=== PATIENT | male | born 1955 ===

== ENCOUNTER → 2021-05-22 | Outpatient (CLI) | payer MEDICARE, BC ==
--- NOTE | 2021-05-22 10:56 | XR ---
EXAM TYPE: LUMBAR SPINE X RAY SERIES COMPARISON: NONE HISTORY: Pain TECHNIQUE: 4 views are submitted. FINDINGS: Alignment is anatomic. The pedicles are intact. The transverse processes are intact. There is north re degenerative disc disease L5-S1. There is severe facet arthropathy L4-5 and L5-S1 with grade 1 ant erolisthesis L4 on L5. Mild diffuse osteopenia with curvature of the spine. Multilevel mild degenerat sharon disc disease. IMPRESSION: 1. Severe degenerative disc disease L5-S1. Suspect bilateral foraminal encroachment. 2. Severe facet arthropathy L4-5 and L5-S1 with grade 1 anterolisthesis L4 on L5.
== END | disposition home or self-care (01) ==
LOC: RADXRYALE 10:25
PROVIDERS: ATTEND Family Medicine
DX: M51.37 Other intervertebral disc degeneration, lumbosacral region (principal); M47.817 Spondylosis without myelopathy or radiculopathy, lumbosacral region; M43.16 Spondylolisthesis, lumbar region
CPT/HCPCS: 72110

== ENCOUNTER → 2021-07-10 | Outpatient (CLI) | payer MEDICARE, BC ==
--- NOTE | 2021-07-10 16:26 | MR ---
EXAMINATION TYPE: MR lumbar spine wo con DATE OF EXAM: 07/10/2021 COMPARISON: Plain film 05/22/2021 HISTORY: M54.5 Low back pain M51.36 Disc Degeneration TECHNIQUE: Multiplanar, multisequence images of the lumbar spine were acquired without IV contrast. L1-L2: Normal disc appearance without desiccation. No herniation, protrusion or disc bulging. No ca nal stenosis is present. Foramina are patent bilaterally. L2-L3: Posterior broad-based disc bulge causes minimal anterior mass effect on the thecal sac. No sig nificant foraminal encroachment. L3-L4: Posterior broad-based disc bulge causes mild anterior mass effect on the thecal sac. There is facet arthropathy with perching of the ligamentum flavum. Circumference and extension) complex encroa ches somewhat on the inferior aspect of the foramen on the right. L4-L5: There is marked facet arthropathy with hypertrophy ligamentum flavum. Posterolateral mass effe ct is noted on the thecal sac. There is circumferential extension of disc material, listhesis contrib utes causing foraminal encroachment. Posterior disc bulge effaces the anterior thecal sac. L5-S1: There are facet arthropathy changes. Posterior extension) complex is somewhat eccentric toward s the left, correlate for left S1 radiculopathy, air is mass effect on the left S1 nerve root with ci rcumferential extension) complex encroaches upon the foramina bilaterally left greater than right. Lumbar segments are intact. No paraspinal masses are identified. Conus medullaris has a normal appe arance. There is multilevel spondylosis present, loss of disc height and signal is greatest at L5-S1 but also present L3-4, endplate discogenic marrow signal changes are present. There is an anterolisth esis grade 1 L4-5, retrolisthesis grade 1 L5-S1. No significant spinal stenosis. IMPRESSION: Generative disc disease, facet arthropathy, foraminal encroachment as described.
== END | disposition home or self-care (01) ==
LOC: RADMRIMAIN 15:35
PROVIDERS: ATTEND Family Medicine
DX: M47.817 Spondylosis without myelopathy or radiculopathy, lumbosacral region (principal); M51.26 Other intervertebral disc displacement, lumbar region; M51.36 Other intervertebral disc degeneration, lumbar region
CPT/HCPCS: 72148

== ENCOUNTER → 2021-08-06 | Outpatient (CLI) | payer MEDICARE, BC ==
--- NOTE | 2021-08-06 12:04 | XR ---
Cervical spine HISTORY: M542,R202 CERVICALGIA,PARESTHESIA OF SKIN 5 views cervical spine Cervical vertebral bodies show preserved height. There is retrolisthesis grade 1 C5-6 with associated loss of disc height, spondylosis. Some facet arthropathy changes present. Foraminal encroachment is present on the right at C5-6 and C6-7 on the left same levels. Head is tilted toward the right. Bone mineralization is maintained. C7-T1 is not seen on the lateral view. Prevertebral soft tissues are wi thin normal limits. IMPRESSION: Degenerative disc disease, facet arthropathy.
== END | disposition home or self-care (01) ==
LOC: RADXRYALE 10:59
PROVIDERS: ATTEND Family Medicine
DX: M50.30 Other cervical disc degeneration, unspecified cervical region (principal); M43.12 Spondylolisthesis, cervical region; M47.812 Spondylosis without myelopathy or radiculopathy, cervical region
CPT/HCPCS: 72050

== ENCOUNTER → 2021-08-08 | Outpatient (CLI) | payer MEDICARE, BC ==
--- NOTE | 2021-08-08 09:29 | P.PAINCN ---
History of Present Illness - Reason for Consult Consult date: 08/08/21 - History of Present Illness Sergio is a 65-year-old male presented to clinic today for initial evaluation of pain management. He reports it is been having long-term ongoing neck and back pain. Today he reports that his low back pain is worse with pain radiating down his left leg greater than right. Pain radiates all the way down to his calf. He reports his most recent pain has been going on for about a year. He desc ribes his pain as an achy pain with occasional sharp pain with certain movements. Pain is made worse with stepping down large heights and excessive sitting. Pain is made better with rest and stretching. He is currently using heat packs and a stretching regime for his low back pain. Has not had physical therapy would like to begin physical therapy. On average he rates his pain as 7 out of 10 on a 0-to-10 scale at worst his pain as 9 out of 10. Medications and Allergies Home Medications Medication Instructions Recorded Confirmed Type Simvastatin [Zocor] 40 mg PO HS 12/13/14 12/15/14 History Amoxicillin/Potassium Clav 1 each PO Q12HR #20 tab 12/15/14 Rx [Augmentin 875-125 Tablet] Hydrocodone/Acetaminophen [[place] 1 - 2 each PO Q6HR PRN #40 tab 12/15/14 Rx 5-325] predniSONE [Deltasone] 20 mg PO DIRECTED #15 tab 12/15/14 Rx Allergies Allergy/AdvReac Type Severity Reaction Status Date / Time No Known Allergies Allergy Verified 12/13/14 15:49 Physical Exam REVIEW OF ORGAN SYSTEMS: CONSTITUTIONAL: No fevers or chills. No recent weight loss. EYES: denies troubles with vision. HEENT: No difficulties with hearing. No nosebleeds. No difficulty swallowing. RESPIRATORY: Denies any troubles with breathing or dyspnea on exertion. CARDIOVASCULAR: Denies any chest pain, palpitations, or recent heart attacks. GASTROINTESTINAL: Denies fatty food intolerance. Has change in bowel habits and gas bloat. GENITOURINARY: Denies any blood in urine. Has increased urinary frequency. NEUROLOGICAL: + numbness and tingling along the distal extremities. No seizure disorders or headaches. MUSCULOSKELETAL: Has back pain. SKIN:no skin cancer. No rash. PSYCHIATRIC: Denies current depression or suicidal thoughts. ENDOCRINE: Denies current thyroid disorders. Denies any blood sugar glucose intolerance. HEME/LYMPHATIC: Denies any lumps and bumps around the neck. History of deep venous thrombosis. ALLERGY/IMMUNOLOGY: No immunoglobulin therapy. No immune deficiencies. BREAST: Denies current breast lumps, pain or nipple discharge. Physical Examinations : Constitutiona : Cooperative , not in acute distress . HEENT : nech : supple , no Lymphadenopathy , normal thyroid size . : eyes no ptosis , no icterus, no photophobia . : ENT normal of hearing , normal oropharynx , no Thrush . Respiratory : Chest clear to auscultations Bilaterally , no wheezing , no Rhonchi . Cardiovascula : regular rate and rhythem , S1 , S2 , no S3 , no S4. Gastrointestina : abdomen soft no tenderness , bowel sounds , no organomegally . Genitourinary : Defferred . neurologic : Cranial nerve II to XII intact , no focal neurological deffecit . psychatric : alert , oriented X 3 , appropriate affect , intact judgment and insight . Lymphatic : no Lymphadenopathy . musculoskeltal : Cervical Spine motor stregnth in the deltoid and biceps, normal right side , normal Left side motor stregnth biceps and the wrist extensors normal right side ,normal left side . motor stregnth in the triceps muscle . normal Right side , normal Left side deep tendon reflexes= normal at the biceps , normal at Brachioradialis , normal at triceps. cervical facet loading test: Positive Bilaterally Spurling test= positive bilaterally. Neck distraction test= positive bilaterally. Stacey sign= negative bilaterally Lumber spine moter stegnth lower extremities ,thigh and legs 5/5 Right side , 5/5 Left side deep tendon reflexes : normal Knee Jerk , normal ankle Jerk lumber facet Loading Test= positive Right , positive Left Range of motion of the lumbar spine Flexion 30 degrees, extension 10 degrees strait leg raising test , positive at 30 degree Fabere test= positive Right , and positive left . Sever tenderness over the Sacroiliac joint on the Right , and Left sides Gaenslen test= positive bilaterally. Seated flexion test= positive bilaterally. Assessment and Plan Assessment: Assessment and plan Assessment: Lumbar degenerative disc disease Lumbar spondylosis with facet arthropathy without myelopathy Lumbar radiculopathy Cervical degenerative disc disease Cervical spondylosis with facet arthropathy without myelopathy Cervical radiculopathy Plan: Patient could benefit from lumbar epidural straight injection at L5-S1 number 1 up to 3 In the future patient could benefit from cervical epidural straight injection at C7-T1 Begin physical therapy 2-3 times a week for 4 weeks to increase range of motion, core strength, and pain reduction. Dr. Bob was available by phone for consultation during his visit. I have spent 50 minutes on patient care today. The time was used to review the medical records including relevant urine studies and Prescription history (MAPs), review of the available imaging, evaluation and examination of the patient, coordination of care with the medical staff and if applicable referring physicians, as well as creation of the medical record. - PQRS measures = - Patient's medications are documented in the chart. -Tobacco use is negative -Patient's has not received pneumococcal vaccine. -Advanced care planning discussed, patient not eligible. -Opiate contract signed. -Pain positive and follow-up visit/procedure is scheduled. -Patient's blood pressure measured 130/77, and documented in the record ,and patient will follow up with the primary care. -Patient's weight was measured and body mass index within the normal limits and counseling was done. and patient instructed to follow-up with the primary care physician. -Patient was not identified as an unhealthy alcohol user Time with Patient: Greater than 30 PQRS Measure Charge Sheet Home Medications: Ambulatory Orders Simvastatin [Zocor] 40 mg PO HS 12/13/14 Amoxicillin/Potassium Clav [Augmentin 875-125 Tablet] 1 each PO Q12HR #20 tab 12/15/14 Hydrocodone/Acetaminophen [[place] 5-325] 1 - 2 each PO Q6HR PRN #40 tab 12/15/14 predniSONE [Deltasone] 20 mg PO DIRECTED #15 tab 12/15/14
--- NOTE | 2021-08-08 09:41 | MR ---
MRI CERVICAL SPINE: CLINICAL HISTORY: Cervicalgia, cervical disc degeneration C5-C6, cervical disc degeneration C6-C7, an d paresthesia of skin all per order. Numbness left arm and face per patient. TECHNIQUE: Multiplanar, multisequence imaging of the cervical spine is performed without IV contrast. COMPARISON: Cervical spine x-ray 2 days ago. FINDINGS: Sagittal images of the cervical spine show the craniocervical junction to appear within nor mal limits. The cervical and upper thoracic spinal cord is normal in caliber and signal. Redemonstra tion of grade 1 retrolisthesis C5 on C6 and to lesser degree C6 on C7. Persistent moderate disc space narrowing and mild to moderate spurring C5-C6 level. Vertebral body heights are maintained. The bone marrow signal intensity is within normal limits. Mild mucosal thickening in the visualized portions of sphenoid sinus sagittal image 6 near the midline noted. Axial images at C2-C3 level show broad-based left paracentral disc protrusion minimally effacing ante rior thecal sac. Patent bilateral neural foramina. Axial images at C3-C4 level show focal central disc protrusion minimally effacing anterior thecal sac , patent bilateral neural foramina. Axial images at C4-C5 level show focal central disc protrusion mildly facing anterior thecal sac, pat ent bilateral neural foramina. Axial images at C5-C6 level shows spondylolisthesis and broad-based posterior spur disc complex with more prominent left paracentral component axial image 32, there is effacement of anterior thecal sac up to the ventral surface of the spinal cord, there is moderate bilateral neural foraminal narrowing due to foraminal disc herniation component greater on the right seen best on sagittal image 10. Axial images at C6-C7 level show spondylolisthesis with broad-based posterior disc protrusion effacin g anterior thecal sac and causing severe bilateral neural foraminal narrowing on axial image 24 and s agittal images. Axial images at C7-T1 level appear within normal limits IMPRESSION: Multilevel degenerative changes greatest at C5-C6 and C6-C7 levels as detailed above.
== END | disposition home or self-care (01) ==
LOC: RADMRIMAIN 06:50
PROVIDERS: ATTEND Family Medicine
DX: M50.323 Other cervical disc degeneration at C6-C7 level (principal); M50.322 Other cervical disc degeneration at C5-C6 level
CPT/HCPCS: 72141

== ENCOUNTER → 2021-08-08 | Outpatient (CLI) | payer MEDICARE, BC ==
[2021-08-08 09:35] VITALS: BP 130/77; PULSE 62; RESP 18; TEMP 97.8
--- NOTE | 2021-08-14 11:02 | P.PAINCN ---
History of Present Illness - Reason for Consult Consult date: 08/08/21 - History of Present Illness Sergio is a 65-year-old male presented to clinic today for initial evaluation of pain management. He reports it is been having long-term ongoing neck and back pain. Today he reports that his low back pain is worse with pain radiating down his left leg greater than right. Pain radiates all the way down to his calf. He reports his most recent pain has been going on for about a year. He desc ribes his pain as an achy pain with occasional sharp pain with certain movements. Pain is made worse with stepping down large heights and excessive sitting. Pain is made better with rest and stretching. He is currently using heat packs and a stretching regime for his low back pain. Has not had physical therapy would like to begin physical therapy. On average he rates his pain as 7 out of 10 on a 0-to-10 scale at worst his pain as 9 out of 10. Medications and Allergies Home Medications Medication Instructions Recorded Confirmed Type Simvastatin [Zocor] 40 mg PO HS 12/13/14 08/08/21 History Allergies Allergy/AdvReac Type Severity Reaction Status Date / Time No Known Allergies Allergy Verified 12/13/14 15:49 Physical Exam REVIEW OF ORGAN SYSTEMS: CONSTITUTIONAL: No fevers or chills. No recent weight loss. EYES: denies troubles with vision. HEENT: No difficulties with hearing. No nosebleeds. No difficulty swallowing. RESPIRATORY: Denies any troubles with breathing or dyspnea on exertion. CARDIOVASCULAR: Denies any chest pain, palpitations, or recent heart attacks. GASTROINTESTINAL: Denies fatty food intolerance. Has change in bowel habits and gas bloat. GENITOURINARY: Denies any blood in urine. Has increased urinary frequency. NEUROLOGICAL: + numbness and tingling along the distal extremities. No seizure disorders or headaches. MUSCULOSKELETAL: Has back pain. SKIN:no skin cancer. No rash. PSYCHIATRIC: Denies current depression or suicidal thoughts. ENDOCRINE: Denies current thyroid disorders. Denies any blood sugar glucose intolerance. HEME/LYMPHATIC: Denies any lumps and bumps around the neck. History of deep venous thrombosis. ALLERGY/IMMUNOLOGY: No immunoglobulin therapy. No immune deficiencies. BREAST: Denies current breast lumps, pain or nipple discharge. Physical Examinations : Constitutiona : Cooperative , not in acute distress . HEENT : nech : supple , no Lymphadenopathy , normal thyroid size . : eyes no ptosis , no icterus, no photophobia . : ENT normal of hearing , normal oropharynx , no Thrush . Respiratory : Chest clear to auscultations Bilaterally , no wheezing , no Rhonchi . Cardiovascula : regular rate and rhythem , S1 , S2 , no S3 , no S4. Gastrointestina : abdomen soft no tenderness , bowel sounds , no organomegally . Genitourinary : Defferred . neurologic : Cranial nerve II to XII intact , no focal neurological deffecit . psychatric : alert , oriented X 3 , appropriate affect , intact judgment and insight . Lymphatic : no Lymphadenopathy . musculoskeltal : Cervical Spine motor stregnth in the deltoid and biceps, normal right side , normal Left side motor stregnth biceps and the wrist extensors normal right side ,normal left side . motor stregnth in the triceps muscle . normal Right side , normal Left side deep tendon reflexes= normal at the biceps , normal at Brachioradialis , normal at triceps. cervical facet loading test: Positive Bilaterally Spurling test= positive bilaterally. Neck distraction test= positive bilaterally. Stacey sign= negative bilaterally Lumber spine moter stegnth lower extremities ,thigh and legs 5/5 Right side , 5/5 Left side deep tendon reflexes : normal Knee Jerk , normal ankle Jerk lumber facet Loading Test= positive Right , positive Left Range of motion of the lumbar spine Flexion 30 degrees, extension 10 degrees strait leg raising test , positive at 30 degree Fabere test= positive Right , and positive left . Sever tenderness over the Sacroiliac joint on the Right , and Left sides Gaenslen test= positive bilaterally. Seated flexion test= positive bilaterally. Assessment and Plan Assessment: Assessment and plan Assessment: Lumbar degenerative disc disease Lumbar spondylosis with facet arthropathy without myelopathy Lumbar radiculopathy Cervical degenerative disc disease Cervical spondylosis with facet arthropathy without myelopathy Cervical radiculopathy Plan: Patient could benefit from lumbar epidural straight injection at L5-S1 number 1 up to 3 In the future patient could benefit from cervical epidural straight injection at C7-T1 Begin physical therapy 2-3 times a week for 4 weeks to increase range of motion, core strength, and pain reduction. Dr. Bob was available by phone for consultation during his visit. I have spent 50 minutes on patient care today. The time was used to review the medical records including relevant urine studies and Prescription history (MAPs), review of the available imaging, evaluation and examination of the erin ent, coordination of care with the medical staff and if applicable referring physicians, as well as creation of the medical record. - PQRS measures = - Patient's medications are documented in the chart. -Tobacco use is negative -Patient's has not received pneumococcal vaccine. -Advanced care planning discussed, patient not eligible. -Opiate contract signed. -Pain positive and follow-up visit/procedure is scheduled. -Patient's blood pressure measured 130/77, and documented in the record ,and patient will follow up with the primary care. -Patient's weight was measured and body mass index within the normal limits and counseling was done. and patient instructed to follow-up with the primary care physician. -Patient was not identified as an unhealthy alcohol user Time with Patient: Greater than 30 PQRS Measure Charge Sheet Home Medications: Ambulatory Orders Simvastatin [Zocor] 40 mg PO HS 12/13/14
== END ==
LOC: PNWHC3 08:39
PROVIDERS: ATTEND Student in an Organized Health Care Education/Training Program
DX: M47.26 Other spondylosis with radiculopathy, lumbar region (principal); M51.16 Intervertebral disc disorders with radiculopathy, lumbar region; M47.22 Other spondylosis with radiculopathy, cervical region; M50.10 Cervical disc disorder with radiculopathy, unspecified cervical region; Z87.891 Personal history of nicotine dependence
CPT/HCPCS: 99202

== ENCOUNTER → 2021-09-03 | Outpatient (CLI) | payer MEDICARE, BC ==
[2021-09-03 08:18] VITALS: BP 177/85; PULSE 64; RESP 18; TEMP 97.7
--- NOTE | 2021-09-03 08:21 | P.PN ---
Subjective Progress Note Date: 09/03/21 This is a follow-up visit for this 65 years old male with a history of low back pain and history of neck pain with radiation to the upper extremity, he is diagnosed with lumbar radiculopathy and lumbar degenerative disc disease lumbar spondylosis, and he had severe paresthesia and numbness and tingling sensation in the cervical area with radiation to the left upper extremity, and had MRI of the cervical spine done recently which showed that patient had cervical degenerative disc disease and cervical foraminal stenosis, patient reported that his symptoms improved completely after he started to practice treatment, physical therapy treatment, continue to use Voltaren, he denies any motor or sensory deficit he denies any fever or night sweats and he reported that his numbness and tingling sensation and the paresthesia resolved completely after the physical therapy Objective - Exam Physical Examinations : -Constitutiona : Cooperative , not in acute distress . -HEENT : nech : supple , no Lymphadenopathy , normal thyroid size . : eyes : no ptosis , no icterus, no photophobia . - neurologic : Cranial nerve II to XII intact , no focal neurological deffecit . -psychatric : alert , oriented X 3 , appropriate affect , intact judgment and insight . -Lymphatic : no Lymphadenopathy . - musculoskeltal : Cervical Spine motor stregnth in the deltoid and biceps, normal right side , normal Left side motor stregnth biceps and the wrist extensors normal right side ,normal left side . motor stregnth in the triceps muscle . normal Right side , normal Left side Lumber spine moter stegnth lower extremities ,thigh and legs 5/5 Right side , 5/5 Left side. Around the cervical spine reviewed= this is his and cervical foraminal stenosis at C6 7 levels Assessment and Plan Plan: Assessment and plan Lumbar degenerative disc disease Lumbar spondylosis with facet arthropathy without myelopathy Lumbar radiculopathy Cervical degenerative disc disease Cervical spondylosis with facet arthropathy without myelopathy Cervical radiculopathy. Patient reported that his symptoms improved/resolved completely after physical therapy.currentely he had no symptoms. he will follow up in the pain clinic when necessary, in the future if needed we can schedule patient to have cervical epidural steroid injection at C6 7 levels left paramedian approach Time with Patient: Less than 30
== END ==
LOC: PNWHC3 07:36
PROVIDERS: ATTEND Specialist
DX: M47.26 Other spondylosis with radiculopathy, lumbar region (principal); M51.16 Intervertebral disc disorders with radiculopathy, lumbar region; M47.22 Other spondylosis with radiculopathy, cervical region; M50.10 Cervical disc disorder with radiculopathy, unspecified cervical region; Z87.891 Personal history of nicotine dependence
CPT/HCPCS: 99211

== ENCOUNTER 2021-12-30 06:59 | Emergency (ER) | payer MEDICARE, BC ==
[2021-12-30] MEDS ORDERED: METOCLOPRAMIDE 5 MG/ML 2 ML VIAL IVP STA (07:19)
[2021-12-30] MEDS ORDERED: KETOROLAC 15 MG/ML 1 ML VIAL IVP STA (07:19)
[2021-12-30] MEDS ORDERED: SODIUM CHLORIDE 0.9% 1,000 ML IV STA (07:19)
--- NOTE | 2021-12-30 07:22 | ED ---
General Adult HPI - General Chief complaint: Urogenital Stated complaint: Kidney Stone Pain Time Seen by Provider: 12/30/21 07:02 Source: patient, RN notes reviewed Mode of arrival: ambulatory Limitations: no limitations - History of Present Illness Initial comments: Patient is a pleasant 66-year-old male presenting to the emergency department with concern for kidney stone. Patient has had similar symptoms 3 times in the past associated with kidney stones. Onset of symptoms was for him. Symptoms woke patient from sleep. Patient has discomfort lower back with radiation towards the genitals. Somewhat more in the right side. Patient states this is exactly similar to previous kidney stone pain. Patient does have associated nausea that was severe however mild at this time. Discomfort remained severe. - Related Data Home Medications Medication Instructions Recorded Confirmed Simvastatin [Zocor] 40 mg PO HS 12/13/14 09/03/21 Allergies Allergy/AdvReac Type Severity Reaction Status Date / Time No Known Allergies Allergy Verified 12/30/21 07:05 Review of Systems ROS Statement: Those systems with pertinent positive or pertinent negative responses have been documented in the HPI. ROS Other: All systems not noted in ROS Statement are negative. Constitutional: Denies: fever Eyes: Denies: eye pain ENT: Denies: ear pain Respiratory: Denies: cough Cardiovascular: Denies: chest pain Endocrine: Denies: fatigue Gastrointestinal: Reports: as per HPI, abdominal pain, nausea. Denies: vomiting Genitourinary: Denies: dysuria Musculoskeletal: Reports: back pain Skin: Denies: rash Neurological: Denies: weakness Past Medical History Past Medical History: Hyperlipidemia Additional Past Medical History / Comment(s): kidney stones. chronic back pain History of Any Multi-Drug Resistant Organisms: None Reported Past Surgical History: Tonsillectomy Additional Past Surgical History / Comment(s): CATARACT, SINUS SURGERY, KIDNEY STONE REMOVAL Smoking Status: Never smoker Past Alcohol Use History: None Reported Past Drug Use History: None Reported General Exam Limitations: no limitations General appearance: alert, in no apparent distress Head exam: Present: normocephalic Eye exam: Present: normal appearance Neck exam: Present: normal inspection Respiratory exam: Present: normal lung sounds bilaterally Cardiovascular Exam: Present: regular rate, normal rhythm Expanded Peripheral pulses: 2+: Posterior Tibialis (R), Posterior Tibialis (L), Dorsalis Pedis (R), Dorsalis Pedis (L) GI/Abdominal exam: Present: soft, normal bowel sounds. Absent: distended, tenderness, guarding, rebound, rigid, pulsatile mass Extremities exam: Present: normal inspection Back exam: Present: normal inspection. Absent: tenderness, vertebral tenderness Neurological exam: Present: alert. Absent: motor sensory deficit Psychiatric exam: Present: normal affect, normal mood Skin exam: Present: normal color Course Vital Signs 12/30/21 07:03 Temperature 98.3 F Pulse Rate 61 Respiratory 19 Rate Blood Pressure 146/65 O2 Sat by Pulse 98 Oximetry Medical Decision Making - Medical Decision Making Patient reevaluated and much improved. Patient resting comfortably in bed. Patient and family updated on results. - Lab Data Result diagrams: 12/30/21 07:24 12/30/21 07:24 Lab Results 12/30/21 12/30/21 12/30/21 Range/Units 07:24 07:24 07:24 WBC 6.4 (3.8-10.6) k/uL RBC 4.95 (4.30-5.90) m/uL Hgb 15.9 (13.0-17.5) gm/dL Hct 47.5 (39.0-53.0) % MCV 96.0 (80.0-100.0) fL MCH 32.0 (25.0-35.0) pg MCHC 33.4 (31.0-37.0) g/dL RDW 12.6 (11.5-15.5) % Plt Count 226 (150-450) k/uL MPV 8.8 Neutrophils % 61 % Lymphocytes % 28 % Monocytes % 5 % Eosinophils % 3 % Basophils % 1 % Neutrophils # 3.9 (1.3-7.7) k/uL Lymphocytes # 1.8 (1.0-4.8) k/uL Monocytes # 0.3 (0-1.0) k/uL Eosinophils # 0.2 (0-0.7) k/uL Basophils # 0.1 (0-0.2) k/uL Sodium 138 (137-145) mmol/L Potassium 4.4 (3.5-5.1) mmol/L Chloride 104 (98-107) mmol/L Carbon Dioxide 26 (22-30) mmol/L Anion Gap 8 mmol/L BUN 24 H (9-20) mg/dL Creatinine 1.11 (0.66-1.25) mg/dL Est GFR (CKD-EPI)AfAm 79 (>60 ml/min/1.73 sqM) Est GFR (CKD-EPI)NonAf 69 (>60 ml/min/1.73 sqM) Glucose 138 H (74-99) mg/dL Calcium 9.0 (8.4-10.2) mg/dL Total Bilirubin 0.5 (0.2-1.3) mg/dL AST 25 (17-59) U/L ALT 20 (4-49) U/L Alkaline Phosphatase 78 (38-126) U/L Total Protein 7.2 (6.3-8.2) g/dL Albumin 4.3 (3.5-5.0) g/dL Amylase 66 (30-110) U/L Lipase 52 (23-300) U/L Urine Color Yellow Urine Appearance Clear (Clear) Urine pH 5.0 (5.0-8.0) Ur Specific [place] 1.026 (1.001-1.035) Urine Protein Negative (Negative) Urine Glucose (UA) Negative (Negative) Urine Ketones Negative (Negative) Urine Blood Trace H (Negative) Urine Nitrite Negative (Negative) Urine Bilirubin Negative (Negative) Urine Urobilinogen <2.0 (<2.0) mg/dL Ur Leukocyte Esterase Negative (Negative) Urine RBC 1 (0-5) /hpf Urine WBC 2 (0-5) /hpf Ur Squamous Epith Cells <1 (0-4) /hpf Calcium Oxalate Crystal Many H (None) /hpf Urine Bacteria Rare H (None) /hpf Urine Mucus Few H (None) /hpf - Radiology Data Radiology results: report reviewed (CT abdomen pelvis shows 2.5 mm calculi adjacent to the right UVJ which resides in the urinary bladder compatible with recently passed calculi.) Disposition Clinical Impression: Ureterolithiasis Disposition: HOME SELF-CARE Condition: Stable Instructions (If sedation given, give patient instructions): Kidney Stones (ED) Additional Instructions: Please do follow-up with primary care physician in the next couple days for recheck. Return for fever, increased pain, vomiting, worsening or changing symptoms or other concerns. Is patient prescribed a controlled substance at d/c from ED?: No Referrals: Brijesh Wilkinson DO [Primary Care Provider] - 1-2 days Time of Disposition: 08:15
[2021-12-30 07:32] LABS: Basophils # (A) 0.1 k/uL (0-0.2); Basophils % (A) 1 %; Eosinophils # (A) 0.2 k/uL (0-0.7); Eosinophils % (A) 3 %; HCT 47.5 % (39.0-53.0); HGB 15.9 gm/dL (13.0-17.5); Lymphocytes # (A) 1.8 k/uL (1.0-4.8); Lymphocytes % (A) 28 %; MCHC 33.4 g/dL (31.0-37.0); Mean Platelet Volume 8.8; Monocytes # (A) 0.3 k/uL (0-1.0); Monocytes % (A) 5 %; Neutrophils # (A) 3.9 k/uL (1.3-7.7); Neutrophils % (A) 61 %; Platelet Count 226 k/uL (150-450); RBC 4.95 m/uL (4.30-5.90); RDW 12.6 % (11.5-15.5); WBC 6.4 k/uL (3.8-10.6)
[2021-12-30 07:41] LABS: Appearance,Urine Clear (Clear); Bacteria,Urine Rare /hpf; Bilirubin,Urine Negative (Negative); Blood,Urine Trace (Negative); Calcium Oxalate Crystals,Urine Many /hpf; Color,Urine Yellow; Glucose,Urine (UA) Negative (Negative); Ketones,Urine Negative (Negative); Leukocyte Esterase,Urine Negative (Negative); Mucus,Urine Few /hpf; Nitrite,Urine Negative (Negative); Protein,Urine Negative (Negative); RBC,Urine 1 /hpf (0-5); Specific Gravity,Urine 1.026 (1.001-1.035); Squamous Epithelial Cell,Urine <1 /hpf (0-4); Urobilinogen,Urine <2.0 mg/dL (<2.0); WBC,Urine 2 /hpf (0-5)
[2021-12-30 07:46] LABS: Albumin 4.3 g/dL (3.5-5.0); Potassium 4.4 mmol/L (3.5-5.1); Total Bilirubin 0.5 mg/dL (0.2-1.3); Total Protein 7.2 g/dL (6.3-8.2)
--- NOTE | 2021-12-30 08:08 | CT ---
EXAMINATION TYPE: CT abdomen pelvis wo con DATE OF EXAM: 12/30/2021 COMPARISON: None HISTORY: Bilateral flank pain, worse on right. History of stones. CT DLP: 536 mGycm Examination of the solid and hollow viscera is limited given the lack of contrast. FINDINGS: LUNG BASES: No evidence for nodule. No evidence for infiltrate. LIVER/GB: The gallbladder is unremarkable. No space-occupying hepatic lesion. PANCREAS: No pancreatic mass identified. No inflammatory process seen. SPLEEN: No evidence for splenomegaly. No intrasplenic lesions seen. ADRENALS: No adrenal nodules identified. No evidence for thickening. KIDNEYS: There is a 2.5 mm calculus adjacent to the right UVJ which resides within the urinary bladde r compatible with a recently passed calculus. There is mild residual right-sided hydroureteronephrosi s. 5 nonobstructing right-sided renal calculi seen measuring up to 3 mm. On the left there is no evid ence for hydronephrosis. No calculi noted of the left kidney. BOWEL: Appendix has a normal appearance. No evidence of bowel obstruction. No inflammatory process. Lymph nodes: No evidence for adenopathy greater than 1 cm. Abdominal aorta: Atheromatous changes seen. No evidence for aneurysm. Genital organs: No significant abnormality. Other: No significant abnormality. IMPRESSION: There is a 2.5 mm calculus adjacent to the right UVJ which resides within the urinary bladder compati ble with a recently passed calculus. There is mild residual right-sided hydroureteronephrosis.
[2021-12-30 08:28] VITALS: PULSE 56; TEMP 97.7
[2021-12-30 08:29] VITALS: BP 116/72; RESP 18
== END 2021-12-30 08:29 | disposition home or self-care (01) ==
LOC: EC 06:59
DX: N20.1 Calculus of ureter (principal); E78.5 Hyperlipidemia, unspecified; Z79.899 Other long term (current) drug therapy
CPT/HCPCS: 36415; 80053; 82150; 83690; 85025; 81001; 74176; 99284; 96374; 96375; 96361; J2765; J1885

== ENCOUNTER 2023-07-18 19:02 | Inpatient (IN) | payer MEDICARE, BC ==
[~2023-07-18 19:02] MED LIST: IV FLUID CONTINUATION 1,000 ML IV ONE
--- NOTE | 2023-07-18 19:11 | ED ---
Chest Pain HPI - General Chief Complaint: Chest Pain Stated Complaint: STEMI Time Seen by Provider: 07/18/23 19:07 Source: EMS, RN notes reviewed, old records reviewed Mode of arrival: EMS Limitations: no limitations - History of Present Illness Initial Comments: This is a 67-year-old male to the emergency room today for evaluation of severe chest pain pain. Patient has history of high cholesterol. Patient states he has no high blood pressure with does have family history of heart disease. Patient presents by EMS for possible ST elevated [place]. MD Complaint: chest pain -: hour(s) (1) Onset: during rest Pain Location: substernal, left chest Pain Radiation: none Severity: severe Severity scale (1-10): 8 Quality: tightness, heaviness Consistency: constant Improves With: nothing Worsens With: nothing Anginal Symptoms: dyspnea, sense of impending doom Other Symptoms: palpitations Treatments Prior to Arrival: none - Related Data Home Medications Medication Instructions Recorded Confirmed Fluticasone Nasal [place] [Flonase 2 spr EA NOSTRIL DAILY 07/18/23 07/18/23 Nasal [place]] Levothyroxine Sodium [Synthroid] 50 mcg PO DAILY 07/18/23 07/18/23 Ofloxacin [Ofloxacin 0.3% Otic 4 - 5 drops BOTH EARS DIRECTED 07/18/23 07/18/23 Soln] Previous Rx's Medication Instructions Recorded Acetaminophen Tab [Tylenol] 650 mg PO Q6HR PRN tab 07/21/23 Aspirin 81 mg PO DAILY #30 tab 07/21/23 Atorvastatin [Lipitor] 80 mg PO DAILY #30 tab 07/21/23 Metoprolol Tartrate [Lopressor] 25 mg PO BID #60 tab 07/21/23 Nitroglycerin Sl Tabs [Nitrostat] 0.4 mg SUBLINGUAL Q5M PRN #15 tab 07/21/23 Prasugrel [Effient] 10 mg PO DAILY #30 tab 07/21/23 Allergies Allergy/AdvReac Type Severity Reaction Status Date / Time No Known Allergies Allergy Verified 07/18/23 19:35 Review of Systems ROS Statement: Those systems with pertinent positive or pertinent negative responses have been documented in the HPI. ROS Other: All systems not noted in ROS Statement are negative. EKG Findings - EKG Comments: EKG Findings:: EKG is sinus bradycardia inferior [place] ST elevation rate of 59 NC 167 QRS 122 QTC 421 Past Medical History Past Medical History: Hyperlipidemia Additional Past Medical History / Comment(s): kidney stones. chronic back pain History of Any Multi-Drug Resistant Organisms: None Reported Past Surgical History: Tonsillectomy Additional Past Surgical History / Comment(s): CATARACT, SINUS SURGERY, KIDNEY STONE REMOVAL Past Psychological History: No Psychological Hx Reported Smoking Status: Never smoker Past Alcohol Use History: None Reported Past Drug Use History: None Reported - Past Family History Mother Family Medical History: No Reported History Father Family Medical History: Coronary Artery Disease (CAD) (History of CABG in his late 60s) General Exam General appearance: alert, in no apparent distress, anxious Head exam: Present: atraumatic, normocephalic, normal inspection Eye exam: Present: normal appearance, PERRL, EOMI. Absent: scleral icterus, conjunctival injection, periorbital swelling ENT exam: Present: normal exam, mucous membranes moist Neck exam: Present: normal inspection. Absent: tenderness, meningismus, lymphadenopathy Respiratory exam: Present: normal lung sounds bilaterally. Absent: respiratory distress, wheezes, rales, rhonchi, stridor Cardiovascular Exam: Present: regular rate, normal rhythm, normal heart sounds. Absent: systolic murmur, diastolic murmur, rubs, gallop, clicks GI/Abdominal exam: Present: soft, normal bowel sounds. Absent: distended, tenderness, guarding, rebound, rigid Extremities exam: Present: normal inspection, full ROM, normal capillary refill. Absent: tenderness, pedal edema, joint swelling, calf tenderness Back exam: Present: normal inspection Neurological exam: Present: alert, oriented X3, CN II-XII intact Psychiatric exam: Present: normal affect, normal mood Skin exam: Present: warm, dry, intact, normal color. Absent: rash Course Vital Signs 07/18/23 07/18/23 07/18/23 19:03 19:07 19:15 Temperature 97.0 F L Pulse Rate 80 62 75 Respiratory 16 18 18 Rate Blood Pressure 182/102 162/93 165/85 O2 Sat by Pulse 100 99 99 Oximetry 07/18/23 07/18/23 19:26 19:30 Temperature Pulse Rate 88 56 L Respiratory 18 18 Rate Blood Pressure 168/105 151/97 O2 Sat by Pulse 99 96 Oximetry - Reevaluation(s) Reevaluation #1: 07/18/23 21:06 Medical records reviewed STEMI was paged on patient arrival Reevaluation #2: 07/18/23 21:06 Patient has no change in symptoms Reevaluation #3: 07/18/23 21:06 Patient informed results questions answered Studies Chest x-rays negative for acute disease interpreted by me Reevaluation #4: 07/18/23 21:06 Was pt. sent in by a medical professional or institution (, ILIR, [employer] COMM[employer]ICATIONS [employer]GEANT, urgent care, hospital, or shelter...) When possible be specific @ -no Did you speak to anyone other than the patient for history (EMS, parent, family, police, friend...)? What history was obtained from this source @ -no Did you review nursing and triage notes (agree or disagree)? Why? @ -agree Are old charts reviewed (outside hosp., previous admission, EMS record, old EKG, old radiological studies, urgent care reports/EKG's, shelter records)? Report findings @ -yes Differential Diagnosis (chest pain, altered mental status, abdominal pain women, abdominal pain men, vaginal bleeding, weakness, fever, dyspnea, syncope, headache, dizziness, GI bleed, back pain, seizure, CVA, palpatations, mental health, musculoskeletal)? @ -prior EKG interpreted by me (3pts min.). @ -yes X-rays interpreted by me (1pt min.). @ -yes CT interpreted by me (1pt min.). @ -no U/S interpreted by me (1pt. min.). @ -no What testing was considered but not performed or refused? (CT, X-rays, U/S, labs)? Why? @ -none What meds were considered but not given or refused? Why? @ -none Did you discuss the management of the patient with other professionals (professionals i.e. ILIR Jacinto, [employer] SERGEANT, lab, RT, psych nurse, dialysis social worker, drawing frame tender, teacher, environmental protection officer, case hardener)? Give summary @ -no Was smoking cessation discussed for >3mins.? @ -no Was critical care preformed (if so, how long)? @ -yes31 Were there social determinants of health that impacted care today? How? (Homelessness, low income, unemployed, alcoholism, drug addiction, transportation, low edu. Level, literacy, decrease access to med. care, residential, rehab)? @ -none Was there de-escalation of care discussed even if they declined (Discuss DNR or withdrawal of care, Hospice)? DNR status @ -no What co-morbidities impacted this encounter? (DM, HTN, Smoking, COPD, CAD, Cancer, CVA, ARF, Chemo, Hep., AIDS, mental health diagnosis, sleep apnea, morbid obesity)? @ -none Was patient admitted / discharged? Hospital course, mention meds given and route, prescriptions, significant lab abnormalities, going to OR and other pertinent info. 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 @ -no Drug Therapy requiring intensive monitoring for toxicity (Heparin, Nitro, Insulin, Cardizem)? @ -no Were any procedures done? @ -no Diagnosis/symptom? @ -STEMI Acute, or Chronic, or Acute on Chronic? @ -Acute Uncomplicated (without systemic symptoms) or Complicated (systemic symptoms)? @ -Complicated Side effects of treatment? @ -no Exacerbation, Progression, or Severe Exacerbation? @ -exacerbation Poses a threat to life or bodily function? How? (Chest pain, [place], [place], pneumonia, PE, COPD, DKA, ARF, appy, cholecystitis, CVA, Diverticulitis, Homicidal, Suicidal, threat to staff... and all critical care pts) @ -yes STEMI Reevaluation #5: 07/18/23 21:06 Differential Chest Pain: Stable Angina, Unstable Angina, STEMI, NSTEMI Aortic Dissection, Pneumothorax, Musculoskeletal, Esophageal Spasm GERD, Cholecystitis, Pancreatitis, Zoster, this is not meant to be an all-inclusive list. 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
[2023-07-18] MEDS ORDERED: MORPHINE SULFATE 4 MG/ML SYRINGE IV PRN (19:15)
[2023-07-18] MEDS ORDERED: NITROGLYCERIN SL TABS 0.4 MG TAB SUBLINGUAL PRN ×2 (19:15→21:07)
[2023-07-18] MEDS ORDERED: ASPIRIN 81 MG PO STA (19:15)
[2023-07-18] MEDS ORDERED: HEPARIN SOD,PORK IN 0.45% NACL 25,000 UNIT in 0.45% NACL 1 250ML.BAG IV SCH (19:15)
[2023-07-18] MEDS ORDERED: HEPARIN SODIUM 1,000 UN/ML (10ML VL) IV ONE (19:15)
[2023-07-18] MEDS ORDERED: HEPARIN SODIUM 1,000 UN/ML (10ML VL) ONE (19:50)
[2023-07-18] MEDS ORDERED: fentaNYL (PF) 50 MCG/ML 2 ML AMP ONE (19:50)
[2023-07-18] MEDS ORDERED: LIDOCAINE 1% INJ 10MG/ML (30 ML VIAL-PF) SQ ONE (19:52)
[2023-07-18] MEDS ORDERED: MIDAZOLAM 2 MG/2 ML VIAL IVP ONE (19:54)
[2023-07-18] MEDS ORDERED: fentaNYL (PF) 50 MCG/ML 2 ML AMP IVP ONE (19:54)
[2023-07-18] MEDS ORDERED: VERAPAMIL SYRINGE (5 MG/10 ML) INTRAARTER ONE (20:00)
[2023-07-18] MEDS: HEPARIN SODIUM 1,000 UN/ML (10ML VL) IV ONE ×3 (20:05→20:44)
[2023-07-18] MEDS ORDERED: PRASUGREL 10 MG TAB ONE (20:07)
[2023-07-18] MEDS ORDERED: PRASUGREL 10 MG TAB PO ONE (20:11)
--- NOTE | 2023-07-18 20:47 | P.CRDCN ---
History of Present Illness Consult date: 07/18/23 History of present illness: HISTORY OF PRESENTING ILLNESS Patient is a 67-year-old male with past medical history of dyslipidemia on simvastatin presented to the ER because of substernal chest pain that started 1.5 hours prior to coming to the hospital. He describes his pain as substernal chest pressure-like sensation which was associated with diaphoresis and sense of impending doom. It was also associated with difficulty breathing. On presentation to ER his ECG showed ST elevations in inferior leads. Patient denies any prior history of coronary artery disease are myocardial infarction. He denies any prior history of strokes or TIA. He denies any prior history of bleeding diathesis or any cancers. Patient denies that he is not a smoker. He denies any heavy alcohol use and marijuana use. REVIEW OF SYSTEMS 14 point review of system is negative except what is mentioned above in HPI. PHYSICAL EXAMINATION Vital signs reviewed. Head: Normocephalic. Eyes: Sclerae nonicteric. Neck: Brisk carotid upstroke, no jugular venous distention. Lungs: Clear to auscultation. Heart: Regular rate and rhythm, S1-S2, no S3, no murmur or rub. Abdomen: Soft nontender, positive bowel sounds no organomegaly. Extremities: No edema, intact distal pulses. Neuro: Alert, oritented, no focal deficits ASSESSMENT Inferior STEMI Dyslipidemia PLAN Emergent cardiac catheterization. Verbal consent was obtained from the patient and the family. Risk factors including stroke with an emergent open heart surgery will discuss. Patient fell To proceed with heart catheterization. Further condition to follow cath results Past Medical History Past Medical History: Hyperlipidemia Additional Past Medical History / Comment(s): kidney stones. chronic back pain History of Any Multi-Drug Resistant Organisms: None Reported Past Surgical History: Tonsillectomy Additional Past Surgical History / Comment(s): CATARACT, SINUS SURGERY, KIDNEY STONE REMOVAL Past Psychological History: No Psychological Hx Reported Smoking Status: Never smoker Past Alcohol Use History: None Reported Past Drug Use History: None Reported Medications and Allergies Home Medications Medication Instructions Recorded Confirmed Type Fluticasone Nasal [place] [Flonase 2 spr EA NOSTRIL DAILY 07/18/23 07/18/23 History Nasal [place]] Levothyroxine Sodium [Synthroid] 50 mcg PO DAILY 07/18/23 07/18/23 History Ofloxacin [Ofloxacin 0.3% Otic 4 - 5 drops BOTH EARS DIRECTED 07/18/23 1 09/17/22 History Soln] Pseudoephedrine HCl 30 - 60 mg PO BID PRN 07/18/23 07/18/23 History Simvastatin [Zocor] 20 mg PO DAILY 07/18/23 07/18/23 History tadalafiL [Cialis] 20 mg PO DAILY PRN 07/18/23 07/18/23 History Allergies Allergy/AdvReac Type Severity Reaction Status Date / Time No Known Allergies Allergy Verified 07/18/23 19:35 Physical Exam Vitals: Vital Signs Temp Pulse Resp BP Pulse Ox 07/18/23 19:32 64 18 164/116 98 07/18/23 19:30 56 L 18 151/97 96 07/18/23 19:26 88 18 168/105 99 07/18/23 19:15 75 18 165/85 99 07/18/23 19:07 62 18 162/93 99 07/18/23 19:03 97.0 F L 80 16 182/102 100 Intake and Output 07/18/23 07/18/23 07/18/23 06:59 14:59 22:59 Other: Weight 74.843 kg Results Cardiac Enzymes 07/18/23 Range/Units 19:10 Troponin I 0.055 H* (0.000-0.034) ng/mL Coagulation 07/18/23 Range/Units 19:10 APTT 22.7 (22.0-30.0) sec Current Medications Generic Name Dose Route Start Last Admin Trade Name Freq PRN Reason Stop Dose Admin Aspirin 325 mg 07/19/23 09:00 Aspirin 325 Mg Tab PO DAILY [facility] Atorvastatin Calcium 80 mg 07/19/23 09:00 Atorvastatin 80 Mg Tab PO DAILY [facility] Heparin Sodium/Sodium Chloride 250 mls @ 8.981 mls/hr 07/18/23 19:15 07/18/23 19:24 25,000 unit/ Sodium Chloride IV 12 units/kg/hr .Q24H LEDA 8.981 mls/hr Administration Protocol 12 UNITS/KG/HR Metoprolol Tartrate 25 mg 07/18/23 21:00 Metoprolol Tartrate 25 Mg Tab PO BID [facility] Morphine Sulfate 4 mg 07/18/23 19:15 07/18/23 19:23 Morphine Sulfate 4 Mg/Ml Syringe IV 4 mg Q4HR PRN Administration Chest Pain Nitroglycerin 0.4 mg 07/18/23 19:15 Nitroglycerin Sl Tabs 0.4 Mg Tab SUBLINGUAL Q5M PRN Chest Pain Intake and Output 07/18/23 07/18/23 07/18/23 06:59 14:59 22:59 Other: Weight 74.843 kg Patient Weight 07/19/23 06:59 Weight 74.843 kg
[2023-07-18] MEDS ORDERED: IOPAMIDOL-370 200ML BTL INJ ONE (20:49)
--- NOTE | 2023-07-18 20:53 | P.CARDCATH ---
Date of Procedure: 07/18/23 Description of Procedure: DIAGNOSTIC CORONARY ANGIOGRAPHY and LEFT HEART CATH REPORT PROCEDURES PERFORMED: Left heart catheterization Selective coronary angiography Moderate conscious sedation 14 mins Ultrasound assisted Right radial access INDICATION: STEMI 67-year-old with possible history of dyslipidemia presented to the hospital because of substernal typical type chest pain that started 1.5 heart prior to the presentation. CONSENT: I have discussed the risks, benefits and alternative therapies for the above-mentioned procedure, sedation/analgesia and necessary blood product administration (if indicated, as they pertain to this patient). The patient has indicated understanding and acceptance of the risks and procedures discussed. Conscious Sedation: Patient's ECG, heart rate, blood pressure, pulse oximetry was monitored throughout the duration of procedure under the direct supervision. 1 mg Versed and 25 mg Fentanyl were used for induction of moderate conscious sedation. Total duration of 14 minutes. PROCEDURE:After the risks, benefits and alternatives of the above mentioned procedure explained in detail with the patient, informed consent was obtained. Ultrasound was used to identify the radial artery. Patient was taken to the catheterization lab and prepped and draped in usual sterile fashion. 1% lidocaine was infiltrated over the right radial artery. A 6-Slov[place] sheath was placed in the right radial artery using modified Seldinger technique. The sheath was flushed 5 mg verapamil was administered intra-arterially. J tipped wire was advanced under fluoroscopic guidance. Patient received 4000 units of heparin in the ER. During the procedure he was given 2000 units of heparin initially.. Over the wire JL4 diagnostic catheter was advanced. Wire was removed, catheter was flushed and manipulated under fluoroscopy to selectively engaged the left coronary ostium. Left coronary angioplasty was performed in different angiographic projections. This catheter was exchanged for a JR4 diagnostic catheter over the wire. The catheter was flushed and manipulated to cross the aortic valve. LV pressures were obtained. Pullback was performed across aortic valve and catheter was manipulated to selectively engage the right coronary ostium under fluoroscopic guidance. Right coronary angiography was performed in different angiographic projections. Catheter was removed over the wire. Radial sheath was flushed. After careful review of images it was decided that right coronary artery is the culprit lesion and we will plan for intervention HEMODYNAMICS: Aortic Pressure: 165/85 mmHg. LV pressure: 174/15 mmHg. LVEDP 21 mmHg. SELECTIVE CORONARY ARTERIOGRAPHY: LEFT MAIN: The left main is a large caliber vessel which bifurcates into the LAD and circumflex. There is no significant stenosis. LEFT ANTERIOR DESCENDING CORONARY ARTERY: Ostial LAD has 30-40% disease. Proximal LAD has 40-50% luminal irregularities. Mid LAD has 90% disease. Distal LAD has 30-40% luminal irregularities. BRADEN-3 flow. Small diagonal branches appears angiographically normal. LEFT CIRCUMFLEX CORONARY ARTERY: It is nondominant vessel. Left circumflex is a moderate caliber vessel. Proximal LCx has tubular 30-40% luminal irregularity. It is best OM1 which a medium-sized vessel and appears angiographically normal. Posterior bifurcates. Mid LCx after getting OM1 branch has 99% stenosis. BRADEN- 3 flow. Distally it gives rise to OM 2 branch which appears angiographically normal. Left coronary arteries appears to give epicardial collaterals to PDA. RIGHT CORONARY ARTERY: Dominant vessel. 100% occlusion in mid RCA. IMPRESSION: 100% mid RCA stenosis which is culprit 99% mid LCx stenosis 90% mid LAD stenosis Elevated LVEDP PLAN: PCI to RCA. updated family Performing Physician Maicol Cesar MD
[2023-07-18 20:55] LABS: Basophils % (A) 0 %; Eosinophils # (A) 0.2 k/uL (0-0.7); Eosinophils % (A) 3 %; HCT 46.8 % (39.0-53.0); HGB 15.8 gm/dL (13.0-17.5); Lymphocytes # (A) 1.4 k/uL (1.0-4.8); Lymphocytes % (A) 24 %; MCHC 33.7 g/dL (31.0-37.0); Mean Platelet Volume 9.2; Monocytes # (A) 0.3 k/uL (0-1.0); Monocytes % (A) 5 %; Neutrophils # (A) 3.9 k/uL (1.3-7.7); Neutrophils % (A) 67 %; Platelet Count 158 k/uL (150-450); RBC 4.93 m/uL (4.30-5.90); WBC 5.8 k/uL (3.8-10.6)
[2023-07-18] MEDS ORDERED: METOPROLOL TARTRATE 25 MG TAB PO SCH (21:00)
[2023-07-18 21:01] LABS: ALT 23 U/L (4-49); AST 29 U/L (17-59); African American GFR (CKD) >90 (>60 ml/min/1.73 sqM); Albumin 4.5 g/dL (3.5-5.0); Alkaline Phosphatase 82 U/L (38-126); Anion Gap 12 mmol/L; Blood Urea Nitrogen 23 mg/dL (9-20); Calcium 9.7 mg/dL (8.4-10.2); Carbon Dioxide 20 mmol/L (22-30); Chloride 105 mmol/L (98-107); Glucose 198 mg/dL (74-99); Non-African American GFR(CKD) 85 (>60 ml/min/1.73 sqM); Potassium 4.2 mmol/L (3.5-5.1); Sodium 137 mmol/L (137-145); Total Bilirubin 0.5 mg/dL (0.2-1.3); Total Protein 7.2 g/dL (6.3-8.2)
[2023-07-18] MEDS ORDERED: RX INFO: IV CONTRAST WAS GIVEN 1 EACH MISC MISCELLANE PRN (21:07)
[2023-07-18] MEDS ORDERED: ZOLPIDEM 5 MG TAB PO PRN (21:07)
[2023-07-18] MEDS ORDERED: ATROPINE SULFATE 0.1 MG/ML 10ML SYRINGE IV PRN (21:07)
[2023-07-18] MEDS ORDERED: MAG HYDROX/AL HYDROX/SIMETH 30 ML CUP PO PRN (21:07)
[2023-07-18 21:10] LABS: Glucose,Whole Blood 131 mg/dL (70-110)
[2023-07-18] MEDS ORDERED: SODIUM CHLORIDE 0.9% 1,000 ML in EMPTY BAG 1 BAG IV SCH (21:15)
--- NOTE | 2023-07-18 21:17 | P.CARDCATH ---
Date of Procedure: 07/18/23 Description of Procedure: PERCUTANEOUS TRANSLUMINAL CORONARY ANGIOPLASTY CLINICAL INFORMATION: The patient is a 67-year-old male with known history of smoking and hyperlipidemia who presented with acute chest discomfort and EKG changes consistent with inferior wall STEMI, he underwent cardiac catheterizati on by Dr. Cesar and was found to have acutely occluded mid RCA . Recommendations were made regarding angioplasty and stenting. The procedure as well as the risks and the complications were discussed with the patient who was in full understanding and agreement. PROCEDURE: A 6 [place] AL 0.75 guiding catheter was introduced into the system. After cannulating the right coronary ostium, attempt to advance 0.014 BMW J-wire was unsuccessful, that wire was removed and a 0.014 whisper J wire was advanced across the lesion and positioned distally with the help of a fine cross catheter subsequently the wire was exchanged to the BMW J wire. Following that a 2.5 x 12 mm Treck balloon was advanced and inflated at 8 atmosphere. After removing the balloon a TapTap eye IVUS catheter was advanced and imaging was performed. Following that a 3.5 x 38 mm Xience neptali point stent was deployed. It was dilated at 16 lety lety. After removing the balloon another 3.5 x 38 mm Xience neptali point stent was deployed proximal to the first one at 16 lety. After removing the balloon repeat IVUS images were obtained and subsequently 3.5 x 20 mm NC Treck balloon was advanced and multiple inflations at a maximum of 10 lety were done. After the last inflation, after appropriate wait, the balloon and the guidewire were withdrawn back into the guiding catheter. Images were obtained and repeated. Those images reveal stable successful stenting. At that point, the guiding catheter, the balloon, and guidewire were removed. The sheath was removed. Hemostasis was obtained with deployment of a TR band. There were no immediate complications. The patient was returned to the room in stable condition. Of note, the patient received 8000 units of heparin as well as Effient. His ACT was followed. There was no immediate complications. He had improvement in his EKG changes and resolution of his chest discomfort. RESULTS: Successful stenting of the long segment of the mid RCA with reduction of stenosis from 100% to less than 5 % with intravascular ultrasound imaging. The patient had a plaque proximally and diffuse disease in the distal vessel. RECOMMENDATIONS: The patient will continue on aspirin and Effient for 1 year without any interruption in addition to aggressive coronary risks modifications, attempting to maintain the LDL to less than 70 mg/dL. He'll be evaluated regarding the need to undergo revascularization of his LAD and left circumflex at the later time. The findings and recommendations were discussed with the patient and the family, they are in full understanding and agreement. Duration of sedation: 43 minutes
[2023-07-18] MEDS: ATORVASTATIN 80 MG TAB PO SCH (22:45)
--- NOTE | 2023-07-19 01:36 | P.HPIM ---
History of Present Illness H&P Date: 07/18/23 Chief Complaint: chest pain 67 year old male with hyperlipidemia patient coming in for sudden onset chest pain, he denies any cardiac history , he had a negative stress test 5 year s ago , and regularly see his doctor, had a recent EKG that he was told was normal . today he had a simple OP procedure for tube in his ears, got back home, was supposed to be resting all day, but then went out for some yard work , that he regularly does with no limitations, but suddenly started experiencing retrosternal chest pain radiating to his left arm and elbow, with tingling in his finger tips, pain was severe squeezing in nature, associated with heavy breathing , no palpitations, dizziness, nausea or vomiting. he called 911 and came to the hospital , he did not try and take anything for it at home. EKG was suggestive of a STEMI, he was rushed to the medical laboratory assistant, and had a stent deployed to his RCA. he tolerated procedure well, and currently is pain free He denies any fever, chills, cough, sore throat, nausea , vomiting, abd pain , changes in urinary or bowel habits. he denies tobacco smoking,illicit drugs or heavy drinking review of systems Pertinent positives as noted in HPI. All other systems were reviewed and are negative on exam Constitutional: No acute distress, conversant, pleasant Eyes: Anicteric sclerae, moist conjunctiva, Pupils equal round reactive to light ENMT: NC/AT Oropharynx clear, no erythema, or exudates Neck: Supple, no masses, or JVD No carotid bruits No thyromegaly Lungs: Clear to auscultation Clear to percussion Normal respiratory effort, no accessory muscle use Cardiovascular: Heart regular in rate and rhythm, No murmurs, gallops, or rubs No peripheral edema Abdominal: Soft Nontender, no guarding, rebound or rigidity Abdomen moving with respiration Normoactive bowel sounds No hepatomegaly, No splenomegaly No palpable mass No abdominal wall hernia noted Extremities: left heart cath entry site, right wrist , looks unremarkable No digital cyanosis No clubbing Pedal pulses intact and symmetrical Radial pulses intact and symmetrical No calf tenderness Psychiatric: Alert and oriented to person, place and time Appropriate affect fair judgement Neuro Muscles Strength 5/5 in all 4 extremities Sensation to light touch grossly present throughout Cranial nerves II-XII grossly intact Lymphatics: no palpable cervical or supraclavicular lymph nodes Past Medical History Past Medical History: Hyperlipidemia Additional Past Medical History / Comment(s): kidney stones. chronic back pain History of Any Multi-Drug Resistant Organisms: None Reported Past Surgical History: Tonsillectomy Additional Past Surgical History / Comment(s): CATARACT, SINUS SURGERY, KIDNEY STONE REMOVAL Past Anesthesia/Blood Transfusion Reactions: No Reported Reaction Past Psychological History: No Psychological Hx Reported Smoking Status: Never smoker Past Alcohol Use History: None Reported Past Drug Use History: None Reported Medications and Allergies Home Medications Medication Instructions Recorded Confirmed Type Fluticasone Nasal [place] [Flonase 2 spr EA NOSTRIL DAILY 07/18/23 07/18/23 History Nasal [place]] Levothyroxine Sodium [Synthroid] 50 mcg PO DAILY 07/18/23 07/18/23 History Ofloxacin [Ofloxacin 0.3% Otic 4 - 5 drops BOTH EARS DIRECTED 07/18/23 07/18/23 History Soln] Pseudoephedrine HCl 30 - 60 mg PO BID PRN 07/18/23 07/18/23 History Simvastatin [Zocor] 20 mg PO DAILY 07/18/23 07/18/23 History tadalafiL [Cialis] 20 mg PO DAILY PRN 07/18/23 07/18/23 History Allergies Allergy/AdvReac Type Severity Reaction Status Date / Time No Known Allergies Allergy Verified 07/18/23 19:35 Physical Exam Vitals: Vital Signs Temp Pulse Resp BP Pulse Ox 07/19/23 01:10 61 27 H 120/71 96 07/19/23 01:00 49 L 16 110/71 93 L 07/19/23 00:50 48 L 20 110/71 93 L 07/19/23 00:40 45 L 12 109/70 95 07/19/23 00:30 47 L 26 H 116/87 93 L 07/19/23 00:20 45 L 16 116/87 95 07/19/23 00:10 45 L 12 116/96 94 L 07/19/23 00:00 98.0 F 43 L 16 110/96 94 L 07/18/23 23:50 44 L 13 102/68 93 L 07/18/23 23:40 48 L 16 102/68 94 L 07/18/23 23:38 45 L 14 102/68 94 L 07/18/23 23:30 46 L 14 102/68 94 L 07/18/23 23:20 44 L 14 102/68 93 L 07/18/23 23:10 44 L 16 118/92 94 L 07/18/23 23:00 60 25 H 123/74 94 L 07/18/23 22:50 53 L 13 123/74 95 07/18/23 22:40 51 L 17 140/79 94 L 07/18/23 22:30 60 18 142/88 93 L 07/18/23 22:20 49 L 10 L 142/88 97 07/18/23 22:10 46 L 11 L 137/84 95 07/18/23 22:00 58 L 14 127/75 94 L 07/18/23 21:50 54 L 12 127/75 96 07/18/23 21:40 53 L 16 132/79 97 07/18/23 21:30 49 L 12 111/72 95 07/18/23 21:20 47 L 12 111/72 97 07/18/23 21:10 97.8 F 76 12 120/81 97 07/18/23 19:32 64 18 164/116 98 07/18/23 19:30 56 L 18 151/97 96 07/18/23 19:26 88 18 168/105 99 07/18/23 19:15 75 18 165/85 99 07/18/23 19:07 62 18 162/93 99 07/18/23 19:03 97.0 F L 80 16 182/102 100 Intake and Output 07/18/23 07/18/23 07/19/23 14:59 22:59 06:59 Intake Total 300 74.84 224.52 Output Total 350 0 Balance 300 -275.16 224.52 Intake: IV 300 Intake, IV Titration 74.84 224.52 Amount Sodium Chloride 0.9% 1, 74.84 224.52 000 ml In Empty Bag 1 bag @ 1 ML/KG/HR 74.843 mls/ hr IV .[id number] [facility] Rx#: [id number] Output: Urine 350 0 Other: Voiding Method Urinal Weight 74.843 kg Results CBC & Chem 7: 07/18/23 19:10 07/18/23 19:10 Labs: Abnormal Lab Results - Last 24 Hours (Table) 07/18/23 07/18/23 07/18/23 Range/Units 19:10 19:10 21:09 Carbon Dioxide 20 L (22-30) mmol/L BUN 23 H (9-20) mg/dL Glucose 198 H (74-99) mg/dL POC Glucose (mg/dL) 131 H (70-110) mg/dL Troponin I 0.055 H* (0.000-0.034) ng/mL Thrombosis Risk Factor Assmnt - Choose All That Apply Any of the Below Risk Factors Present?: No Other Risk Factors: Yes Each Risk Factor Represents 2 Points: Age 61-74 years Other congenital or acquired thrombophilia - If yes, enter type in comment: No Thrombosis Risk Factor Assessment Total Risk Factor Score: 2 Thrombosis Risk Factor Assessment Level: Low Risk Assessment and Plan Assessment: 67 year old male with hyperlipidemia , coming in for sudden onset chest pain , EKG showed inferior leads ST elevation he was rushed to the medical laboratory assistant, I discussed the case with ED doc and I accepted the admission for STEMI with anticpated length of stay > 2 midnights STEMI EKG inferior leads ST elevation Heart cath , RCA stent effient ASA, statin cardiology following monitor 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
[2023-07-19] MEDS: LEVOTHYROXINE 50 MCG TAB PO SCH (06:23)
--- NOTE | 2023-07-19 07:47 | XR ---
EXAMINATION TYPE: XR chest 2V DATE OF EXAM: 07/19/2023 6:55 AM CLINICAL INDICATION:Male, 67 years old with history of Chest pain; [facility] COMPARISON: None TECHNIQUE: XR chest 2V Frontal and lateral views of the chest. FINDINGS: Lines/Tubes: EKG leads overlie the chest. No indwelling lines are seen. Lungs/Pleura: There is no evidence of pleural effusion, focal consolidation, or pneumothorax. Pulmonary vascularity: Not increased. Heart/mediastinum: Cardiomediastinal silhouette is within normal limits. Atherosclerotic calcificati ons of the aorta. Musculoskeletal: No acute osseous pathology. Remote healed left fifth rib fracture. Other findings: None significant. Possible small calcification left upper quadrant. IMPRESSION: No acute cardiopulmonary disease/process.
[2023-07-19] MEDS ORDERED: ASPIRIN 325 MG TAB PO SCH (09:00)
[2023-07-19] MEDS ORDERED: ASPIRIN 81 MG PO SCH (09:00)
[2023-07-19] MEDS ORDERED: ATORVASTATIN 80 MG TAB PO SCH (09:00)
[2023-07-19] MEDS ORDERED: METOPROLOL TARTRATE 25 MG TAB PO SCH (09:00)
[2023-07-19] MEDS: ATORVASTATIN 80 MG TAB PO SCH (09:05)
[2023-07-19] MEDS: ASPIRIN 81 MG PO SCH (09:05)
[2023-07-19] MEDS: HEPARIN SODIUM,PORCINE 5,000 UNIT/ML 1 ML VIAL SQ SCH ×2 (09:05→17:31)
[2023-07-19] MEDS: PRASUGREL 10 MG TAB PO SCH (09:18)
[2023-07-19 09:46] LABS: Mean Platelet Volume 8.6; Platelet Count 158 k/uL (150-450)
--- NOTE | 2023-07-19 09:59 | P.PN ---
Subjective Progress Note Date: 07/19/23 Pt has no new complaints today. Per nursing, BPs were soft and metoprolol was held. Doing well s/p RCA stenting. Gen: awake, alert HEENT: normocephalic, atraumatic, good hearing acuity, moist mucous membranes Resp: good air exchange, breathing comfortably with no accessory muscle use CVS: good distal perfusion x 4, GI: soft, NTTP, ND : no SPT, no CVAT, berkowitz catheter not present MSK: no pitting edema, no clubbing Neuro: non-focal, moving all extremities Psych: cooperative, euthymic mood Assessment/plan: ST elevation [place] status post RCA stenting -Status post RCA stenting -Continue aspirin, prasugrel -Atorvastatin 80 mg daily -Metoprolol 25 mg twice a day as tolerated -Cardiology is following Hyperlipidemia Hypothyroidism -Simvastatin was changed to atorvastatin as above -Continue levothyroxine Patient is full code Objective - Vital Signs Vital signs: Vital Signs Temp 98.3 F 07/19/23 09:00 Pulse 76 07/19/23 09:00 Resp 9 L 07/19/23 09:00 BP 101/54 07/19/23 09:00 Pulse Ox 95 07/19/23 09:00 FiO2 Intake & Output 07/18/23 07/19/23 07/19/23 18:59 06:59 18:59 Intake Total 300 523.88 490 Output Total 600 425 Balance 300 -76.12 65 Weight 74.843 kg Intake: IV 300 Intake, IV Titration 523.88 Amount Sodium Chloride 0.9% 1, 523.88 000 ml In Empty Bag 1 bag @ 1 ML/KG/HR 74.843 mls/ hr IV .[id number] [facility] Rx#: [id number] Oral 490 Output: Urine 600 425 Other: Voiding Method Urinal Urinal # Voids 1 - Labs CBC & Chem 7: 07/19/23 09:25 07/18/23 19:10 Labs: Abnormal Lab Results - Last 24 Hours (Table) 07/18/23 07/18/23 07/18/23 Range/Units 19:10 19:10 21:09 APTT (22.0-30.0) sec Carbon Dioxide 20 L (22-30) mmol/L BUN 23 H (9-20) mg/dL Glucose 198 H (74-99) mg/dL POC Glucose (mg/dL) 131 H (70-110) mg/dL Troponin I 0.055 H* (0.000-0.034) ng/mL 07/19/23 07/19/23 Range/Units 01:46 01:46 APTT 41.1 H (22.0-30.0) sec Carbon Dioxide (22-30) mmol/L BUN (9-20) mg/dL Glucose (74-99) mg/dL POC Glucose (mg/dL) (70-110) mg/dL Troponin I 51.600 H* (0.000-0.034) ng/mL
--- NOTE | 2023-07-19 10:20 | P.PN ---
Subjective Progress Note Date: 07/19/23 PROGRESS NOTE The patient is a 67-year-old male with history of hyperlipidemia, tobacco use who presented with an acute STEMI, and was found to have an acutely occluded RCA with significant disease in the LAD and left circumflex. He underwent stenting of the RCA. He is feeling better. He has no further chest discomfort. He is in sinus mechanism with episodes of sinus bradycardia. He denies any dizziness or palpitation. He denies any nausea or vomiting. He has diffuse disease in the RCA as well as the LAD was significant obstructive disease involving the first and the second OM. Medications: Lipitor 80 mg daily, Synthroid, Effient 10 mg daily, aspirin. His beta jerardo was held because of bradycardia] Physical examination Blood pressure 101/50 rate 74 LUNGS: [Clear to auscultation] HEART: [Regular rate and rhythm, S1, S2. systolic ejection murmur ABDOMEN: [Soft, nontender, no organomegaly] EXTREMETIES: [No edema, right radial pulse intact] LAB: Troponin 51] IMPRESSION: 1.Status post inferior wall myocardial infarction with stenting of the RCA 2. Severe triple-vessel disease 3. Hyperlipidemia 4. Chronic tobacco use PLAN: 1. Reduced the dose of beta jerardo 2. Obtain an echocardiogram with Doppler 3. Increase physical activity 4. Obtain surgical opinion in regard to the LAD and left circumflex revascularization, surgical versus PCI 5. Depending on his progress further recommendations will be made Objective - Vital Signs Vital signs: Vital Signs Temp 98.3 F 07/19/23 09:00 Pulse 76 07/19/23 09:00 Resp 9 L 07/19/23 09:00 BP 101/54 07/19/23 09:00 Pulse Ox 95 07/19/23 09:00 FiO2 Intake & Output 07/18/23 07/19/23 07/19/23 18:59 06:59 18:59 Intake Total 300 523.88 490 Output Total 600 425 Balance 300 -76.12 65 Weight 74.843 kg Intake: IV 300 Intake, IV Titration 523.88 Amount Sodium Chloride 0.9% 1, 523.88 000 ml In Empty Bag 1 bag @ 1 ML/KG/HR 74.843 mls/ hr IV .[id number] [facility] Rx#: [id number] Oral 490 Output: Urine 600 425 Other: Voiding Method Urinal Urinal # Voids 1 - Labs CBC & Chem 7: 07/19/23 09:25 07/18/23 19:10 Labs: Abnormal Lab Results - Last 24 Hours (Table) 07/18/23 07/18/23 07/18/23 Range/Units 19:10 19:10 21:09 APTT (22.0-30.0) sec Carbon Dioxide 20 L (22-30) mmol/L BUN 23 H (9-20) mg/dL Glucose 198 H (74-99) mg/dL POC Glucose (mg/dL) 131 H (70-110) mg/dL Troponin I 0.055 H* (0.000-0.034) ng/mL 07/19/23 07/19/23 Range/Units 01:46 01:46 APTT 41.1 H (22.0-30.0) sec Carbon Dioxide (22-30) mmol/L BUN (9-20) mg/dL Glucose (74-99) mg/dL POC Glucose (mg/dL) (70-110) mg/dL Troponin I 51.600 H* (0.000-0.034) ng/mL
[2023-07-19 10:31] LABS: African American GFR (CKD) >90 (>60 ml/min/1.73 sqM); Anion Gap 9 mmol/L; Blood Urea Nitrogen 16 mg/dL (9-20); Calcium 8.9 mg/dL (8.4-10.2); Carbon Dioxide 22 mmol/L (22-30); Chloride 105 mmol/L (98-107); Glucose 180 mg/dL (74-99); Non-African American GFR(CKD) >90 (>60 ml/min/1.73 sqM); Potassium 3.8 mmol/L (3.5-5.1); Sodium 136 mmol/L (137-145)
[2023-07-19 10:53] VITALS: BMI 25.0
--- NOTE | 2023-07-19 13:27 | P.GSCN ---
History of Present Illness Consult date: 07/19/23 Reason for Consult: Multivessel coronary artery disease, ST elevated myocardial infarction this admission Requesting physician: Damian Adrian History of present illness: This is a 59-year-old gentleman who follows in our outpatient basis with Dr. Brijesh Wilkinson for his primary care. He is a past medical history significant for hyperlipidemia, family history of coronary artery disease with his father undergoing myocardial revascularization surgery in his late 60s, hypothyroidism, hard of hearing, remote history of nicotine dependence, quit smoking in 2009, osteoarthritis, degenerative joint disease, kidney stones and plugging of his right ear with recent tube placed to his right ear. Yesterday 07/18/2023 pr esents to the emergency department here at [facility] with complaints of chest pain/pressure pressure, associated with shortness of breath and feeling diaphoretic. He denies any recent fever, chills, nausea, vomiting, headache, palpitations, lightheadedness, cough, presyncope or syncope. He presented to the emergency department here at [facility] via EMS due to the above-mentioned symptoms. A 12-lead EKG was completed in the emergency department which showed ST elevation in his inferior leads. Initial laboratory results showed a WBC count of 5.8, hemoglobin 15.8, hematocrit 46.8, platelets 158, PTT 22.7, sodium 137, potassium 4.2, chloride 105, CO2 20, BUN 23, creatinine 0.92, glucose 198, calcium 9.7, AST 29, ALT 23, and elevated troponins as high as 51.600 subsequently ruling him in for a ST elevated myocardial infarction. Due to the patient's presenting symptoms, EKG findings and elevated troponins cardiology was consulted and the patient was taken to the cardiac catheterization lab. The patient's cardiac catheterization revealed 100% stenosis to his mid right coronary artery, a 99% stenosis to his mid left circumflex coronary artery, and a 90% stenosis to his mid left anterior descending coronary artery. Due to the findings on the cardiac catheterization the patient underwent successful stenting of the long segment of the mid right c oronary artery with reduction of stenosis from 100% less than 5% with intravascular ultrasound imaging completed by Dr. Adrian. For further evaluation a consult was placed to Dr. Justice Pacheco from cardiothoracic surgery for further evaluation and treatment recommendations regarding the patient's co ronary artery disease. Review of Systems A 14 point review of systems was completed and was negative except as mentioned in the HPI. Past Medical History Past Medical History: Hyperlipidemia, Thyroid Disorder Additional Past Medical History / Comment(s): kidney stones. chronic back pain. Plugged right ear, status post placement of right ear tube History of Any Multi-Drug Resistant Organisms: None Reported Past Surgical History: Tonsillectomy Additional Past Surgical History / Comment(s): CATARACT, SINUS SURGERY, KIDNEY STONE REMOVAL, placement of right ear tube Past Anesthesia/Blood Transfusion Reactions: No Reported Reaction Past Psychological History: No Psychological Hx Reported Smoking Status: Former smoker (Quit smoking in 2009) Past Alcohol Use History: Rare Past Drug Use History: None Reported - Past Family History Mother Family Medical History: No Reported History Father Family Medical History: Coronary Artery Disease (CAD) (History of CABG in his late 60s) Medications and Allergies Home Medications Medication Instructions Recorded Confirmed Type Fluticasone Nasal [place] [Flonase 2 spr EA NOSTRIL DAILY 07/18/23 07/18/23 History Nasal [place]] Levothyroxine Sodium [Synthroid] 50 mcg PO DAILY 07/18/23 07/18/23 History Ofloxacin [Ofloxacin 0.3% Otic 4 - 5 drops BOTH EARS DIRECTED 07/18/23 07/18/23 History Soln] Pseudoephedrine HCl 30 - 60 mg PO BID PRN 07/18/23 07/18/23 History Simvastatin [Zocor] 20 mg PO DAILY 07/18/23 07/18/23 History tadalafiL [Cialis] 20 mg PO DAILY PRN 07/18/23 07/18/23 History Allergies Allergy/AdvReac Type Severity Reaction Status Date / Time No Known Allergies Allergy Verified 07/18/23 19:35 Surgical - Exam Vital Signs Temp Pulse Resp BP Pulse Ox 97.0 F L 80 16 182/102 100 07/18/23 19:03 07/18/23 19:03 07/18/23 19:03 07/18/23 19:03 07/18/23 19:03 - General well developed, well nourished, no distress, no pain - Eyes PERRL, normal ocular movement, no pale, no icteric - ENT normal pinna, normal nares, normal mucosa, no hearing loss, no congestion, decreased hearing, poor snf - Neck Neck is supple, no lymphadenopathy no masses, no bruits, trachea midline, no venous distension - Respiratory Lungs sounds essentially clear throughout. No wheezes, rhonchi or crackles. Respirations are symmetrical and nonlabored. - Cardiovascular Regular rhythm and rate. S1 and S2 present, negative for S3, gallop or murmur. No edema present. - Abdomen Abdomen is soft, nontender and nondistended. Active bowel sounds present all 4 abdominal quadrants. No guarding or rigidity. No organomegaly appreciated. - Genitourinary Deferred - Rectum Deferred - Integumentary Skin is warm and dry. No clubbing or cyanosis is present. no rash, no growths, no abnormal pigmentation - Neurologic No focal deficits. normal coordination, normal sensation - Musculoskeletal Moves all 4 extremities with equal strength bilateral. normal gait, normal posture - Psychiatric oriented to time, oriented to person, oriented to place, speech is normal, memory intact Results - Labs 07/19/23 09:25 07/19/23 09:25 Abnormal Lab Results - Last 24 Hours (Table) 07/18/23 07/18/23 07/18/23 Range/Units 19:10 19:10 21:09 APTT (22.0-30.0) sec Sodium (137-145) mmol/L Carbon Dioxide 20 L (22-30) mmol/L BUN 23 H (9-20) mg/dL Glucose 198 H (74-99) mg/dL POC Glucose (mg/dL) 131 H (70-110) mg/dL Troponin I 0.055 H* (0.000-0.034) ng/mL 07/19/23 07/19/23 07/19/23 Range/Units 01:46 01:46 09:25 APTT 41.1 H (22.0-30.0) sec Sodium 136 L (137-145) mmol/L Carbon Dioxide (22-30) mmol/L BUN (9-20) mg/dL Glucose 180 H (74-99) mg/dL POC Glucose (mg/dL) (70-110) mg/dL Troponin I 51.600 H* (0.000-0.034) ng/mL Diabetes panel 07/18/23 07/19/23 Range/Units 19:10 09:25 Sodium 137 136 L (137-145) mmol/L Potassium 4.2 3.8 (3.5-5.1) mmol/L Chloride 105 105 (98-107) mmol/L Carbon Dioxide 20 L 22 (22-30) mmol/L BUN 23 H 16 (9-20) mg/dL Creatinine 0.92 0.71 (0.66-1.25) mg/dL Glucose 198 H 180 H (74-99) mg/dL Calcium 9.7 8.9 (8.4-10.2) mg/dL AST 29 (17-59) U/L ALT 23 (4-49) U/L Alkaline Phosphatase 82 (38-126) U/L Total Protein 7.2 (6.3-8.2) g/dL Albumin 4.5 (3.5-5.0) g/dL Calcium panel 07/18/23 07/19/23 Range/Units 19:10 09:25 Calcium 9.7 8.9 (8.4-10.2) mg/dL Albumin 4.5 (3.5-5.0) g/dL Pituitary panel 07/18/23 07/19/23 Range/Units 19:10 09:25 Sodium 137 136 L (137-145) mmol/L Potassium 4.2 3.8 (3.5-5.1) mmol/L Chloride 105 105 (98-107) mmol/L Carbon Dioxide 20 L 22 (22-30) mmol/L BUN 23 H 16 (9-20) mg/dL Creatinine 0.92 0.71 (0.66-1.25) mg/dL Glucose 198 H 180 H (74-99) mg/dL Calcium 9.7 8.9 (8.4-10.2) mg/dL Adrenal panel 07/18/23 07/19/23 Range/Units 19:10 09:25 Sodium 137 136 L (137-145) mmol/L Potassium 4.2 3.8 (3.5-5.1) mmol/L Chloride 105 105 (98-107) mmol/L Carbon Dioxide 20 L 22 (22-30) mmol/L BUN 23 H 16 (9-20) mg/dL Creatinine 0.92 0.71 (0.66-1.25) mg/dL Glucose 198 H 180 H (74-99) mg/dL Calcium 9.7 8.9 (8.4-10.2) mg/dL Total Bilirubin 0.5 (0.2-1.3) mg/dL AST 29 (17-59) U/L ALT 23 (4-49) U/L Alkaline Phosphatase 82 (38-126) U/L Total Protein 7.2 (6.3-8.2) g/dL Albumin 4.5 (3.5-5.0) g/dL - Imaging Chest x-ray: report reviewed, image reviewed Additional studies: Cardiac catheterization films and transthoracic 2-D echocardiogram films reviewed by Dr. Justice Pacheco. Assessment and Plan Assessment: Multivessel coronary artery disease, status post stent placement to his right coronary artery on Prasugrel for anticoagulation ST elevated myocardial infarction this admission with positive troponins Hyperlipidemia Hypothyroidism Remote history of nicotine dependence, quit smoking in 2009 Hard of hearing Osteoarthritis Degenerative joint disease History of kidney stones Plan: The patient was seen and examined at his bedside in the intensive care unit with his present in conjunction with Dr. Justice Pacheco. The chart and diagnostics were reviewed. Dr. Pacheco discussed with the patient and his the findings on the cardiac catheterization and transthoracic 2-D echocardiograms. Treatment options discussed PCI versus myocardial rev ascularization surgery. Dr. Pacheco also discussed with Dr. Adrian from cardiology treatment options and it is at this time felt that the best approach would be myocardial revascularization surgery. The patient will be brought back on an elective basis in about 4 weeks status post stenting of his right coronary artery, effient will be held preoperatively for 5-7 days prior to surgery. Preoperative testing and preoperative teaching has been initiated. Once the preoperative testing has been completed and obtained an STS risk score will be calculated in discussed with the patient. Risks and benefits of surgery were discussed with the patient by Dr. Pacheco and knowing and understanding the risks the patient was to proceed with the surgical option. The patient will follow-up as an outpatient in the office will Dr. Pacheco in about 3 weeks to discuss timing of surgery. Continue to maximize medical management with aspirin, statin and beta jerardo. Medical management other comorbidities per primary care service. More recommendations to follow based on patient's clinical course and as the patient's preoperative testing has been obtained. Thank you Dr. Adrian for this consult and we look for to working with you in the care of this patient. I have personally seen and examined the patient, performed the documentation and the assessment and plan as written. 30 minutes spent on the visit . Tres MCMANUS
--- NOTE | 2023-07-19 14:31 | CA ---
Transthoracic Echo Report Name: Sergio Pimentel Age: 67 Gender: M : 1955 Exam Date: 07/19/2023 08:12 Exam Location: [facility] Ht (in): 68 Wt (lb): 165 Ordering Physician: Maicol Cesar MD ([id number]) Attending/Referring Phys: Personal Injury Legal Assistant Maryjo Boswell RDCS Procedure CPT: Indications: STEMI, use definity pls Cardiac Hx: Technical Quality: Contrast 1: Definity Total Dose (mL): 2 Contrast 2: Total Dose (mL): MEASUREMENTS (Male / Female) Normal Values 2D ECHO LV Diastolic Diameter PLAX 4.3 cm 4.2 - 5.9 / 3.9 - 5.3 cm LV Systolic Diameter PLAX 3.0 cm IVS Diastolic Thickness 1.4 cm 0.6 - 1.0 / 0.6 - 0.9 cm LVPW Diastolic Thickness 1.4 cm 0.6 - 1.0 / 0.6 - 0.9 cm LV Relative Wall Thickness 0.6 RV Internal Dim ED PLAX 4.2 cm LA Volume 50.2 cm??? 18 - 58 / 22 - 52 cm??? LA Volume Index 26.4 cm???/m??? 16 - 28 cm???/m??? M-MODE Aortic Root Diameter MM 3.3 cm LA Systolic Diameter MM 3.4 cm LA Ao Ratio MM 1.0 AV Cusp Separation MM 1.4 cm DOPPLER AV Peak Velocity 171.6 cm/s AV Peak Gradient 11.8 mmHg AV Mean Velocity 130.2 cm/s AV Mean Gradient 7.3 mmHg AV Velocity Time Integral 34.7 cm LVOT Peak Velocity 134.7 cm/s LVOT Peak Gradient 7.3 mmHg LVOT Velocity Time Integral 28.0 cm MV Area PHT 4.7 cm??? Mitral E Point Velocity 75.9 cm/s Mitral A Point Velocity 136.1 cm/s Mitral E to A Ratio 0.6 MV Deceleration Time 160.2 ms MV E' Velocity 6.0 cm/s Mitral E to MV E' Ratio 12.7 TR Peak Velocity 246.7 cm/s TR Peak Gradient 24.3 mmHg Right Ventricular Systolic Press 28.0 mmHg FINDINGS Left Ventricle Moderately increased left ventricular wall thickness. Left ventricular cavity size normal. Left ventricular ejection fraction is estimated at 50 to 55 %. Borderline ejection fraction with inferior wall hypokinesis Right Ventricle Moderate right ventricular dilatation. Right ventricular systolic pressure within normal limits. Right Atrium Normal right atrial size. Left Atrium Normal left atrial size. Mitral Valve Structurally normal mitral valve. Mild mitral annular calcification. Mild mitral regurgitation. Aortic Valve No aortic valve stenosis or regurgitation. Tricuspid Valve Structurally normal tricuspid valve. Mild tricuspid regurgitation. Pulmonic Valve Structurally normal pulmonic valve. Pericardium No pericardial effusion. Aorta Normal size aortic root and proximal ascending aorta. CONCLUSIONS 1. Normal left ventricle size with borderline systolic function and inferior wall hypokinesis 2. Mild mitral and tricuspid regurgitation with no evidence of pulmonary hypertension Previewed by: Dr. Damian Adrian MD (Electronically Signed) Final Date: 19 July 2023 14:30
[2023-07-19 15:54] LABS: Appearance,Urine Clear (Clear); Bilirubin,Urine Negative (Negative); Blood,Urine Negative (Negative); Color,Urine Colorless; Glucose,Urine (UA) Negative (Negative); Ketones,Urine Negative (Negative); Leukocyte Esterase,Urine Negative (Negative); Nitrite,Urine Negative (Negative); Protein,Urine Negative (Negative); Specific Gravity,Urine 1.003 (1.001-1.035); Urobilinogen,Urine <2.0 mg/dL (<2.0)
[2023-07-19 16:29] LABS: Chol/HDL Ratio 3.03 Ratio; LDL Cholesterol,Calculated 72.2 mg/dL (0.0-131.0); VLDL Calculation 18.32 mg/dL (5.00-40.00)
--- NOTE | 2023-07-19 16:38 | US ---
EXAMINATION TYPE: US arterial LE multi level DATE OF EXAM: 07/19/2023 4:24 PM CLINICAL INDICATION: Male, 67 years old with history of Ankle Brachial Index (GIANNA) ; History of: Smoker: previous Hypertension: N Diabetic: N Hyperlipidemia: Y TIA/CVA: N Previous Vascular Surgery: N CAD: N [place]: YESTERDAY Vascular Ulcers: N Claudication: N Gangrene: N Doppler Waveforms: Right: Multiphasic Left: Multiphasic Right Brachial Pressure: IV in place Left Brachial Pressure: 1143 Ankle-Brachial Indices: Right: 1.3 Left: 1.2 Toe Brachial Indices: Right: 0.9 Left: COULD NOT OCCLUDE IMPRESSION: Mildly elevated ankle-brachial indices possibly indicating arteriosclerotic disease but no occlusive disease.
[2023-07-19] MEDS: OFLOXACIN 0.3% OPHTH DROPS 5 ML BOTTLE BOTH EARS SCH ×2 (17:29→20:59)
--- NOTE | 2023-07-19 19:21 | US ---
EXAMINATION TYPE: US carotid duplex BILAT DATE OF EXAM: 07/19/2023 COMPARISON: NONE CLINICAL INDICATION: Male, 67 years old with history of Pre-Op Cardiac Surgery; pre op cardiac surger y TECHNIQUE: Carotid duplex ultrasound examination. Indirect Doppler criteria was utilized. FINDINGS: EXAM MEASUREMENTS: RIGHT: Peak Systolic Velocity (PSV) cm/sec ----- Right CCA: 110 ----- Right ICA: 141 ----- Right ECA: 132 ICA/CCA ratio: 1.28 RIGHT: End Diastole cm/sec ----- Right CCA: 13.9 ----- Right ICA: 18.3 ----- Right ECA: 2.2 LEFT: Peak Systolic Velocity (PSV) cm/sec ----- Left CCA: 130 ----- Left ICA: 163 ----- Left ECA: 157 ICA/CCA ratio: 1.25 LEFT: End Diastole cm/sec ----- Left CCA: 17.2 ----- Left ICA: 29.4 ----- Left ECA: 0.0 VERTEBRALS (direction of flow): Right Vertebral: unable to visualize Left Vertebral: Antegrade Rhythm: Normal ENTRY CLERK NOTES: Mild plaque bilateral bifurcations. Tortuosity left ICA. increased velocities bila teral ICA's and left ECA IMPRESSION: 50-69% stenosis of the bilateral carotid bifurcations. Criteria for Assigning % of Stenosis / Diameter reduction (Estimation based on the indirect measurements of the internal carotid artery velocities (ICA PSV). 1. Normal (no stenosis)=ICA PSV < 125 cm/s: ratio < 2.0: ICA EDV<40 cm/s. 2. Less than 50% stenosis=ICA PSV < 125 cm/s: ratio < 2.0: ICA EDV<40 cm/s. 3. 50 to 69% stenosis=ICA PSV of 125 to 230 cm/s: ration 2.0 ? 4.0: ICA EDV 40-100 cm/s. 4. Greater than 70% stenosis to near occlusion= ICA PSV > 230 cm/s: ratio > 4.0: ICA EDV > 100 cm/s. 5. Near occlusion= ICA PSV velocities may be low or undetectable: variable ratio and ICA EDV. 6. Total occlusion=unable to detect flow.
--- NOTE | 2023-07-19 19:22 | US ---
EXAMINATION TYPE: Pre-Operative Non-Invasive Evaluation of the hand for Potential Radial Artery Le[place] , Measurements only DATE OF EXAM: 07/19/2023 6:55 PM CLINICAL INDICATION: Male, 67 years old with history of Pre-Op Cardiac Surgery; pre op cardiac surger y SIDE PERFORMED: Bilateral TECHNIQUE: Radial artery is measured utilizing real time linear array sonography. Dominant hand: right Duplex Findings: Radial Artery: Color flow seen Measurements in mm, transverse view: Right Radial: Proximal: 3.4 x 3.4 mm Mid: 3.4 x 3.4 mm Distal: 2.7 x 3.1 mm Left Radial: Proximal: 3.0 x 3.3 mm Mid: 2.7 x 2.8 mm Distal: 2.3 x 2.4 mm IMPRESSION: 1. Bilateral measurements listed above. 2. Performing surgeon to determine viability as conduit.
--- NOTE | 2023-07-19 19:22 | US ---
EXAMINATION TYPE: US vein mapping BIL DATE OF EXAM: 07/19/2023 6:55 PM COMPARISON: NONE CLINICAL INDICATION: Male, 67 years old with history of PreOp Cardiac Surgery; pre op cardiac surgery SIDE PERFORMED: bilateral TECHNIQUE: Lower extremity saphenous vein is examined and measured utilizing real time linear array sonography. Patient History: Smoker: previous Previous DVT: no Vascular Surgery: no Discoloration: no Hypertension: no Diabetes: no Paralysis: no Varicosities: no Edema: no DUPLEX FINDINGS: Greater Saphenous: Color flow seen Measurements in mm: Right Greater Saphenous: Groin: 6.9 x 7.2 mm High Thigh: 4.0 x 4.3 mm Mid Thigh: 3.3 x 4.0 mm Above Knee: 2.9 x 3.6 mm Knee: 3.1 x 3.9 mm Below Knee: 2.7 x 2.7 mm Mid Calf: 2.4 x 2.8 mm At Ankle: 2.4 x 2.7 mm Left Greater Saphenous: Groin: 8.1 x 9.2 mm High Thigh: 4.9 x 5.8 mm Mid Thigh: 3.8 x 4.0 mm Above Knee: 3.6 x 4.4 mm Knee: 3.7 x 4.5 mm Below Knee: 2.4 x 3.2 mm Mid Calf: 2.5 x 2.8 mm At Ankle: 2.1 x 2.7 mm IMPRESSION: 1. Bilateral GSV measurements listed above. 2. Performing surgeon to determine viability as conduit.
[2023-07-19] MEDS ORDERED: METOPROLOL TARTRATE 12.5 MG TAB PO SCH (21:00)
[2023-07-19] MEDS: MUPIROCIN 2% OINT 22 GM TUBE NASAL SCH (21:00)
[2023-07-20] MEDS: HEPARIN SODIUM,PORCINE 5,000 UNIT/ML 1 ML VIAL SQ SCH ×3 (00:08→17:39)
[2023-07-20] MEDS: ACETAMINOPHEN TAB 325 MG TAB PO PRN ×3 (01:01→20:13)
[2023-07-20] MEDS: LEVOTHYROXINE 50 MCG TAB PO SCH (05:34)
[2023-07-20 06:05] LABS: Mean Platelet Volume 8.8; Platelet Count 141 k/uL (150-450)
[2023-07-20 06:24] LABS: Magnesium 1.9 mg/dL (1.6-2.3)
[2023-07-20 06:25] LABS: Partial Thromboplastin Time 25.4 sec (22.0-30.0); Prothrombin Time 10.6 sec (10.0-12.5)
[2023-07-20 06:29] LABS: African American GFR (CKD) >90 (>60 ml/min/1.73 sqM); Anion Gap 8 mmol/L; Blood Urea Nitrogen 11 mg/dL (9-20); Calcium 9.1 mg/dL (8.4-10.2); Carbon Dioxide 23 mmol/L (22-30); Chloride 106 mmol/L (98-107); Glucose 117 mg/dL (74-99); Non-African American GFR(CKD) >90 (>60 ml/min/1.73 sqM); Potassium 4.1 mmol/L (3.5-5.1); Sodium 137 mmol/L (137-145)
--- NOTE | 2023-07-20 09:16 | P.PN ---
Subjective Progress Note Date: 07/20/23 Principal diagnosis: Multivessel coronary artery disease, ST elevated myocardial infarction this admission. Past medical history significant for hyperlipidemia, family history of coronary artery disease with his father undergoing myocardial revascularization surgery in his late 60s, hypothyroidism, hard of hearing, remote history of nicotine dependence, quit smoking in 2009, osteoarthritis, degenerative joint disease, kidney stones and plugging of his right ear with recent tube placed to his right ear. The patient was seen and examined in follow-up today 07/20/2023 at his bedside in the intensive care unit. Currently he is sitting up in bed, is awake, alert, oriented 3 and is in no acute distress. He denies any complaints of shortness of breath, chest pain/chest pressure of her nausea or vomiting. He states he feels much improved today from yesterday. He is complaining of some back pain which he reports is chronic in nature. Oxygen saturations are 96% on room air, and he is achieving 2500 mL on his incentive spirometry with encouragement. He reports he has been up ambulating in the intensive care unit hallway with standby systems nursing staff and tolerating well. Preoperative testing is in progress, and preoperative teaching has been reinforced with the patient. He will be scheduled to follow-up with Dr. Justice Pacheco in the office to further discuss timing of myocardial revascularization surgery. An STS risk score was calculated and discussed with the patient. A 5 m walk test was completed with the patient with Time 1: 2.11 seconds, Time to: 1.86 seconds, Time 3: 2.38 seconds. The patient tolerated the 5 m walk test well, without complaints of shortness of breath or chest pain/pressure. Transthoracic 2-D echocardiogram was completed yesterday which demonstrated a normal left ventricular size with borderline systolic function and inferior wall hypokinesis with an ejection fraction of 50-55%, mild mitral valve regurgitation, mild tricuspid valve regurgitation, and a normal size aortic root and proximal ascending aorta. Objective - Vital Signs Vital signs: Vital Signs Temp 97.8 F 07/20/23 04:00 Pulse 63 07/20/23 04:00 Resp 15 07/20/23 04:00 BP 147/82 07/20/23 04:00 Pulse Ox 96 07/20/23 04:00 FiO2 Intake & Output 07/19/23 07/20/23 07/20/23 19:59 06:59 18:59 Intake Total Output Total Balance Weight Intake: Oral Output: Urine Other: Voiding Method # Voids - Exam CONSTITUTIONAL: Appears comfortable, cooperative, no apparent acute distress. HEENT: Neck is supple, no JVD, no lymphadenopathy. RESPIRATORY: Lungs sounds essentially clear throughout. Respirations are symmetrical and nonlabored. Currently on room air with oxygen saturations 96%. Able to achieve 2500 mL on his incentive spirometry. Strong cough. CARDIOVASCULAR: Regular rhythm and rate. S1 and S2 present, negative for S3, gallop or murmur. Palpable peripheral pulses bilaterally. No calf pain or tenderness noted. GASTROINTESTINAL: Abdomen soft, nontender, nondistended. Active bowel sounds present 4 quadrants. Tolerating diet. Passing flatus. No guarding or rigidity. GENITOURINARY: Continues to void. INTEGUMENTARY: Skin is warm and dry with no evidence of clubbing or cyanosis. NEUROLOGIC: Cranial nerves II through XII intact. No focal deficits. MUSKULOSKELETAL: Able to move all extremities, strength equal bilaterally, generalized weakness. PSYCHIATRIC: Alert and oriented to person place and time, appropriate affect, intact judgment and insight. - Allied health notes Allied health notes reviewed: nursing - Labs CBC & Chem 7: 07/20/23 05:24 07/20/23 05:24 Labs: Abnormal Lab Results - Last 24 Hours (Table) 07/19/23 07/20/23 07/20/23 Range/Units 09:25 05:24 05:24 Plt Count 141 L (150-450) k/uL Sodium 136 L (137-145) mmol/L Glucose 180 H 117 H (74-99) mg/dL - Imaging and Cardiology Chest x-ray: report reviewed, image reviewed CT scan - chest: report reviewed, image reviewed Venous US: report reviewed Assessment and Plan Assessment: Multivessel coronary artery disease, status post stent placement to his right coronary artery on Prasugrel for anticoagulation ST elevated myocardial infarction this admission with positive troponins Hyperlipidemia Hypothyroidism Remote history of nicotine dependence, quit smoking in 2009 Hard of hearing Osteoarthritis Degenerative joint disease History of kidney stones Plan: Preoperative teaching has been reinforced with the patient. Once the patient is discharged he will have a follow-up appointment to see Dr. Pacheco from cardiothoracic surgery in 3-4 weeks to discuss timing of surgery. Continue to maximize medical management with aspirin, statin and beta jerardo. An STS risk score was calculated and discussed with the patient. A 5 m walk test was completed with the patient Time 1: 2.11 seconds, Time to: 1.86 seconds, Time 3: 2.38 seconds. More recommendations to follow based on patient's clinical course. Time with Patient: Greater than 30
--- NOTE | 2023-07-20 09:32 | P.PN ---
Subjective Progress Note Date: 07/20/23 PROGRESS NOTE The patient is a 67-year-old male with history of hyperlipidemia, tobacco use who presented with an acute STEMI, and was found to have an acutely occluded RCA with significant disease in the LAD and left circumflex. He underwent stenting of the RCA. He is feeling better. He has no further chest discomfort. He is in sinus mechanism with episodes of sinus bradycardia. He denies any dizziness or palpitation. He denies any nausea or vomiting. He has diffuse disease in the RCA as well as the LAD was significant obstructive disease involving the first and the second OM. July 20: The patient is feeling well today, ambulating without difficulties. He denies any chest discomfort, dizziness or palpitations. He continues to be in sinus mechanism, hemodynamically stable. No further bradycardia. He has no nausea or vomiting. He was evaluated at the surgical team and the plan to proceed with CABG in about 4 weeks. His echocardiogram showed a mildly impaired systolic function with inferior wall hypokinesis Medications: Lipitor 80 mg daily, Synthroid, Effient 10 mg daily, aspirin. Lopressor 12.5 mg twice a day Physical examination Blood pressure 147/80 rate 63 LUNGS: Clear to auscultation HEART: [Regular rate and rhythm, S1, S2. systolic ejection murmur ABDOMEN: Soft, nontender, no organomegaly EXTREMETIES: No edema, LAB: BUN 11, creatinine 0.71. Potassium 4.1. IMPRESSION: 1.Status post inferior wall myocardial infarction with stenting of the RCA 2. Severe triple-vessel disease 3. Hyperlipidemia 4. Chronic tobacco use PLAN: 1. Increase metoprolol to 25 mg twice a day 2. Transfer to telemetry 3. Increase physical activity 4. If stable discharged home tomorrow and proceed with CABG in about 4 weeks. I discussed the findings and recommendations with the patient. Objective - Vital Signs Vital signs: Vital Signs Temp 97.8 F 07/20/23 04:00 Pulse 63 07/20/23 04:00 Resp 15 07/20/23 04:00 BP 147/82 07/20/23 04:00 Pulse Ox 96 07/20/23 04:00 FiO2 Intake & Output 07/19/23 07/20/23 07/20/23 19:59 06:59 18:59 Intake Total Output Total Balance Weight Intake: Oral Output: Urine Other: Voiding Method # Voids - Labs CBC & Chem 7: 07/20/23 05:24 07/20/23 05:24 Labs: Abnormal Lab Results - Last 24 Hours (Table) 07/19/23 07/20/23 07/20/23 Range/Units 09:25 05:24 05:24 Plt Count (150-450) k/uL Sodium 136 L (137-145) mmol/L Glucose 180 H 117 H (74-99) mg/dL Hemoglobin A1c 6.1 H (<=6.0) % 07/20/23 Range/Units 05:24 Plt Count 141 L (150-450) k/uL Sodium (137-145) mmol/L Glucose (74-99) mg/dL Hemoglobin A1c (<=6.0) %
--- NOTE | 2023-07-20 09:40 | P.PN ---
Subjective Progress Note Date: 07/20/23 Pt has no new complaints today. Seen by CT surgery and recommended to have revascularization surgery in [address] chest reviewed and shows coronary calcifications, clear lung parenchyma. Gen: awake, alert HEENT: normocephalic, atraumatic, good hearing acuity, moist mucous membranes Resp: good air exchange, breathing comfortably with no accessory muscle use CVS: good distal perfusion x 4, GI: soft, NTTP, ND : no SPT, no CVAT, berkowitz catheter not present MSK: no pitting edema, no clubbing Neuro: non-focal, moving all extremities Psych: cooperative, euthymic mood Assessment/plan: ST elevation [place] status post RCA stenting -Status post RCA stenting -Continue aspirin, prasugrel -Atorvastatin 80 mg daily -Metoprolol 25 mg twice a day as tolerated -Cardiology is following -CT surgery is following -Plan for dc tomorrow if stable Hyperlipidemia Hypothyroidism -Simvastatin was changed to atorvastatin as above -Continue levothyroxine Patient is full code Objective - Vital Signs Vital signs: Vital Signs Temp 97.8 F 07/20/23 04:00 Pulse 63 07/20/23 04:00 Resp 15 07/20/23 04:00 BP 147/82 07/20/23 04:00 Pulse Ox 96 07/20/23 04:00 FiO2 Intake & Output 07/19/23 07/20/23 07/20/23 19:59 06:59 18:59 Intake Total Output Total Balance Weight Intake: Oral Output: Urine Other: Voiding Method # Voids - Labs CBC & Chem 7: 07/20/23 05:24 07/20/23 05:24 Labs: Abnormal Lab Results - Last 24 Hours (Table) 07/20/23 07/20/23 07/20/23 Range/Units 05:24 05:24 05:24 Plt Count 141 L (150-450) k/uL Glucose 117 H (74-99) mg/dL Hemoglobin A1c 6.1 H (<=6.0) %
--- NOTE | 2023-07-20 10:46 | CT ---
EXAMINATION TYPE: CT chest wo con CT DLP: 291 mGycm, Automated exposure control for dose reduction was used. DATE OF EXAM: 07/20/2023 8:05 AM COMPARISON: Chest x-ray 07/19/2023 CLINICAL INDICATION:Male, 67 years old with history of Preoperative cardiac surgery, assess aorta; PH H, pre surgical TECHNIQUE: Multiple axial images were obtained through the chest. Sagittal and coronal reformats were created for review. Contrast used: mL of (None if empty) Oral contrast used: (None if empty) FINDINGS: Exam is limited without IV contrast. LUNGS/ PLEURA: Minimal gravity dependent subsegmental atelectasis. Lungs are otherwise clear. No pleu ral effusion or pneumothorax. AIRWAY: Patent and unremarkable. HEART AND VASCULATURE: Heart size appears within normal limits. Moderate to heavy calcification and/o r stents throughout the RCA. Somewhat lesser calcifications in the LAD and circumflex. Diminished att enuation of the intracardiac blood pool can be seen with anemia. Aorta shows a conventional 3 branch pattern along the arch. Mild/moderate calcification noted at the distal arch and distal descending aorta. The aorta appears normal in course and caliber. Ascending ao rta is 3.5 cm, arch is 3 cm, descending is 2.7 cm. Some calcification is noted at the origin of the s uperior mesenteric artery, with mild stenosis suggested. Proximal celiac artery appears unremarkable. Grossly unremarkable pulmonary arteries, in the limits of the exam. MEDIASTINUM: No gross evidence of adenopathy. MUSCULOSKELETAL: No acute osseous abnormalities. Mild degenerative changes of the spine. SOFT TISSUES/LYMPH NODES: Unremarkable. LOWER NECK: No significant findings. UPPER ABDOMEN: No acute finding. There are at least 3 or 4 nonobstructive right renal calculi, the la rgest 5 x 3 mm. Mild bilateral perinephric stranding, appears chronic. IMPRESSION: 1. Aortic and three-vessel coronary arterial calcifications. 2. Aorta appears normal in course and caliber. 3. No acute pulmonary abnormality. 4. Other chronic and likely incidental findings as above.
[2023-07-20] MEDS: ATORVASTATIN 80 MG TAB PO SCH (13:05)
[2023-07-20] MEDS: ASPIRIN 81 MG PO SCH (13:06)
[2023-07-20] MEDS: MUPIROCIN 2% OINT 22 GM TUBE NASAL SCH ×2 (13:06→20:14)
[2023-07-20] MEDS: OFLOXACIN 0.3% OPHTH DROPS 5 ML BOTTLE BOTH EARS SCH ×2 (13:06→20:14)
[2023-07-20] MEDS: FLUTICASONE 50MCG/SPRAY NASAL 16GM EA NOSTRIL SCH (13:06)
[2023-07-20] MEDS: PRASUGREL 10 MG TAB PO SCH (19:34)
[2023-07-20] MEDS: METOPROLOL TARTRATE 25 MG TAB PO SCH (20:13)
[2023-07-20 23:21] LABS: Hepatitis A Antibody IgM Nonreactive; Hepatitis B Core IgM Nonreactive; Hepatitis B Surface Antigen Nonreactive; Hepatitis C IgG Antibody Nonreactive
[2023-07-21] MEDS: HEPARIN SODIUM,PORCINE 5,000 UNIT/ML 1 ML VIAL SQ SCH ×2 (00:38→08:47)
[2023-07-21 05:54] VITALS: RESP 16
[2023-07-21] MEDS: LEVOTHYROXINE 50 MCG TAB PO SCH (06:09)
[2023-07-21 07:17] LABS: Platelet Count 172 k/uL (150-450)
[2023-07-21 08:13] VITALS: TEMP 98.6
[2023-07-21] MEDS: METOPROLOL TARTRATE 25 MG TAB PO SCH (08:47)
[2023-07-21] MEDS: PRASUGREL 10 MG TAB PO SCH (08:47)
[2023-07-21] MEDS: ASPIRIN 81 MG PO SCH (08:47)
[2023-07-21] MEDS: ATORVASTATIN 80 MG TAB PO SCH (08:47)
[2023-07-21] MEDS: OFLOXACIN 0.3% OPHTH DROPS 5 ML BOTTLE BOTH EARS SCH (08:48)
[2023-07-21] MEDS: FLUTICASONE 50MCG/SPRAY NASAL 16GM EA NOSTRIL SCH (08:48)
[2023-07-21] MEDS ORDERED: ISOSORBIDE MONONITRATE ER 30 MG TAB.ER.24H PO SCH (09:00)
--- NOTE | 2023-07-21 09:53 | P.DS ---
Providers Date of admission: 07/18/23 19:15 Expected date of discharge: 07/21/23 Attending physician: Rajni Raines MD Consults: 07/18/23 19:15 Consult Physician Urgent Consulting Provider: Maicol Cesar Consult Reason/Comments: stemi Do you want consulting provider notified?: Yes 07/18/23 21:07 Consult Physician Routine Consulting Provider: [facility] Consult Reason/Comments: Post Interventional Patient Do you want consulting provider notified?: Already Contacted 07/19/23 10:20 Consult Physician Routine Consulting Provider: Justice Pacheco Consult Reason/Comments: cabg Do you want consulting provider notified?: Yes 07/19/23 12:54 Consult to Anesthesia Routine Consulting Provider: Anesthesia,Services Consult Reason/Comments: Cardiac Surgery Pre-Op [facility] Course: ST elevation [place] status post RCA stenting Hyperlipidemia Hypothyroidism Hospital Course: 67-year-old man with medical history of hyperlipidemia presented for sudden onset retrosternal chest pain. In the emergency room, he was found to have ST elevation in the inferior leads and was taken emergently to the [facility] where he was found to have 100% RCA stenosis and had PCI. He is also found to have multivessel disease in the coronary. Following the procedure, he was placed in the intensive care unit for monitoring. Patient did well following his procedure and was noted to have a peak troponin elevation of 55. Regarding his medications, he was started on aspirin, prasugrel, and his simvastatin was replaced with atorvastatin. He was also started on Imdur, metoprolol. Regarding his multivessel disease, cardiology consulted cardiothoracic surgery who evaluated the patient and determined him to be a candidate for revascular ization surgery which was scheduled for 4 weeks from discharge. He did undergo CT of the chest which showed clear parenchyma bilaterally, diffuse coronary calcifications. His echocardiogram showed a low normal ejection fraction of 50- 55%. Patient was cleared by cardiology and cardiothoracic surgery for discharge with follow-up which was arranged. I spent 35 minutes coordinating this discharge 07/21 Gen: awake, alert HEENT: normocephalic, atraumatic, good hearing acuity, moist mucous membranes Resp: good air exchange, breathing comfortably with no accessory muscle use CVS: good distal perfusion x 4, GI: soft, NTTP, ND : no SPT, no CVAT, berkowitz catheter not present MSK: no pitting edema, no clubbing Neuro: non-focal, moving all extremities Psych: cooperative, euthymic mood Patient Condition at Discharge: Good Plan - Discharge Summary Discharge Rx Participant: No New Discharge Prescriptions: New Aspirin 81 mg PO DAILY #30 tab Metoprolol Tartrate [Lopressor] 25 mg PO BID #60 tab Nitroglycerin Sl Tabs [Nitrostat] 0.4 mg SUBLINGUAL Q5M PRN #15 tab PRN Reason: Chest Pain Acetaminophen Tab [Tylenol] 650 mg PO Q6HR PRN tab PRN Reason: Fever And/ Or Pain Prasugrel [Effient] 10 mg PO DAILY #30 tab Isosorbide Mononitrate ER [Imdur] 30 mg PO DAILY #30 tab Atorvastatin [Lipitor] 80 mg PO DAILY #30 tab Continue Fluticasone Nasal [place] [Flonase Nasal [place]] 2 spr EA NOSTRIL DAILY Ofloxacin [Ofloxacin 0.3% Otic Soln] 4 - 5 drops BOTH EARS DIRECTED Levothyroxine Sodium [Synthroid] 50 mcg PO DAILY Discontinued Simvastatin [Zocor] 20 mg PO DAILY Pseudoephedrine HCl 30 - 60 mg PO BID PRN PRN Reason: Congestion tadalafiL [Cialis] 20 mg PO DAILY PRN PRN Reason: E.D. Discharge Medication List Fluticasone Nasal [place] [Flonase Nasal [place]] 2 spr EA NOSTRIL DAILY 07/18/23 [History] Levothyroxine Sodium [Synthroid] 50 mcg PO DAILY 07/18/23 [History] Ofloxacin [Ofloxacin 0.3% Otic Soln] 4 - 5 drops BOTH EARS DIRECTED 07/18/23 [History] Acetaminophen Tab [Tylenol] 650 mg PO Q6HR PRN tab 07/21/23 [Rx] Aspirin 81 mg PO DAILY #30 tab 07/21/23 [Rx] Atorvastatin [Lipitor] 80 mg PO DAILY #30 tab 07/21/23 [Rx] Isosorbide Mononitrate ER [Imdur] 30 mg PO DAILY #30 tab 07/21/23 [Rx] Metoprolol Tartrate [Lopressor] 25 mg PO BID #60 tab 07/21/23 [Rx] Nitroglycerin Sl Tabs [Nitrostat] 0.4 mg SUBLINGUAL Q5M PRN #15 tab 07/21/23 [Rx] Prasugrel [Effient] 10 mg PO DAILY #30 tab 07/21/23 [Rx] Follow up Appointment(s)/Referral(s): Damian Adrian MD [STAFF PHYSICIAN] - 1 Week Justice Pacheco MD [STAFF PHYSICIAN] - 08/15/23 10:30 am Brijesh Wilkinson DO [Primary Care Provider] - 1-2 days Discharge Disposition: HOME SELF-CARE
--- NOTE | 2023-07-21 10:55 | PN ---
PROGRESS NOTE HISTORY OF PRESENT ILLNESS: Sergio is a 67-year-old gentleman, who is admitted to hospital with acute myocardial infarction, underwent cardiac catheterization and angioplasty of right coronary artery. Has severe triple-vessel disease and will need bypass surgery. Surgery had seen him, and the plan at this stage is to do surgery in 4 weeks' time. I am seeing him for the first time today. He is doing well, dressed to go home. Denies any chest pain, difficulty in breathing, or palpitations. His peak troponin was 51. An echocardiogram on this admission revealed normal LV function. PHYSICAL EXAMINATION: GENERAL: Comfortable at rest. VITAL SIGNS: Stable. CHEST: Reveals good air entry bilaterally. HEART: Reveals first and second heart sounds. No gallop. No murmur. No rub. ABDOMEN: Soft, nontender. EXTREMITIES: Did not reveal any edema. Peripheral pulses are felt. CURRENT MEDICATIONS: Include: 1. Aspirin. 2. Lipitor. 3. Imdur. 4. Synthroid. 5. Lopressor 25 b.i.d. 6. Sublingual nitroglycerin. 7. Prasugrel 10 mg daily. I will add Imdur 30 mg daily. The patient was on Cialis prior to coming in. I advised him not to take Cialis. ASSESSMENT AND PLAN: Acute myocardial infarction, status post cath and angioplasty of right coronary artery with severe triple-vessel disease, awaiting surgery. The patient is stable clinically, free of angina and free of heart failure, LV function is normal, stable from cardiac standpoint for discharge. He will follow up with Dr. Tanner over the next several days. I talked to the patient about activities and limitations. He is not going to do any strenuous activity until he sees Dr. Tanner in the office. MMODL / IJN: [id number] /
[2023-07-21 16:47] VITALS: BP 109/66; PULSE 72
== END 2023-07-21 12:35 | disposition home or self-care (01) | DRG 322 ==
LOC: EC 19:02 → 2SICU 19:15
PROVIDERS: ADMIT Internal Medicine; ATTEND Internal Medicine
DX: I21.19 ST elevation (STEMI) myocardial infarction involving other coronary artery of inferior wall (principal); E03.9 Hypothyroidism, unspecified; I25.10 Atherosclerotic heart disease of native coronary artery without angina pectoris; I25.84 Coronary atherosclerosis due to calcified coronary lesion; Z28.310 Unvaccinated for COVID-19; I08.1 Rheumatic disorders of both mitral and tricuspid valves; R00.1 Bradycardia, unspecified; E78.00 Pure hypercholesterolemia, unspecified; G89.29 Other chronic pain; M54.9 Dorsalgia, unspecified; H91.90 Unspecified hearing loss, unspecified ear; M19.90 Unspecified osteoarthritis, unspecified site; Z79.890 Hormone replacement therapy; Z79.899 Other long term (current) drug therapy; Z87.891 Personal history of nicotine dependence; Z87.442 Personal history of urinary calculi; Z82.49 Family history of ischemic heart disease and other diseases of the circulatory system
CPT/HCPCS: 36415; 71046; 71250; 80048; 80053; 80061; 80074; 81003; 83036; 83735; 84443; 84484; 85025; 85049; 85610; 85730; 87070; 92941; 92978; 93306; 93458; 93880; 93922; 93930; 93970; 94150; 96374; 96375; 99291

== ENCOUNTER 2023-08-02 14:23 | Observation (INO) | payer MEDICARE, BC ==
--- NOTE | 2023-08-02 15:08 | ED ---
URI HPI - General Chief Complaint: Upper Respiratory Infection Stated Complaint: Chest infection Time Seen by Provider: 08/02/23 15:05 Source: patient, RN notes reviewed, old records reviewed Mode of arrival: ambulatory Limitations: no limitations - History of Present Illness Initial Comments: This is a 67-year-old male to the emergency department today. Presents today for evaluation of just not feeling well low cough congestion and increasing sputum with change in color. Patient states that she was gone from green to oranges. He is concern for maybe blood as he is on new blood thinner with recent stent placement secondary to a heart attack. Patient has not had any fever sweating or shortness of breath MD Complaint: cough, nasal congestion -: days(s) Severity: mild Consistency: constant Improves With: nothing Worsens With: nothing Associated Symptoms: cough Treatments Prior to Arrival: none - Related Data Home Medications Medication Instructions Recorded Confirmed Fluticasone Nasal [place] [Flonase 2 spr EA NOSTRIL DAILY 07/18/23 08/02/23 Nasal [place]] Levothyroxine Sodium [Synthroid] 50 mcg PO DAILY 07/18/23 08/02/23 Ofloxacin [Ofloxacin 0.3% Otic 4 - 5 drops BOTH EARS DIRECTED 07/18/23 08/02/23 Soln] Previous Rx's Medication Instructions Recorded Acetaminophen Tab [Tylenol] 650 mg PO Q6HR PRN tab 07/21/23 Aspirin 81 mg PO DAILY #30 tab 07/21/23 Atorvastatin [Lipitor] 80 mg PO DAILY #30 tab 07/21/23 Metoprolol Tartrate [Lopressor] 25 mg PO BID #60 tab 07/21/23 Nitroglycerin Sl Tabs [Nitrostat] 0.4 mg SUBLINGUAL Q5M PRN #15 tab 07/21/23 Prasugrel [Effient] 10 mg PO DAILY #30 tab 07/21/23 Allergies Allergy/AdvReac Type Severity Reaction Status Date / Time No Known Allergies Allergy Verified 08/02/23 19:09 Review of Systems ROS Statement: Those systems with pertinent positive or pertinent negative responses have been documented in the HPI. ROS Other: All systems not noted in ROS Statement are negative. Past Medical History Past Medical History: Hyperlipidemia, Thyroid Disorder Additional Past Medical History / Comment(s): kidney stones. chronic back pain. Plugged right ear, status post placement of right ear tube History of Any Multi-Drug Resistant Organisms: None Reported Past Surgical History: Tonsillectomy Additional Past Surgical History / Comment(s): CATARACT, SINUS SURGERY, KIDNEY STONE REMOVAL, placement of right ear tube Past Anesthesia/Blood Transfusion Reactions: No Reported Reaction Past Psychological History: No Psychological Hx Reported Smoking Status: Former smoker Past Alcohol Use History: Rare Past Drug Use History: None Reported - Past Family History Mother Family Medical History: No Reported History Father Family Medical History: Coronary Artery Disease (CAD) (History of CABG in his late 60s) General Exam Limitations: no limitations General appearance: alert, in no apparent distress Head exam: Present: atraumatic, normocephalic, normal inspection Eye exam: Present: normal appearance, PERRL, EOMI. Absent: scleral icterus, conjunctival injection, periorbital swelling ENT exam: Present: normal exam, mucous membranes moist Neck exam: Present: normal inspection. Absent: tenderness, meningismus, lymphadenopathy Respiratory exam: Present: normal lung sounds bilaterally. Absent: respiratory distress, wheezes, rales, rhonchi, stridor Cardiovascular Exam: Present: regular rate, normal rhythm, normal heart sounds. Absent: systolic murmur, diastolic murmur, rubs, gallop, clicks GI/Abdominal exam: Present: soft, normal bowel sounds. Absent: distended, tenderness, guarding, rebound, rigid Extremities exam: Present: normal inspection, full ROM, normal capillary refill. Absent: tenderness, pedal edema, joint swelling, calf tenderness Back exam: Present: normal inspection Neurological exam: Present: alert, oriented X3, CN II-XII intact Psychiatric exam: Present: normal affect, normal mood Skin exam: Present: warm, dry, intact, normal color. Absent: rash Course Vital Signs 08/02/23 08/02/23 08/02/23 14:38 14:49 16:38 Temperature 98.1 F Pulse Rate 82 62 Respiratory 20 18 18 Rate Blood Pressure 119/66 109/67 O2 Sat by Pulse 97 97 Oximetry 08/02/23 08/02/23 08/02/23 18:10 19:36 20:56 Temperature 98.2 F Pulse Rate 63 69 Respiratory 18 18 Rate Blood Pressure 121/77 150/83 135/86 O2 Sat by Pulse 96 99 Oximetry - Reevaluation(s) Reevaluation #1: 08/02/23 18:03 Medical records reviewed Reevaluation #2: 08/02/23 20:13 Patient has no chest pain here in the ER no shortness of breath or sweating Reevaluation #3: 08/02/23 20:13 Patient's troponin did elevate from initial Patient informed results and questions answered Reevaluation #4: 08/02/23 20:13 Was pt. sent in by a medical professional or institution (, [facility], [facility], urgent care, hospital, or group home...) When possible be specific @ -no Did you speak to anyone other than the patient for history (EMS, parent, family, police, friend...)? What history was obtained from this source @ -no Did you review nursing and triage notes (agree or disagree)? Why? @ -agree Are old charts reviewed (outside hosp., previous admission, EMS record, old EKG, old radiological studies, urgent care reports/EKG's, group home records)? Report findings @ -yes Differential Diagnosis (chest pain, altered mental status, abdominal pain women, abdominal pain men, vaginal bleeding, weakness, fever, dyspnea, syncope, headache, dizziness, GI bleed, back pain, seizure, CVA, palpatations, mental health, musculoskeletal)? @ -prior EKG interpreted by me (3pts min.). @ -yes X-rays interpreted by me (1pt min.). @ -yes CT interpreted by me (1pt min.). @ -no U/S interpreted by me (1pt. min.). @ -no What testing was considered but not performed or refused? (CT, X-rays, U/S, labs)? Why? @ -none What meds were considered but not given or refused? Why? @ -none Did you discuss the management of the patient with other professionals (professionals i.e. [facility], [facility], lab, RT, psych nurse, social services coordinator, machine burrer, teacher, sanitation officer, piano case and bench assembler)? Give summary @ -no Was smoking cessation discussed for >3mins.? @ -no Was critical care preformed (if so, how long)? @ -no Were there social determinants of health that impacted care today? How? (Homelessness, low income, unemployed, alcoholism, drug addiction, transportation, low edu. Level, literacy, decrease access to med. care, retirement, rehab)? @ -none Was there de-escalation of care discussed even if they declined (Discuss DNR or withdrawal of care, Hospice)? DNR status @ -no What co-morbidities impacted this encounter? (DM, HTN, Smoking, COPD, CAD, Cancer, CVA, ARF, Chemo, Hep., AIDS, mental health diagnosis, sleep apnea, morbid obesity)? @ -none Was patient admitted / discharged? Hospital course, mention meds given and route, prescriptions, significant lab abnormalities, going to OR and other pertinent info. @ - Undiagnosed new problem with uncertain prognosis? @ -no Drug Therapy requiring intensive monitoring for toxicity (Heparin, Nitro, Insulin, Cardizem)? @ -no Were any procedures done? @ -no Diagnosis/symptom? @ - Acute, or Chronic, or Acute on Chronic? @ -Acute Uncomplicated (without systemic symptoms) or Complicated (systemic symptoms)? @ -Complicated Side effects of treatment? @ -no Exacerbation, Progression, or Severe Exacerbation? @ -exacerbation Poses a threat to life or bodily function? How? (Chest pain, USA, CT, pneumonia, PE, COPD, DKA, ARF, appy, cholecystitis, CVA, Diverticulitis, Homicidal, Suicidal, threat to staff... and all critical care pts) @ -yes - Consultations Consultation #1: Spoke with sound who will admit this patient Medical Decision Making - Medical Decision Making 67 male to the emergency department for evaluation. Patient has elevated troponin and increasingly elevated troponin here in the ER, patient be admitted for cardiac observation - Lab Data Result diagrams: 08/03/23 08:22 08/03/23 08:22 Lab Results 08/02/23 08/02/23 08/02/23 Range/Units 15:25 15:25 15:25 WBC 7.3 (3.8-10.6) k/uL RBC 4.68 (4.30-5.90) m/uL Hgb 14.7 (13.0-17.5) gm/dL Hct 43.9 (39.0-53.0) % MCV 93.9 (80.0-100.0) fL MCH 31.4 (25.0-35.0) pg MCHC 33.4 (31.0-37.0) g/dL RDW 11.9 (11.5-15.5) % Plt Count 226 (150-450) k/uL MPV 8.4 Neutrophils % 74 % Lymphocytes % 18 % Monocytes % 4 % Eosinophils % 2 % Basophils % 0 % Neutrophils # 5.4 (1.3-7.7) k/uL Lymphocytes # 1.3 (1.0-4.8) k/uL Monocytes # 0.3 (0-1.0) k/uL Eosinophils # 0.1 (0-0.7) k/uL Basophils # 0.0 (0-0.2) k/uL PT 11.2 (10.0-12.5) sec INR 1.0 (<1.2) APTT 24.9 (22.0-30.0) sec Sodium 138 (137-145) mmol/L Potassium 4.0 (3.5-5.1) mmol/L Chloride 104 (98-107) mmol/L Carbon Dioxide 25 (22-30) mmol/L Anion Gap 9 mmol/L BUN 18 (9-20) mg/dL Creatinine 0.93 (0.66-1.25) mg/dL Est GFR (CKD-EPI)AfAm >90 (>60 ml/min/1.73 sqM) Est GFR (CKD-EPI)NonAf 84 (>60 ml/min/1.73 sqM) Glucose 100 H (74-99) mg/dL Calcium 9.3 (8.4-10.2) mg/dL Phosphorus 3.0 (2.5-4.5) mg/dL Magnesium 2.0 (1.6-2.3) mg/dL Total Bilirubin 0.6 (0.2-1.3) mg/dL AST 29 (17-59) U/L ALT 41 (4-49) U/L Alkaline Phosphatase 71 (38-126) U/L Troponin I (0.000-0.034) ng/mL NT-Pro-B Natriuret Pep 1100 pg/mL Total Protein 6.4 (6.3-8.2) g/dL Albumin 4.0 (3.5-5.0) g/dL 08/02/23 08/02/23 Range/Units 15:25 18:07 WBC (3.8-10.6) k/uL RBC (4.30-5.90) m/uL Hgb (13.0-17.5) gm/dL Hct (39.0-53.0) % MCV (80.0-100.0) fL MCH (25.0-35.0) pg MCHC (31.0-37.0) g/dL RDW (11.5-15.5) % Plt Count (150-450) k/uL MPV Neutrophils % % Lymphocytes % % Monocytes % % Eosinophils % % Basophils % % Neutrophils # (1.3-7.7) k/uL Lymphocytes # (1.0-4.8) k/uL Monocytes # (0-1.0) k/uL Eosinophils # (0-0.7) k/uL Basophils # (0-0.2) k/uL PT (10.0-12.5) sec INR (<1.2) APTT (22.0-30.0) sec Sodium (137-145) mmol/L Potassium (3.5-5.1) mmol/L Chloride (98-107) mmol/L Carbon Dioxide (22-30) mmol/L Anion Gap mmol/L BUN (9-20) mg/dL Creatinine (0.66-1.25) mg/dL Est GFR (CKD-EPI)AfAm (>60 ml/min/1.73 sqM) Est GFR (CKD-EPI)NonAf (>60 ml/min/1.73 sqM) Glucose (74-99) mg/dL Calcium (8.4-10.2) mg/dL Phosphorus (2.5-4.5) mg/dL Magnesium (1.6-2.3) mg/dL Total Bilirubin (0.2-1.3) mg/dL AST (17-59) U/L ALT (4-49) U/L Alkaline Phosphatase (38-126) U/L Troponin I 0.117 H* 0.129 H* (0.000-0.034) ng/mL NT-Pro-B Natriuret Pep pg/mL Total Protein (6.3-8.2) g/dL Albumin (3.5-5.0) g/dL - EKG Data -: EKG Interpreted by Me (EKG is sinus 74 UT 164 QRS 104 QTc 451) - Radiology Data Radiology results: report reviewed (Chest x-rays negative for acute disease), image reviewed Critical Care Time Critical Care Time: Yes Total Critical Care Time: 31 Disposition Clinical Impression: NSTEMI (non-ST elevated myocardial infarction), Elevated troponin, Weakness Disposition: ADMITTED IP TO THIS HOSP Condition: Serious Is patient prescribed a controlled substance at d/c from ED?: No Time of Disposition: 19:00
[2023-08-02 15:39] LABS: Basophils % (A) 0 %; Eosinophils # (A) 0.1 k/uL (0-0.7); Eosinophils % (A) 2 %; HCT 43.9 % (39.0-53.0); HGB 14.7 gm/dL (13.0-17.5); Lymphocytes # (A) 1.3 k/uL (1.0-4.8); Lymphocytes % (A) 18 %; MCH 31.4 pg (25.0-35.0); MCHC 33.4 g/dL (31.0-37.0); MCV 93.9 fL (80.0-100.0); Mean Platelet Volume 8.4; Monocytes # (A) 0.3 k/uL (0-1.0); Monocytes % (A) 4 %; Neutrophils # (A) 5.4 k/uL (1.3-7.7); Neutrophils % (A) 74 %; Platelet Count 226 k/uL (150-450); RBC 4.68 m/uL (4.30-5.90); RDW 11.9 % (11.5-15.5); WBC 7.3 k/uL (3.8-10.6)
[2023-08-02 15:50] LABS: ALT 41 U/L (4-49); AST 29 U/L (17-59); African American GFR (CKD) >90 (>60 ml/min/1.73 sqM); Alkaline Phosphatase 71 U/L (38-126); Anion Gap 9 mmol/L; Blood Urea Nitrogen 18 mg/dL (9-20); Calcium 9.3 mg/dL (8.4-10.2); Carbon Dioxide 25 mmol/L (22-30); Chloride 104 mmol/L (98-107); Glucose 100 mg/dL (74-99); Non-African American GFR(CKD) 84 (>60 ml/min/1.73 sqM); Sodium 138 mmol/L (137-145); Total Bilirubin 0.6 mg/dL (0.2-1.3); Total Protein 6.4 g/dL (6.3-8.2)
[2023-08-02 15:58] LABS: NT-Pro-B-Type Natriuretic Pept 1100 pg/mL
--- NOTE | 2023-08-02 16:09 | XR ---
EXAMINATION TYPE: XR chest 2V DATE OF EXAM: 08/02/2023 COMPARISON: 07/19/2023 HISTORY: Weakness TECHNIQUE: Frontal and lateral views of the chest are obtained. FINDINGS: There is no focal air space opacity, pleural effusion, or pneumothorax seen. The cardiac silhouette size is within normal limits. The osseous structures are intact. IMPRESSION: No acute cardiopulmonary process.
[2023-08-02 16:10] LABS: Partial Thromboplastin Time 24.9 sec (22.0-30.0); Prothrombin Time 11.2 sec (10.0-12.5)
[2023-08-02] MEDS ORDERED: ONDANSETRON 4 MG/2 ML VIAL IVP PRN (19:01)
[2023-08-02] MEDS ORDERED: NALOXONE 0.4 MG/ML 1 ML VIAL IV PRN (19:01)
[2023-08-02] MEDS: METOPROLOL TARTRATE 25 MG TAB PO SCH (21:46)
--- NOTE | 2023-08-03 01:36 | P.HPIM ---
History of Present Illness H&P Date: 08/02/23 Patient is a 67-year-old male with a PMH of recent ST elevation [place] status post RCA stenting, hypertension, and hypothyroidism who presents to the emergency room with complaints of cough. Patient notes that 2 days ago he had a mild a.m. cough with greenish phlegm. This morning however he again had cough but with small amounts of blood-tinged phlegm. He was concerned due to his recent hospitalization and decided to come to the emergency room. He denied experiencing chest discomfort or shortness of breath. Also denied nausea, vomiting, diaphoresis, or dizziness. Denied fever, chills. Of note, the patient notes that he is scheduled to undergo cardiac revascularization surgery. In the emergency room laboratory evaluation was remarkable for troponin of 0.117 (down from 51.6 on 07/19), with repeat troponin 0.129 and 0.124 respectively. EKG revealed sinus rhythm at 74 bpm with diffuse T-wave inversions and Q waves. Chest x-ray was unremarkable. ED documentation reviewed and case discussed with ED provider. Review of systems: Pertinent positives and negatives as discussed in HPI, a complete review of systems was performed and all other systems are negative. Physical examination: Vital signs reviewed General: non toxic, no distress, appears at stated age, normal weight Derm: no unusual rashes/lesions, warm Head: atraumatic, normocephalic, symmetric Eyes: EOMI, no lid lag, anicteric sclera, pupils equal round reactive to light ENT: Nose and ears atraumatic Neck: No cervical lymphadenopathy, trachea midline, supple Mouth: no lip lesion, mucus membranes moist Cardiovascular: S1S2 reg, no murmur, positive dorsalis pedis pulse bilateral, no edema Lungs: CTA bilateral, no rhonchi, no rales, no accessory muscle use Abdominal: soft, nontender to palpation, no guarding Ext: muscle strength 5 out of 5 in all 4 extremities grossly, no gross muscle at rophy, no contractures, Neuro: CN II-XI grossly intact, no gross focal neuro deficits Psych: Alert, oriented, appropriate affect Assessment: Elevated troponin, suspect plateaued Small amounts of blood-tinged phlegm, single episode Recent ST elevation HI, scheduled for revascularization Chronic conditions: Hypertension, hypothyroidism Imaging: EKG revealed sinus rhythm at 74 bpm with diffuse T-wave inversions and Q waves. Chest x-ray was unremarkable. Data Review: In the emergency room laboratory evaluation was remarkable for troponin of 0.117 (down from 51.6 on 07/19), with repeat troponin 0.129 and 0.124 respectively. Plan: Cardiac monitoring Suspect single episode due to excessive cough Continue home medications DVT prophylaxis: Lovenox subcu The patient is admitted with an anticipated less than 2 midnight stay for evaluation of cough CODE STATUS: Full Code Discussed with: Patient Anticipated discharge place: Home Past Medical History Past Medical History: Hyperlipidemia, Thyroid Disorder Additional Past Medical History / Comment(s): kidney stones. chronic back pain. Plugged right ear, status post placement of right ear tube History of Any Multi-Drug Resistant Organisms: None Reported Past Surgical History: Tonsillectomy Additional Past Surgical History / Comment(s): CATARACT, SINUS SURGERY, KIDNEY STONE REMOVAL, placement of right ear tube Past Anesthesia/Blood Transfusion Reactions: No Reported Reaction Past Psychological History: No Psychological Hx Reported Smoking Status: Former smoker Past Alcohol Use History: Rare Past Drug Use History: None Reported - Past Family History Mother Family Medical History: No Reported History Father Family Medical History: Coronary Artery Disease (CAD) Medications and Allergies Home Medications Medication Instructions Recorded Confirmed Type Fluticasone Nasal [place] [Flonase 2 spr EA NOSTRIL DAILY 07/18/23 08/02/23 History Nasal [place]] Levothyroxine Sodium [Synthroid] 50 mcg PO DAILY 07/18/23 08/02/23 History Ofloxacin [Ofloxacin 0.3% Otic 4 - 5 drops BOTH EARS DIRECTED 07/18/23 08/02/23 History Soln] Acetaminophen Tab [Tylenol] 650 mg PO Q6HR PRN tab 07/21/23 08/02/23 Rx Aspirin 81 mg PO DAILY #30 tab 07/21/23 08/02/23 Rx Atorvastatin [Lipitor] 80 mg PO DAILY #30 tab 07/21/23 08/02/23 Rx Metoprolol Tartrate [Lopressor] 25 mg PO BID #60 tab 07/21/23 08/02/23 Rx Nitroglycerin Sl Tabs [Nitrostat] 0.4 mg SUBLINGUAL Q5M PRN #15 tab 07/21/23 08/02/23 Rx Prasugrel [Effient] 10 mg PO DAILY #30 tab 07/21/23 08/02/23 Rx Allergies Allergy/AdvReac Type Severity Reaction Status Date / Time No Known Allergies Allergy Verified 08/02/23 19:09 Physical Exam Vitals: Vital Signs Temp Pulse Pulse Resp BP BP Pulse Ox 08/02/23 21:37 64 18 08/02/23 21:23 97.8 F 64 18 148/76 95 08/02/23 20:56 98.2 F 69 18 135/86 99 08/02/23 19:36 63 18 150/83 96 08/02/23 18:10 121/77 08/02/23 16:38 62 18 109/67 97 08/02/23 14:49 18 08/02/23 14:38 98.1 F 82 20 119/66 97 Intake and Output 08/02/23 08/02/23 08/02/23 06:59 14:59 22:59 Other: Voiding Method Toilet Weight 72.575 kg 69.8 kg Results CBC & Chem 7: 08/02/23 15:25 08/02/23 15:25 Labs: Abnormal Lab Results - Last 24 Hours (Table) 08/02/23 08/02/23 08/02/23 Range/Units 15:25 15:25 18:07 Glucose 100 H (74-99) mg/dL Troponin I 0.117 H* 0.129 H* (0.000-0.034) ng/mL 08/02/23 Range/Units 21:40 Glucose (74-99) mg/dL Troponin I 0.124 H* (0.000-0.034) ng/mL Thrombosis Risk Factor Assmnt - Choose All That Apply Any of the Below Risk Factors Present?: Yes Each Factor Represents 1 point: Acute HI Other Risk Factors: Yes Each Risk Factor Represents 2 Points: Age 61-74 years Other congenital or acquired thrombophilia - If yes, enter type in comment: No Thrombosis Risk Factor Assessment Total Risk Factor Score: 3 Thrombosis Risk Factor Assessment Level: Moderate Risk
[2023-08-03] MEDS: LEVOTHYROXINE 50 MCG TAB PO SCH (06:26)
[2023-08-03 09:55] LABS: Basophils % (A) 0 %; Eosinophils # (A) 0.2 k/uL (0-0.7); Eosinophils % (A) 3 %; HCT 44.7 % (39.0-53.0); HGB 14.5 gm/dL (13.0-17.5); Lymphocytes # (A) 1.4 k/uL (1.0-4.8); Lymphocytes % (A) 24 %; MCHC 32.3 g/dL (31.0-37.0); MCV 95.9 fL (80.0-100.0); Mean Platelet Volume 8.5; Monocytes # (A) 0.4 k/uL (0-1.0); Monocytes % (A) 7 %; Neutrophils # (A) 3.9 k/uL (1.3-7.7); Neutrophils % (A) 64 %; Platelet Count 229 k/uL (150-450); RBC 4.66 m/uL (4.30-5.90); RDW 11.9 % (11.5-15.5); WBC 6.1 k/uL (3.8-10.6)
--- NOTE | 2023-08-03 09:56 | P.PN ---
Subjective Progress Note Date: 08/03/23 No new complaints. Pt feels much better today. Tele reviewed, and rates as low as 32 with 3.5 second sinus pauses were noted. Metoprolol d/c'd this AM, and cardiology consulted. Gen: awake, alert HEENT: normocephalic, atraumatic, good hearing acuity, moist mucous membranes Resp: good air exchange, breathing comfortably with no accessory muscle use CVS: good distal perfusion x 4, GI: soft, NTTP, ND : no SPT, no CVAT, berkowitz catheter not present MSK: no pitting edema, no clubbing Neuro: non-focal, moving all extremities Psych: cooperative, euthymic mood Hospital course: Patient is a 67-year-old male with a PMH of recent ST elevation [place] status post RCA stenting, hypertension, and hypothyroidism who presented to the emergency room with complaints of cough. In the emergency room laboratory evaluation was remarkable for troponin of 0.117 (down from 51.6 on 07/19), with repeat troponin 0.129 and 0.124 respectively. EKG revealed sinus rhythm at 74 bpm with diffuse T-wave inversions and Q waves. Chest x-ray was unremarkable. Assessment: Sinus bradycardia with 3.5 second sinus pauses Elevated troponin, suspect plateaued Small amounts of blood-tinged phlegm, single episode Recent ST elevation [place], scheduled for revascularization Chronic conditions: Hypertension, hypothyroidism Plan: Cardiac monitoring Discontinue home metoprolol, and continue to monitor Cardiology consulted Suspect single episode due to excessive cough Continue home medications DVT prophylaxis: Lovenox subcu CODE STATUS: Full Code Discussed with: Patient Anticipated discharge place: Home Objective - Vital Signs Vital signs: Vital Signs Temp 97.8 F 08/03/23 08:55 Pulse 57 L 08/03/23 08:55 Resp 16 08/03/23 08:55 BP 121/65 08/03/23 08:55 Pulse Ox 98 08/03/23 08:55 FiO2 Intake & Output 08/02/23 08/03/23 08/03/23 18:59 06:59 18:59 Intake Total 10 10 Balance 10 10 Weight 72.575 kg 69.8 kg Intake: IV 10 10 0.9 10 Invasive Line 1 10 Other: Voiding Method Toilet Toilet # Voids 2 - Labs CBC & Chem 7: 08/02/23 15:25 08/02/23 15:25 Labs: Abnormal Lab Results - Last 24 Hours (Table) 08/02/23 08/02/23 08/02/23 Range/Units 15:25 15:25 18:07 Glucose 100 H (74-99) mg/dL Troponin I 0.117 H* 0.129 H* (0.000-0.034) ng/mL 08/02/23 Range/Units 21:40 Glucose (74-99) mg/dL Troponin I 0.124 H* (0.000-0.034) ng/mL
[2023-08-03 10:16] LABS: ALT 42 U/L (4-49); AST 29 U/L (17-59); African American GFR (CKD) >90 (>60 ml/min/1.73 sqM); Albumin 3.7 g/dL (3.5-5.0); Alkaline Phosphatase 83 U/L (38-126); Anion Gap 10 mmol/L; Blood Urea Nitrogen 20 mg/dL (9-20); Carbon Dioxide 21 mmol/L (22-30); Chloride 106 mmol/L (98-107); Glucose 98 mg/dL (74-99); Magnesium 2.1 mg/dL (1.6-2.3); Non-African American GFR(CKD) 88 (>60 ml/min/1.73 sqM); Phosphorus 3.7 mg/dL (2.5-4.5); Potassium 4.6 mmol/L (3.5-5.1); Sodium 137 mmol/L (137-145); Total Bilirubin 0.5 mg/dL (0.2-1.3); Total Protein 6.2 g/dL (6.3-8.2)
--- NOTE | 2023-08-03 11:47 | P.CRDCN ---
History of Present Illness Consult date: 08/03/23 Reason for Consult (text): NSTEMI History of present illness: This is Michael Roblero NP, I'm dictating on behalf of Dr. George's H&P and A&P The patient was interviewed and examined. HPI: Patient is a pleasant 67-year-old male with a past medical history of hyperlipidemia, thyroid disorder, chronic back pain, recent cardiac catheterization who presented to the hospital with complaints of a cough with discolored sputum. Patient recently had a cardiac catheterization on 07 18 with stenting to the long segment of the mid RCA which was 100% occluded. Patient had CT surgery evaluation at that time, and was recommended for follow-up for cardiac revascularization surgery. Yesterday the patient reports that he's been feeling fine, but started having a cough with some yellow/rust tinged sputum. This concerned him and he came to the ER for evaluation. In the emergency department the patient was found to have some elevated troponins. EKG was not indicative of any acute process. Due to the elevated troponins, the patient was subsequently admitted for further evaluation. At this time the patient reports that he's feeling fine. He is no longer appreciating a cough. He denies chest pain, shortness of breath, heart palpitations, dizziness, and syncope. ROS: [No fever, chills, or rigors] [no cough, phlegm, or expectoration] [no nausea, vomiting, or diarrhea] [no hematuria, dysuria] [no musculoskelatal complaints] [no strokes or seizures] [no skin lesions] EXAMINATION: GENERAL: Well-appearing, well-nourished and in no acute distress. NECK: Supple without JVD or thyromegaly. LUNGS: Breath sounds clear to auscultation bilaterally. Respiration equal and unlabored. No wheezes, rales or rhonchi. HEART: Regular rate and rhythm without murmurs, rubs or gallops. S1 and S2 heard. EXTREMITIES: Normal range of motion, no edema. No clubbing or cyanosis. Peripheral pulses intact and strong. REVIEW OF LABS, ECG & MEDICAL DATA: LABS: White count 6.1, hemoglobin 14.5, platelets 229, sodium 137, potassium 4.6, BUN 20, creatinine 0.89, magnesium 2.1, troponin-0.117, 0.129, 0.124 EKG: Normal sinus rhythm IMAGING: Chest x-ray dated 08/02/2023 demonstrates no acute cardiopulmonary process. VITALS: Temp 97.8, pulse 57, respirations 16, rest blood pressure 121/65, O2 saturation 98% on room air IMPRESSION: 1. Status post STEMI 2 weeks ago 2. Status post cardiac catheterization on 07/18/2023 3. Hyperlipidemia PLAN: Consult CT surgery. If cleared patient can be discharged from a cardiac standpoint. Troponin elevation is not indicative of any new VA, patient is still experiencing troponin washout from previous VA and stent placement. Thank you for the consult and allowing us to participate in the care of this patient. Past Medical History Past Medical History: Hyperlipidemia, Thyroid Disorder Additional Past Medical History / Comment(s): kidney stones. chronic back pain. Plugged right ear, status post placement of right ear tube History of Any Multi-Drug Resistant Organisms: None Reported Past Surgical History: Tonsillectomy Additional Past Surgical History / Comment(s): CATARACT, SINUS SURGERY, KIDNEY STONE REMOVAL, placement of right ear tube Past Anesthesia/Blood Transfusion Reactions: No Reported Reaction Past Psychological History: No Psychological Hx Reported Smoking Status: Former smoker Past Alcohol Use History: Rare Past Drug Use History: None Reported - Past Family History Mother Family Medical History: No Reported History Father Family Medical History: Coronary Artery Disease (CAD) Medications and Allergies Home Medications Medication Instructions Recorded Confirmed Type Fluticasone Nasal [place] [Flonase 2 spr EA NOSTRIL DAILY 07/18/23 08/02/23 History Nasal [place]] Levothyroxine Sodium [Synthroid] 50 mcg PO DAILY 07/18/23 08/02/23 History Ofloxacin [Ofloxacin 0.3% Otic 4 - 5 drops BOTH EARS DIRECTED 07/18/23 08/02/23 History Soln] Acetaminophen Tab [Tylenol] 650 mg PO Q6HR PRN tab 07/21/23 08/02/23 Rx Aspirin 81 mg PO DAILY #30 tab 07/21/23 08/02/23 Rx Atorvastatin [Lipitor] 80 mg PO DAILY #30 tab 07/21/23 08/02/23 Rx Metoprolol Tartrate [Lopressor] 25 mg PO BID #60 tab 07/21/23 08/02/23 Rx Nitroglycerin Sl Tabs [Nitrostat] 0.4 mg SUBLINGUAL Q5M PRN #15 tab 07/21/23 08/02/23 Rx Prasugrel [Effient] 10 mg PO DAILY #30 tab 07/21/23 08/02/23 Rx Allergies Allergy/AdvReac Type Severity Reaction Status Date / Time No Known Allergies Allergy Verified 08/02/23 19:09 Physical Exam Vitals: Vital Signs Temp Pulse Pulse Resp BP BP Pulse Ox 08/03/23 08:55 97.8 F 57 L 16 121/65 98 08/03/23 04:00 97.7 F 48 L 18 96/54 98 08/03/23 02:10 32 L 102/60 08/03/23 01:03 58 L 18 08/02/23 22:53 97.6 F 58 L 18 110/69 97 08/02/23 21:37 64 18 08/02/23 21:23 97.8 F 64 18 148/76 95 08/02/23 20:56 98.2 F 69 18 135/86 99 08/02/23 19:36 63 18 150/83 96 08/02/23 18:10 121/77 08/02/23 16:38 62 18 109/67 97 08/02/23 14:49 18 08/02/23 14:38 98.1 F 82 20 119/66 97 Intake and Output 08/02/23 08/03/23 08/03/23 22:59 06:59 14:59 Intake Total 10 10 Balance 10 10 Intake: IV 10 10 0.9 10 Invasive Line 1 10 Other: Voiding Method Toilet Toilet Toilet # Voids 2 Weight 69.8 kg Results 08/03/23 08:22 08/03/23 08:22 Cardiac Enzymes 08/02/23 08/02/23 08/02/23 Range/Units 15:25 15:25 18:07 AST 29 (17-59) U/L Troponin I 0.117 H* 0.129 H* (0.000-0.034) ng/mL 08/02/23 08/03/23 Range/Units 21:40 08:22 AST 29 (17-59) U/L Troponin I 0.124 H* (0.000-0.034) ng/mL Coagulation 08/02/23 Range/Units 15:25 PT 11.2 (10.0-12.5) sec APTT 24.9 (22.0-30.0) sec CBC 08/02/23 08/03/23 Range/Units 15:25 08:22 WBC 7.3 6.1 (3.8-10.6) k/uL RBC 4.68 4.66 (4.30-5.90) m/uL Hgb 14.7 14.5 (13.0-17.5) gm/dL Hct 43.9 44.7 (39.0-53.0) % Plt Count 226 229 (150-450) k/uL Comprehensive Metabolic Panel 08/02/23 08/03/23 Range/Units 15:25 08:22 Sodium 138 137 (137-145) mmol/L Potassium 4.0 4.6 (3.5-5.1) mmol/L Chloride 104 106 (98-107) mmol/L Carbon Dioxide 25 21 L (22-30) mmol/L BUN 18 20 (9-20) mg/dL Creatinine 0.93 0.89 (0.66-1.25) mg/dL Glucose 100 H 98 (74-99) mg/dL Calcium 9.3 9.0 (8.4-10.2) mg/dL AST 29 29 (17-59) U/L ALT 41 42 (4-49) U/L Alkaline Phosphatase 71 83 (38-126) U/L Total Protein 6.4 6.2 L (6.3-8.2) g/dL Albumin 4.0 3.7 (3.5-5.0) g/dL Current Medications Generic Name Dose Route Start Last Admin Trade Name Adairq PRN Reason Stop Dose Admin Aspirin 81 mg 08/03/23 09:00 Aspirin 81 Mg PO DAILY [facility] Atorvastatin Calcium 80 mg 08/03/23 09:00 Atorvastatin 80 Mg Tab PO DAILY [facility] Enoxaparin Sodium 40 mg 08/03/23 09:00 Enoxaparin 40 Mg/0.4 Ml Syringe SQ DAILY [facility] Fluticasone Propionate 2 spray 08/03/23 09:00 Fluticasone 50mcg/[place] Nasal 16gm EA NOSTRIL DAILY [facility] Levothyroxine Sodium 50 mcg 08/03/23 06:30 08/03/23 06:26 Levothyroxine 50 Mcg Tab PO 50 mcg DAILY@0630 [facility] Administration Naloxone HCl 0.2 mg 08/02/23 19:01 Naloxone 0.4 Mg/Ml 1 Ml Vial IV Q2M PRN Opioid Reversal Ondansetron HCl 4 mg 08/02/23 19:01 Ondansetron 4 Mg/2 Ml Vial IVP Q8HR PRN Nausea And Vomiting Prasugrel 10 mg 08/03/23 09:00 Prasugrel 10 Mg Tab PO DAILY [facility] Intake and Output 08/02/23 08/03/23 08/03/23 22:59 06:59 14:59 Intake Total 10 10 Balance 10 10 Intake: IV 10 10 0.9 10 Invasive Line 1 10 Other: Voiding Method Toilet Toilet Toilet # Voids 2 Weight 69.8 kg 08/03/23 08:22 08/03/23 08:22
[2023-08-03] MEDS: ATORVASTATIN 80 MG TAB PO SCH (12:06)
[2023-08-03] MEDS: ASPIRIN 81 MG PO SCH (12:06)
[2023-08-03] MEDS: PRASUGREL 10 MG TAB PO SCH (12:06)
[2023-08-03] MEDS: ENOXAPARIN 40 MG/0.4 ML SYRINGE SQ SCH (12:07)
[2023-08-03] MEDS: FLUTICASONE 50MCG/SPRAY NASAL 16GM EA NOSTRIL SCH (12:08)
[2023-08-03] MEDS: METOPROLOL TARTRATE 25 MG TAB PO SCH (16:47)
[2023-08-04] MEDS: LEVOTHYROXINE 50 MCG TAB PO SCH (06:23)
[2023-08-04] MEDS: ASPIRIN 81 MG PO SCH (08:50)
[2023-08-04] MEDS: ATORVASTATIN 80 MG TAB PO SCH (08:50)
[2023-08-04] MEDS: ENOXAPARIN 40 MG/0.4 ML SYRINGE SQ SCH ×2 (08:50→08:52)
[2023-08-04] MEDS: PRASUGREL 10 MG TAB PO SCH (08:51)
[2023-08-04] MEDS: FLUTICASONE 50MCG/SPRAY NASAL 16GM EA NOSTRIL SCH (08:51)
--- NOTE | 2023-08-04 10:34 | P.PN ---
Subjective Progress Note Date: 08/04/23 HPI: Patient is a pleasant 67-year-old male with a past medical history of hyperlipidemia, thyroid disorder, chronic back pain, recent cardiac catheterization who presented to the hospital with complaints of a cough with discolored sputum. Patient recently had a cardiac catheterization on 07 18 with stenting to the long segment of the mid RCA which was 100% occluded. Patient had CT surgery evaluation at that time, and was recommended for follow-up for cardiac revascularization surgery. Yesterday the patient reports that he's been feeling fine, but started having a cough with some yellow/rust tinged sputum. This concerned him and he came to the ER for evaluation. In the emergency department the patient was found to have some elevated troponins. EKG was not indicative of any acute process. Due to the elevated troponins, the patient was subsequently admitted for further evaluation. At this time the patient reports that he's feeling fine. He is no longer appreciating a cough. He denies chest pain, shortness of breath, heart palpitations, dizziness, and syncope. REVIEW OF LABS, ECG & MEDICAL DATA: LABS: White count 6.1, hemoglobin 14.5, platelets 229, sodium 137, potassium 4.6, BUN 20, creatinine 0.89, magnesium 2.1, troponin-0.117, 0.129, 0.124 EKG: Normal sinus rhythm IMAGING: Chest x-ray dated 08/02/2023 demonstrates no acute cardiopulmonary process. VITALS: Temp 97.8, pulse 57, respirations 16, rest blood pressure 121/65, O2 saturation 98% on room air 08/04 Patient is seen today in follow up regarding elevated troponins. Patient denies any chest pain. No cough. No shortness of breath. He is waiting for cardiothoracic surgery evaluation. He does have an appointment with Drs. sotomayor on August 15. He has also had a follow-up appointment with Dr. Denis since his last hospitalization. Blood pressure 125/81, heart rate 62, afebrile, pulse ox 96% on room air. EXAMINATION: GENERAL: Well-appearing, well-nourished and in no acute distress. NECK: Supple without JVD or thyromegaly. LUNGS: Breath sounds clear to auscultation bilaterally. Respiration equal and unlabored. No wheezes, rales or rhonchi. HEART: Regular rate and rhythm without murmurs, rubs or gallops. S1 and S2 heard. EXTREMITIES: Normal range of motion, no edema. No clubbing or cyanosis. Per ipheral pulses intact and strong. IMPRESSION: 1. Status post STEMI 2 weeks ago 2. Status post cardiac catheterization on 07/18/2023 3. Hyperlipidemia PLAN: Consult CT surgery. If cleared patient can be discharged from a cardiac standpoint. Continue current cardiac medications Hold BB at discharge due to bradycardia Troponin elevation is not indicative of any new DE, patient is still experi encing troponin washout from previous DE and stent placement. Nurse practitioner note has been reviewed, I agree with the documented findings and plan of care. Patient was seen and examined. Objective - Vital Signs Vital signs: Vital Signs Temp 97.6 F 08/04/23 04:00 Pulse 65 08/04/23 04:00 Resp 16 08/04/23 04:00 BP 94/56 08/04/23 04:00 Pulse Ox 96 08/04/23 04:00 FiO2 Intake & Output 08/03/23 08/04/23 08/04/23 18:59 06:59 18:59 Intake Total 980 Balance 980 Intake: IV 20 Invasive Line 1 20 Oral 960 Other: Voiding Method Toilet Toilet # Voids 3 1 1 # Bowel Movements 0 - Labs CBC & Chem 7: 08/03/23 08:22 08/03/23 08:22 Labs: Abnormal Lab Results - Last 24 Hours (Table) 08/03/23 Range/Units 08:22 Carbon Dioxide 21 L (22-30) mmol/L Total Protein 6.2 L (6.3-8.2) g/dL
--- NOTE | 2023-08-04 14:38 | P.PN ---
Subjective Progress Note Date: 08/04/23 Hospital Course: Patient is a 67-year-old male with a PMH of recent ST elevation [place] status post RCA stenting, hypertension, and hypothyroidism who presented to the emergency room with complaints of cough. In the emergency room laboratory evaluation was remarkable for troponin of 0.117 (down from 51.6 on 07/19), with repeat troponin 0.129 and 0.124 respectively. EKG revealed sinus rhythm at 74 bpm with diffuse T-wave inversions and Q waves. Chest x-ray was unremarkable. Cardiology consulted. Patient stable for discharge from their standpoint. He is also scheduled for revascularization by CT surgery. Cardiology recommending repeat CT surgery evaluation prior to discharge. Currently chest pain-free. Subjective: Seen and examined at bedside. No acute events overnight. Pertinent positives and negatives as discussed above, a complete review of systems was performed and all other systems are negative. Vitals Signs Reviewed. General: [nontoxic], [no distress], [appears at stated age] Derm: [warm], [dry] Head: [atraumatic], [normocephalic], [symmetric] Eyes: [EOMI], [no lid lag], [anicteric sclera] Mouth: [no lip lesion], [mucus membranes moist] Cardiovascular: [S1S2 reg], [no murmur] Lungs: [CTA bilateral], [no rhonchi, no rales] , [no accessory muscle use] Abdominal: [soft], [ nontender to palpation], [no guarding], [no appreciable organomegaly] Ext: [no gross muscle atrophy], [no edema], [no contractures] Neuro: [ CN II-XI grossly intact], [no focal neuro deficits] Psych: [Alert], [oriented], [appropriate affect] Data Reviewed Today: Pertinent Labs: No new labs Imaging: No new imaging Assessment and Plan: Sinus bradycardia with 3.5 second sinus pauses, resolved Elevated troponin, plateaued Small amounts of blood-tinged phlegm, single episode Recent ST elevation PA, scheduled for revascularization Coronary artery disease Chronic conditions: Hypertension, hypothyroidism Plan: Cardiology note reviewed, recommending CT surgery evaluation prior to discharge Home metoprolol has been discontinued Rest of the home medications continued -On telemetry -CT surgery consult pending DVT prophylaxis: Lovenox subcu CODE STATUS: Full Code Discussed with: Patient Anticipated discharge place: Home Objective - Vital Signs Vital signs: Vital Signs Temp 97.5 F L 08/04/23 08:49 Pulse 74 08/04/23 12:00 Resp 16 08/04/23 12:00 BP 121/80 08/04/23 12:00 Pulse Ox 96 08/04/23 12:00 FiO2 Intake & Output 08/03/23 08/04/23 08/04/23 18:59 06:59 18:59 Intake Total 980 Balance 980 Intake: IV 20 Invasive Line 1 20 Oral 960 Other: Voiding Method Toilet Toilet Toilet # Voids 3 1 1 # Bowel Movements 0 - Labs CBC & Chem 7: 08/03/23 08:22 08/03/23 08:22
--- NOTE | 2023-08-04 17:50 | P.GSCN ---
History of Present Illness Consult date: 08/04/23 Reason for Consult: Coronary artery disease scheduled for elective coronary artery bypass grafting surgery on 09/01/2023, known to the cardiothoracic surgery service. Requesting physician: Eddie Wilson History of present illness: This is a 59-year-old gentleman who follows in our outpatient basis with Dr. Brijesh Wilkinson for his primary care. He is a past medical history significant for multivessel coronary artery disease with successful stenting to his right coronary artery by Dr. Adrian on 07/18/2023, recent ST elevated myocardial infarction and recent admission to the hospital on 07/18/2023, hyperlipidemia, family history of coronary artery disease with his father undergoing myocardial revascularization surgery in his late 60s, hypothyroidism, hard of hearing, remote history of nicotine dependence, quit smoking in 2009, osteoarthritis, degenerative joint disease, kidney stones and plugging of his right ear with recent tube placed to his right ear. The patient presented to the emergency department here at [facility] on 08/02/2023 with complaints of feeling congested with a cough and coughing up sputum which the patient describes to be orange tinged in color. The patient was subsequently concern for blood in his sputum since he is on Effient for anticoagulation. The patient denies any recent fever, chills, nausea, vomiting, hematemesis, chest pain,/pressure, diaphoresis, chest trauma, headache, shortness of breath, palpitations, presyncope or syncope. He does report that he has been compliant with taking all of his medications as prescribed while at home. On admission to 12-lead EKG was completed which demonstrated normal sinus rhythm with a heart rate of 74 bpm. laboratory results showed a WBC count of 7.3, hemoglobin 14.7, hematocrit 43.9, platelets 226, PT 11.2, INR 1.0, PTT 24.9, sodium 138, potassium 4.0, BUN 18, creatinine 0.93, glucose 100, LC 9.3, phosphorus 3.0, magnesium 2.0, AST 29, ALT 41, proBNP 1100, and he did have elevated serial troponins 0.117, 0.129, and 0.124. For further evaluation a chest x-ray was completed which showed no acute cardiopulmonary process. The patient has been afebrile since admission, current oxygen saturations are 96% on room air. Subsequently, due to the patient's presenting symptoms, and known history of cor onary artery disease a consult was placed to Dr. Justice Pacheco from cardiothoracic surgery for further evaluation and treatment recommendations. Review of Systems A 14 point review of systems was completed and was negative except as mentioned in the HPI. Past Medical History Past Medical History: Coronary Artery Disease (CAD), Hyperlipidemia, Myocardial Infarction (VT) (July 182022), Thyroid Disorder Additional Past Medical History / Comment(s): kidney stones. chronic back pain, degenerative joint disease. Plugged right ear, status post placement of right ear tube History of Any Multi-Drug Resistant Organisms: None Reported Past Surgical History: Tonsillectomy Additional Past Surgical History / Comment(s): CATARACT, SINUS SURGERY, KIDNEY STONE REMOVAL, placement of right ear tube Past Anesthesia/Blood Transfusion Reactions: No Reported Reaction Past Psychological History: No Psychological Hx Reported Smoking Status: Former smoker (Quit smoking in 2009) Past Alcohol Use History: Rare Past Drug Use History: None Reported - Past Family History Mother Family Medical History: No Reported History Father Family Medical History: Coronary Artery Disease (CAD) (History of CABG in his late 60s) Medications and Allergies Home Medications Medication Instructions Recorded Confirmed Type Fluticasone Nasal [place] [Flonase 2 spr EA NOSTRIL DAILY 07/18/23 08/02/23 History Nasal [place]] Levothyroxine Sodium [Synthroid] 50 mcg PO DAILY 07/18/23 08/02/23 History Ofloxacin [Ofloxacin 0.3% Otic 4 - 5 drops BOTH EARS DIRECTED 07/18/23 08/02/23 History Soln] Acetaminophen Tab [Tylenol] 650 mg PO Q6HR PRN tab 07/21/23 08/02/23 Rx Aspirin 81 mg PO DAILY #30 tab 07/21/23 08/02/23 Rx Atorvastatin [Lipitor] 80 mg PO DAILY #30 tab 07/21/23 08/02/23 Rx Metoprolol Tartrate [Lopressor] 25 mg PO BID #60 tab 07/21/23 08/02/23 Rx Nitroglycerin Sl Tabs [Nitrostat] 0.4 mg SUBLINGUAL Q5M PRN #15 tab 07/21/23 08/02/23 Rx Prasugrel [Effient] 10 mg PO DAILY #30 tab 07/21/23 08/02/23 Rx Allergies Allergy/AdvReac Type Severity Reaction Status Date / Time No Known Allergies Allergy Verified 08/02/23 19:09 Surgical - Exam Vital Signs Temp Pulse Resp BP Pulse Ox 98.1 F 82 20 119/66 97 08/02/23 14:38 08/02/23 14:38 08/02/23 14:38 08/02/23 14:38 08/02/23 14:38 - General well developed, well nourished, no distress, no pain - Eyes PERRL, normal ocular movement, no pale, no icteric - ENT normal pinna, normal nares, normal mucosa, no congestion, decreased hearing - Neck Neck is supple, no lymphadenopathy. no masses, no bruits, trachea midline, no venous distension - Respiratory Lung sounds are essentially clear throughout, no wheezes, rhonchi or crackles. Respirations are symmetrical and nonlabored. Oxygen saturation is 96% on room air. - Cardiovascular Regular rhythm and rate. S1 and S2 present, negative for S3, gallop or murmur. No edema present. - Abdomen Abdomen is soft, nontender and nondistended. Active bowel sounds present all 4 abdominal quadrants. No guarding or rigidity. No organomegaly appreciated. - Genitourinary Deferred - Rectum Deferred - Integumentary no rash, no growths, no abnormal pigmentation - Neurologic No focal Deficits. normal coordination, normal sensation - Musculoskeletal Moves all 4 extremities with equal strength bilateral. normal gait, normal posture - Psychiatric oriented to time, oriented to person, oriented to place, speech is normal, memory intact Results - Labs 08/03/23 08:22 08/03/23 08:22 - Imaging Chest x-ray: report reviewed, image reviewed EKG: image reviewed Assessment and Plan Assessment: Slight elevation in troponins, suspected plateau Small amounts of blood-tinged phlegm, single episode Multivessel coronary artery disease, status post stent placement to his right coronary artery on 07/18/2023 currently on Prasugrel for anticoagulation Recent ST elevated myocardial infarction on 07/18/2023 Hyperlipidemia Hypothyroidism Remote history of nicotine dependence, quit smoking in 2009 Hard of hearing Osteoarthritis Degenerative joint disease History of kidney stones Plan: The patient was seen and examined at his bedside on the third floor cardiac stepdown unit in conjunction with Dr. Justice Pacheco. His chart and diagnostics reviewed. Dr. Pacheco spoke with Dr. Correia from cardiology in regards to the patient's slight elevation in troponins, possible plateau of his troponins from his previous ST elevated myocardial infarction on 07/18/2023. The patient denies any recent symptoms of chest pain/pressure, shortness of breath, diaphoresis, palpitations, presyncope or syncope. He has been diligent in taking his medications as prescribed and has been refraining from excessive activity. The patient is scheduled to see Dr. Pacheco in the office on 08/15/2023 to finalize surgical plan. The patient is currently scheduled for myocardial revascularization surgery tentatively on 09/01/2023 with left internal mammary artery, endoscopic vein harvest, endoscopic left radial artery, exclusion left atrial appendage and intraoperative transesophageal echocardiogram. It is felt that the patient's troponins are still slightly e levated from his previous ST elevated myocardial infarction on 07/18/2023 and is ready to be discharged home today. Continue to maximize medical management, follow-up as scheduled on 08/15/[address] Justice Pacheco. Thank you Dr. Wilson for this consult and we look forward to working with you in the care of this patient. The patient is scheduled on 08/15/[address] Justice Pacheco as an outpatient. I have personally seen and examined the patient, performed the documentation and the assessment and plan as written.30 minutes spent on the visit . Tres MCMANUS
[2023-08-04 18:23] VITALS: BP 108/65; PULSE 86; RESP 17; TEMP 98.9
--- NOTE | 2023-08-04 19:01 | P.DS ---
Providers Date of admission: 08/02/23 19:42 Expected date of discharge: 08/04/23 Attending physician: Rajni Raines MD Consults: 08/03/23 03:04 Consult Physician Urgent Consulting Provider: Jerry Escudero Consult Reason/Comments: elevated troponin, sinus pauses on tele with bradycardia Do you want consulting provider notified?: Yes 08/04/23 12:16 Consult Physician Urgent Consulting Provider: Justice Pacheco Consult Reason/Comments: known to you, open heart eleni decemeber Do you want consulting provider notified?: Yes Primary care physician: [facility] Hospital Course: Discharge diagnoses: Sinus bradycardia NSTEMI Isolated Hemoptysis Coronary artery disease Hospital Course: Patient is a 67-year-old male with a PMH of recent ST elevation [place] status post RCA stenting, hypertension, and hypothyroidism who presented to the emergency room with complaints of cough. In the emergency room laboratory evaluation was remarkable for troponin of 0.117 (down from 51.6 on 07/19), with repeat troponin 0.129 and 0.124 respectively. EKG revealed sinus rhythm at 74 bpm with diffuse T-wave inversions and Q waves. Chest x-ray was unremarkable. Cardiology consulted. Patient stable for discharge from their standpoint. He is also scheduled for revascularization by CT surgery. Cardiology recommending repeat CT surgery evaluation prior to discharge. Currently chest pain-free. CT surgery has follow up scheduled for 08/15/23. Vitals Signs Reviewed. Gen: awake, alert HEENT: normocephalic, atraumatic, good hearing acuity, moist mucous membranes Resp: good air exchange, breathing comfortably with no accessory muscle use CVS: good distal perfusion x 4, GI: soft, NTTP, ND : no SPT, no CVAT, berkowitz catheter not present MSK: no pitting edema, no clubbing Neuro: non-focal, moving all extremities Psych: cooperative, euthymic mood This complex discharge summary took 30 minutes to prepare. Patient was discharged on 08/04/23 at 1747. Patient Condition at Discharge: Stable Plan - Discharge Summary Discharge Rx Participant: No New Discharge Prescriptions: Continue Fluticasone Nasal [place] [Flonase Nasal [place]] 2 spr EA NOSTRIL DAILY Aspirin 81 mg PO DAILY #30 tab Nitroglycerin Sl Tabs [Nitrostat] 0.4 mg SUBLINGUAL Q5M PRN #15 tab PRN Reason: Chest Pain Acetaminophen Tab [Tylenol] 650 mg PO Q6HR PRN tab PRN Reason: Fever And/ Or Pain Ofloxacin [Ofloxacin 0.3% Otic Soln] 4 - 5 drops BOTH EARS DIRECTED Levothyroxine Sodium [Synthroid] 50 mcg PO DAILY Prasugrel [Effient] 10 mg PO DAILY #30 tab Atorvastatin [Lipitor] 80 mg PO DAILY #30 tab Discontinued Metoprolol Tartrate [Lopressor] 25 mg PO BID #60 tab Discharge Medication List Fluticasone Nasal [place] [Flonase Nasal [place]] 2 spr EA NOSTRIL DAILY 07/18/23 [History] Levothyroxine Sodium [Synthroid] 50 mcg PO DAILY 07/18/23 [History] Ofloxacin [Ofloxacin 0.3% Otic Soln] 4 - 5 drops BOTH EARS DIRECTED 07/18/23 [History] Acetaminophen Tab [Tylenol] 650 mg PO Q6HR PRN tab 07/21/23 [Rx] Aspirin 81 mg PO DAILY #30 tab 07/21/23 [Rx] Atorvastatin [Lipitor] 80 mg PO DAILY #30 tab 07/21/23 [Rx] Nitroglycerin Sl Tabs [Nitrostat] 0.4 mg SUBLINGUAL Q5M PRN #15 tab 07/21/23 [Rx] Prasugrel [Effient] 10 mg PO DAILY #30 tab 07/21/23 [Rx] Follow up Appointment(s)/Referral(s): Justice Pacheco MD [STAFF PHYSICIAN] - 1 Week (please call to schedule follow up office closed for day. ) Brijesh Wilkinson DO [Primary Care Provider] - 1-2 days (please call to schedule follow up office closed for day. ) Patient Instructions/Handouts: Heart Attack (DC), Heart Healthy Diet (DC) Activity/Diet/Wound Care/Special Instructions: Follow up with Cardiothoracic surgery Discharge Disposition: HOME SELF-CARE
== END 2023-08-04 18:30 | disposition home or self-care (01) ==
LOC: EC 14:23 → UNDOADMIN 19:02 → 3SCARD 19:02
PROVIDERS: ADMIT Internal Medicine; ATTEND Internal Medicine
DX: I21.4 Non-ST elevation (NSTEMI) myocardial infarction (principal); R00.1 Bradycardia, unspecified; R77.8 Other specified abnormalities of plasma proteins; R53.1 Weakness; R04.2 Hemoptysis; E78.5 Hyperlipidemia, unspecified; G89.29 Other chronic pain; M54.9 Dorsalgia, unspecified; I25.10 Atherosclerotic heart disease of native coronary artery without angina pectoris; E03.9 Hypothyroidism, unspecified; I10 Essential (primary) hypertension; H91.90 Unspecified hearing loss, unspecified ear; M19.90 Unspecified osteoarthritis, unspecified site; I25.2 Old myocardial infarction; Z87.442 Personal history of urinary calculi; Z87.891 Personal history of nicotine dependence; Z95.5 Presence of coronary angioplasty implant and graft; Z79.890 Hormone replacement therapy; Z79.82 Long term (current) use of aspirin; Z79.02 Long term (current) use of antithrombotics/antiplatelets; Z79.51 Long term (current) use of inhaled steroids; Z79.899 Other long term (current) drug therapy
CPT/HCPCS: 96372; 99291; 36415; 94760; 93005; 83880; 80053 ×2; 83735 ×2; 84100 ×2; 84484; 85025 ×2; 85610; 85730; 71046; G0378 ×3; J1650

== ENCOUNTER 2023-08-05 14:24 | Emergency (ER) | payer MEDICARE, BC ==
[2023-08-05 14:45] VITALS: TEMP 98.5
--- NOTE | 2023-08-05 15:07 | ED ---
General Adult HPI - General Source: patient, RN notes reviewed Mode of arrival: ambulatory Limitations: no limitations <Brijesh Maxwell - Last Filed: 08/05/23 15:03> - General Source: RN notes reviewed, old records reviewed Limitations: no limitations - History of Present Illness -: days(s) Radiation: non-radiation Severity scale (1-10): 4 Quality: stabbing Consistency: constant Improves with: none Worsens with: none Associated Symptoms: denies other symptoms Treatments Prior to Arrival: none <Omar Arias - Last Filed: 08/12/23 22:33> - General Chief complaint: Recheck/Abnormal Lab/Rx Stated complaint: RECHECK HEART ISSUE Time Seen by Provider: 08/05/23 15:03 - History of Present Illness Initial comments: [id number] male presents emergency Department chief complaint chest discomfort, lightheadedness and dizziness. Patient states that he had recent admission for elevated troponin status post stent placement. Patient states she started having symptoms or worsening today states it felt like symptoms having prior to getting the stent. Patient has taken 3 nitro (Brijesh Maxwell) This is a 59-year-old male to the emergency department for evaluation of chest pain chest discomfort with multiple recent admissions, patient initial admission started off as ST elevated [place] requiring stent placement, patient is scheduled for outpatient CABG and has had 2 prior visits for chest pain. Patient states his chest pain is currently resolved but does admit to increased activity today (Omar Arias) - Related Data Home Medications Medication Instructions Recorded Confirmed Fluticasone Nasal Harris [Flonase 2 spr EA NOSTRIL DAILY 07/18/23 08/02/23 Nasal Harris] Levothyroxine Sodium [Synthroid] 50 mcg PO DAILY 07/18/23 08/02/23 Ofloxacin [Ofloxacin 0.3% Otic 4 - 5 drops BOTH EARS DIRECTED 07/18/23 08/02/23 Soln] Previous Rx's Medication Instructions Recorded Acetaminophen Tab [Tylenol] 650 mg PO Q6HR PRN tab 07/21/23 Aspirin 81 mg PO DAILY #30 tab 07/21/23 Atorvastatin [Lipitor] 80 mg PO DAILY #30 tab 07/21/23 Nitroglycerin Sl Tabs [Nitrostat] 0.4 mg SUBLINGUAL Q5M PRN #15 tab 07/21/23 Prasugrel [Effient] 10 mg PO DAILY #30 tab 07/21/23 Allergies Allergy/AdvReac Type Severity Reaction Status Date / Time No Known Allergies Allergy Verified 08/05/23 14:42 Review of Systems ROS Other: All systems not noted in ROS Statement are negative. <Brijesh Maxwell - Last Filed: 08/05/23 15:03> ROS Other: All systems not noted in ROS Statement are negative. <Omar Arias - Last Filed: 08/12/23 22:33> ROS Statement: Those systems with pertinent positive or pertinent negative responses have been documented in the HPI. Past Medical History Past Medical History: Coronary Artery Disease (CAD), Hyperlipidemia, Myocardial Infarction ([place]), Thyroid Disorder Additional Past Medical History / Comment(s): kidney stones. chronic back pain, degenerative joint disease. Plugged right ear, status post placement of right ear tube History of Any Multi-Drug Resistant Organisms: None Reported Past Surgical History: Tonsillectomy Additional Past Surgical History / Comment(s): CATARACT, SINUS SURGERY, KIDNEY STONE REMOVAL, placement of right ear tube Past Anesthesia/Blood Transfusion Reactions: No Reported Reaction Past Psychological History: No Psychological Hx Reported Smoking Status: Former smoker Past Alcohol Use History: Rare Past Drug Use History: None Reported - Past Family History Mother Family Medical History: No Reported History Father Family Medical History: Coronary Artery Disease (CAD) (History of CABG in his late 60s) <Brijesh Maxwell - Last Filed: 08/05/23 15:03> General Exam Limitations: no limitations <Brijesh Maxwell Maik - Last Filed: 08/05/23 15:03> General appearance: alert, in no apparent distress Head exam: Present: atraumatic, normocephalic, normal inspection Eye exam: Present: normal appearance, PERRL, EOMI. Absent: scleral icterus, conjunctival injection, periorbital swelling ENT exam: Present: normal exam, mucous membranes moist Neck exam: Present: normal inspection. Absent: tenderness, meningismus, lymphadenopathy Respiratory exam: Present: normal lung sounds bilaterally. Absent: respiratory distress, wheezes, rales, rhonchi, stridor Cardiovascular Exam: Present: regular rate, normal rhythm, normal heart sounds. Absent: systolic murmur, diastolic murmur, rubs, gallop, clicks GI/Abdominal exam: Present: soft, normal bowel sounds. Absent: distended, tenderness, guarding, rebound, rigid Extremities exam: Present: normal inspection, full ROM, normal capillary refill. Absent: tenderness, pedal edema, joint swelling, calf tenderness Back exam: Present: normal inspection Neurological exam: Present: alert, oriented X3, CN II-XII intact Psychiatric exam: Present: normal affect, normal mood Skin exam: Present: warm, dry, intact, normal color. Absent: rash <Omar Arias - Last Filed: 08/12/23 22:33> - General Exam Comments Initial Comments: Visual Physical Exam Vital signs reviewed General: Well-appearing, nontoxic, no acute distress. Head: Normocephalic, atraumatic Eyes: PERRLA, EOMI ENT: Airway patent Chest: Nonlabored breathing Skin: No visual rash, normal skin tone Neuro: Alert and oriented 3 Musculoskeletal: No gross abnormalities (Brijesh Maxwell) Course <Omar Arias - Reid Filed: 08/12/23 22:33> Vital Signs 08/05/23 08/05/23 14:42 20:53 Temperature 98.5 F Pulse Rate 96 85 Respiratory 16 19 Rate Blood Pressure 128/75 124/75 O2 Sat by Pulse 97 98 Oximetry - Reevaluation(s) Reevaluation #1: 08/05/23 Medical records reviewed (Omar Arias) Reevaluation #2: 08/05/23 Patient symptoms improved (Omar Arias) Reevaluation #3: 08/05/23 Patient informed results and questions answered (Omar Arias) Reevaluation #4: Was pt. sent in by a medical professional or institution (, PA, PADDING MACHINE OPERATOR, urgent care, hospital, or retirement...) When possible be specific @ -no Did you speak to anyone other than the patient for history (EMS, parent, family, police, friend...)? What history was obtained from this source @ -no Did you review nursing and triage notes (agree or disagree)? Why? @ -agree Are old charts reviewed (outside hosp., previous admission, EMS record, old EKG, old radiological studies, urgent care reports/EKG's, retirement records)? Report findings @ -yes Differential Diagnosis (chest pain, altered mental status, abdominal pain women, abdominal pain men, vaginal bleeding, weakness, fever, dyspnea, syncope, headache, dizziness, GI bleed, back pain, seizure, CVA, palpatations, mental health, musculoskeletal)? @ -prior EKG interpreted by me (3pts min.). @ -yes X-rays interpreted by me (1pt min.). @ -yes CT interpreted by me (1pt min.). @ -no U/S interpreted by me (1pt. min.). @ -no What testing was considered but not performed or refused? (CT, X-rays, U/S, labs)? Why? @ -none What meds were considered but not given or refused? Why? @ -none Did you discuss the management of the patient with other professionals (professionals i.e. , PA, PADDING MACHINE OPERATOR, lab, RT, psych nurse, social welfare administrator, ham stripper, teacher, giving officer, case management director)? Give summary @ -no Was smoking cessation discussed for >3mins.? @ -no Was critical care preformed (if so, how long)? @ -no Were there social determinants of health that impacted care today? How? (Homelessness, low income, unemployed, alcoholism, drug addiction, transportation, low edu. Level, literacy, decrease access to med. care, residential, rehab)? @ -none Was there de-escalation of care discussed even if they declined (Discuss DNR or withdrawal of care, Hospice)? DNR status @ -no What co-morbidities impacted this encounter? (DM, HTN, Smoking, COPD, CAD, Cancer, CVA, ARF, Chemo, Hep., AIDS, mental health diagnosis, sleep apnea, morbid obesity)? @ -none Was patient admitted / discharged? Hospital course, mention meds given and route, prescriptions, significant lab abnormalities, going to OR and other pertinent info. @ - 67 male to the emergency department for evaluation today. Patient presents today for evaluation regards to chest pain with elevated troponin per patient who can be discharged home as he feels improved and troponin is downtrending Discharge Undiagnosed new problem with uncertain prognosis? @ -no Drug Therapy requiring intensive monitoring for toxicity (Heparin, Nitro, Insulin, Cardizem)? @ -no Were any procedures done? @ -no Diagnosis/symptom? @ -Chest pain and angina Acute, or Chronic, or Acute on Chronic? @ -Acute Uncomplicated (without systemic symptoms) or Complicated (systemic symptoms)? @ -Complicated Side effects of treatment? @ -no Exacerbation, Progression, or Severe Exacerbation? @ -exacerbation Poses a threat to life or bodily function? How? (Chest pain, [place], [place], pneumonia, PE, COPD, DKA, ARF, appy, cholecystitis, CVA, Diverticulitis, Homicidal, Suicidal, threat to staff... and all critical care pts) @ -yes with significant ACS (Omar Arias) Reevaluation #5: Differential Chest Pain: Stable Angina, Unstable Angina, STEMI, NSTEMI Aortic Dissection, Pneumothorax, Musculoskeletal, Esophageal Spasm GERD, Cholecystitis, Pancreatitis, Zoster, this is not meant to be an all-inclusive list. (Omar Arias) EKG Findings - EKG Comments: EKG Findings:: EKG is sinus 91 VT 152 QRS 94 QTC 389 - EKG Results: EKG: interpreted by ERMD <Omar Arias - Last Filed: 08/12/23 22:33> Medical Decision Making <Brijesh Maxwell - Last Filed: 08/05/23 15:03> - Lab Data Result diagrams: 08/05/23 15:34 08/05/23 15:34 - EKG Data -: EKG Interpreted by Me - Radiology Data Radiology results: report reviewed (Chest x-rays negative for acute disease), image reviewed <Omar Arias - Last Filed: 08/12/23 22:33> - Medical Decision Making I performed a quick note portion of this chart signed Brijesh ALEJANDRO (Brijesh Maxwell) 67 male to the emergency department for evaluation today. Patient presents today for evaluation regards to chest pain with elevated troponin per patient who can be discharged home as he feels improved and troponin is downtrending (Omar Arias) - Lab Data Lab Results 08/05/23 08/05/23 08/05/23 Range/Units 15:34 15:34 15:34 WBC 8.6 (3.8-10.6) k/uL RBC 4.92 (4.30-5.90) m/uL Hgb 16.0 (13.0-17.5) gm/dL Hct 46.0 (39.0-53.0) % MCV 93.5 (80.0-100.0) fL MCH 32.5 (25.0-35.0) pg MCHC 34.7 (31.0-37.0) g/dL RDW 11.9 (11.5-15.5) % Plt Count 227 (150-450) k/uL MPV 8.7 Neutrophils % 82 % Lymphocytes % 12 % Monocytes % 4 % Eosinophils % 1 % Basophils % 0 % Neutrophils # 7.0 (1.3-7.7) k/uL Lymphocytes # 1.0 (1.0-4.8) k/uL Monocytes # 0.3 (0-1.0) k/uL Eosinophils # 0.1 (0-0.7) k/uL Basophils # 0.0 (0-0.2) k/uL PT 10.8 (10.0-12.5) sec INR 1.0 (<1.2) APTT 24.2 (22.0-30.0) sec Sodium 138 (137-145) mmol/L Potassium 4.6 (3.5-5.1) mmol/L Chloride 108 H (98-107) mmol/L Carbon Dioxide 22 (22-30) mmol/L Anion Gap 8 mmol/L BUN 19 (9-20) mg/dL Creatinine 0.90 (0.66-1.25) mg/dL Est GFR (CKD-EPI)AfAm >90 (>60 ml/min/1.73 sqM) Est GFR (CKD-EPI)NonAf 87 (>60 ml/min/1.73 sqM) Glucose 138 H (74-99) mg/dL Calcium 9.8 (8.4-10.2) mg/dL Magnesium 2.1 (1.6-2.3) mg/dL Total Bilirubin 0.5 (0.2-1.3) mg/dL AST 29 (17-59) U/L ALT 37 (4-49) U/L Alkaline Phosphatase 90 (38-126) U/L Troponin I (0.000-0.034) ng/mL NT-Pro-B Natriuret Pep 818 pg/mL Total Protein 6.7 (6.3-8.2) g/dL Albumin 4.2 (3.5-5.0) g/dL 08/05/23 Range/Units 15:34 WBC (3.8-10.6) k/uL RBC (4.30-5.90) m/uL Hgb (13.0-17.5) gm/dL Hct (39.0-53.0) % MCV (80.0-100.0) fL MCH (25.0-35.0) pg MCHC (31.0-37.0) g/dL RDW (11.5-15.5) % Plt Count (150-450) k/uL MPV Neutrophils % % Lymphocytes % % Monocytes % % Eosinophils % % Basophils % % Neutrophils # (1.3-7.7) k/uL Lymphocytes # (1.0-4.8) k/uL Monocytes # (0-1.0) k/uL Eosinophils # (0-0.7) k/uL Basophils # (0-0.2) k/uL PT (10.0-12.5) sec INR (<1.2) APTT (22.0-30.0) sec Sodium (137-145) mmol/L Potassium (3.5-5.1) mmol/L Chloride (98-107) mmol/L Carbon Dioxide (22-30) mmol/L Anion Gap mmol/L BUN (9-20) mg/dL Creatinine (0.66-1.25) mg/dL Est GFR (CKD-EPI)AfAm (>60 ml/min/1.73 sqM) Est GFR (CKD-EPI)NonAf (>60 ml/min/1.73 sqM) Glucose (74-99) mg/dL Calcium (8.4-10.2) mg/dL Magnesium (1.6-2.3) mg/dL Total Bilirubin (0.2-1.3) mg/dL AST (17-59) U/L ALT (4-49) U/L Alkaline Phosphatase (38-126) U/L Troponin I 0.076 H* (0.000-0.034) ng/mL NT-Pro-B Natriuret Pep pg/mL Total Protein (6.3-8.2) g/dL Albumin (3.5-5.0) g/dL Disposition <Dedoe,Brijesh M - Last Filed: 08/05/23 15:03> Is patient prescribed a controlled substance at d/c from ED?: No Time of Disposition: 21:09 <Omar Arias - Last Filed: 08/12/23 22:33> Clinical Impression: Chest pain, Unstable angina Disposition: HOME SELF-CARE Condition: Good Instructions (If sedation given, give patient instructions): Angina (ED), Chest Pain (ED) Referrals: Brijesh Wilkinson DO [Primary Care Provider] - 1-2 days
--- NOTE | 2023-08-05 16:02 | XR ---
EXAMINATION TYPE: XR chest 2V DATE OF EXAM: 08/05/2023 COMPARISON: 08/02/2023 HISTORY: 67-year-old male with chest pain TECHNIQUE: PA and lateral views FINDINGS: The cardiomediastinal silhouette, aorta, and pulmonary vasculature are within normal limits. Coronary artery stent noted. Lungs and pleural spaces are clear. IMPRESSION: No acute cardiopulmonary process.
[2023-08-05 16:20] LABS: Basophils % (A) 0 %; Eosinophils # (A) 0.1 k/uL (0-0.7); Eosinophils % (A) 1 %; Lymphocytes % (A) 12 %; MCH 32.5 pg (25.0-35.0); MCHC 34.7 g/dL (31.0-37.0); MCV 93.5 fL (80.0-100.0); Mean Platelet Volume 8.7; Monocytes # (A) 0.3 k/uL (0-1.0); Monocytes % (A) 4 %; Neutrophils % (A) 82 %; Platelet Count 227 k/uL (150-450); RBC 4.92 m/uL (4.30-5.90); RDW 11.9 % (11.5-15.5); WBC 8.6 k/uL (3.8-10.6)
[2023-08-05 16:32] LABS: ALT 37 U/L (4-49); AST 29 U/L (17-59); African American GFR (CKD) >90 (>60 ml/min/1.73 sqM); Albumin 4.2 g/dL (3.5-5.0); Alkaline Phosphatase 90 U/L (38-126); Anion Gap 8 mmol/L; Blood Urea Nitrogen 19 mg/dL (9-20); Calcium 9.8 mg/dL (8.4-10.2); Carbon Dioxide 22 mmol/L (22-30); Chloride 108 mmol/L (98-107); Glucose 138 mg/dL (74-99); Magnesium 2.1 mg/dL (1.6-2.3); Non-African American GFR(CKD) 87 (>60 ml/min/1.73 sqM); Potassium 4.6 mmol/L (3.5-5.1); Sodium 138 mmol/L (137-145); Total Bilirubin 0.5 mg/dL (0.2-1.3); Total Protein 6.7 g/dL (6.3-8.2)
[2023-08-05 16:40] LABS: NT-Pro-B-Type Natriuretic Pept 818 pg/mL
[2023-08-05 16:43] LABS: Partial Thromboplastin Time 24.2 sec (22.0-30.0); Prothrombin Time 10.8 sec (10.0-12.5)
[2023-08-05 21:42] VITALS: BP 124/75; PULSE 85; RESP 19
== END 2023-08-05 21:28 | disposition home or self-care (01) ==
LOC: EC 14:24
DX: I20.0 Unstable angina (principal); I25.2 Old myocardial infarction; E07.9 Disorder of thyroid, unspecified; Z87.891 Personal history of nicotine dependence; Z79.890 Hormone replacement therapy
CPT/HCPCS: 36415; 71046; 80053; 83735; 83880; 84484; 85025; 85610; 85730; 93005; 99284

== ENCOUNTER → 2023-08-25 | Outpatient (CLI) | payer MEDICARE, BC ==
[2023-08-25 10:24] LABS: INR 0.9 (<1.2); Partial Thromboplastin Time 23.1 sec (22.0-30.0); Prothrombin Time 10.4 sec (10.0-12.5)
[2023-08-25 15:59] LABS: Basophils # (A) 0.02 X 10*3/uL (0.00-0.10); Basophils % (A) 0.4 %; Eosinophils # (A) 0.15 X 10*3/uL (0.04-0.35); Eosinophils % (A) 2.9 %; HCT 46.6 % (39.6-50.0); HGB 15.4 g/dL (13.0-17.0); Lymphocytes # (A) 1.23 X 10*3/uL (0.90-5.00); Lymphocytes % (A) 23.6 %; MCV 93.8 FL (80.0-97.0); Mean Platelet Volume 11.3 FL (9.5-12.2); Monocytes # (A) 0.32 X 10*3/uL (0.20-1.00); Monocytes % (A) 6.1 %; NRBC Per 100 WBC 0 X 10*3/uL (0.00-0.01); Neutrophils # (A) 3.48 X 10*3/uL (1.80-7.70); Neutrophils % (A) 66.8 %; Platelet Count 176 X 10*3/uL (140-440); RBC 4.97 X 10*6/uL (4.40-5.60); RDW 11.9 % (11.5-14.5); WBC 5.21 X 10*3/uL (4.50-10.00)
[2023-08-25 16:29] LABS: ALT 25 U/L (10-49); AST 25 U/L (14-35); Albumin 4.6 g/dL (3.8-4.9); Albumin/Globulin Ratio 2.09 Ratio (1.60-3.17); Alkaline Phosphatase 87 U/L (41-126); Blood Urea Nitrogen 20.7 mg/dL (9.0-27.0); Calcium 10.2 mg/dL (8.7-10.3); Carbon Dioxide 25.6 mmol/L (21.6-31.8); Chloride 102 mmol/L (96-109); Globulin 2.2 g/dL (1.6-3.3); Glucose 130 mg/dL (70-110); Magnesium 2.1 mg/dL (1.5-2.4); Potassium 4.5 mmol/L (3.5-5.5); Sodium 139 mmol/L (135-145); Total Bilirubin 0.6 mg/dL (0.3-1.2); Total Protein 6.8 g/dL (6.2-8.2)
[2023-08-25 17:00] LABS: Appearance,Urine Clear (Clear); Bilirubin,Urine Negative (Negative); Blood,Urine Negative (Negative); Color,Urine Yellow (Yellow); Ketones,Urine Negative (Negative); Nitrite,Urine Negative (Negative); PH, Urine 5.5; Specific Gravity,Urine 1.019 (1.001-1.030); Urobilinogen,Urine 0.2 E.U./DL
== END | disposition home or self-care (01) ==
LOC: LABWHC1 09:03
PROVIDERS: ATTEND Surgery
DX: Z01.818 Encounter for other preprocedural examination (principal); R94.31 Abnormal electrocardiogram [ECG] [EKG]; R00.1 Bradycardia, unspecified
CPT/HCPCS: 36415; 80053; 81003; 83036; 83735; 84443; 85025; 85610; 85730; 86850; 86900; 86901; 86920; 87086; 93005

== ENCOUNTER 2023-09-01 05:35 | Inpatient (IN) | payer MEDICARE, BC ==
[~2023-09-01 05:35] MED LIST changes: +ALBUMIN HUMAN 25% 50 ML IV ONE; +ALBUMIN HUMAN 5% 500 ML IVPB ONE; +ASPIRIN 325 MG TAB PO ONE; +ATORVASTATIN 10 MG TAB PO ONE; +CALCIUM CHLORIDE 100 MG/ML 10 ML SYRINGE IV ONE; +CHLORHEXIDINE GLUCONATE 15 ML CUP MUCOUS MEM ONE; +CLEVIDIPINE BUTYRATE 25 MG in EMPTY BAG 1 BAG IV ONE; +DILTIAZEM 125 MG in SODIUM CHLORIDE 0.9% 100 ML IV ONE; +ELECTROLYTE-A SOLUTION 1,000 ML with POTASSIUM CHLORIDE 100 MEQ, MAGNESIUM SULFATE 16 M... IV ONE; +ELECTROLYTE-A SOLUTION 1,000 ML with POTASSIUM CHLORIDE 40 MEQ, MAGNESIUM SULFATE 16 ME... IV ONE; +HEPARIN SODIUM 1,000 UN/ML (10ML VL) IV ONE; +HEPARIN SODIUM,PORCINE (1 ML) 5,000 UNIT in SODIUM CHLORIDE 0.9% 500 ML 500 ML IV ONE; +INSULIN REGULAR 100 UNIT in SODIUM CHLORIDE 0.9% 100 ML IV ONE; -IV FLUID CONTINUATION 1,000 ML IV ONE; +LACTATED RINGERS 1,000 ML IV ONE; +MAGNESIUM SULFATE 16.24 MEQ in EMPTY SYRINGE 1 SYR IV ONE; +MANNITOL 25% 12.5 GM/50 ML VIAL IV ONE; +METOPROLOL TARTRATE 12.5 MG TAB PO ONE; +MUPIROCIN 2% OINT 22 GM TUBE NASAL ONE; +NITROGLYCERIN SL TABS 0.4 MG TAB SUBLINGUAL ONE; +NITROGLYCERIN-D5W PMX 25 MG/250 ML BTL IV ONE; +NITROGLYCERIN-D5W PMX 50 MG in DEXTROSE/WATER 1 250ML.BAG IV ONE; +NOREPINEPHRINE 4 MG in SODIUM CHLORIDE 0.9% 250 ML IV ONE; +PAPAVERINE 360 MG in SODIUM CHLORIDE 0.9% 90 ML IV ONE; +PHENYLEPHRINE 10 MG/ML VIAL IV ONE; +PHENYLEPHRINE 40 MG in SODIUM CHLORIDE 0.9% 250 ML IV ONE; +PROTAMINE SULFATE 10 MG/ML 25 ML VIAL IV ONE; +PROTAMINE SULFATE 250 MG in EMPTY BAG 1 BAG IV ONE; +SODIUM BICARB 8.4% 50 ML SYR (1 MEQ/ML) IV ONE; +SODIUM CHLORIDE 0.9% 1,000 ML IV ONE; +TRANEXAMIC ACID 2,000 MG in SODIUM CHLORIDE 0.9% 80 ML IV ONE; +ceFAZolin 1,000 MG in SODIUM CHLORIDE 0.9% IRRIGATIO 1,000 ML IRRIGATION ONE; +propofoL 1,000 MG/100 ML VIAL IV ONE
[2023-09-01 06:31] LABS: Glucose,Whole Blood 104 mg/dL (70-110)
[2023-09-01] MEDS ORDERED: VECURONIUM 10 MG VIAL IV ONE (07:46)
[2023-09-01] MEDS ORDERED: PROTAMINE SULFATE 10 MG/ML 25 ML VIAL IV ONE (07:46)
[2023-09-01] MEDS ORDERED: ALBUMIN HUMAN 5% (25gm) 500 ML VIAL IVPB ONE (07:46)
[2023-09-01] MEDS ORDERED: MIDAZOLAM HCL 10 MG/10 ML VIAL ONE (07:46)
[2023-09-01] MEDS ORDERED: fentaNYL (PF) 50 MCG/ML 50 ML VIAL ONE (07:46)
[2023-09-01] MEDS ORDERED: GLYCOPYRROLATE 0.2 MG/ML 2 ML VIAL ONE (07:46)
[2023-09-01] MEDS ORDERED: CALCIUM CHLORIDE 100 MG/ML 10 ML SYRINGE ONE (07:46)
[2023-09-01] MEDS ORDERED: TRANEXAMIC 1,000 MG/100ML-NACL PREMIX BAG ONE (07:46)
[2023-09-01] MEDS ORDERED: HEPARIN SODIUM,PORCINE 10,000 UNIT/ML 1 ML VIAL ONE (07:46)
[2023-09-01] MEDS ORDERED: PROPOFOL 10 MG/ML 20 ML VIAL IV ONE (07:46)
[2023-09-01] MEDS ORDERED: LIDOCAINE 2% SYG (PF) 100 MG/5 ML ONE (07:46)
[2023-09-01] MEDS ORDERED: ePHEDrine 50 MG/ML 1 ML VIAL ONE (07:46)
[2023-09-01 08:44] LABS: ABG Base Excess 0.9 mmol/L; ABG Glucose Whole Blood 105 mg/dL (75-99); ABG HCO3 26 mmol/L (21-25); ABG Hematocrit 41 % (34.0-46.0); ABG Ionized Calcium 4.9 mg/dL (4.5-5.3); ABG Lactic Acid Whole Blood 1.2 mmol/L (0.5-1.6); ABG PCO2 42 mmHg (35-45); ABG PO2 390 mmHg (83-108); ABG Potassium Whole Blood 4.5 mmol/L (3.4-4.5); ABG Sodium Whole Blood 139 mmol/L (135-146); ABG TCO2 27 mmol/L (19-24)
[2023-09-01 10:29] LABS: ABG Base Excess -2.1 mmol/L; ABG Glucose Whole Blood 156 mg/dL (75-99); ABG HCO3 24 mmol/L (21-25); ABG Hematocrit 34 % (34.0-46.0); ABG Ionized Calcium 4.5 mg/dL (4.5-5.3); ABG Lactic Acid Whole Blood 1.4 mmol/L (0.5-1.6); ABG Oxygen Saturation 99.2 % (94-97); ABG PCO2 45 mmHg (35-45); ABG PH 7.33 (7.35-7.45); ABG PO2 152 mmHg (83-108); ABG Potassium Whole Blood 4.1 mmol/L (3.4-4.5); ABG Sodium Whole Blood 140 mmol/L (135-146); ABG TCO2 25 mmol/L (19-24)
--- NOTE | 2023-09-01 11:18 | P.ANPRN ---
Procedure Note - Anesthesia - Invasive Line Right Arterial Line Time Out Performed: Yes (07) Date of Procedure: 09/01/23 Time of Procedure: 07:13 Location of Patient: PreOp Preparation: Sterile Prep, Sterile Dressing Arterial Line Location: Radial (x3) Ultrasound Used: Yes Purpose - Visualization and Identification of Vasculature: Yes Needle Guage: 20g Image Stored and Saved: No Narrative: Central line placement per sterile protocol utilized.
--- NOTE | 2023-09-01 11:19 | P.ANPRN ---
Procedure Note - Anesthesia - Invasive Line Right Central Line Time Out Performed: Yes (07) Date of Procedure: 09/01/23 Time of Procedure: 07:28 Location of Patient: PreOp Preparation: Sterile Prep, Sterile Dressing Central Line Location: Internal Jugular (right ij cordis) Ultrasound Used: Yes Purpose - Visualization and Identification of Vasculature: Yes Needle Guage: 18g angio Image Stored and Saved: Yes Narrative: Central line placement per sterile protocol utilized. +local +angio +cvp +jwire +uneventful dilation and introduction right IJ Cordis. lumen bled and flushed
--- NOTE | 2023-09-01 11:20 | P.ANPRN ---
Procedure Note - Anesthesia - Invasive Line Right [place] Time Out Performed: Yes (0712) Date of Procedure: 09/01/23 Time of Procedure: 07:38 Location of Patient: PreOp Preparation: Sterile Prep, Sterile Dressing [place] Line Location: Internal Jugular (right IJ) Ultrasound Used: No Purpose - Visualization and Identification of Vasculature: No Image Stored and Saved: No Narrative: Central line placement per sterile protocol utilized. swan floated sterilly in sheath to PA wedge at 50cm in 2 attempts. b/d and w/d 5cm to 45cm. Secured.
[2023-09-01 11:52] LABS: ABG Base Excess 0.9 mmol/L; ABG Glucose Whole Blood 128 mg/dL (75-99); ABG HCO3 25 mmol/L (21-25); ABG PCO2 35 mmHg (35-45); ABG PH 7.46 (7.35-7.45); ABG Potassium Whole Blood 4.2 mmol/L (3.4-4.5); ABG Sodium Whole Blood 140 mmol/L (135-146); ABG TCO2 26 mmol/L (19-24)
[2023-09-01 12:24] LABS: ABG Base Excess 1.1 mmol/L; ABG Glucose Whole Blood 140 mg/dL (75-99); ABG HCO3 25 mmol/L (21-25); ABG Ionized Calcium 3.7 mg/dL (4.5-5.3); ABG PCO2 33 mmHg (35-45); ABG PH 7.48 (7.35-7.45); ABG Potassium Whole Blood 5.2 mmol/L (3.4-4.5); ABG Sodium Whole Blood 140 mmol/L (135-146); ABG TCO2 26 mmol/L (19-24)
--- NOTE | 2023-09-01 12:34 | P.ANPRN ---
Procedure Note - Anesthesia - CHRISTINE Intraop Pre Bypass CHRISTINE Intraop - Anesthesia Indication: CAD, CABG Date of Procedure: 09/01/23 Pre-operative Diagnosis: CABG Post-operative Diagnosis: same Surgeon: Justice Pacheco Left Ventricle: mild lvh Ejection Fraction: Normal Regional Wall Motion Abnormalities: Other (inferior hypokinesis) Left Ventricle Hypertrophy: Yes (mild) Right Ventricle: mild dilation R. Ventricle Function: Normal Anatomy: Trileaflet Aortic Stenosis: None Aortic Regurgitation: None Mitral Stenosis: None Mitral Regurgitation: Trace Tricuspid Stenosis: None Tricuspid Regurgitation: Trace Pulmonic Stenosis: None Pulmonic Regurgitation: None R. Atrial Dilation: No R. Atrial PFO: No L. Atrial Dilation: No Aortic Dissection: No Aortic Calcification: None Plural Effusion: None
[2023-09-01 13:09] LABS: ABG Base Excess -0.6 mmol/L; ABG Glucose Whole Blood 135 mg/dL (75-99); ABG HCO3 24 mmol/L (21-25); ABG Ionized Calcium 3.8 mg/dL (4.5-5.3); ABG PCO2 36 mmHg (35-45); ABG PH 7.43 (7.35-7.45); ABG Potassium Whole Blood 4.9 mmol/L (3.4-4.5); ABG Sodium Whole Blood 140 mmol/L (135-146); ABG TCO2 25 mmol/L (19-24)
[2023-09-01 13:43] LABS: ABG Hematocrit 24 % (34.0-46.0); ABG PO2 >420 mmHg (83-108)
[2023-09-01 13:43] LABS: ABG Hematocrit 23 % (34.0-46.0); ABG Ionized Calcium 3.5 mg/dL (4.5-5.3); ABG Lactic Acid Whole Blood 2.3 mmol/L (0.5-1.6); ABG PO2 >420 mmHg (83-108)
[2023-09-01 13:44] LABS: ABG Hematocrit 23 % (34.0-46.0); ABG Lactic Acid Whole Blood 3.8 mmol/L (0.5-1.6); ABG PO2 >420 mmHg (83-108)
[2023-09-01] MEDS ORDERED: ONDANSETRON 4 MG/2 ML VIAL IVP PRN (15:39)
[2023-09-01] MEDS ORDERED: DEXTROSE 5% IN WATER 100 ML with AMIODARONE 150 MG IV PRN (15:39)
[2023-09-01] MEDS ORDERED: CLEVIDIPINE BUTYRATE 25 MG in EMPTY BAG 1 BAG IV SCH (15:39)
[2023-09-01] MEDS ORDERED: Potassium Replacement Protocol 1 EACH MISC MISCELLANE PRN (15:39)
[2023-09-01] MEDS ORDERED: Magnesium Replacement Protocol 1 EACH MISC MISCELLANE PRN (15:39)
[2023-09-01] MEDS ORDERED: IPRATROPIUM-ALBUTEROL 3 ML NEB INHALATION PRN (15:39)
[2023-09-01] MEDS ORDERED: BENZOCAINE/MENTHOL LOZENG 1 EACH LOZENGE MUCOUS MEM PRN (15:39)
[2023-09-01] MEDS ORDERED: AMIODARONE 360 MG in DEXTROSE 5% IN WATER 200 ML IV PRN ×2 (15:39)
[2023-09-01] MEDS ORDERED: hydrALAZINE HCL 20 MG/ML 1 ML VIAL IVP PRN (15:39)
[2023-09-01] MEDS ORDERED: DEXMEDETOMIDINE/0.9% NACL(PMX) 400 MCG in EMPTY BAG 1 BAG IV SCH (15:39)
[2023-09-01] MEDS ORDERED: DEXTROSE 50% SYRINGE 50 ML IVP PRN ×2 (15:39)
[2023-09-01] MEDS ORDERED: AMIODARONE 450 MG in DEXTROSE 5% IN WATER 250 ML IV PRN ×2 (15:39)
[2023-09-01] MEDS: NOREPINEPHRINE 4 MG in SODIUM CHLORIDE 0.9% 250 ML IV SCH (16:05)
[2023-09-01] MEDS: SODIUM CHLORIDE 0.9% 1,000 ML IV SCH (16:37)
[2023-09-01] MEDS: HEPARIN SODIUM,PORCINE 5,000 UNIT/ML 1 ML VIAL SQ SCH ×2 (16:39→23:58)
[2023-09-01 16:49] LABS: HCT 26.2 % (39.0-53.0); HGB 8.7 gm/dL (13.0-17.5); MCH 31.8 pg (25.0-35.0); MCHC 33.1 g/dL (31.0-37.0); MCV 95.9 fL (80.0-100.0); Mean Platelet Volume 9.8; RBC 2.73 m/uL (4.30-5.90); RDW 12.1 % (11.5-15.5); WBC 10.6 k/uL (3.8-10.6)
[2023-09-01 16:54] LABS: INR 1.5 (<1.2); Partial Thromboplastin Time 42.2 sec (22.0-30.0); Prothrombin Time 15.5 sec (10.0-12.5)
--- NOTE | 2023-09-01 16:57 | XR ---
EXAMINATION TYPE: XR chest 1V portable DATE OF EXAM: 09/01/2023 COMPARISON: 08/05/2023 INDICATION: Postcardiac surgery TECHNIQUE: Single frontal view of the chest is obtained. FINDINGS: The heart size is normal. The pulmonary vasculature is normal. No suspicious infiltrates are evident. No pneumothorax is evident. Left-sided chest tube is in position. Mediastinal tubes are present. Endotracheal tube tip is above t he reuben. Nasogastric tube transverses the thorax. Right [place]Ja[place] catheter tip is in the main pulmo nary artery region. IMPRESSION: 1. Lines and catheters post cardiac surgery discussed above
[2023-09-01 16:58] LABS: Glucose,Whole Blood 84 mg/dL (70-110)
[2023-09-01 16:59] LABS: ABG Base Excess -8.7 mmol/L; ABG HCO3 17 mmol/L (21-25); ABG Oxygen Saturation 99.8 % (94-97); ABG PCO2 33 mmHg (35-45); ABG PH 7.33 (7.35-7.45); ABG PO2 368 mmHg (83-108); ABG TCO2 18 mmol/L (19-24); Allen Test Performed? Yes
[2023-09-01] MEDS: IPRATROPIUM-ALBUTEROL 3 ML NEB INHALATION SCH ×2 (17:08→19:33)
[2023-09-01] MEDS: ALBUMIN HUMAN 5% 250 ML in EMPTY BAG 1 BAG IVPB PRN ×4 (17:08→19:53)
[2023-09-01 17:10] LABS: ALT 14 U/L (4-49); AST 36 U/L (17-59); African American GFR (CKD) >90 (>60 ml/min/1.73 sqM); Albumin 3.1 g/dL (3.5-5.0); Alkaline Phosphatase 34 U/L (38-126); Anion Gap 9 mmol/L; Blood Urea Nitrogen 18 mg/dL (9-20); Calcium 8.6 mg/dL (8.4-10.2); Carbon Dioxide 21 mmol/L (22-30); Chloride 111 mmol/L (98-107); Glucose 96 mg/dL (74-99); Magnesium 2.6 mg/dL (1.6-2.3); Non-African American GFR(CKD) >90 (>60 ml/min/1.73 sqM); Potassium 4.5 mmol/L (3.5-5.1); Sodium 141 mmol/L (137-145); Total Protein 4.3 g/dL (6.3-8.2)
[2023-09-01 17:19] LABS: Band Neutrophils % 13 %; Lymphocytes # (M) 1.48 k/uL (1.0-4.8); Monocytes # (M) 0.21 k/uL (0-1.0); Neutrophils % (M) 71 %; Nucleated Red Blood Cells 0 /100 WBC (0-0); Total Cells Counted 100
[2023-09-01 17:20] LABS: Platelet Count 85 k/uL (150-450)
--- NOTE | 2023-09-01 17:50 | P.CONS ---
History of Present Illness - Reason for Consult Consult date: 09/01/23 - History of Present Illness Patient is a 67-year-old male with coronary artery disease, hypertension, and hypothyroidism who presented for four-vessel bypass surgery. Patient had an ST segment elevated myocardial infarction on 07/18/23 and underwent successful stenting of the RCA with noted disease in the LAD. He was subsequently referred for revascularization. Patient seen and examined at bedside. He is sedated and in the ICU. Vital signs reviewed General: Ill-appearing, moderate distress, appears at stated age Derm: warm, dry Cardiovascular: S1S2 reg, no murmur, no edema, capillary refill less than 2 s econds Lungs: Coarse breath sounds bilateral, no rhonchi, no rales, no wheeze, no accessory muscle use, mediastinal tubes and chest tubes in place Abdominal: soft, nontender to palpation, no guarding, no appreciable organomegaly, normal bowel sounds Ext: no gross muscle atrophy, no contractures Neuro: Sedated on vent Psych: Sedated on vent Assessment/Plan: 67-year-old male status post four-vessel bypass CAD Hypertension Dyslipidemia -Aspirin 325 mg daily, Lipitor 40 mg daily -Currently on norepinephrine and propofol -Vent management per ICU team -Postoperative management per cardiothoracic surgery Prediabetes -A1c 6.1 on 08/25/23 -Start insulin drip as needed to regulate postoperative blood sugars if they continue to rise. Most recent blood sugar 84 -We'll continue to follow blood sugars closely -Likely would benefit from dietary modifications on discharge Acute Blood loss anemia and thrombocytopenia, anticipated outcome of surgery -Follow CBC and platelets. No indication for transfusion at this time. Hypothyroidism -Synthroid 50 g daily Imaging: Chest x-ray reviewed by myself. Mediastinal tube and chest tube appeared appropriate position. Data Review: Plan reviewed include postoperative CBC and CMP, magnesium which are remarkable for hemoglobin 8.7, platelets 85, INR 1.5, chloride 111, carbon dioxide 21, and magnesium of 2.6. Consult This dictation was prepared using MAPPING voice recognition software. Though every attempt is made to correct errors during dictation some may still exist. Past Medical History Past Medical History: Coronary Artery Disease (CAD), Hyperlipidemia, Myocardial Infarction ([place]), Thyroid Disorder Additional Past Medical History / Comment(s): heart rate normally runs low,kidney stones,chronic back pain,Plugged right ear- status post placement of right ear tube,steroids Jun 2023, pre-diabetes Last Myocardial Infarction Date:: 07-18-23 History of Any Multi-Drug Resistant Organisms: None Reported Past Surgical History: Heart Catheterization, Heart Catheterization With Stent, Tonsillectomy Additional Past Surgical History / Comment(s): Panda CATARACT, SINUS SURGERY, KIDNEY STONE REMOVAL-lithotripsy, placement of right ear tube,2 heartcaths,2 stents placed midRCA Past Anesthesia/Blood Transfusion Reactions: No Reported Reaction Additional Past Anesthesia/Blood Transfusion Reaction / Comm: no hx blood transfusion Date of Last Stent Placement:: 07-18-23 Smoking Status: Former smoker - Past Family History Mother Family Medical History: No Reported History Additional Family Medical History / Comment(s): living @ age 90 Father Family Medical History: Coronary Artery Disease (CAD) Additional Family Medical History / Comment(s): CABG @ age 68 Medications and Allergies Home Medications Medication Instructions Recorded Confirmed Type Fluticasone Nasal [place] [Flonase 2 spr EA NOSTRIL DAILY PRN 07/18/23 09/01/23 History Nasal [place]] Levothyroxine Sodium [Synthroid] 50 mcg PO QAM 07/18/23 09/01/23 History Acetaminophen Tab [Tylenol] 650 mg PO Q6HR PRN tab 07/21/23 09/01/23 Rx Aspirin 81 mg PO DAILY #30 tab 07/21/23 09/01/23 Rx Atorvastatin [Lipitor] 80 mg PO DAILY #30 tab 07/21/23 09/01/23 Rx Nitroglycerin Sl Tabs [Nitrostat] 0.4 mg SUBLINGUAL Q5M PRN #15 tab 07/21/23 09/01/23 Rx Prasugrel [Effient] 10 mg PO DAILY #30 tab 07/21/23 09/01/23 Rx Cholecalciferol [Vitamin D3 (25 125 mcg PO DAILY 08/29/23 09/01/23 History Mcg = 1000 Iu)] Ibuprofen [Advil] 600 - 800 mg PO Q6H PRN 08/29/23 09/01/23 History Allergies Allergy/AdvReac Type Severity Reaction Status Date / Time isosorbide AdvReac low b/p Verified 09/01/23 05:56 metoprolol AdvReac HR went Verified 09/01/23 05:56 down to high 30s and 40s Physical Exam Osteopathic Statement: *. No significant issues noted on an osteopathic structural exam other than those noted in the History and Physical/Consult. Vitals: Vital Signs Temp Pulse Pulse Resp BP BP BP 09/01/23 17:17 09/01/23 17:15 66 14 70/39 09/01/23 17:00 97.5 F L 69 14 09/01/23 16:45 73 14 09/01/23 16:33 09/01/23 16:30 97.3 F L 71 14 09/01/23 16:15 80 24 09/01/23 16:10 96 22 09/01/23 06:24 97.5 F L 50 L 16 121/57 121/62 Pulse Ox FiO2 09/01/23 17:17 50 09/01/23 17:15 100 09/01/23 17:00 100 09/01/23 16:45 100 09/01/23 16:33 100 09/01/23 16:30 100 09/01/23 16:15 09/01/23 16:10 09/01/23 06:24 96 Intake and Output 09/01/23 09/01/23 09/01/23 06:59 14:59 22:59 Intake Total 300 53 629.177 Output Total 1999 405 Balance 300 -1947 224.177 Intake: IV 300 53 106 0.9 100 pressure bag 6 Intake, IV Titration 23.177 Amount Norepinephrine 4 mg In 12.361 Sodium Chloride 0.9% 250 ml @ 0.03 MCG/KG/MIN 8. 241 mls/hr IV .Q24H LEDA Rx#:[id number] propofoL 1,000 mg In 10.816 Empty Bag 1 bag @ Titrate IV .Q0M LEDA Rx#: [id number] Albumin 500 albumin 500 Output: Chest Tube Drainage 150 LP 60 MS 90 Urine 1000 255 Estimated Blood Loss 1000 Other: Weight 72.1 kg ABP, PAP, CO, CI - Last 8 Hours Arterial Blood Pressure 79/40 Arterial Blood Pressure 107/51 Pulmonary Artery Pressure 32/12 Pulmonary Artery Pressure 28/15 Pulmonary Artery Pressure 36/17 Cardiac Output 4.5 Cardiac Output 5 Cardiac Index 2.4 Cardiac Index 2.7 Results CBC & Chem 7: 09/01/23 16:41 09/01/23 16:41 Labs: Abnormal Lab Results - Last 24 Hours (Table) 08/25/23 09/01/23 09/01/23 Range/Units 09:21 08:43 10:29 RBC (4.30-5.90) m/uL Hgb (13.0-17.5) gm/dL Hct (39.0-53.0) % Plt Count (150-450) k/uL Neutrophils # (Manual) (1.3-7.7) k/uL PT (10.0-12.5) sec INR (<1.2) APTT (22.0-30.0) sec ABG pH 7.33 L (7.35-7.45) ABG pCO2 (35-45) mmHg ABG pO2 390 H 152 H (83-108) mmHg ABG HCO3 26 H (21-25) mmol/L ABG Total CO2 27 H 25 H (19-24) mmol/L ABG O2 Saturation 100.0 H 99.2 H (94-97) % ABG Hematocrit (34.0-46.0) % ABG Potassium (3.4-4.5) mmol/L ABG Ionized Calcium (4.5-5.3) mg/dL ABG Glucose 105 H 156 H (75-99) mg/dL ABG Lactic Acid (0.5-1.6) mmol/L Hemoglobin 10.9 L (13.0-17.5) gm/dL Chloride (98-107) mmol/L Carbon Dioxide (22-30) mmol/L Magnesium (1.6-2.3) mg/dL Alkaline Phosphatase (38-126) U/L Total Protein (6.3-8.2) g/dL Albumin (3.5-5.0) g/dL Arterial Blood Potassium (3.4-4.5) mmol/L Arterial Blood Glucose 105 H 156 H (75-99) mg/dL Crossmatch See Detail 09/01/23 09/01/23 09/01/23 Range/Units 11:52 12:23 13:08 RBC (4.30-5.90) m/uL Hgb (13.0-17.5) gm/dL Hct (39.0-53.0) % Plt Count (150-450) k/uL Neutrophils # (Manual) (1.3-7.7) k/uL PT (10.0-12.5) sec INR (<1.2) APTT (22.0-30.0) sec ABG pH 7.46 H 7.48 H (7.35-7.45) ABG pCO2 33 L (35-45) mmHg ABG pO2 >420 H >420 H >420 H (83-108) mmHg ABG HCO3 (21-25) mmol/L ABG Total CO2 26 H 26 H 25 H (19-24) mmol/L ABG O2 Saturation 100.0 H 100.0 H 100.0 H (94-97) % ABG Hematocrit 23 L 24 L 23 L (34.0-46.0) % ABG Potassium 5.2 H 4.9 H (3.4-4.5) mmol/L ABG Ionized Calcium 3.5 L* 3.7 L 3.8 L (4.5-5.3) mg/dL ABG Glucose 128 H 140 H 135 H (75-99) mg/dL ABG Lactic Acid 2.3 H* 3.0 H* 3.8 H* (0.5-1.6) mmol/L Hemoglobin 7.5 L 7.9 L 7.6 L (13.0-17.5) gm/dL Chloride (98-107) mmol/L Carbon Dioxide (22-30) mmol/L Magnesium (1.6-2.3) mg/dL Alkaline Phosphatase (38-126) U/L Total Protein (6.3-8.2) g/dL Albumin (3.5-5.0) g/dL Arterial Blood Potassium 5.2 H 4.9 H (3.4-4.5) mmol/L Arterial Blood Glucose 128 H 140 H 135 H (75-99) mg/dL Crossmatch 09/01/23 09/01/23 09/01/23 Range/Units 16:41 16:41 16:41 RBC 2.73 L (4.30-5.90) m/uL Hgb 8.7 L D (13.0-17.5) gm/dL Hct 26.2 L (39.0-53.0) % Plt Count 85 L D (150-450) k/uL Neutrophils # (Manual) 8.90 H (1.3-7.7) k/uL PT 15.5 H (10.0-12.5) sec INR 1.5 H (<1.2) APTT 42.2 H (22.0-30.0) sec ABG pH (7.35-7.45) ABG pCO2 (35-45) mmHg ABG pO2 (83-108) mmHg ABG HCO3 (21-25) mmol/L ABG Total CO2 (19-24) mmol/L ABG O2 Saturation (94-97) % ABG Hematocrit (34.0-46.0) % ABG Potassium (3.4-4.5) mmol/L ABG Ionized Calcium (4.5-5.3) mg/dL ABG Glucose (75-99) mg/dL ABG Lactic Acid (0.5-1.6) mmol/L Hemoglobin (13.0-17.5) gm/dL Chloride 111 H (98-107) mmol/L Carbon Dioxide 21 L (22-30) mmol/L Magnesium 2.6 H (1.6-2.3) mg/dL Alkaline Phosphatase 34 L (38-126) U/L Total Protein 4.3 L (6.3-8.2) g/dL Albumin 3.1 L (3.5-5.0) g/dL Arterial Blood Potassium (3.4-4.5) mmol/L Arterial Blood Glucose (75-99) mg/dL Crossmatch 09/01/23 Range/Units 16:55 RBC (4.30-5.90) m/uL Hgb (13.0-17.5) gm/dL Hct (39.0-53.0) % Plt Count (150-450) k/uL Neutrophils # (Manual) (1.3-7.7) k/uL PT (10.0-12.5) sec INR (<1.2) APTT (22.0-30.0) sec ABG pH 7.33 L (7.35-7.45) ABG pCO2 33 L (35-45) mmHg ABG pO2 368 H (83-108) mmHg ABG HCO3 17 L (21-25) mmol/L ABG Total CO2 18 L (19-24) mmol/L ABG O2 Saturation 99.8 H (94-97) % ABG Hematocrit (34.0-46.0) % ABG Potassium (3.4-4.5) mmol/L ABG Ionized Calcium (4.5-5.3) mg/dL ABG Glucose (75-99) mg/dL ABG Lactic Acid (0.5-1.6) mmol/L Hemoglobin (13.0-17.5) gm/dL Chloride (98-107) mmol/L Carbon Dioxide (22-30) mmol/L Magnesium (1.6-2.3) mg/dL Alkaline Phosphatase (38-126) U/L Total Protein (6.3-8.2) g/dL Albumin (3.5-5.0) g/dL Arterial Blood Potassium (3.4-4.5) mmol/L Arterial Blood Glucose (75-99) mg/dL Crossmatch
[2023-09-01 18:04] LABS: Glucose,Whole Blood 131 mg/dL (70-110)
[2023-09-01 18:07] LABS: Ionized Calcium 5.1 mg/dL (4.5-5.3)
[2023-09-01] MEDS: INSULIN REGULAR 100 UNIT in SODIUM CHLORIDE 0.9% 100 ML IV SCH (18:08)
[2023-09-01] MEDS: ACETAMINOPHEN IV (For NPO) 1,000 MG in EMPTY BAG 1 BAG IVPB SCH ×2 (18:16→23:32)
[2023-09-01 19:01] LABS: Glucose,Whole Blood 138 mg/dL (70-110)
[2023-09-01 19:17] LABS: MCH 31.8 pg (25.0-35.0); MCHC 33.5 g/dL (31.0-37.0); Mean Platelet Volume 11.1; RBC 2.06 m/uL (4.30-5.90); RDW 12.1 % (11.5-15.5); WBC 8.4 k/uL (3.8-10.6)
[2023-09-01 19:30] LABS: HCT 19.6 % (39.0-53.0)
[2023-09-01 19:31] LABS: HGB 6.6 gm/dL (13.0-17.5)
[2023-09-01 19:58] LABS: Glucose,Whole Blood 141 mg/dL (70-110)
[2023-09-01 20:03] LABS: Band Neutrophils % 5 %; Lymphocytes # (M) 0.25 k/uL (1.0-4.8); Monocytes # (M) 0.17 k/uL (0-1.0); Neutrophils % (M) 90 %; Nucleated Red Blood Cells 0 /100 WBC (0-0); Total Cells Counted 100
[2023-09-01 20:05] LABS: Platelet Count 78 k/uL (150-450)
[2023-09-01] MEDS: SENNOSIDES-DOCUSATE SODIUM 1 EACH TAB PO SCH (21:01)
[2023-09-01 21:06] LABS: Glucose,Whole Blood 140 mg/dL (70-110)
[2023-09-01 22:06] LABS: Glucose,Whole Blood 138 mg/dL (70-110)
[2023-09-01 22:27] LABS: ABG Base Excess -3.8 mmol/L; ABG HCO3 22 mmol/L (21-25); ABG Oxygen Saturation 98.9 % (94-97); ABG PCO2 42 mmHg (35-45); ABG PH 7.33 (7.35-7.45); ABG PO2 156 mmHg (83-108); ABG TCO2 24 mmol/L (19-24); Allen Test Performed? Yes
[2023-09-01 22:57] LABS: Glucose,Whole Blood 139 mg/dL (70-110)
[2023-09-01 23:13] LABS: Basophils % (A) 0 %; Eosinophils % (A) 0 %; HCT 21.2 % (39.0-53.0); HGB 7.2 gm/dL (13.0-17.5); Lymphocytes # (A) 0.3 k/uL (1.0-4.8); Lymphocytes % (A) 4 %; MCH 32.5 pg (25.0-35.0); MCHC 34.2 g/dL (31.0-37.0); Mean Platelet Volume 11.1; Monocytes # (A) 0.4 k/uL (0-1.0); Monocytes % (A) 5 %; Neutrophils # (A) 7.7 k/uL (1.3-7.7); Neutrophils % (A) 91 %; RBC 2.23 m/uL (4.30-5.90); RDW 12.3 % (11.5-15.5); WBC 8.5 k/uL (3.8-10.6)
[2023-09-01 23:25] LABS: Platelet Count 76 k/uL (150-450)
[2023-09-02 00:01] LABS: Glucose,Whole Blood 138 mg/dL (70-110)
--- NOTE | 2023-09-02 00:49 | OP ---
OPERATIVE REPORT DATE OF SERVICE : 09/01/2023 ASSISTANTS: Elias Anders, nurse practitioner and Natalie Correa, nurse practitioner. PREOPERATIVE DIAGNOSES: Triple-vessel coronary artery disease, status post recent stenting for his right coronary artery for inferior wall myocardial infarction, hyperlipidemia, hypothyroidism, strong family history of coronary disease. POSTOPERATIVE DIAGNOSES: Triple-vessel coronary artery disease, status post recent stenting for his right coronary artery for inferior wall myocardial infarction, hyperlipidemia, hypothyroidism, strong family history of coronary disease. PROCEDURES PERFORMED: 1. Quadruple coronary artery bypass grafting using the in situ left internal mammary artery to the left anterior descending artery, left radial artery from the aorta to the first obtuse marginal artery, reverse saphenous vein graft from the aorta to the second obtuse marginal artery, reverse saphenous vein graft from the aorta to the right coronary artery. 2. Exclusion of the left atrial appendage using a 35 mm AtriClip. 3. Endoscopic harvesting of the left radial artery. 4. Endoscopic harvesting of the left greater saphenous vein. 5. Intraoperative graft flow measurements using [employer]-Stim system. 6. Intraoperative transesophageal echocardiogram and epiaortic scanning. INDICATIONS FOR SURGERY: The patient is a 67-year-old gentleman who underwent in July 2023 an emergent right coronary artery stenting for inferior wall myocardial infarction. At that time, he was diagnosed also with significant severe left-sided disease. The patient was treated medically and at this point, he has been brought back in after around 6 weeks for his left-sided surgery. We will place the vein on the right coronary artery anyway in view of the heavy stent load at that level. The SDS risk score was calculated and was discussed with him. DESCRIPTION OF THE PROCEDURE: The patient in supine position, right internal jugular [place]-Jaida catheter and right radial arterial line were placed. He had normal PA pressure and good cardiac index. He was brought to the operating room where general endotracheal anesthesia was induced uneventfully. A Aleman catheter was inserted. He received 2 g of cefazolin intravenously. The chest, abdomen, both lower extremities, and the left upper extremity were prepped and draped using ChloraPrep. Ioban was used to cover the skin. Transesophageal echocardiogram confirmed the preoperative finding of inferior wall hypokinesia without significant valvular abnormality with overall almost normal left ventricular function. Midline sternotomy was performed and the bone was quite oozy. To mention that the patient was on Effient, which was stopped for 7 days. The left hemisternum was elevated and the left internal mammary artery was harvested in a somewhat skeletonized fashion. The left pleura was intentionally opened in this process and was drained with a 19-Samoan Girish drain. The right pleura remained intact. The patient received 5000 units of heparin and the mammary artery was clipped distally and transected, had an excellent pulsatile flow in it and was around 1.75 mm diameter, quite spastic. In the same setting, the left radial artery was exposed at the wrist and a clamping trial revealed preserved signal in the left index O2 saturation probe. Subsequently, the left radial artery was harvested endoscopically. A tourniquet had to be inflated for around 3 minutes to control bleeding. Forearm incisions were closed over a drain. The radial artery was prepared by incising the fascia all along its volar aspect and clipping all its branches. It was around 2 mm in diameter only and also quite spastic. Also in the same setting, the left greater saphenous vein was harvested endoscopically from groin to below-knee level. The leg incisions were closed over a drain. The vein appeared to be of good quality around 4 mm in diameter. The patient was given 2500 units of heparin before harvesting the vein. Ankeney retractor was used. Mediastinal fat was transected between 2 ties and epiaortic scanning revealed concentric intimal thickening, but no protruding atheroma in the ascending aorta. Pericardium was opened in an inverted T-fashion and pericardial cradle was created. Findings included normal soft heart and normal size heart. After systemic heparinization after placement of respective pledgeted pursestring, aortic cannulation with a 21-Samoan soft flow cannula and venous cannulation with a 3- stage 29-Samoan cannula was performed via the right atrial appendage. Antegrade as well as retrograde cardioplegia catheters were placed. Cardioplegia bypass was initiated and the patient's temperature was allowed to drift down to 34 degrees Celsius. We looked at the target. The right coronary artery had a soft spot beyond the stent and became calcified and leading to a small PDA, so the anastomosis would be just off to the stents. The mid LAD was soft as well as the second obtuse marginal artery. The first obtuse marginal artery at this point we could see its branching that appeared small and this will be further explored once the heart is arrested. Aorta was clamped and during aortic clamping, myocardial protection was achieved with initial dose of 1 L of antegrade cold blood cardioplegia followed by 300 mL of retrograde cold blood cardioplegia. All subsequent doses were given retrograde at 15- minute interval. We started by excluding the left atrial appendage by deploying a 35-mm AtriClip at its base. The 1st distal anastomosis was between a good segment of vein and the main right coronary artery beyond the stent, which was around 2 mm in diameter using Prolene 7-0 in continuous fashion. The second distal anastomosis was in another segment of vein and 1.75 mm thin-walled second obtuse marginal artery using Prolene 7-0 in continuous fashion. The third distal anastomosis was between the radial artery that was relatively small and bit spastic and the main first obtuse marginal artery that was found just before its bifurcation where it was around 1.5 mm deep and the epicardial fat using Prolene 7-0 in continuous fashion. The fourth and last distal anastomosis was between the in situ left internal mammary artery that passed in a deep groove in the left pleural pericardial fat and anastomosed to the mid left anterior descending artery which was around 1.7 mm in diameter thin-walled using Prolene 7-0 in continuous fashion. Satisfied with the distal anastomosis, rewarming was started as we punched out 3 buttons of the ascending aorta and performed the 3 proximal anastomosis of the radial artery and the 2 vein graft using running Prolene. The patient received 1 L of warm blood via the retrograde route as were constructing the last proximal anastomosis. He was given lidocaine and magnesium. He was placed in Trendelenburg position and de-airing maneuvers were pursued before unclamping the aorta. The patient eventually regained spontaneous sinus rhythm after a period of junctional rhythm. Two monopolar atrial pacing wires were affixed to the respective pursestrings on the right atrium and 1 bipolar ventricular pacing wire was driven via the inferior aspect of the right ventricle. Went to standard AV pacing at some point in view of a junctional rhythm that was slow. Two 19-Samoan Girish drains were left substernally. Initial graft signal using the [employer]-Stim system was satisfactory. After around 15 to 20 minutes of reperfusion after again a good signal in the graft, we were able to wean off cardiac bypass on low-dose Levophed. CHRISTINE showed improved left ventricular function and cardiac index of 2.4. At this point, we proceeded at a formal graft flow measurements using the Medi-Stim system. A 4-mm probe was selected and the flow into the vein to the right coronary artery was 60 mL/minute, pulsatility index of 1.6, diastolic filling of 71%. The flow into the vein to the second obtuse marginal artery was 40 mL/minute, pulsatility index of 2.8, diastolic filling of 61%. The flow into the radial artery to the first obtuse marginal artery was 27 mL/minute, pulsatility index of 2.1, diastolic filling 61%. The flow into the left internal mammary artery to the left anterior descending artery was 32 mL/minute, pulsatility index of 3.5, and diastolic filling of 63%, all showing good functioning graft. With that, pump settings were stopped as we gave test dose followed by full dose protamine. Decannulation followed. It took a while to achieve hemostasis in view of probably residual Effient effect. Eventually, it was satisfactory. Pericardial fat were approximated over the aorta graft and partially over the right ventricle. After ensuring adequate hemostasis, hemodynamic, and after correct sponge, instrument, and needle count, the sternum was closed using 5 [id number] pineal cable after interposing fibrillar between the sternal edges. Thorough irrigation with cefazolin followed. The rest of the closure proceeded in layers. Skin glue was applied. The patient did not receive any blood bank product, but received 450 mL of Cell Saver blood. He was transferred to the ICU with excellent hemodynamics. AV paced at 80 on low-dose Levophed. MMODL / IJN: [id number] /
[2023-09-02 01:12] LABS: Glucose,Whole Blood 136 mg/dL (70-110)
[2023-09-02 02:02] LABS: Glucose,Whole Blood 134 mg/dL (70-110)
--- NOTE | 2023-09-02 02:45 | P.CNPUL ---
History of Present Illness Consult date: 09/02/23 Requesting physician: Yuliet Linn Reason for consult: other (ICU management, status post open-heart) Chief complaint: Elective CABG History of present illness: I am seeing this patient in consultation today 09/02/2023 in the intensive care unit following a planned on pump four-vessel CABG. Patient is a 67-year-old male with past medical history significant for coronary artery disease and my ocardial infarction, hyperlipidemia, hypothyroidism, and is a former tobacco smoker. As stated above, the patient had a recent ST elevation AL on July 18, he did undergo heart catheterization and received 2 stents to the RCA. He was found to have significant disease of the left circumflex and LAD. He did undergo preoperative workup for a planned CABG. Patient has a significant smoking history, but quit over 10 years ago. Bedside spirometry during his recent admission showed FEV1 of 2.57 L or 85% predicted. Yesterday, the patient did undergo a CABG 4 with a MAHONEY graft to the LAD, left radial to the OM 1, reverse SVG to the RCA and a reverse SVG to the OM 2. There was also exclusion of left atrial appendage. No immediate perioperative complications reported. Patient had excellent weaning parameters, and ABGs on pressure support of 5 showed a pO2 of 156, pCO2 42, pH of 7.33. This was done on FiO2 of 40%. He was awake and following commands. Patient was extubated successfully to 3 L/m nasal cannula. Patient was hypotensive following the procedure and required low-dose norepinephrine which is currently infusing at 0.06 mcg/kg/m. Heart rhythm appears normal sinus on bedside monitor with a rate of 72 bpm. Cardiac output and index are adequate at 4.3 and 2.3 L respectively. PA pressures currently 25/12. There is acute blood loss anemia, an expected outcome of this procedure. Hemoglobin was 6.6 following the procedure, the patient received 1 unit PRBC, and is currently up to 7.2 g/dL. Patient has 2 mediastinal chest tubes Y-d together with approximately 400 ML's of serosanguineous output and a left pleural chest tube with approximately 450 ML's of serosanguineous output. No apparent air leak. Postoperative chest x-ray demonstrates, no pneumothoraces or suspicious cardiopulmonary process. There is a right IJ PA catheter in place. Most recent CBC postoperatively shows a WBC count 8.5, hemoglobin up to 7.2 g/dL, hematocrit 21.2, platelets 76,000. Coagulation profile shows INR of 1.5 and a PTT of 42. Postoperative BMP includes a sodium 141, potassium 4.5, chloride 111, serum bicarb 21, BUN 18, creatinine 0.75, glucose 96. Insulin is infusing at 1 unit per hour. Normal saline is infusing at 50 ML's per hour. Urine output has been adequate in the order of 50-100 ML's per hour. Pain is reportedly well controlled. Patient is currently sitting up in bed, on 3 L per minute nasal cannula, in no acute distress. He will be monitored in the intensive care unit. Review of Systems REVIEW OF SYSTEMS: CONSTITUTIONAL: Denies any recent significant weight loss or weight gain. EYES: Denies change in vision. EARS, NOSE, MOUTH, THROAT: Denies headaches, denies sore throat. CARDIOVASCULAR: Denies radiating chest pain, palpitations or syncopal episodes. RESPIRATORY: Denies shortness of breath, cough, congestion or hemoptysis. GASTROINTESTINAL: Denies change in appetite, abdominal pain, nausea and vomiting, or diarrhea GENITOURINARY: Denies hematuria, denies infections. MUSKULOSKELETAL: Denies pain, denies swelling. Does admit some incisional chest pain with coughing or deep breathing. Also, patient states that he has chronic back pain INTEGUMENTARY: Denies rash, denies eczema. NEUROLOGICAL: Denies recent memory loss, no recent seizure activity. PSYCHIATRIC: Denies anxiety, denies depression. HEMATOLOGIC/LYMPHATIC: Denies anemia, denies enlarged lymph node Past Medical History Past Medical History: Coronary Artery Disease (CAD), Hyperlipidemia, Myocardial Infarction (AL), Thyroid Disorder Additional Past Medical History / Comment(s): heart rate normally runs low,kidney stones,chronic back pain,Plugged right ear- status post placement of right ear tube,steroids Jun 2023, pre-diabetes Last Myocardial Infarction Date:: 07-18-23 History of Any Multi-Drug Resistant Organisms: None Reported Past Surgical History: Heart Catheterization, Heart Catheterization With Stent, Tonsillectomy Additional Past Surgical History / Comment(s): Panda CATARACT, SINUS SURGERY, KIDNEY STONE REMOVAL-lithotripsy, placement of right ear tube,2 heartcaths,2 stents placed midRCA Past Anesthesia/Blood Transfusion Reactions: No Reported Reaction Additional Past Anesthesia/Blood Transfusion Reaction / Comment(s): no hx blood transfusion Date of Last Stent Placement:: 07-18-23 Smoking Status: Former smoker - Past Family History Mother Family Medical History: No Reported History Additional Family Medical History / Comment(s): living @ age 90 Father Family Medical History: Coronary Artery Disease (CAD) Additional Family Medical History / Comment(s): CABG @ age 68 Medications and Allergies Home Medications Medication Instructions Recorded Confirmed Type Fluticasone [place] [Flonase 2 spr EA NOSTRIL DAILY PRN 07/18/23 09/01/23 History [place]] Levothyroxine Sodium [Synthroid] 50 mcg PO QAM 07/18/23 09/01/23 History Acetaminophen Tab [Tylenol] 650 mg PO Q6HR PRN tab 07/21/23 09/01/23 Rx Aspirin 81 mg PO DAILY #30 tab 07/21/23 09/01/23 Rx Atorvastatin [Lipitor] 80 mg PO DAILY #30 tab 07/21/23 09/01/23 Rx Nitroglycerin Sl Tabs [Nitrostat] 0.4 mg SUBLINGUAL Q5M PRN #15 tab 07/21/23 09/01/23 Rx Prasugrel [Effient] 10 mg PO DAILY #30 tab 07/21/23 09/01/23 Rx Cholecalciferol [Vitamin D3 (25 125 mcg PO DAILY 08/29/23 09/01/23 History Mcg = 1000 Iu)] Ibuprofen [Advil] 600 - 800 mg PO Q6H PRN 08/29/23 09/01/23 History Allergies Allergy/AdvReac Type Severity Reaction Status Date / Time isosorbide AdvReac low b/p Verified 09/01/23 05:56 metoprolol AdvReac HR went Verified 09/01/23 05:56 down to high 30s and 40s Physical Exam Vitals: Vital Signs Temp Pulse Pulse Resp BP BP BP 09/02/23 01:15 73 18 84/48 09/02/23 01:00 76 16 81/53 09/02/23 00:45 77 14 09/02/23 00:30 78 17 09/02/23 00:15 75 14 09/02/23 00:00 73 14 81/47 09/01/23 23:45 73 15 09/01/23 23:30 79 18 09/01/23 23:15 76 26 H 09/01/23 23:00 71 19 81/47 09/01/23 22:45 73 23 09/01/23 22:30 74 12 09/01/23 22:15 74 12 09/01/23 22:05 09/01/23 22:00 71 12 88/48 09/01/23 21:45 71 12 09/01/23 21:30 70 12 09/01/23 21:21 09/01/23 21:15 75 12 09/01/23 21:00 77 13 70/39 09/01/23 20:45 76 12 09/01/23 20:44 99.0 F 80 15 80/40 09/01/23 20:30 80 10 L 09/01/23 20:24 99.0 F 79 13 80/37 09/01/23 20:15 78 12 09/01/23 20:14 99.1 F 80 12 80/39 09/01/23 20:00 99.0 F 83 12 09/01/23 19:49 81 09/01/23 19:45 77 12 09/01/23 19:35 82 09/01/23 19:30 78 12 09/01/23 19:15 79 12 09/01/23 19:00 98.6 F 79 12 09/01/23 18:45 78 14 09/01/23 18:30 80 14 09/01/23 18:15 80 14 09/01/23 18:00 98.2 F 76 14 09/01/23 17:45 76 15 09/01/23 17:30 73 11 L 09/01/23 17:17 09/01/23 17:15 66 14 70/39 09/01/23 17:00 97.5 F L 69 14 09/01/23 16:45 73 14 09/01/23 16:33 09/01/23 16:30 97.3 F L 71 14 09/01/23 16:15 80 24 09/01/23 16:10 96 22 09/01/23 16:00 09/01/23 06:24 97.5 F L 50 L 16 121/57 121/62 Pulse Ox FiO2 09/02/23 01:15 100 09/02/23 01:00 100 09/02/23 00:45 100 09/02/23 00:30 100 09/02/23 00:15 100 09/02/23 00:00 100 09/01/23 23:45 100 09/01/23 23:30 100 09/01/23 23:15 100 09/01/23 23:00 98 09/01/23 22:45 100 09/01/23 22:30 100 09/01/23 22:15 100 09/01/23 22:05 40 09/01/23 22:00 100 09/01/23 21:45 100 09/01/23 21:30 100 09/01/23 21:21 40 09/01/23 21:15 100 09/01/23 21:00 100 09/01/23 20:45 100 09/01/23 20:44 100 09/01/23 20:30 100 09/01/23 20:24 100 09/01/23 20:15 100 09/01/23 20:14 100 09/01/23 20:00 100 50 09/01/23 19:49 09/01/23 19:45 100 09/01/23 19:35 09/01/23 19:30 100 50 09/01/23 19:15 100 09/01/23 19:00 100 09/01/23 18:45 100 09/01/23 18:30 100 09/01/23 18:15 100 09/01/23 18:00 100 09/01/23 17:45 100 09/01/23 17:30 100 09/01/23 17:17 50 09/01/23 17:15 100 09/01/23 17:00 100 09/01/23 16:45 100 09/01/23 16:33 100 09/01/23 16:30 100 09/01/23 16:15 09/01/23 16:10 09/01/23 16:00 100 09/01/23 06:24 96 Intake and Output 09/01/23 09/01/23 09/02/23 14:59 22:59 06:59 Intake Total 53 2113.032 469 Output Total 1999 1295 255 Balance -1947 818.032 214 Intake: IV 53 491 469 0.9 350 150 CO/CI 120 60 albumin 250 pressure bag 21 9 Intake, IV Titration 62.032 Amount Insulin Regular 100 unit 5.076 In Sodium Chloride 0.9% 100 ml @ Per Protocol IV .Q0M [facility] Rx#:[id number] Norepinephrine 4 mg In 12.361 Sodium Chloride 0.9% 250 ml @ 0.03 MCG/KG/MIN 8. 241 mls/hr IV .Q24H [facility] Rx#:[id number] propofoL 1,000 mg In 44.595 Empty Bag 1 bag @ Titrate IV .Q0M [facility]A Rx#: [id number] Blood Product 310 Rc As-1 Unit 310 [id number] Albumin 1250 albumin 1250 Output: Chest Tube Drainage 410 100 LP 160 60 MS 250 40 Drainage 60 0 Left Lower Arm 20 0 Left Lower Calf 40 0 Urine 1000 825 155 Estimated Blood Loss 1000 Other: Voiding Method Indwelling Catheter Indwelling Catheter ABP, PAP, CO, CI - Last 8 Hours Arterial Blood Pressure 90/42 Arterial Blood Pressure 90/43 Arterial Blood Pressure 95/46 Arterial Blood Pressure 91/44 Arterial Blood Pressure 89/42 Arterial Blood Pressure 94/43 Arterial Blood Pressure 94/44 Arterial Blood Pressure 86/44 Arterial Blood Pressure 93/42 Arterial Blood Pressure 89/46 Arterial Blood Pressure 88/48 Arterial Blood Pressure 84/43 Arterial Blood Pressure 88/47 Arterial Blood Pressure 86/45 Arterial Blood Pressure 80/40 Arterial Blood Pressure 79/39 Arterial Blood Pressure 78/38 Arterial Blood Pressure 78/39 Arterial Blood Pressure 84/41 Arterial Blood Pressure 85/39 Arterial Blood Pressure 84/39 Arterial Blood Pressure 83/40 Arterial Blood Pressure 85/40 Arterial Blood Pressure 80/39 Arterial Blood Pressure 87/41 Arterial Blood Pressure 81/40 Arterial Blood Pressure 84/42 Arterial Blood Pressure 84/41 Arterial Blood Pressure 87/42 Arterial Blood Pressure 80/40 Pulmonary Artery Pressure 34/15 Pulmonary Artery Pressure 31/14 Pulmonary Artery Pressure 30/14 Pulmonary Artery Pressure 30/14 Pulmonary Artery Pressure 32/13 Pulmonary Artery Pressure 29/16 Pulmonary Artery Pressure 33/14 Pulmonary Artery Pressure 30/19 Pulmonary Artery Pressure 30/14 Pulmonary Artery Pressure 26/9 Pulmonary Artery Pressure 26/14 Pulmonary Artery Pressure 32/16 Pulmonary Artery Pressure 27/17 Pulmonary Artery Pressure 31/18 Pulmonary Artery Pressure 26/15 Pulmonary Artery Pressure 24/14 Pulmonary Artery Pressure 27/16 Pulmonary Artery Pressure 28/15 Pulmonary Artery Pressure 30/14 Pulmonary Artery Pressure 30/12 Pulmonary Artery Pressure 24/14 Pulmonary Artery Pressure 23/13 Pulmonary Artery Pressure 25/11 Pulmonary Artery Pressure 27/11 Pulmonary Artery Pressure 22/14 Pulmonary Artery Pressure 28/14 Pulmonary Artery Pressure 32/14 Pulmonary Artery Pressure 35/15 Pulmonary Artery Pressure 33/14 Pulmonary Artery Pressure 35/14 Cardiac Output 4.7 Cardiac Output 4 Cardiac Output 4.3 Cardiac Output 5.2 Cardiac Output 5.3 Cardiac Output 5.3 Cardiac Output 5.3 Cardiac Output 5.3 Cardiac Output 6.2 Cardiac Output 6.2 Cardiac Output 6.2 Cardiac Output 6.2 Cardiac Index 2.5 Cardiac Index 2.2 Cardiac Index 2.3 Cardiac Index 2.8 Cardiac Index 2.8 Cardiac Index 2.8 Cardiac Index 2.8 Cardiac Index 2.8 Cardiac Index 3.3 Cardiac Index 3.3 Cardiac Index 3.3 Cardiac Index 3.3 GENERAL EXAM: Alert, 67-year-old white male following extubation, comfortable in no apparent distress. HEAD: Normocephalic and atraumatic EYES: Normal reaction of pupils, equal size. NOSE: Clear with pink turbinates. THROAT: No erythema or exudates. NECK: No masses, no JVD. Right IJ PA catheter CHEST: Midsternal incision approximated with dressings clean and dry and intact. Chest tubes noted per HPI LUNGS: Equal air entry with no crackles, wheeze, rhonchi or dullness. On 3 L/m nasal cannula. No conversational dyspnea or accessory muscle use.. CVS: S1 and S2 normal with no audible murmur, regular rhythm. Pericardial friction rub. ABDOMEN: No hepatosplenomegaly, hypoactive bowel sounds, no guarding or rigidity. SPINE: No scoliosis or deformity SKIN: No rashes CENTRAL NERVOUS SYSTEM: No focal deficits, tone is normal in all 4 extremities. EXTREMITIES: There is no peripheral edema, clubbing, or cyanosis. Peripheral pulses are intact. Left leg graft site wrapped with Talat bandage and CAMMY compressed. Left radial harvest site is wrapped with Talat bandage and has a CAMMY was compressed. Perfusion is intact. Results - Laboratory Findings CBC and BMP: 09/01/23 22:55 09/01/23 16:41 ABG ABG pH 7.33 (7.35-7.45) L 09/01/23 22:23 ABG pCO2 42 mmHg (35-45) 09/01/23 22:23 ABG pO2 156 mmHg (83-108) H 09/01/23 22:23 ABG O2 Saturation 98.9 % (94-97) H 09/01/23 22:23 PT/INR, D-dimer PT 15.5 sec (10.0-12.5) H 09/01/23 16:41 INR 1.5 (<1.2) H 09/01/23 16:41 Abnormal lab findings: Abnormal Labs 08/25/23 09/01/23 09/01/23 09:21 08:43 10:29 RBC Hgb Hct Plt Count Neutrophils # (Manual) Lymphocytes # Lymphocytes # (Manual) PT INR APTT ABG pH 7.33 L ABG pCO2 ABG pO2 390 H 152 H ABG HCO3 26 H ABG Total CO2 27 H 25 H ABG O2 Saturation 100.0 H 99.2 H ABG Hematocrit ABG Potassium ABG Ionized Calcium ABG Glucose 105 H 156 H ABG Lactic Acid Hemoglobin 10.9 L Chloride Carbon Dioxide POC Glucose (mg/dL) Magnesium Alkaline Phosphatase Total Protein Albumin Arterial Blood Potassium Arterial Blood Glucose 105 H 156 H Crossmatch See Detail 09/01/23 09/01/23 09/01/23 11:52 12:23 13:08 RBC Hgb Hct Plt Count Neutrophils # (Manual) Lymphocytes # Lymphocytes # (Manual) PT INR APTT ABG pH 7.46 H 7.48 H ABG pCO2 33 L ABG pO2 >420 H >420 H >420 H ABG HCO3 ABG Total CO2 26 H 26 H 25 H ABG O2 Saturation 100.0 H 100.0 H 100.0 H ABG Hematocrit 23 L 24 L 23 L ABG Potassium 5.2 H 4.9 H ABG Ionized Calcium 3.5 L* 3.7 L 3.8 L ABG Glucose 128 H 140 H 135 H ABG Lactic Acid 2.3 H* 3.0 H* 3.8 H* Hemoglobin 7.5 L 7.9 L 7.6 L Chloride Carbon Dioxide POC Glucose (mg/dL) Magnesium Alkaline Phosphatase Total Protein Albumin Arterial Blood Potassium 5.2 H 4.9 H Arterial Blood Glucose 128 H 140 H 135 H Crossmatch 09/01/23 09/01/23 09/01/23 16:41 16:41 16:41 RBC 2.73 L Hgb 8.7 L D Hct 26.2 L Plt Count 85 L D Neutrophils # (Manual) 8.90 H Lymphocytes # Lymphocytes # (Manual) PT 15.5 H INR 1.5 H APTT 42.2 H ABG pH ABG pCO2 ABG pO2 ABG HCO3 ABG Total CO2 ABG O2 Saturation ABG Hematocrit ABG Potassium ABG Ionized Calcium ABG Glucose ABG Lactic Acid Hemoglobin Chloride 111 H Carbon Dioxide 21 L POC Glucose (mg/dL) Magnesium 2.6 H Alkaline Phosphatase 34 L Total Protein 4.3 L Albumin 3.1 L Arterial Blood Potassium Arterial Blood Glucose Crossmatch 09/01/23 09/01/23 09/01/23 16:55 18:02 18:59 RBC Hgb Hct Plt Count Neutrophils # (Manual) Lymphocytes # Lymphocytes # (Manual) PT INR APTT ABG pH 7.33 L ABG pCO2 33 L ABG pO2 368 H ABG HCO3 17 L ABG Total CO2 18 L ABG O2 Saturation 99.8 H ABG Hematocrit ABG Potassium ABG Ionized Calcium ABG Glucose ABG Lactic Acid Hemoglobin Chloride Carbon Dioxide POC Glucose (mg/dL) 131 H 138 H Magnesium Alkaline Phosphatase Total Protein Albumin Arterial Blood Potassium Arterial Blood Glucose Crossmatch 09/01/23 09/01/23 09/01/23 19:00 19:56 21:05 RBC 2.06 L Hgb 6.6 L* D Hct 19.6 L* Plt Count 78 L Neutrophils # (Manual) 7.90 H Lymphocytes # Lymphocytes # (Manual) 0.25 L PT INR APTT ABG pH ABG pCO2 ABG pO2 ABG HCO3 ABG Total CO2 ABG O2 Saturation ABG Hematocrit ABG Potassium ABG Ionized Calcium ABG Glucose ABG Lactic Acid Hemoglobin Chloride Carbon Dioxide POC Glucose (mg/dL) 141 H 140 H Magnesium Alkaline Phosphatase Total Protein Albumin Arterial Blood Potassium Arterial Blood Glucose Crossmatch 09/01/23 09/01/23 09/01/23 22:04 22:23 22:55 RBC 2.23 L Hgb 7.2 L Hct 21.2 L Plt Count 76 L Neutrophils # (Manual) Lymphocytes # 0.3 L Lymphocytes # (Manual) PT INR APTT ABG pH 7.33 L ABG pCO2 ABG pO2 156 H ABG HCO3 ABG Total CO2 ABG O2 Saturation 98.9 H ABG Hematocrit ABG Potassium ABG Ionized Calcium ABG Glucose ABG Lactic Acid Hemoglobin Chloride Carbon Dioxide POC Glucose (mg/dL) 138 H Magnesium Alkaline Phosphatase Total Protein Albumin Arterial Blood Potassium Arterial Blood Glucose Crossmatch 09/01/23 09/01/23 09/02/23 22:55 23:59 01:09 RBC Hgb Hct Plt Count Neutrophils # (Manual) Lymphocytes # Lymphocytes # (Manual) PT INR APTT ABG pH ABG pCO2 ABG pO2 ABG HCO3 ABG Total CO2 ABG O2 Saturation ABG Hematocrit ABG Potassium ABG Ionized Calcium ABG Glucose ABG Lactic Acid Hemoglobin Chloride Carbon Dioxide POC Glucose (mg/dL) 139 H 138 H 136 H Magnesium Alkaline Phosphatase Total Protein Albumin Arterial Blood Potassium Arterial Blood Glucose Crossmatch - Diagnostic Findings Chest x-ray: image reviewed Assessment and Plan Assessment: Coronary artery disease status postoperative day #1 following coronary artery bypass grafting 4 including a MAHONEY to the LAD, left radial to the OM1, reverse SVG to RCA, and reverse SVG to the OM 2. Exclusion of the left atrial appendage. Routine postoperative mechanical ventilator management, successfully extubated to 3 L/m nasal cannula Hypotension, requiring low-dose vasopressors Acute blood loss anemia, and expected outcome of the procedure, status post 1 unit PRBC transfusion Thrombocytopenia Recent history of ST elevation myocardial infarction on 07/18/2023, status post stents to the RCA 2 Hyperlipidemia Hypothyroidism Former tobacco smoker Plan: Patient's medications, labs, chest x-ray reviewed. Postoperatively, the patient had excellent weaning parameters and adequate ABGs on pressure support of 5. Hence the patient was extubated. Appears to be tolerating extubation well, on 3 L/m nasal cannula. Blood pressure remains marginal on low-dose norepinephrine. Patient has received 1 unit PRBC transfusion. Hemoglobin up to 7.2 g/dL. Patient also receiving another 5% albumin. Cardiac output/index adequate. Monitor chest tube output. Insulin infusing per protocol. Incisional chest pain reportedly well controlled. Incentive spirometer at bedside and requires encouragement. SCDs are on. Protonix for GI prophylaxis. The patient will be monitored in the intensive care unit, and we will continue to follow. I have personally seen and examined the patient, performed the documentation and the assessment and plan as written. Number of minutes spent on the visit:20 Time with Patient: Greater than 30
[2023-09-02 03:08] LABS: Glucose,Whole Blood 133 mg/dL (70-110)
[2023-09-02 03:53] LABS: Glucose,Whole Blood 133 mg/dL (70-110)
[2023-09-02 04:08] LABS: Basophils % (A) 0 %; Eosinophils % (A) 0 %; HCT 21.6 % (39.0-53.0); HGB 7.3 gm/dL (13.0-17.5); Lymphocytes # (A) 0.4 k/uL (1.0-4.8); Lymphocytes % (A) 5 %; MCH 31.8 pg (25.0-35.0); MCHC 33.7 g/dL (31.0-37.0); MCV 94.4 fL (80.0-100.0); Mean Platelet Volume 11.5; Monocytes # (A) 0.3 k/uL (0-1.0); Monocytes % (A) 3 %; Neutrophils # (A) 8.2 k/uL (1.3-7.7); Neutrophils % (A) 92 %; Platelet Count 72 k/uL (150-450); RBC 2.29 m/uL (4.30-5.90); RDW 12.6 % (11.5-15.5)
[2023-09-02 04:11] LABS: Ionized Calcium 4.8 mg/dL (4.5-5.3)
[2023-09-02 04:19] LABS: ALT 15 U/L (4-49); AST 45 U/L (17-59); African American GFR (CKD) >90 (>60 ml/min/1.73 sqM); Albumin 3.5 g/dL (3.5-5.0); Alkaline Phosphatase 26 U/L (38-126); Anion Gap 8 mmol/L; Blood Urea Nitrogen 19 mg/dL (9-20); Calcium 8.1 mg/dL (8.4-10.2); Carbon Dioxide 21 mmol/L (22-30); Chloride 111 mmol/L (98-107); Glucose 121 mg/dL (74-99); Magnesium 2.2 mg/dL (1.6-2.3); Non-African American GFR(CKD) >90 (>60 ml/min/1.73 sqM); Sodium 140 mmol/L (137-145); Total Bilirubin 1.1 mg/dL (0.2-1.3); Total Protein 4.8 g/dL (6.3-8.2)
[2023-09-02 05:20] LABS: Glucose,Whole Blood 128 mg/dL (70-110)
[2023-09-02 06:28] LABS: Glucose,Whole Blood 138 mg/dL (70-110)
[2023-09-02] MEDS: ALBUMIN HUMAN 5% 250 ML in EMPTY BAG 1 BAG IVPB PRN (06:33)
[2023-09-02] MEDS: NOREPINEPHRINE 4 MG in SODIUM CHLORIDE 0.9% 250 ML IV SCH (06:34)
[2023-09-02] MEDS ORDERED: ACETAMINOPHEN TAB 500 MG TAB PO PRN (06:36)
[2023-09-02] MEDS: LEVOTHYROXINE 50 MCG TAB PO SCH ×2 (06:45→08:36)
[2023-09-02] MEDS: METOCLOPRAMIDE 5 MG/ML 2 ML VIAL IVP PRN (06:59)
[2023-09-02] MEDS: MIDODRINE 5 MG TAB PO SCH ×3 (07:36→17:42)
[2023-09-02] MEDS: methocarbamoL 500 MG TAB PO SCH ×4 (07:49→20:15)
[2023-09-02 08:00] LABS: Glucose,Whole Blood 152 mg/dL (70-110)
[2023-09-02] MEDS: CHOLECALCIFEROL 25 MCG (1000 IU) TABLET PO SCH (08:29)
[2023-09-02] MEDS: CLOPIDOGREL 75 MG TAB PO SCH (08:30)
[2023-09-02] MEDS: ATORVASTATIN 40 MG TAB PO SCH (08:30)
[2023-09-02] MEDS: ASPIRIN 81 MG PO SCH (08:30)
[2023-09-02] MEDS: FONDAPARINUX 2.5 MG/0.5 ML SYRINGE SQ SCH (08:30)
[2023-09-02] MEDS: IPRATROPIUM-ALBUTEROL 3 ML NEB INHALATION SCH ×4 (08:58→20:25)
[2023-09-02] MEDS ORDERED: ASPIRIN 325 MG TAB PO SCH (09:00)
[2023-09-02] MEDS ORDERED: MAGNESIUM HYDROXIDE 2,400 MG/30 ML CUP PO PRN (09:00)
[2023-09-02] MEDS ORDERED: PANTOPRAZOLE 40 MG/10 ML VIAL IVP SCH ×2 (09:00)
[2023-09-02] MEDS ORDERED: METOPROLOL TARTRATE 12.5 MG TAB PO SCH (09:00)
[2023-09-02] MEDS ORDERED: bisacodyL 10 MG SUPP RECTAL PRN (09:00)
--- NOTE | 2023-09-02 09:02 | XR ---
EXAM: XR chest 1V portable CLINICAL INDICATION:Male, 67 years old with history of Post Operative Cardiac Surgery; [facility] COMPARISON: 09/01/2023 4:25 PM and before TECHNIQUE: Chest single view. FINDINGS: Lines/tubes/devices: Multiple EKG leads and extrinsic densities over the chest, can interfere with in terpretation. Right IJ Matthews-Jaida catheter with tip over the pulmonary outflow tract. There appear to again be 2 mediastinal drains. NG tube and ET tube appear to have been removed. Left chest tube is st able with tip over the left upper lobe. Redemonstration left atrial appendage closure device. Cardiomediastinum: Cardiomediastinal silhouette is mildly enlarged and essentially stable, likely exaggerated by lower l beck volumes. Multiple sternotomy wires and mediastinal clips redemonstrated from cardiothoracic surge ry, likely CABG. Vasculature: No increased pulmonary vasculature. Lungs/pleura: Lung volumes are somewhat lower than before, with crowding of the bronchovascular markings and strand y left basilar opacity likely related to atelectasis. No sizable pleural effusion or pneumothorax vis ualized. Bones/soft tissues: Bony thorax appears grossly unchanged as seen. Regional soft tissues appear unremarkable. Other: Moderate gaseous distention of the stomach seen in the left upper quadrant. No subdiaphragmati c free air is suggested. IMPRESSION: 1. Postoperative chest with multiple lines and tubes in place as above. Interval removal of the ET a nd NG tubes. 2. Similar enlarged cardiomediastinal silhouette. 3. Lung volumes are somewhat lower than before, with crowding of the bronchovascular markings and st pamela left basilar opacity likely related to atelectasis. No sizable pleural effusion or pneumothorax .
--- NOTE | 2023-09-02 09:10 | P.PN ---
Subjective Progress Note Date: 09/02/23 Principal diagnosis: Triple-vessel coronary artery disease status post right coronary artery stenting for inferior wall myocardial infarction. Previous medical history of hyperlip idemia, bilateral internal carotid artery stenosis 50-69%, hypothyroid, previous tobacco dependence, family history of coronary artery disease POD #1 quadruple coronary artery bypass grafting using the in situ left internal mammary artery to the left entered setting artery, left radial artery from the aorta to the first obtuse marginal artery, reverse saphenous vein graft from the aorta to the second obtuse marginal artery, reverse saphenous vein graft from the aorta to the right coronary artery, exclusion of the left atrial appendage using a 35 mm AtriClip, endoscopic harvesting of the left radial artery, endoscopic harvesting of the left greater saphenous vein, intraoperative graft flow measurements using the [employer] system, intraoperative transesophageal echocardiogram and epi-aortic scanning Postoperative acute blood loss anemia and thrombocytopenia, expected given hemodilution and cardiopulmonary bypass pump Hypotension requiring low-dose vasopressor The patient was seen and examined with Dr. Tesfaye sitting up in a recliner in the intensive care unit in no acute distress. He was successfully extubated last night at 2244. Remains in sinus rhythm, blood pressure soft on low-dose levo. Currently on room air with oxygen saturation in the mid 90s. Does complain of post surgical pain, denies shortness of breath. Right internal jugular Denison/Cordis, right radial arterial line, mediastinal/left pleural chest tubes all remain. Chest x-ray, labs reviewed. No other new concerns. Objective - Vital Signs Vital signs: Vital Signs Temp 98.8 F 09/02/23 04:00 Pulse 73 09/02/23 08:00 Resp 10 L 09/02/23 08:00 BP 96/57 09/02/23 08:00 Pulse Ox 96 09/02/23 08:00 FiO2 40 09/01/23 22:05 Intake & Output 09/01/23 09/02/23 09/02/23 18:59 06:59 18:59 Intake Total 2116.519 9473.714 428.910 Output Total 2595 1395 95 Balance -3483.338 1002.714 333.910 Weight 74 kg Intake: IV 252 1094 398 0.9 150 600 100 CO/CI 40 160 30 albumin 250 250 pressure bag 9 84 18 Intake, IV Titration 23.177 259.714 30.910 Amount Insulin Regular 100 unit 5.076 10.033 In Sodium Chloride 0.9% 100 ml @ Per Protocol IV .Q0M [facility]A Rx#:[id number] Norepinephrine 4 mg In 12.361 220.859 20.877 Sodium Chloride 0.9% 250 ml @ 0.03 MCG/KG/MIN 8. 241 mls/hr IV .Q24H [facility]A Rx#:[id number] propofoL 1,000 mg In 10.816 33.779 Empty Bag 1 bag @ Titrate IV .Q0M LEDA Rx#: [id number] Oral 1020 Blood Product 310 Rc As-1 Unit 310 [id number] Albumin 1000 250 albumin 1000 250 Output: Chest Tube Drainage 215 485 10 LP 90 220 10 MS 125 265 0 Drainage 60 30 Left Lower Arm 20 10 Left Lower Calf 40 20 Urine 1380 850 55 Estimated Blood Loss 1000 Other: Voiding Method Indwelling Catheter Indwelling Catheter ABP, PAP, CO, CI - Last Documented Arterial Blood Pressure 77/38 Pulmonary Artery Pressure 34/10 Cardiac Output 4.9 Cardiac Index 2.6 - Exam CONSTITUTIONAL: Appears somewhat comfortable, cooperative, no acute distress RESPIRATORY: Lungs sounds diminished bilaterally. Respirations even, nonl abored. Currently on room air with oxygen saturation 97%. Able to achieve 750 mL on incentive spirometry. Strong cough. CARDIOVASCULAR: S1, S2 present. Regular rate and rhythm, sinus rhythm on telemetry. Sternum stable. Palpable peripheral pulses bilaterally. No edema present. No calf pain or tenderness noted. Heart hugger in place with patient demonstrating appropriate use. Antiembolism stockings, SCDs present. GASTROINTESTINAL: Abdomen soft, nontender, nondistended. Hypoactive bowel sounds present 4 quadrants. Tolerating clear liquids. Denies flatus GENITOURINARY: Aleman present draining clear, yellow urine. Output overnight 35-75 mL per hour INTEGUMENTARY: Skin is warm and dry with evidence of good perfusion. Anterior chest incision well approximated and covered with dry intact dressing. Left radial artery harvest site as well as left lower extremity EVH site well approximated, CAMMY drains present to both sites with no drainage overnight NEUROLOGIC: Cranial nerves II through XII intact MUSKULOSKELETAL: Able to move all extremities, strength equal bilaterally PSYCHIATRIC: Alert and oriented to person place and time, appropriate affect, intact judgment and insight INVASIVE LINES AND TUBES: Mediastinal/left chest tubes present and connected to wall suction, no air leaks present. Mediastinal tube with 140 mL serosanguineous drainage overnight, 550 mL since surgery. Left pleural chest tube with 150 mL serosanguineous drainage overnight, 550 mL since surgery. A/V epicardial pacemaker wires present, connected to generator, backup rate 50 bpm. Right internal jugular Denison/Cordis, right radial arterial line present. Last CO/CI 4.7/2.5, PA 34/13, CVP 13. - Allied health notes Allied health notes reviewed: nursing - Labs CBC & Chem 7: 09/02/23 03:50 09/02/23 03:50 Labs: Abnormal Lab Results - Last 24 Hours (Table) 08/25/23 09/01/23 09/01/23 Range/Units 09:21 08:43 10:29 RBC (4.30-5.90) m/uL Hgb (13.0-17.5) gm/dL Hct (39.0-53.0) % Plt Count (150-450) k/uL Neutrophils # (1.3-7.7) k/uL Neutrophils # (Manual) (1.3-7.7) k/uL Lymphocytes # (1.0-4.8) k/uL Lymphocytes # (Manual) (1.0-4.8) k/uL PT (10.0-12.5) sec INR (<1.2) APTT (22.0-30.0) sec ABG pH 7.33 L (7.35-7.45) ABG pCO2 (35-45) mmHg ABG pO2 390 H 152 H (83-108) mmHg ABG HCO3 26 H (21-25) mmol/L ABG Total CO2 27 H 25 H (19-24) mmol/L ABG O2 Saturation 100.0 H 99.2 H (94-97) % ABG Hematocrit (34.0-46.0) % ABG Potassium (3.4-4.5) mmol/L ABG Ionized Calcium (4.5-5.3) mg/dL ABG Glucose 105 H 156 H (75-99) mg/dL ABG Lactic Acid (0.5-1.6) mmol/L Hemoglobin 10.9 L (13.0-17.5) gm/dL Chloride (98-107) mmol/L Carbon Dioxide (22-30) mmol/L Glucose (74-99) mg/dL POC Glucose (mg/dL) (70-110) mg/dL Calcium (8.4-10.2) mg/dL Magnesium (1.6-2.3) mg/dL Alkaline Phosphatase (38-126) U/L Total Protein (6.3-8.2) g/dL Albumin (3.5-5.0) g/dL Arterial Blood Potassium (3.4-4.5) mmol/L Arterial Blood Glucose 105 H 156 H (75-99) mg/dL Crossmatch See Detail 09/01/23 09/01/23 09/01/23 Range/Units 11:52 12:23 13:08 RBC (4.30-5.90) m/uL Hgb (13.0-17.5) gm/dL Hct (39.0-53.0) % Plt Count (150-450) k/uL Neutrophils # (1.3-7.7) k/uL Neutrophils # (Manual) (1.3-7.7) k/uL Lymphocytes # (1.0-4.8) k/uL Lymphocytes # (Manual) (1.0-4.8) k/uL PT (10.0-12.5) sec INR (<1.2) APTT (22.0-30.0) sec ABG pH 7.46 H 7.48 H (7.35-7.45) ABG pCO2 33 L (35-45) mmHg ABG pO2 >420 H >420 H >420 H (83-108) mmHg ABG HCO3 (21-25) mmol/L ABG Total CO2 26 H 26 H 25 H (19-24) mmol/L ABG O2 Saturation 100.0 H 100.0 H 100.0 H (94-97) % ABG Hematocrit 23 L 24 L 23 L (34.0-46.0) % ABG Potassium 5.2 H 4.9 H (3.4-4.5) mmol/L ABG Ionized Calcium 3.5 L* 3.7 L 3.8 L (4.5-5.3) mg/dL ABG Glucose 128 H 140 H 135 H (75-99) mg/dL ABG Lactic Acid 2.3 H* 3.0 H* 3.8 H* (0.5-1.6) mmol/L Hemoglobin 7.5 L 7.9 L 7.6 L (13.0-17.5) gm/dL Chloride (98-107) mmol/L Carbon Dioxide (22-30) mmol/L Glucose (74-99) mg/dL POC Glucose (mg/dL) (70-110) mg/dL Calcium (8.4-10.2) mg/dL Magnesium (1.6-2.3) mg/dL Alkaline Phosphatase (38-126) U/L Total Protein (6.3-8.2) g/dL Albumin (3.5-5.0) g/dL Arterial Blood Potassium 5.2 H 4.9 H (3.4-4.5) mmol/L Arterial Blood Glucose 128 H 140 H 135 H (75-99) mg/dL Crossmatch 09/01/23 09/01/23 09/01/23 Range/Units 16:41 16:41 16:41 RBC 2.73 L (4.30-5.90) m/uL Hgb 8.7 L D (13.0-17.5) gm/dL Hct 26.2 L (39.0-53.0) % Plt Count 85 L D (150-450) k/uL Neutrophils # (1.3-7.7) k/uL Neutrophils # (Manual) 8.90 H (1.3-7.7) k/uL Lymphocytes # (1.0-4.8) k/uL Lymphocytes # (Manual) (1.0-4.8) k/uL PT 15.5 H (10.0-12.5) sec INR 1.5 H (<1.2) APTT 42.2 H (22.0-30.0) sec ABG pH (7.35-7.45) ABG pCO2 (35-45) mmHg ABG pO2 (83-108) mmHg ABG HCO3 (21-25) mmol/L ABG Total CO2 (19-24) mmol/L ABG O2 Saturation (94-97) % ABG Hematocrit (34.0-46.0) % ABG Potassium (3.4-4.5) mmol/L ABG Ionized Calcium (4.5-5.3) mg/dL ABG Glucose (75-99) mg/dL ABG Lactic Acid (0.5-1.6) mmol/L Hemoglobin (13.0-17.5) gm/dL Chloride 111 H (98-107) mmol/L Carbon Dioxide 21 L (22-30) mmol/L Glucose (74-99) mg/dL POC Glucose (mg/dL) (70-110) mg/dL Calcium (8.4-10.2) mg/dL Magnesium 2.6 H (1.6-2.3) mg/dL Alkaline Phosphatase 34 L (38-126) U/L Total Protein 4.3 L (6.3-8.2) g/dL Albumin 3.1 L (3.5-5.0) g/dL Arterial Blood Potassium (3.4-4.5) mmol/L Arterial Blood Glucose (75-99) mg/dL Crossmatch 09/01/23 09/01/23 09/01/23 Range/Units 16:55 18:02 18:59 RBC (4.30-5.90) m/uL Hgb (13.0-17.5) gm/dL Hct (39.0-53.0) % Plt Count (150-450) k/uL Neutrophils # (1.3-7.7) k/uL Neutrophils # (Manual) (1.3-7.7) k/uL Lymphocytes # (1.0-4.8) k/uL Lymphocytes # (Manual) (1.0-4.8) k/uL PT (10.0-12.5) sec INR (<1.2) APTT (22.0-30.0) sec ABG pH 7.33 L (7.35-7.45) ABG pCO2 33 L (35-45) mmHg ABG pO2 368 H (83-108) mmHg ABG HCO3 17 L (21-25) mmol/L ABG Total CO2 18 L (19-24) mmol/L ABG O2 Saturation 99.8 H (94-97) % ABG Hematocrit (34.0-46.0) % ABG Potassium (3.4-4.5) mmol/L ABG Ionized Calcium (4.5-5.3) mg/dL ABG Glucose (75-99) mg/dL ABG Lactic Acid (0.5-1.6) mmol/L Hemoglobin (13.0-17.5) gm/dL Chloride (98-107) mmol/L Carbon Dioxide (22-30) mmol/L Glucose (74-99) mg/dL POC Glucose (mg/dL) 131 H 138 H (70-110) mg/dL Calcium (8.4-10.2) mg/dL Magnesium (1.6-2.3) mg/dL Alkaline Phosphatase (38-126) U/L Total Protein (6.3-8.2) g/dL Albumin (3.5-5.0) g/dL Arterial Blood Potassium (3.4-4.5) mmol/L Arterial Blood Glucose (75-99) mg/dL Crossmatch 09/01/23 09/01/23 09/01/23 Range/Units 19:00 19:56 21:05 RBC 2.06 L (4.30-5.90) m/uL Hgb 6.6 L* D (13.0-17.5) gm/dL Hct 19.6 L* (39.0-53.0) % Plt Count 78 L (150-450) k/uL Neutrophils # (1.3-7.7) k/uL Neutrophils # (Manual) 7.90 H (1.3-7.7) k/uL Lymphocytes # (1.0-4.8) k/uL Lymphocytes # (Manual) 0.25 L (1.0-4.8) k/uL PT (10.0-12.5) sec INR (<1.2) APTT (22.0-30.0) sec ABG pH (7.35-7.45) ABG pCO2 (35-45) mmHg ABG pO2 (83-108) mmHg ABG HCO3 (21-25) mmol/L ABG Total CO2 (19-24) mmol/L ABG O2 Saturation (94-97) % ABG Hematocrit (34.0-46.0) % ABG Potassium (3.4-4.5) mmol/L ABG Ionized Calcium (4.5-5.3) mg/dL ABG Glucose (75-99) mg/dL ABG Lactic Acid (0.5-1.6) mmol/L Hemoglobin (13.0-17.5) gm/dL Chloride (98-107) mmol/L Carbon Dioxide (22-30) mmol/L Glucose (74-99) mg/dL POC Glucose (mg/dL) 141 H 140 H (70-110) mg/dL Calcium (8.4-10.2) mg/dL Magnesium (1.6-2.3) mg/dL Alkaline Phosphatase (38-126) U/L Total Protein (6.3-8.2) g/dL Albumin (3.5-5.0) g/dL Arterial Blood Potassium (3.4-4.5) mmol/L Arterial Blood Glucose (75-99) mg/dL Crossmatch 09/01/23 09/01/23 09/01/23 Range/Units 22:04 22:23 22:55 RBC 2.23 L (4.30-5.90) m/uL Hgb 7.2 L (13.0-17.5) gm/dL Hct 21.2 L (39.0-53.0) % Plt Count 76 L (150-450) k/uL Neutrophils # (1.3-7.7) k/uL Neutrophils # (Manual) (1.3-7.7) k/uL Lymphocytes # 0.3 L (1.0-4.8) k/uL Lymphocytes # (Manual) (1.0-4.8) k/uL PT (10.0-12.5) sec INR (<1.2) APTT (22.0-30.0) sec ABG pH 7.33 L (7.35-7.45) ABG pCO2 (35-45) mmHg ABG pO2 156 H (83-108) mmHg ABG HCO3 (21-25) mmol/L ABG Total CO2 (19-24) mmol/L ABG O2 Saturation 98.9 H (94-97) % ABG Hematocrit (34.0-46.0) % ABG Potassium (3.4-4.5) mmol/L ABG Ionized Calcium (4.5-5.3) mg/dL ABG Glucose (75-99) mg/dL ABG Lactic Acid (0.5-1.6) mmol/L Hemoglobin (13.0-17.5) gm/dL Chloride (98-107) mmol/L Carbon Dioxide (22-30) mmol/L Glucose (74-99) mg/dL POC Glucose (mg/dL) 138 H (70-110) mg/dL Calcium (8.4-10.2) mg/dL Magnesium (1.6-2.3) mg/dL Alkaline Phosphatase (38-126) U/L Total Protein (6.3-8.2) g/dL Albumin (3.5-5.0) g/dL Arterial Blood Potassium (3.4-4.5) mmol/L Arterial Blood Glucose (75-99) mg/dL Crossmatch 09/01/23 09/01/23 09/02/23 Range/Units 22:55 23:59 01:09 RBC (4.30-5.90) m/uL Hgb (13.0-17.5) gm/dL Hct (39.0-53.0) % Plt Count (150-450) k/uL Neutrophils # (1.3-7.7) k/uL Neutrophils # (Manual) (1.3-7.7) k/uL Lymphocytes # (1.0-4.8) k/uL Lymphocytes # (Manual) (1.0-4.8) k/uL PT (10.0-12.5) sec INR (<1.2) APTT (22.0-30.0) sec ABG pH (7.35-7.45) ABG pCO2 (35-45) mmHg ABG pO2 (83-108) mmHg ABG HCO3 (21-25) mmol/L ABG Total CO2 (19-24) mmol/L ABG O2 Saturation (94-97) % ABG Hematocrit (34.0-46.0) % ABG Potassium (3.4-4.5) mmol/L ABG Ionized Calcium (4.5-5.3) mg/dL ABG Glucose (75-99) mg/dL ABG Lactic Acid (0.5-1.6) mmol/L Hemoglobin (13.0-17.5) gm/dL Chloride (98-107) mmol/L Carbon Dioxide (22-30) mmol/L Glucose (74-99) mg/dL POC Glucose (mg/dL) 139 H 138 H 136 H (70-110) mg/dL Calcium (8.4-10.2) mg/dL Magnesium (1.6-2.3) mg/dL Alkaline Phosphatase (38-126) U/L Total Protein (6.3-8.2) g/dL Albumin (3.5-5.0) g/dL Arterial Blood Potassium (3.4-4.5) mmol/L Arterial Blood Glucose (75-99) mg/dL Crossmatch 09/02/23 09/02/23 09/02/23 Range/Units 02:00 03:07 03:50 RBC 2.29 L (4.30-5.90) m/uL Hgb 7.3 L (13.0-17.5) gm/dL Hct 21.6 L (39.0-53.0) % Plt Count 72 L (150-450) k/uL Neutrophils # 8.2 H (1.3-7.7) k/uL Neutrophils # (Manual) (1.3-7.7) k/uL Lymphocytes # 0.4 L (1.0-4.8) k/uL Lymphocytes # (Manual) (1.0-4.8) k/uL PT (10.0-12.5) sec INR (<1.2) APTT (22.0-30.0) sec ABG pH (7.35-7.45) ABG pCO2 (35-45) mmHg ABG pO2 (83-108) mmHg ABG HCO3 (21-25) mmol/L ABG Total CO2 (19-24) mmol/L ABG O2 Saturation (94-97) % ABG Hematocrit (34.0-46.0) % ABG Potassium (3.4-4.5) mmol/L ABG Ionized Calcium (4.5-5.3) mg/dL ABG Glucose (75-99) mg/dL ABG Lactic Acid (0.5-1.6) mmol/L Hemoglobin (13.0-17.5) gm/dL Chloride (98-107) mmol/L Carbon Dioxide (22-30) mmol/L Glucose (74-99) mg/dL POC Glucose (mg/dL) 134 H 133 H (70-110) mg/dL Calcium (8.4-10.2) mg/dL Magnesium (1.6-2.3) mg/dL Alkaline Phosphatase (38-126) U/L Total Protein (6.3-8.2) g/dL Albumin (3.5-5.0) g/dL Arterial Blood Potassium (3.4-4.5) mmol/L Arterial Blood Glucose (75-99) mg/dL Crossmatch 09/02/23 09/02/23 09/02/23 Range/Units 03:50 03:50 05:19 RBC (4.30-5.90) m/uL Hgb (13.0-17.5) gm/dL Hct (39.0-53.0) % Plt Count (150-450) k/uL Neutrophils # (1.3-7.7) k/uL Neutrophils # (Manual) (1.3-7.7) k/uL Lymphocytes # (1.0-4.8) k/uL Lymphocytes # (Manual) (1.0-4.8) k/uL PT (10.0-12.5) sec INR (<1.2) APTT (22.0-30.0) sec ABG pH (7.35-7.45) ABG pCO2 (35-45) mmHg ABG pO2 (83-108) mmHg ABG HCO3 (21-25) mmol/L ABG Total CO2 (19-24) mmol/L ABG O2 Saturation (94-97) % ABG Hematocrit (34.0-46.0) % ABG Potassium (3.4-4.5) mmol/L ABG Ionized Calcium (4.5-5.3) mg/dL ABG Glucose (75-99) mg/dL ABG Lactic Acid (0.5-1.6) mmol/L Hemoglobin (13.0-17.5) gm/dL Chloride 111 H (98-107) mmol/L Carbon Dioxide 21 L (22-30) mmol/L Glucose 121 H (74-99) mg/dL POC Glucose (mg/dL) 133 H 128 H (70-110) mg/dL Calcium 8.1 L (8.4-10.2) mg/dL Magnesium (1.6-2.3) mg/dL Alkaline Phosphatase 26 L (38-126) U/L Total Protein 4.8 L (6.3-8.2) g/dL Albumin (3.5-5.0) g/dL Arterial Blood Potassium (3.4-4.5) mmol/L Arterial Blood Glucose (75-99) mg/dL Crossmatch 09/02/23 09/02/23 Range/Units 06:27 07:58 RBC (4.30-5.90) m/uL Hgb (13.0-17.5) gm/dL Hct (39.0-53.0) % Plt Count (150-450) k/uL Neutrophils # (1.3-7.7) k/uL Neutrophils # (Manual) (1.3-7.7) k/uL Lymphocytes # (1.0-4.8) k/uL Lymphocytes # (Manual) (1.0-4.8) k/uL PT (10.0-12.5) sec INR (<1.2) APTT (22.0-30.0) sec ABG pH (7.35-7.45) ABG pCO2 (35-45) mmHg ABG pO2 (83-108) mmHg ABG HCO3 (21-25) mmol/L ABG Total CO2 (19-24) mmol/L ABG O2 Saturation (94-97) % ABG Hematocrit (34.0-46.0) % ABG Potassium (3.4-4.5) mmol/L ABG Ionized Calcium (4.5-5.3) mg/dL ABG Glucose (75-99) mg/dL ABG Lactic Acid (0.5-1.6) mmol/L Hemoglobin (13.0-17.5) gm/dL Chloride (98-107) mmol/L Carbon Dioxide (22-30) mmol/L Glucose (74-99) mg/dL POC Glucose (mg/dL) 138 H 152 H (70-110) mg/dL Calcium (8.4-10.2) mg/dL Magnesium (1.6-2.3) mg/dL Alkaline Phosphatase (38-126) U/L Total Protein (6.3-8.2) g/dL Albumin (3.5-5.0) g/dL Arterial Blood Potassium (3.4-4.5) mmol/L Arterial Blood Glucose (75-99) mg/dL Crossmatch - Imaging and Cardiology Chest x-ray: image reviewed Assessment and Plan Assessment: Triple-vessel coronary artery disease status post right coronary artery stenting for inferior wall myocardial infarction, status post 4 vessel CABG History of hyperlipidemia Bilateral internal carotid artery stenosis 50-69% Hypothyroid Previous tobacco dependence Family history of coronary artery disease Postoperative acute blood loss anemia and thrombocytopenia, expected Hypotension requiring low-dose vasopressor Plan: Continue to maximize medical therapy with low-dose aspirin, Plavix, statin. Will hold beta jerardo therapy for now Wean levo as tolerated, midodrine added Encourage incentive spirometry use 10 times every hour while awake. Bronchodilators per pulmonology Will monitor daily labs and chest x-rays. Electrolyte replacement per protocol Increase activity, ambulate as tolerated. PT/OT/cardiac rehab consulted GI/DVT prophylaxis Pain control with current medication regimen. Avoid Toradol due to thrombocytopenia, Robaxin added Insulin management per internal medicine, patient is not diabetic, hemoglobin A1c 6.1%. Needs to remain on IV insulin for 48 hours for tight blood sugar control then may transition to subcutaneous insulin Will discontinue Denison later today, continue Cordis to continuous CVP monitoring Will discontinue CAMMY drains Continue chest tubes for another 24 hours, monitor output Continue Aleman catheter for another 24 hours, continue to monitor and record strict accurate intake and output Daily weights More recommendations to follow as patient progresses
[2023-09-02 09:19] LABS: Glucose,Whole Blood 170 mg/dL (70-110)
[2023-09-02 10:05] LABS: Glucose,Whole Blood 160 mg/dL (70-110)
[2023-09-02 10:25] VITALS: BMI 24.7
--- NOTE | 2023-09-02 10:28 | CONS ---
CONSULTATION HISTORY OF PRESENT ILLNESS: This is a 67-year-old gentleman, who presented with acute inferior AR in the 1st week of July, underwent stenting of a totally occluded RCA, but had significant disease in the LAD and circumflex. Yesterday, he underwent elective aortocoronary bypass surgery with MAHONEY to LAD, left free radial graft from aorta to 1st obtuse marginal and a vein graft from aorta to the 2nd obtuse marginal and another vein graft from aorta to the right coronary artery. Post procedure, he is slightly hypotensive. Urine output is fair. He is extubated in sinus mechanism, seems to be doing well. Cardiac output appears to be good. At the time of my evaluation, he is in no distress, but blood pressure is low. He has received some volume. He is on a small dose of Levophed. I am suggesting we increase it to keep systolic close to 100. Please refer to the detailed consultation and other information by Dr. Recio. The patient had his initial cardiac catheterization and intervention on July 18. PAST MEDICAL HISTORY: 1. Acute inferior AR and PCI of RCA performed on July 18. 2. Hypertension. 3. Hyperlipidemia. 4. Hypothyroidism, on replacement therapy. PHYSICAL EXAMINATION: VITAL SIGNS: Blood pressure is about 96/60, pulse rate is 70, sinus. HEENT: Unremarkable. Fundus was not examined. NECK: Supple. No JVD. HEART: S1, S2 heard normally. Pericardial rub is audible. LUNGS: Reveal fair air entry bilaterally. Rest of physical exam unchanged. PLAN: Plan is to continue incentive spirometry, pulmonary toilet, and hemodynamic support. The patient is making decent progress. MMODL / IJN: [id number] /
[2023-09-02 11:15] LABS: Glucose,Whole Blood 153 mg/dL (70-110)
[2023-09-02 12:04] LABS: Glucose,Whole Blood 133 mg/dL (70-110)
--- NOTE | 2023-09-02 13:20 | P.PN ---
Subjective Progress Note Date: 09/02/23 (delayed charting seen at 0930) Patient is a 67-year-old male with coronary artery disease, hypertension, and hypothyroidism who presented for four-vessel bypass surgery. Patient had an ST segment elevated myocardial infarction on 07/18/23 and underwent successful stenting of the RCA with noted disease in the LAD. He was subsequently referred for revascularization. Patient seen and examined at bedside. He c/o chest pain at the incision site. He was slightly light headed this morning but it has resolved, no shortness of breath, no nausea. Vital signs reviewed General: nontoxic, no distress, appears at stated age Cardiovascular: S1S2 reg, no murmur, positive posterior tibial pulse bilateral, Lungs: CTA bilateral, no rhonchi, no rales , no accessory muscle use Abdominal: soft, nontender to palpation, no guarding, no appreciable organomegaly, CT and medistinal tube in place Ext: no gross muscle atrophy, no edema b/l lower extremities, no contractures Neuro: CN II-XI grossly intact, no focal neuro deficits Psych: Alert, oriented, appropriate affect Assessment/Plan: 67-year-old male status post four-vessel bypass CAD Hypertension Dyslipidemia -Aspirin 325 mg daily, Lipitor 40 mg daily, Plavix 75 mg oral daily-patient sti ll requiring low dose norepinephrine and Midodrine has been added at 5 mg 3 times daily. -CT surgery note reviewed. Hold off on beta jerardo therapy for now due to blood pressures -pulmonary note reviewed: IS while awake. Prediabetes -A1c 6.1 on 08/25/23 - Insulin drip for another 24 hours, continue to follow blood sugars -Likely would benefit from dietary modifications on discharge - monitor BS and mental status for signs of hypoglycemia Acute Blood loss anemia and thrombocytopenia, anticipated outcome of surgery -Follow CBC and platelets. No indication for transfusion at this time. - repeat CBC in AM Hypothyroidism -Synthroid 50 g daily Imaging: Chest x-ray as reviewed by myself shows lines and tubes in appropriate position with some increased vascular markings and fluid in the right minor fissure Data Review: Labs reviewed from today include CBC and basic metabolic profile which are remarkable for hemoglobin 7.3, platelets 72, chloride 111, and carbon dioxide 21 This dictation was prepared using [employer] voice recognition software. Though every attempt is made to correct errors during dictation some may still exist. Objective - Vital Signs Vital signs: Vital Signs Temp 98.8 F 09/02/23 04:00 Pulse 68 09/02/23 12:15 Resp 14 09/02/23 12:15 BP 101/59 09/02/23 12:15 Pulse Ox 96 09/02/23 12:15 FiO2 40 09/01/23 22:05 Intake & Output 09/01/23 09/02/23 09/02/23 18:59 06:59 18:59 Intake Total 5681.344 1102.714 1077.267 Output Total 2595 1395 305 Balance -4814.688 6315.714 772.267 Weight 74 kg 74 kg Intake: IV 252 1094 575 0.9 150 600 250 CO/CI 40 160 30 albumin 250 250 pressure bag 9 84 45 Intake, IV Titration 23.177 259.714 102.267 Amount Insulin Regular 100 unit 5.076 21.505 In Sodium Chloride 0.9% 100 ml @ Per Protocol IV .Q0M [facility] Rx#:[id number] Norepinephrine 4 mg In 12.361 220.859 80.762 Sodium Chloride 0.9% 250 ml @ 0.03 MCG/KG/MIN 8. 241 mls/hr IV .Q24H [facility]A Rx#:[id number] propofoL 1,000 mg In 10.816 33.779 Empty Bag 1 bag @ Titrate IV .Q0M LEDA Rx#: [id number] Oral 1020 400 Blood Product 310 Rc As-1 Unit 310 [id number] Albumin 1000 250 albumin 1000 250 Output: Chest Tube Drainage 215 485 100 LP 90 220 60 MS 125 265 40 Drainage 60 30 Left Lower Arm 20 10 Left Lower Calf 40 20 Urine 1380 850 175 Estimated Blood Loss 1000 Other: Voiding Method Indwelling Catheter Indwelling Catheter Indwelling Catheter ABP, PAP, CO, CI - Last Documented Arterial Blood Pressure 97/41 Pulmonary Artery Pressure 34/13 Cardiac Output 4.9 Cardiac Index 2.6 - Labs CBC & Chem 7: 09/02/23 03:50 09/02/23 03:50 Labs: Abnormal Lab Results - Last 24 Hours (Table) 08/25/23 09/01/23 09/01/23 Range/Units 09:21 08:43 10:29 RBC (4.30-5.90) m/uL Hgb (13.0-17.5) gm/dL Hct (39.0-53.0) % Plt Count (150-450) k/uL Neutrophils # (1.3-7.7) k/uL Neutrophils # (Manual) (1.3-7.7) k/uL Lymphocytes # (1.0-4.8) k/uL Lymphocytes # (Manual) (1.0-4.8) k/uL PT (10.0-12.5) sec INR (<1.2) APTT (22.0-30.0) sec ABG pH 7.33 L (7.35-7.45) ABG pCO2 (35-45) mmHg ABG pO2 390 H 152 H (83-108) mmHg ABG HCO3 26 H (21-25) mmol/L ABG Total CO2 27 H 25 H (19-24) mmol/L ABG O2 Saturation 100.0 H 99.2 H (94-97) % ABG Hematocrit (34.0-46.0) % ABG Potassium (3.4-4.5) mmol/L ABG Ionized Calcium (4.5-5.3) mg/dL ABG Glucose 105 H 156 H (75-99) mg/dL ABG Lactic Acid (0.5-1.6) mmol/L Hemoglobin 10.9 L (13.0-17.5) gm/dL Chloride (98-107) mmol/L Carbon Dioxide (22-30) mmol/L Glucose (74-99) mg/dL POC Glucose (mg/dL) (70-110) mg/dL Calcium (8.4-10.2) mg/dL Magnesium (1.6-2.3) mg/dL Alkaline Phosphatase (38-126) U/L Total Protein (6.3-8.2) g/dL Albumin (3.5-5.0) g/dL Arterial Blood Potassium (3.4-4.5) mmol/L Arterial Blood Glucose 105 H 156 H (75-99) mg/dL Crossmatch See Detail 09/01/23 09/01/23 09/01/23 Range/Units 11:52 12:23 13:08 RBC (4.30-5.90) m/uL Hgb (13.0-17.5) gm/dL Hct (39.0-53.0) % Plt Count (150-450) k/uL Neutrophils # (1.3-7.7) k/uL Neutrophils # (Manual) (1.3-7.7) k/uL Lymphocytes # (1.0-4.8) k/uL Lymphocytes # (Manual) (1.0-4.8) k/uL PT (10.0-12.5) sec INR (<1.2) APTT (22.0-30.0) sec ABG pH 7.46 H 7.48 H (7.35-7.45) ABG pCO2 33 L (35-45) mmHg ABG pO2 >420 H >420 H >420 H (83-108) mmHg ABG HCO3 (21-25) mmol/L ABG Total CO2 26 H 26 H 25 H (19-24) mmol/L ABG O2 Saturation 100.0 H 100.0 H 100.0 H (94-97) % ABG Hematocrit 23 L 24 L 23 L (34.0-46.0) % ABG Potassium 5.2 H 4.9 H (3.4-4.5) mmol/L ABG Ionized Calcium 3.5 L* 3.7 L 3.8 L (4.5-5.3) mg/dL ABG Glucose 128 H 140 H 135 H (75-99) mg/dL ABG Lactic Acid 2.3 H* 3.0 H* 3.8 H* (0.5-1.6) mmol/L Hemoglobin 7.5 L 7.9 L 7.6 L (13.0-17.5) gm/dL Chloride (98-107) mmol/L Carbon Dioxide (22-30) mmol/L Glucose (74-99) mg/dL POC Glucose (mg/dL) (70-110) mg/dL Calcium (8.4-10.2) mg/dL Magnesium (1.6-2.3) mg/dL Alkaline Phosphatase (38-126) U/L Total Protein (6.3-8.2) g/dL Albumin (3.5-5.0) g/dL Arterial Blood Potassium 5.2 H 4.9 H (3.4-4.5) mmol/L Arterial Blood Glucose 128 H 140 H 135 H (75-99) mg/dL Crossmatch 09/01/23 09/01/23 09/01/23 Range/Units 16:41 16:41 16:41 RBC 2.73 L (4.30-5.90) m/uL Hgb 8.7 L D (13.0-17.5) gm/dL Hct 26.2 L (39.0-53.0) % Plt Count 85 L D (150-450) k/uL Neutrophils # (1.3-7.7) k/uL Neutrophils # (Manual) 8.90 H (1.3-7.7) k/uL Lymphocytes # (1.0-4.8) k/uL Lymphocytes # (Manual) (1.0-4.8) k/uL PT 15.5 H (10.0-12.5) sec INR 1.5 H (<1.2) APTT 42.2 H (22.0-30.0) sec ABG pH (7.35-7.45) ABG pCO2 (35-45) mmHg ABG pO2 (83-108) mmHg ABG HCO3 (21-25) mmol/L ABG Total CO2 (19-24) mmol/L ABG O2 Saturation (94-97) % ABG Hematocrit (34.0-46.0) % ABG Potassium (3.4-4.5) mmol/L ABG Ionized Calcium (4.5-5.3) mg/dL ABG Glucose (75-99) mg/dL ABG Lactic Acid (0.5-1.6) mmol/L Hemoglobin (13.0-17.5) gm/dL Chloride 111 H (98-107) mmol/L Carbon Dioxide 21 L (22-30) mmol/L Glucose (74-99) mg/dL POC Glucose (mg/dL) (70-110) mg/dL Calcium (8.4-10.2) mg/dL Magnesium 2.6 H (1.6-2.3) mg/dL Alkaline Phosphatase 34 L (38-126) U/L Total Protein 4.3 L (6.3-8.2) g/dL Albumin 3.1 L (3.5-5.0) g/dL Arterial Blood Potassium (3.4-4.5) mmol/L Arterial Blood Glucose (75-99) mg/dL Crossmatch 1209/01/23 09/01/23 Range/Units 16:55 18:02 18:59 RBC (4.30-5.90) m/uL Hgb (13.0-17.5) gm/dL Hct (39.0-53.0) % Plt Count (150-450) k/uL Neutrophils # (1.3-7.7) k/uL Neutrophils # (Manual) (1.3-7.7) k/uL Lymphocytes # (1.0-4.8) k/uL Lymphocytes # (Manual) (1.0-4.8) k/uL PT (10.0-12.5) sec INR (<1.2) APTT (22.0-30.0) sec ABG pH 7.33 L (7.35-7.45) ABG pCO2 33 L (35-45) mmHg ABG pO2 368 H (83-108) mmHg ABG HCO3 17 L (21-25) mmol/L ABG Total CO2 18 L (19-24) mmol/L ABG O2 Saturation 99.8 H (94-97) % ABG Hematocrit (34.0-46.0) % ABG Potassium (3.4-4.5) mmol/L ABG Ionized Calcium (4.5-5.3) mg/dL ABG Glucose (75-99) mg/dL ABG Lactic Acid (0.5-1.6) mmol/L Hemoglobin (13.0-17.5) gm/dL Chloride (98-107) mmol/L Carbon Dioxide (22-30) mmol/L Glucose (74-99) mg/dL POC Glucose (mg/dL) 131 H 138 H (70-110) mg/dL Calcium (8.4-10.2) mg/dL Magnesium (1.6-2.3) mg/dL Alkaline Phosphatase (38-126) U/L Total Protein (6.3-8.2) g/dL Albumin (3.5-5.0) g/dL Arterial Blood Potassium (3.4-4.5) mmol/L Arterial Blood Glucose (75-99) mg/dL Crossmatch 09/01/23 09/01/23 09/01/23 Range/Units 19:00 19:56 21:05 RBC 2.06 L (4.30-5.90) m/uL Hgb 6.6 L* D (13.0-17.5) gm/dL Hct 19.6 L* (39.0-53.0) % Plt Count 78 L (150-450) k/uL Neutrophils # (1.3-7.7) k/uL Neutrophils # (Manual) 7.90 H (1.3-7.7) k/uL Lymphocytes # (1.0-4.8) k/uL Lymphocytes # (Manual) 0.25 L (1.0-4.8) k/uL PT (10.0-12.5) sec INR (<1.2) APTT (22.0-30.0) sec ABG pH (7.35-7.45) ABG pCO2 (35-45) mmHg ABG pO2 (83-108) mmHg ABG HCO3 (21-25) mmol/L ABG Total CO2 (19-24) mmol/L ABG O2 Saturation (94-97) % ABG Hematocrit (34.0-46.0) % ABG Potassium (3.4-4.5) mmol/L ABG Ionized Calcium (4.5-5.3) mg/dL ABG Glucose (75-99) mg/dL ABG Lactic Acid (0.5-1.6) mmol/L Hemoglobin (13.0-17.5) gm/dL Chloride (98-107) mmol/L Carbon Dioxide (22-30) mmol/L Glucose (74-99) mg/dL POC Glucose (mg/dL) 141 H 140 H (70-110) mg/dL Calcium (8.4-10.2) mg/dL Magnesium (1.6-2.3) mg/dL Alkaline Phosphatase (38-126) U/L Total Protein (6.3-8.2) g/dL Albumin (3.5-5.0) g/dL Arterial Blood Potassium (3.4-4.5) mmol/L Arterial Blood Glucose (75-99) mg/dL Crossmatch 09/01/23 09/01/23 09/01/23 Range/Units 22:04 22:23 22:55 RBC 2.23 L (4.30-5.90) m/uL Hgb 7.2 L (13.0-17.5) gm/dL Hct 21.2 L (39.0-53.0) % Plt Count 76 L (150-450) k/uL Neutrophils # (1.3-7.7) k/uL Neutrophils # (Manual) (1.3-7.7) k/uL Lymphocytes # 0.3 L (1.0-4.8) k/uL Lymphocytes # (Manual) (1.0-4.8) k/uL PT (10.0-12.5) sec INR (<1.2) APTT (22.0-30.0) sec ABG pH 7.33 L (7.35-7.45) ABG pCO2 (35-45) mmHg ABG pO2 156 H (83-108) mmHg ABG HCO3 (21-25) mmol/L ABG Total CO2 (19-24) mmol/L ABG O2 Saturation 98.9 H (94-97) % ABG Hematocrit (34.0-46.0) % ABG Potassium (3.4-4.5) mmol/L ABG Ionized Calcium (4.5-5.3) mg/dL ABG Glucose (75-99) mg/dL ABG Lactic Acid (0.5-1.6) mmol/L Hemoglobin (13.0-17.5) gm/dL Chloride (98-107) mmol/L Carbon Dioxide (22-30) mmol/L Glucose (74-99) mg/dL POC Glucose (mg/dL) 138 H (70-110) mg/dL Calcium (8.4-10.2) mg/dL Magnesium (1.6-2.3) mg/dL Alkaline Phosphatase (38-126) U/L Total Protein (6.3-8.2) g/dL Albumin (3.5-5.0) g/dL Arterial Blood Potassium (3.4-4.5) mmol/L Arterial Blood Glucose (75-99) mg/dL Crossmatch 09/01/23 09/01/23 09/02/23 Range/Units 22:55 23:59 01:09 RBC (4.30-5.90) m/uL Hgb (13.0-17.5) gm/dL Hct (39.0-53.0) % Plt Count (150-450) k/uL Neutrophils # (1.3-7.7) k/uL Neutrophils # (Manual) (1.3-7.7) k/uL Lymphocytes # (1.0-4.8) k/uL Lymphocytes # (Manual) (1.0-4.8) k/uL PT (10.0-12.5) sec INR (<1.2) APTT (22.0-30.0) sec ABG pH (7.35-7.45) ABG pCO2 (35-45) mmHg ABG pO2 (83-108) mmHg ABG HCO3 (21-25) mmol/L ABG Total CO2 (19-24) mmol/L ABG O2 Saturation (94-97) % ABG Hematocrit (34.0-46.0) % ABG Potassium (3.4-4.5) mmol/L ABG Ionized Calcium (4.5-5.3) mg/dL ABG Glucose (75-99) mg/dL ABG Lactic Acid (0.5-1.6) mmol/L Hemoglobin (13.0-17.5) gm/dL Chloride (98-107) mmol/L Carbon Dioxide (22-30) mmol/L Glucose (74-99) mg/dL POC Glucose (mg/dL) 139 H 138 H 136 H (70-110) mg/dL Calcium (8.4-10.2) mg/dL Magnesium (1.6-2.3) mg/dL Alkaline Phosphatase (38-126) U/L Total Protein (6.3-8.2) g/dL Albumin (3.5-5.0) g/dL Arterial Blood Potassium (3.4-4.5) mmol/L Arterial Blood Glucose (75-99) mg/dL Crossmatch 09/02/23 09/02/23 09/02/23 Range/Units 02:00 03:07 03:50 RBC 2.29 L (4.30-5.90) m/uL Hgb 7.3 L (13.0-17.5) gm/dL Hct 21.6 L (39.0-53.0) % Plt Count 72 L (150-450) k/uL Neutrophils # 8.2 H (1.3-7.7) k/uL Neutrophils # (Manual) (1.3-7.7) k/uL Lymphocytes # 0.4 L (1.0-4.8) k/uL Lymphocytes # (Manual) (1.0-4.8) k/uL PT (10.0-12.5) sec INR (<1.2) APTT (22.0-30.0) sec ABG pH (7.35-7.45) ABG pCO2 (35-45) mmHg ABG pO2 (83-108) mmHg ABG HCO3 (21-25) mmol/L ABG Total CO2 (19-24) mmol/L ABG O2 Saturation (94-97) % ABG Hematocrit (34.0-46.0) % ABG Potassium (3.4-4.5) mmol/L ABG Ionized Calcium (4.5-5.3) mg/dL ABG Glucose (75-99) mg/dL ABG Lactic Acid (0.5-1.6) mmol/L Hemoglobin (13.0-17.5) gm/dL Chloride (98-107) mmol/L Carbon Dioxide (22-30) mmol/L Glucose (74-99) mg/dL POC Glucose (mg/dL) 134 H 133 H (70-110) mg/dL Calcium (8.4-10.2) mg/dL Magnesium (1.6-2.3) mg/dL Alkaline Phosphatase (38-126) U/L Total Protein (6.3-8.2) g/dL Albumin (3.5-5.0) g/dL Arterial Blood Potassium (3.4-4.5) mmol/L Arterial Blood Glucose (75-99) mg/dL Crossmatch 09/02/23 09/02/23 09/02/23 Range/Units 03:50 03:50 05:19 RBC (4.30-5.90) m/uL Hgb (13.0-17.5) gm/dL Hct (39.0-53.0) % Plt Count (150-450) k/uL Neutrophils # (1.3-7.7) k/uL Neutrophils # (Manual) (1.3-7.7) k/uL Lymphocytes # (1.0-4.8) k/uL Lymphocytes # (Manual) (1.0-4.8) k/uL PT (10.0-12.5) sec INR (<1.2) APTT (22.0-30.0) sec ABG pH (7.35-7.45) ABG pCO2 (35-45) mmHg ABG pO2 (83-108) mmHg ABG HCO3 (21-25) mmol/L ABG Total CO2 (19-24) mmol/L ABG O2 Saturation (94-97) % ABG Hematocrit (34.0-46.0) % ABG Potassium (3.4-4.5) mmol/L ABG Ionized Calcium (4.5-5.3) mg/dL ABG Glucose (75-99) mg/dL ABG Lactic Acid (0.5-1.6) mmol/L Hemoglobin (13.0-17.5) gm/dL Chloride 111 H (98-107) mmol/L Carbon Dioxide 21 L (22-30) mmol/L Glucose 121 H (74-99) mg/dL POC Glucose (mg/dL) 133 H 128 H (70-110) mg/dL Calcium 8.1 L (8.4-10.2) mg/dL Magnesium (1.6-2.3) mg/dL Alkaline Phosphatase 26 L (38-126) U/L Total Protein 4.8 L (6.3-8.2) g/dL Albumin (3.5-5.0) g/dL Arterial Blood Potassium (3.4-4.5) mmol/L Arterial Blood Glucose (75-99) mg/dL Crossmatch 09/02/23 09/02/23 09/02/23 Range/Units 06:27 07:58 09:18 RBC (4.30-5.90) m/uL Hgb (13.0-17.5) gm/dL Hct (39.0-53.0) % Plt Count (150-450) k/uL Neutrophils # (1.3-7.7) k/uL Neutrophils # (Manual) (1.3-7.7) k/uL Lymphocytes # (1.0-4.8) k/uL Lymphocytes # (Manual) (1.0-4.8) k/uL PT (10.0-12.5) sec INR (<1.2) APTT (22.0-30.0) sec ABG pH (7.35-7.45) ABG pCO2 (35-45) mmHg ABG pO2 (83-108) mmHg ABG HCO3 (21-25) mmol/L ABG Total CO2 (19-24) mmol/L ABG O2 Saturation (94-97) % ABG Hematocrit (34.0-46.0) % ABG Potassium (3.4-4.5) mmol/L ABG Ionized Calcium (4.5-5.3) mg/dL ABG Glucose (75-99) mg/dL ABG Lactic Acid (0.5-1.6) mmol/L Hemoglobin (13.0-17.5) gm/dL Chloride (98-107) mmol/L Carbon Dioxide (22-30) mmol/L Glucose (74-99) mg/dL POC Glucose (mg/dL) 138 H 152 H 170 H (70-110) mg/dL Calcium (8.4-10.2) mg/dL Magnesium (1.6-2.3) mg/dL Alkaline Phosphatase (38-126) U/L Total Protein (6.3-8.2) g/dL Albumin (3.5-5.0) g/dL Arterial Blood Potassium (3.4-4.5) mmol/L Arterial Blood Glucose (75-99) mg/dL Crossmatch 09/02/23 09/02/23 09/02/23 Range/Units 10:03 11:13 11:59 RBC (4.30-5.90) m/uL Hgb (13.0-17.5) gm/dL Hct (39.0-53.0) % Plt Count (150-450) k/uL Neutrophils # (1.3-7.7) k/uL Neutrophils # (Manual) (1.3-7.7) k/uL Lymphocytes # (1.0-4.8) k/uL Lymphocytes # (Manual) (1.0-4.8) k/uL PT (10.0-12.5) sec INR (<1.2) APTT (22.0-30.0) sec ABG pH (7.35-7.45) ABG pCO2 (35-45) mmHg ABG pO2 (83-108) mmHg ABG HCO3 (21-25) mmol/L ABG Total CO2 (19-24) mmol/L ABG O2 Saturation (94-97) % ABG Hematocrit (34.0-46.0) % ABG Potassium (3.4-4.5) mmol/L ABG Ionized Calcium (4.5-5.3) mg/dL ABG Glucose (75-99) mg/dL ABG Lactic Acid (0.5-1.6) mmol/L Hemoglobin (13.0-17.5) gm/dL Chloride (98-107) mmol/L Carbon Dioxide (22-30) mmol/L Glucose (74-99) mg/dL POC Glucose (mg/dL) 160 H 153 H 133 H (70-110) mg/dL Calcium (8.4-10.2) mg/dL Magnesium (1.6-2.3) mg/dL Alkaline Phosphatase (38-126) U/L Total Protein (6.3-8.2) g/dL Albumin (3.5-5.0) g/dL Arterial Blood Potassium (3.4-4.5) mmol/L Arterial Blood Glucose (75-99) mg/dL Crossmatch
[2023-09-02 13:29] LABS: Glucose,Whole Blood 181 mg/dL (70-110)
[2023-09-02 14:17] LABS: Glucose,Whole Blood 173 mg/dL (70-110)
[2023-09-02 15:07] LABS: Glucose,Whole Blood 187 mg/dL (70-110)
[2023-09-02 16:16] LABS: Glucose,Whole Blood 137 mg/dL (70-110)
[2023-09-02 17:21] LABS: Glucose,Whole Blood 108 mg/dL (70-110)
[2023-09-02] MEDS: SODIUM CHLORIDE 0.9% 1,000 ML IV SCH (17:41)
[2023-09-02 18:03] LABS: Glucose,Whole Blood 107 mg/dL (70-110)
[2023-09-02 18:53] LABS: Glucose,Whole Blood 163 mg/dL (70-110)
[2023-09-02 20:14] LABS: Glucose,Whole Blood 153 mg/dL (70-110)
[2023-09-02] MEDS: SENNOSIDES-DOCUSATE SODIUM 1 EACH TAB PO SCH (20:14)
[2023-09-02 20:59] LABS: Glucose,Whole Blood 141 mg/dL (70-110)
[2023-09-02 22:08] LABS: Glucose,Whole Blood 128 mg/dL (70-110)
[2023-09-02 23:01] LABS: Glucose,Whole Blood 127 mg/dL (70-110)
[2023-09-03 00:15] LABS: Glucose,Whole Blood 112 mg/dL (70-110)
[2023-09-03 01:00] LABS: Glucose,Whole Blood 117 mg/dL (70-110)
[2023-09-03 02:06] LABS: Glucose,Whole Blood 130 mg/dL (70-110)
[2023-09-03 03:04] LABS: Glucose,Whole Blood 123 mg/dL (70-110)
[2023-09-03 04:12] LABS: Glucose,Whole Blood 113 mg/dL (70-110)
[2023-09-03 04:38] LABS: Basophils % (A) 0 %; Eosinophils % (A) 0 %; HCT 20.2 % (39.0-53.0); Lymphocytes # (A) 1.1 k/uL (1.0-4.8); Lymphocytes % (A) 11 %; MCH 31.7 pg (25.0-35.0); MCHC 33.6 g/dL (31.0-37.0); MCV 94.5 fL (80.0-100.0); Mean Platelet Volume 11.6; Monocytes # (A) 0.3 k/uL (0-1.0); Monocytes % (A) 3 %; Neutrophils # (A) 8.6 k/uL (1.3-7.7); Neutrophils % (A) 85 %; RBC 2.13 m/uL (4.30-5.90); RDW 12.6 % (11.5-15.5); WBC 10.1 k/uL (3.8-10.6)
[2023-09-03 04:56] LABS: ALT 106 U/L (4-49); AST 119 U/L (17-59); African American GFR (CKD) >90 (>60 ml/min/1.73 sqM); Albumin 3.3 g/dL (3.5-5.0); Alkaline Phosphatase 40 U/L (38-126); Anion Gap 9 mmol/L; Blood Urea Nitrogen 19 mg/dL (9-20); Calcium 8.4 mg/dL (8.4-10.2); Carbon Dioxide 21 mmol/L (22-30); Chloride 102 mmol/L (98-107); Glucose 99 mg/dL (74-99); Non-African American GFR(CKD) >90 (>60 ml/min/1.73 sqM); Potassium 3.8 mmol/L (3.5-5.1); Sodium 132 mmol/L (137-145); Total Bilirubin 0.6 mg/dL (0.2-1.3); Total Protein 4.9 g/dL (6.3-8.2)
[2023-09-03 04:57] LABS: Glucose,Whole Blood 121 mg/dL (70-110)
[2023-09-03] MEDS: INSULIN REGULAR 100 UNIT in SODIUM CHLORIDE 0.9% 100 ML IV SCH (05:03)
[2023-09-03 05:16] LABS: HGB 6.8 gm/dL (13.0-17.5)
[2023-09-03 05:17] LABS: Platelet Count 67 k/uL (150-450)
[2023-09-03] MEDS ORDERED: POTASSIUM CHLORIDE ER 20 MEQ TAB.ER PO SCH (06:00)
[2023-09-03 06:04] LABS: Glucose,Whole Blood 126 mg/dL (70-110)
[2023-09-03] MEDS: PANTOPRAZOLE 40 MG TABLET PO SCH (06:42)
[2023-09-03] MEDS: MIDODRINE 5 MG TAB PO SCH ×3 (06:42→17:56)
[2023-09-03] MEDS: SODIUM CHLORIDE 0.9% 1,000 ML IV SCH (06:42)
[2023-09-03 07:03] LABS: Glucose,Whole Blood 116 mg/dL (70-110)
--- NOTE | 2023-09-03 07:28 | XR ---
EXAMINATION TYPE: XR chest 1V portable DATE OF EXAM: 09/03/2023 5:36 AM CLINICAL INDICATION:Male, 67 years old with history of Post Operative Cardiac Surgery; [facility] COMPARISON: Chest radiograph from one day prior. TECHNIQUE: XR chest 1V portable Frontal view of the chest. FINDINGS: Lungs/Pleura: Blunting of the costophrenic angles. No evidence for pneumothorax or consolidation. Pul monary vascularity: Unremarkable. Heart/mediastinum: Cardiomediastinal silhouette is unremarkable. Left atrial appendage occlusion hollie ce is present. Musculoskeletal: No acute osseous pathology. Midline sternotomy wires are noted. Other findings: None Lines/Tubes: There is a Foster-Jaida catheter sheath remains in place. Left thoracotomy tube is present without evidence of pneumothorax. Drainage tubes with tips projecting over the mediastinum. IMPRESSION: 1. Stable support tubes, no pneumothorax. 2. Trace bilateral pleural effusions.
[2023-09-03] MEDS: IPRATROPIUM-ALBUTEROL 3 ML NEB INHALATION SCH ×4 (08:12→19:48)
[2023-09-03] MEDS: ASPIRIN 81 MG PO SCH (08:18)
[2023-09-03] MEDS: CHOLECALCIFEROL 25 MCG (1000 IU) TABLET PO SCH (08:18)
[2023-09-03] MEDS: METOCLOPRAMIDE 5 MG/ML 2 ML VIAL IVP PRN (08:18)
[2023-09-03] MEDS: LEVOTHYROXINE 50 MCG TAB PO SCH (08:18)
[2023-09-03] MEDS: ATORVASTATIN 40 MG TAB PO SCH (08:18)
[2023-09-03] MEDS: CLOPIDOGREL 75 MG TAB PO SCH (08:18)
[2023-09-03] MEDS: methocarbamoL 500 MG TAB PO SCH ×4 (08:19→21:36)
[2023-09-03] MEDS: FONDAPARINUX 2.5 MG/0.5 ML SYRINGE SQ SCH (08:20)
[2023-09-03 08:29] LABS: Glucose,Whole Blood 101 mg/dL (70-110)
[2023-09-03] MEDS ORDERED: FUROSEMIDE 10 MG/ML 2 ML VIAL IV ONE (08:32)
[2023-09-03] MEDS ORDERED: DEXTROSE 50% SYRINGE 50 ML IVP PRN ×2 (09:09)
--- NOTE | 2023-09-03 09:52 | P.PN ---
Subjective Progress Note Date: 09/03/23 Principal diagnosis: Triple-vessel coronary artery disease status post right coronary artery stenting for inferior wall myocardial infarction. Previous medical history of hyperlip idemia, bilateral internal carotid artery stenosis 50-69%, hypothyroid, previous tobacco dependence, family history of coronary artery disease POD #2 quadruple coronary artery bypass grafting using the in situ left internal mammary artery to the left entered setting artery, left radial artery from the aorta to the first obtuse marginal artery, reverse saphenous vein graft from the aorta to the second obtuse marginal artery, reverse saphenous vein graft from the aorta to the right coronary artery, exclusion of the left atrial appendage using a 35 mm AtriClip, endoscopic harvesting of the left radial artery, endoscopic harvesting of the left greater saphenous vein, intraoperative graft flow measurements using the uTest system, intraoperative transesophageal echocardiogram and epi-aortic scanning Postoperative acute blood loss anemia and thrombocytopenia, expected given hemodilution and cardiopulmonary bypass pump Hypotension requiring low-dose vasopressor The patient was seen and examined with Dr. Tesfaye sitting up in a recliner in the intensive care unit in no acute distress. Remains in sinus rhythm, blood pressure better since initiation of midodrine, off levo since yesterday afternoon. Currently on room air with oxygen saturation in the mid 90s. Does complain of post surgical pain, denies shortness of breath. Right internal jugular cordis, right radial arterial line, mediastinal/left pleural chest tubes all remain. Chest x-ray, labs reviewed. Hgb 6.8 this morning, will give 1 unit PRBCs. No other new concerns. Objective - Vital Signs Vital signs: Vital Signs Temp 98.4 F 09/03/23 08:00 Pulse 85 09/03/23 09:00 Resp 19 09/03/23 09:00 BP 96/53 09/03/23 09:00 Pulse Ox 94 L 09/03/23 09:00 FiO2 40 09/01/23 22:05 Intake & Output 09/02/23 09/03/23 09/03/23 18:59 06:59 18:59 Intake Total 2238.373 762.543 238.649 Output Total 660 705 70 Balance 1578.373 57.543 168.649 Weight 74 kg 79.7 kg Intake: IV 999 728 112 0.9 600 650 100 CO/CI 50 albumin 250 pressure bag 99 78 12 Intake, IV Titration 189.373 34.543 6.649 Amount Insulin Regular 100 unit 45.796 34.543 6.649 In Sodium Chloride 0.9% 100 ml @ Per Protocol IV .Q0M [facility] Rx#:[id number] Norepinephrine 4 mg In 143.577 Sodium Chloride 0.9% 250 ml @ 0.03 MCG/KG/MIN 8. 241 mls/hr IV .Q24H [facility]A Rx#:[id number] Oral 1050 120 Output: Chest Tube Drainage 230 270 0 LP 100 120 0 MS 130 150 0 Drainage 30 Left Lower Arm 10 Left Lower Calf 20 Urine 400 435 70 Other: Voiding Method Indwelling Catheter Indwelling Catheter ABP, PAP, CO, CI - Last Documented Arterial Blood Pressure 99/44 Pulmonary Artery Pressure 29/12 Cardiac Output 4.9 Cardiac Index 2.6 - Exam CONSTITUTIONAL: Appears comfortable, cooperative, no acute distress RESPIRATORY: Lungs sounds diminished bilaterally. Respirations even, nonlabored. Currently on room air with oxygen saturation 93%. Able to achieve 750-1000 mL on incentive spirometry. Strong cough. CARDIOVASCULAR: S1, S2 present. Regular rate and rhythm, sinus rhythm on telemetry. Sternum stable. Palpable peripheral pulses bilaterally. Trace generalized edema present. No calf pain or tenderness noted. Heart hugger in place with patient demonstrating appropriate use. Antiembolism stockings, SCDs present. GASTROINTESTINAL: Abdomen soft, nontender, nondistended. Hypoactive bowel sounds present 4 quadrants. Tolerating clear liquids. Denies flatus GENITOURINARY: Aleman present draining clear, yellow urine. Output overnight 20-45 mL per hour/835 mL in the last 24 hours INTEGUMENTARY: Skin is warm and dry with evidence of good perfusion. Anterior chest incision well approximated and covered with dry intact dressing. Left radial artery harvest site as well as left lower extremity EVH site well approx imated NEUROLOGIC: Cranial nerves II through XII intact MUSKULOSKELETAL: Able to move all extremities, strength equal bilaterally PSYCHIATRIC: Alert and oriented to person place and time, appropriate affect, intact judgment and insight INVASIVE LINES AND TUBES: Mediastinal/left chest tubes present and connected to wall suction, no air leaks present. Mediastinal tube with 90 mL serosanguineous drainage overnight, 250 mL in the last 24 hours. Left pleural chest tube with 80 mL serosanguineous drainage overnight, 200 mL in the last 24 hours. A/V epicardial pacemaker wires present, connected to generator, backup rate 50 bpm. Right internal jugular cordis, right radial arterial line present - Allied health notes Allied health notes reviewed: nursing - Labs CBC & Chem 7: 09/03/23 04:10 09/03/23 04:10 Labs: Abnormal Lab Results - Last 24 Hours (Table) 09/02/23 09/02/23 09/02/23 Range/Units 10:03 11:13 11:59 RBC (4.30-5.90) m/uL Hgb (13.0-17.5) gm/dL Hct (39.0-53.0) % Plt Count (150-450) k/uL Neutrophils # (1.3-7.7) k/uL Sodium (137-145) mmol/L Carbon Dioxide (22-30) mmol/L POC Glucose (mg/dL) 160 H 153 H 133 H (70-110) mg/dL AST (17-59) U/L ALT (4-49) U/L Total Protein (6.3-8.2) g/dL Albumin (3.5-5.0) g/dL 09/02/23 09/02/23 09/02/23 Range/Units 13:28 14:16 15:07 RBC (4.30-5.90) m/uL Hgb (13.0-17.5) gm/dL Hct (39.0-53.0) % Plt Count (150-450) k/uL Neutrophils # (1.3-7.7) k/uL Sodium (137-145) mmol/L Carbon Dioxide (22-30) mmol/L POC Glucose (mg/dL) 181 H 173 H 187 H (70-110) mg/dL AST (17-59) U/L ALT (4-49) U/L Total Protein (6.3-8.2) g/dL Albumin (3.5-5.0) g/dL 09/02/23 09/02/23 09/02/23 Range/Units 16:14 18:51 20:13 RBC (4.30-5.90) m/uL Hgb (13.0-17.5) gm/dL Hct (39.0-53.0) % Plt Count (150-450) k/uL Neutrophils # (1.3-7.7) k/uL Sodium (137-145) mmol/L Carbon Dioxide (22-30) mmol/L POC Glucose (mg/dL) 137 H 163 H 153 H (70-110) mg/dL AST (17-59) U/L ALT (4-49) U/L Total Protein (6.3-8.2) g/dL Albumin (3.5-5.0) g/dL 09/02/23 09/02/23 09/02/23 Range/Units 20:58 22:06 23:00 RBC (4.30-5.90) m/uL Hgb (13.0-17.5) gm/dL Hct (39.0-53.0) % Plt Count (150-450) k/uL Neutrophils # (1.3-7.7) k/uL Sodium (137-145) mmol/L Carbon Dioxide (22-30) mmol/L POC Glucose (mg/dL) 141 H 128 H 127 H (70-110) mg/dL AST (17-59) U/L ALT (4-49) U/L Total Protein (6.3-8.2) g/dL Albumin (3.5-5.0) g/dL 09/03/23 09/03/23 09/03/23 Range/Units 00:14 00:59 02:05 RBC (4.30-5.90) m/uL Hgb (13.0-17.5) gm/dL Hct (39.0-53.0) % Plt Count (150-450) k/uL Neutrophils # (1.3-7.7) k/uL Sodium (137-145) mmol/L Carbon Dioxide (22-30) mmol/L POC Glucose (mg/dL) 112 H 117 H 130 H (70-110) mg/dL AST (17-59) U/L ALT (4-49) U/L Total Protein (6.3-8.2) g/dL Albumin (3.5-5.0) g/dL 09/03/23 09/03/23 09/03/23 Range/Units 03:02 04:10 04:10 RBC 2.13 L (4.30-5.90) m/uL Hgb 6.8 L* (13.0-17.5) gm/dL Hct 20.2 L (39.0-53.0) % Plt Count 67 L (150-450) k/uL Neutrophils # 8.6 H (1.3-7.7) k/uL Sodium 132 L (137-145) mmol/L Carbon Dioxide 21 L (22-30) mmol/L POC Glucose (mg/dL) 123 H (70-110) mg/dL AST 119 H (17-59) U/L ALT 106 H (4-49) U/L Total Protein 4.9 L (6.3-8.2) g/dL Albumin 3.3 L (3.5-5.0) g/dL 09/03/23 09/03/23 09/03/23 Range/Units 04:10 04:56 06:02 RBC (4.30-5.90) m/uL Hgb (13.0-17.5) gm/dL Hct (39.0-53.0) % Plt Count (150-450) k/uL Neutrophils # (1.3-7.7) k/uL Sodium (137-145) mmol/L Carbon Dioxide (22-30) mmol/L POC Glucose (mg/dL) 113 H 121 H 126 H (70-110) mg/dL AST (17-59) U/L ALT (4-49) U/L Total Protein (6.3-8.2) g/dL Albumin (3.5-5.0) g/dL 09/03/23 Range/Units 07:01 RBC (4.30-5.90) m/uL Hgb (13.0-17.5) gm/dL Hct (39.0-53.0) % Plt Count (150-450) k/uL Neutrophils # (1.3-7.7) k/uL Sodium (137-145) mmol/L Carbon Dioxide (22-30) mmol/L POC Glucose (mg/dL) 116 H (70-110) mg/dL AST (17-59) U/L ALT (4-49) U/L Total Protein (6.3-8.2) g/dL Albumin (3.5-5.0) g/dL - Imaging and Cardiology Chest x-ray: report reviewed, image reviewed Assessment and Plan Assessment: Triple-vessel coronary artery disease status post right coronary artery stenting for inferior wall myocardial infarction, status post 4 vessel CABG History of hyperlipidemia Bilateral internal carotid artery stenosis 50-69% Hypothyroid Previous tobacco dependence Family history of coronary artery disease Postoperative acute blood loss anemia and thrombocytopenia, expected Hypotension requiring low-dose vasopressor Plan: Continue to maximize medical therapy with low-dose aspirin, Plavix, statin. Will start low dose beta jerardo and titrate up if able Continue midodrine Encourage incentive spirometry use 10 times every hour while awake. Bronchodilators per pulmonology Will monitor daily labs and chest x-rays. Electrolyte replacement per protocol. Will transfuse 1 unit PRBCs and give 20 mg IVP lasix Increase activity, ambulate as tolerated. PT/OT/cardiac rehab consulted GI/DVT prophylaxis Pain control with current medication regimen. Avoid Toradol due to thrombocytopenia, Robaxin added. Limit narcotics as patient had some mild confusion last night Insulin management per internal medicine, patient is not diabetic, hemoglobin A1c 6.1% Continue Cordis to continuous CVP monitoring Mediastinal chest tubes discontinued without incident, continue left pleural chest tube for another 24 hours, monitor output Will discontinue Aleman catheter this afternoon after diuresis from lasix, may bladder scan and straight cath for >300 mL residual Continue to monitor and record strict accurate intake and output Daily weights Keep epicardial pacer wires connected to generator with back up rate as patient had history of bradycardia with beta jerardo in the past More recommendations to follow as patient progresses
--- NOTE | 2023-09-03 10:26 | P.PN ---
Subjective Progress Note Date: 09/03/23 I am seeing this patient in consultation today 09/02/2023 in the intensive care unit following a planned on pump four-vessel CABG. Patient is a 67-year-old male with past medical history significant for coronary artery disease and myocardial infarction, hyperlipidemia, hypothyroidism, and is a former tobacco smoker. As stated above, the patient had a recent ST elevation ID on July 18, he did undergo heart catheterization and received 2 stents to the RCA. He was found to have significant disease of the left circumflex and LAD. He did undergo preoperative workup for a planned CABG. Patient has a significant smoking history, but quit over 10 years ago. Bedside spirometry during his recent admission showed FEV1 of 2.57 L or 85% predicted. Yesterday, the patient did undergo a CABG 4 with a MAHONEY graft to the LAD, left radial to the OM 1, reverse SVG to the RCA and a reverse SVG to the OM 2. There was also exclusion of left atrial appendage. No immediate perioperative complications reported. Patient had excellent weaning parameters, and ABGs on pressure support of 5 showed a pO2 of 156, pCO2 42, pH of 7.33. This was done on FiO2 of 40%. He was awake and following commands. Patient was extubated successfully to 3 L/m nasal cannula. Patient was hypotensive following the procedure and required low-dose norepinephrine which is currently infusing at 0.06 mcg/kg/m. Heart rhythm ap pears normal sinus on bedside monitor with a rate of 72 bpm. Cardiac output and index are adequate at 4.3 and 2.3 L respectively. PA pressures currently 25/12. There is acute blood loss anemia, an expected outcome of this procedure. Hemoglobin was 6.6 following the procedure, the patient received 1 unit PRBC, and is currently up to 7.2 g/dL. Patient has 2 mediastinal chest tubes Y-d together with approximately 400 ML's of serosanguineous output and a left pleural chest tube with approximately 450 ML's of serosanguineous output. No apparent air leak. Postoperative chest x-ray demonstrates, no pneumothoraces or suspicious cardiopulmonary process. There is a right IJ PA catheter in place. Most recent CBC postoperatively shows a WBC count 8.5, hemoglobin up to 7.2 g/dL, hematocrit 21.2, platelets 76,000. Coagulation profile shows INR of 1.5 and a PTT of 42. Postoperative BMP includes a sodium 141, potassium 4.5, chloride 111, serum bicarb 21, BUN 18, creatinine 0.75, glucose 96. Insulin is infusing at 1 unit per hour. Normal saline is infusing at 50 ML's per hour. Urine output has been adequate in the order of 50-100 ML's per hour. Pain is reportedly well controlled. Patient is currently sitting up in bed, on 3 L per minute nasal cannula, in no acute distress. He will be monitored in the intensive care unit. The patient is seen today 09/03/2023 in follow-up in the intensive care unit. Postoperative day #2. He is awake and alert in no acute distress. Sitting up in a chair at the bedside. He is maintaining good O2 saturations in the 90s on room air. He has normal saline at 50 MLS per hour. Mediastinal and left pleural chest tubes remain in place to wall suction. No air leaks noted. Mediastinal chest tube with 90 mL serosanguineous overnight, left pleural chest tube with 80 mL serosanguineous drainage overnight. Chest x-ray reveals stable support tubes. No pneumothorax. Trace bilateral pleural effusions. The patient continues to work well with his incentive spirometer. A/V epicardial pacer wires remain in place. Connected to the generator. Backup rate of 50 bpm. White count 10.1. Hemoglobin 6.8. Platelets 67,000. Sodium 132. Potassium 3. 8. Bicarb 21. BUN 19. Creatinine 0.81. Glucose 113. AST 119. ALT 106. He is to receive a unit of packed blood cells today. Continued on bronchodilators. Pain is currently well controlled. Objective - Vital Signs Vital signs: Vital Signs Temp 98.4 F 09/03/23 08:00 Pulse 89 09/03/23 10:00 Resp 16 09/03/23 10:00 BP 102/54 09/03/23 10:00 Pulse Ox 93 L 09/03/23 10:00 FiO2 40 09/01/23 22:05 Intake & Output 09/02/23 09/03/23 09/03/23 18:59 06:59 18:59 Intake Total 2238.373 762.543 238.649 Output Total 660 705 70 Balance 1578.373 57.543 168.649 Weight 74 kg 79.7 kg Intake: IV 999 728 112 0.9 600 650 100 CO/CI 50 albumin 250 pressure bag 99 78 12 Intake, IV Titration 189.373 34.543 6.649 Amount Insulin Regular 100 unit 45.796 34.543 6.649 In Sodium Chloride 0.9% 100 ml @ Per Protocol IV .Q0M [facility] Rx#:[id number] Norepinephrine 4 mg In 143.577 Sodium Chloride 0.9% 250 ml @ 0.03 MCG/KG/MIN 8. 241 mls/hr IV .Q24H [facility] Rx#:[id number] Oral 1050 120 Output: Chest Tube Drainage 230 270 0 LP 100 120 0 MS 130 150 0 Drainage 30 Left Lower Arm 10 Left Lower Calf 20 Urine 400 435 70 Other: Voiding Method Indwelling Catheter Indwelling Catheter ABP, PAP, CO, CI - Last Documented Arterial Blood Pressure 110/53 Pulmonary Artery Pressure 29/12 Cardiac Output 4.9 Cardiac Index 2.6 - Exam GENERAL EXAM: Alert, very pleasant 67-year-old male patient, up in a chair, on room air, fairly comfortable in no apparent distress. HEAD: Normocephalic. EYES: Normal reaction of pupils, equal size. NOSE: Clear with pink turbinates. THROAT: No erythema or exudates. NECK: No masses, no JVD. Right IJ cordis remains in place. CHEST: Sternal dressing dry and intact. Heart hugger in place. A/P epicardial pacer wires present. Mediastinal and left chest tubes in place to wall suction, no leaks. LUNGS: Equal air entry with faint crackles in the posterior bases. CVS: S1 and S2 normal with no audible murmur, regular rhythm. ABDOMEN: No hepatosplenomegaly, normal bowel sounds, no guarding or rigidity. SPINE: No scoliosis or deformity SKIN: No rashes CENTRAL NERVOUS SYSTEM: No focal deficits, tone is normal in all 4 extremities. EXTREMITIES: Right radial arterial line in place. There is no peripheral edema. No clubbing, no cyanosis. Peripheral pulses are intact. - Labs CBC & Chem 7: 09/03/23 04:10 09/03/23 04:10 Labs: Abnormal Lab Results - Last 24 Hours (Table) 09/02/23 09/02/23 09/02/23 Range/Units 11:13 11:59 13:28 RBC (4.30-5.90) m/uL Hgb (13.0-17.5) gm/dL Hct (39.0-53.0) % Plt Count (150-450) k/uL Neutrophils # (1.3-7.7) k/uL Sodium (137-145) mmol/L Carbon Dioxide (22-30) mmol/L POC Glucose (mg/dL) 153 H 133 H 181 H (70-110) mg/dL AST (17-59) U/L ALT (4-49) U/L Total Protein (6.3-8.2) g/dL Albumin (3.5-5.0) g/dL 09/02/23 09/02/23 09/02/23 Range/Units 14:16 15:07 16:14 RBC (4.30-5.90) m/uL Hgb (13.0-17.5) gm/dL Hct (39.0-53.0) % Plt Count (150-450) k/uL Neutrophils # (1.3-7.7) k/uL Sodium (137-145) mmol/L Carbon Dioxide (22-30) mmol/L POC Glucose (mg/dL) 173 H 187 H 137 H (70-110) mg/dL AST (17-59) U/L ALT (4-49) U/L Total Protein (6.3-8.2) g/dL Albumin (3.5-5.0) g/dL 09/02/23 09/02/23 09/02/23 Range/Units 18:51 20:13 20:58 RBC (4.30-5.90) m/uL Hgb (13.0-17.5) gm/dL Hct (39.0-53.0) % Plt Count (150-450) k/uL Neutrophils # (1.3-7.7) k/uL Sodium (137-145) mmol/L Carbon Dioxide (22-30) mmol/L POC Glucose (mg/dL) 163 H 153 H 141 H (70-110) mg/dL AST (17-59) U/L ALT (4-49) U/L Total Protein (6.3-8.2) g/dL Albumin (3.5-5.0) g/dL 09/02/23 09/02/23 09/03/23 Range/Units 22:06 23:00 00:14 RBC (4.30-5.90) m/uL Hgb (13.0-17.5) gm/dL Hct (39.0-53.0) % Plt Count (150-450) k/uL Neutrophils # (1.3-7.7) k/uL Sodium (137-145) mmol/L Carbon Dioxide (22-30) mmol/L POC Glucose (mg/dL) 128 H 127 H 112 H (70-110) mg/dL AST (17-59) U/L ALT (4-49) U/L Total Protein (6.3-8.2) g/dL Albumin (3.5-5.0) g/dL 09/03/23 09/03/23 09/03/23 Range/Units 00:59 02:05 03:02 RBC (4.30-5.90) m/uL Hgb (13.0-17.5) gm/dL Hct (39.0-53.0) % Plt Count (150-450) k/uL Neutrophils # (1.3-7.7) k/uL Sodium (137-145) mmol/L Carbon Dioxide (22-30) mmol/L POC Glucose (mg/dL) 117 H 130 H 123 H (70-110) mg/dL AST (17-59) U/L ALT (4-49) U/L Total Protein (6.3-8.2) g/dL Albumin (3.5-5.0) g/dL 09/03/23 09/03/23 09/03/23 Range/Units 04:10 04:10 04:10 RBC 2.13 L (4.30-5.90) m/uL Hgb 6.8 L* (13.0-17.5) gm/dL Hct 20.2 L (39.0-53.0) % Plt Count 67 L (150-450) k/uL Neutrophils # 8.6 H (1.3-7.7) k/uL Sodium 132 L (137-145) mmol/L Carbon Dioxide 21 L (22-30) mmol/L POC Glucose (mg/dL) 113 H (70-110) mg/dL AST 119 H (17-59) U/L ALT 106 H (4-49) U/L Total Protein 4.9 L (6.3-8.2) g/dL Albumin 3.3 L (3.5-5.0) g/dL 09/03/23 09/03/23 09/03/23 Range/Units 04:56 06:02 07:01 RBC (4.30-5.90) m/uL Hgb (13.0-17.5) gm/dL Hct (39.0-53.0) % Plt Count (150-450) k/uL Neutrophils # (1.3-7.7) k/uL Sodium (137-145) mmol/L Carbon Dioxide (22-30) mmol/L POC Glucose (mg/dL) 121 H 126 H 116 H (70-110) mg/dL AST (17-59) U/L ALT (4-49) U/L Total Protein (6.3-8.2) g/dL Albumin (3.5-5.0) g/dL Assessment and Plan Assessment: Coronary artery disease status postoperative day #2 following coronary artery bypass grafting 4 including a MAHONEY to the LAD, left radial to the OM1, reverse SVG to RCA, and reverse SVG to the OM 2. Exclusion of the left atrial appendage. Routine postoperative mechanical ventilator management, successfully extubated to 3 L/m nasal cannula improved and on room air Hypotension, requiring low-dose vasopressors, improved and weaned off yesterday Acute blood loss anemia, and expected outcome of the procedure, status post 1 unit PRBC transfusion. Hemoglobin today 6.8. To receive a second unit today. Thrombocytopenia, currently 67,[address] elevation myocardial infarction on 07/18/2023, status post stents to the RCA 2 Hyperlipidemia Hypothyroidism Former tobacco smoker Plan: The patient was seen and evaluated Chest x-ray, labs and medications reviewed Currently stable and on room air Working well with the incentive spirometer Continue bronchodilators Increase his activity as tolerated To receive a second unit of packed red blood cells today Continue to monitor closely here in the intensive care unit We will continue to follow I have personally seen and examined the patient, performed the documentation and the assessment and plan as written. Number of minutes spent on the visit: 10.
[2023-09-03 11:42] LABS: Glucose,Whole Blood 144 mg/dL (70-110)
[2023-09-03] MEDS: INSULIN ASPART (NovoLOG) 100 UNIT/ML VIAL SQ SCH ×3 (12:28→19:59)
[2023-09-03] MEDS ORDERED: INSULIN ASPART (NovoLOG) 100 UNIT/ML VIAL SQ SCH ×2 (12:30→17:30)
[2023-09-03 12:51] LABS: Glucose,Whole Blood 154 mg/dL (70-110)
--- NOTE | 2023-09-03 13:26 | PN ---
PROGRESS NOTE SUBJECTIVE: Mr. Pimentel underwent aortocoronary bypass surgery 48 hours ago, extubated, maintaining sinus rhythm, doing well. He is off all pressors, doing well on incentive spirometry. OBJECTIVE: HEART: S1, S2 heard normally, pericardial rub audible. LUNGS: Revealed decent air entry. ABDOMEN: Unchanged. EXTREMITIES: Lower extremities exam unchanged. PLAN: Continue current medical regimen. MMODL / IJN: [id number] /
[2023-09-03] MEDS: METOPROLOL TARTRATE 12.5 MG TAB PO SCH ×2 (13:51→21:36)
--- NOTE | 2023-09-03 15:04 | P.PN ---
Subjective Progress Note Date: 09/03/23 (delayed charting seen at 0945) Patient is a 67-year-old male with coronary artery disease, hypertension, and hypothyroidism who presented for four-vessel bypass surgery. Patient had an ST segment elevated myocardial infarction on 07/18/23 and underwent successful stenting of the RCA with noted disease in the LAD. He was subsequently referred for revascularization. Patient seen and examined at bedside. Doing well, still some chest pain, no bloating, no nausea. Vital signs reviewed General: nontoxic, no distress, appears at stated age Cardiovascular: S1S2 reg, no murmur, positive posterior tibial pulse bilateral, Lungs: CTA bilateral, no rhonchi, no rales , no accessory muscle use Neuro: CN II-XI grossly intact, no focal neuro deficits Psych: Alert, oriented, appropriate affect Assessment/Plan: 67-year-old male status post four-vessel bypass CAD Hypertension Dyslipidemia -Aspirin 325 mg daily, Lipitor 40 mg daily, Plavix 75 mg oral daily, Midodrine 5 mg 3 times daily. -Lopressor 12.5 mg twice daily -Cardiology note reviewed: Continue current medical treatment -CT surgery note reviewed. add BB -pulmonary note reviewed: IS while awake. Prediabetes -A1c 6.1 on 08/25/23 -It has been 48 hours and insulin drip has been on and off multiple times of the day yesterday. Discontinue insulin drip. Start sliding scale insulin, NovoLog 2 units with lunch and dinner. Continue to follow blood sugars -Patient may require low-dose medications for his prediabetes on discharge depending on how his blood sugars run over the next several days. - Case discussed with Yuliet mcclain, nurse practitioner cardiothoracic with plan for blood sugar management. Acute Blood loss anemia and thrombocytopenia, anticipated outcome of surgery - 1 unit pRBC - repeat CBC in AM - Await HIT antibody Transaminitis - suspect due tp hypoperfusion - repeat in AM Hypothyroidism -Synthroid 50 g daily Imaging: Chest x-ray reviewed by myself from 09/03/23 shows tubes and lines in appropriate position with small left effusion Data Review: Labs reviewed from today including CBC and CMP which are remarkable for hemoglobin 6.8, platelets 67, sodium 132, AST 119, ALT 106 This dictation was prepared using [employer] voice recognition software. Though every attempt is made to correct errors during dictation some may still exist. Objective - Vital Signs Vital signs: Vital Signs Temp 98.3 F 09/03/23 12:15 Pulse 84 09/03/23 14:00 Resp 15 09/03/23 14:00 BP 92/78 09/03/23 14:00 Pulse Ox 94 L 09/03/23 14:00 FiO2 40 09/01/23 22:05 Intake & Output 09/02/23 09/03/23 09/03/23 18:59 06:59 18:59 Intake Total 2238.373 341.256 1114.649 Output Total 827 204 8490 Balance 1578.373 57.543 -102.351 Weight 74 kg 79.7 kg Intake: IV 999 728 242 0.9 600 650 200 CO/CI 50 albumin 250 pressure bag 99 78 42 Intake, IV Titration 189.373 34.543 66.649 Amount Insulin Regular 100 unit 45.796 34.543 6.649 In Sodium Chloride 0.9% 100 ml @ Per Protocol IV .Q0M [facility] Rx#:[id number] Norepinephrine 4 mg In 143.577 Sodium Chloride 0.9% 250 ml @ 0.03 MCG/KG/MIN 8. 241 mls/hr IV .Q24H [facility] Rx#:[id number] Sodium Chloride 0.9% 1, 60 000 ml @ 20 mls/hr IV . Q24H [facility] Rx#:[id number] Oral 1050 360 Blood Product 279 Rc Pheresis As-3 Unit 279 [id number] Other 100 Rc Pheresis As-3 Unit 100 [id number] Output: Chest Tube Drainage 230 270 60 LP 100 120 60 MS 130 150 0 Drainage 30 Left Lower Arm 10 Left Lower Calf 20 Urine 611 874 5709 Other: Voiding Method Indwelling Catheter Indwelling Catheter Indwelling Catheter ABP, PAP, CO, CI - Last Documented Arterial Blood Pressure 115/53 Pulmonary Artery Pressure 29/12 Cardiac Output 4.9 Cardiac Index 2.6 - Labs CBC & Chem 7: 09/03/23 04:10 09/03/23 04:10 Labs: Abnormal Lab Results - Last 24 Hours (Table) 09/02/23 09/02/23 09/02/23 Range/Units 15:07 16:14 18:51 RBC (4.30-5.90) m/uL Hgb (13.0-17.5) gm/dL Hct (39.0-53.0) % Plt Count (150-450) k/uL Neutrophils # (1.3-7.7) k/uL Sodium (137-145) mmol/L Carbon Dioxide (22-30) mmol/L POC Glucose (mg/dL) 187 H 137 H 163 H (70-110) mg/dL AST (17-59) U/L ALT (4-49) U/L Total Protein (6.3-8.2) g/dL Albumin (3.5-5.0) g/dL Crossmatch 09/02/23 09/02/23 09/02/23 Range/Units 20:13 20:58 22:06 RBC (4.30-5.90) m/uL Hgb (13.0-17.5) gm/dL Hct (39.0-53.0) % Plt Count (150-450) k/uL Neutrophils # (1.3-7.7) k/uL Sodium (137-145) mmol/L Carbon Dioxide (22-30) mmol/L POC Glucose (mg/dL) 153 H 141 H 128 H (70-110) mg/dL AST (17-59) U/L ALT (4-49) U/L Total Protein (6.3-8.2) g/dL Albumin (3.5-5.0) g/dL Crossmatch 09/02/23 09/03/23 09/03/23 Range/Units 23:00 00:14 00:59 RBC (4.30-5.90) m/uL Hgb (13.0-17.5) gm/dL Hct (39.0-53.0) % Plt Count (150-450) k/uL Neutrophils # (1.3-7.7) k/uL Sodium (137-145) mmol/L Carbon Dioxide (22-30) mmol/L POC Glucose (mg/dL) 127 H 112 H 117 H (70-110) mg/dL AST (17-59) U/L ALT (4-49) U/L Total Protein (6.3-8.2) g/dL Albumin (3.5-5.0) g/dL Crossmatch 09/03/23 09/03/23 09/03/23 Range/Units 02:05 03:02 04:10 RBC 2.13 L (4.30-5.90) m/uL Hgb 6.8 L* (13.0-17.5) gm/dL Hct 20.2 L (39.0-53.0) % Plt Count 67 L (150-450) k/uL Neutrophils # 8.6 H (1.3-7.7) k/uL Sodium (137-145) mmol/L Carbon Dioxide (22-30) mmol/L POC Glucose (mg/dL) 130 H 123 H (70-110) mg/dL AST (17-59) U/L ALT (4-49) U/L Total Protein (6.3-8.2) g/dL Albumin (3.5-5.0) g/dL Crossmatch 09/03/23 09/03/23 09/03/23 Range/Units 04:10 04:10 04:56 RBC (4.30-5.90) m/uL Hgb (13.0-17.5) gm/dL Hct (39.0-53.0) % Plt Count (150-450) k/uL Neutrophils # (1.3-7.7) k/uL Sodium 132 L (137-145) mmol/L Carbon Dioxide 21 L (22-30) mmol/L POC Glucose (mg/dL) 113 H 121 H (70-110) mg/dL AST 119 H (17-59) U/L ALT 106 H (4-49) U/L Total Protein 4.9 L (6.3-8.2) g/dL Albumin 3.3 L (3.5-5.0) g/dL Crossmatch 09/03/23 09/03/23 09/03/23 Range/Units 06:02 07:01 08:50 RBC (4.30-5.90) m/uL Hgb (13.0-17.5) gm/dL Hct (39.0-53.0) % Plt Count (150-450) k/uL Neutrophils # (1.3-7.7) k/uL Sodium (137-145) mmol/L Carbon Dioxide (22-30) mmol/L POC Glucose (mg/dL) 126 H 116 H (70-110) mg/dL AST (17-59) U/L ALT (4-49) U/L Total Protein (6.3-8.2) g/dL Albumin (3.5-5.0) g/dL Crossmatch See Detail 09/03/23 09/03/23 Range/Units 11:40 12:49 RBC (4.30-5.90) m/uL Hgb (13.0-17.5) gm/dL Hct (39.0-53.0) % Plt Count (150-450) k/uL Neutrophils # (1.3-7.7) k/uL Sodium (137-145) mmol/L Carbon Dioxide (22-30) mmol/L POC Glucose (mg/dL) 144 H 154 H (70-110) mg/dL AST (17-59) U/L ALT (4-49) U/L Total Protein (6.3-8.2) g/dL Albumin (3.5-5.0) g/dL Crossmatch
[2023-09-03 16:19] LABS: Glucose,Whole Blood 129 mg/dL (70-110)
[2023-09-03 16:30] LABS: HCT 22.7 % (39.0-53.0); HGB 7.9 gm/dL (13.0-17.5); MCH 32.3 pg (25.0-35.0); MCHC 34.7 g/dL (31.0-37.0); MCV 93.2 fL (80.0-100.0); Mean Platelet Volume 10.9; RBC 2.44 m/uL (4.30-5.90); RDW 13.2 % (11.5-15.5)
[2023-09-03 16:37] LABS: Platelet Count 67 k/uL (150-450)
[2023-09-03 20:00] LABS: Glucose,Whole Blood 146 mg/dL (70-110)
[2023-09-03] MEDS: SENNOSIDES-DOCUSATE SODIUM 1 EACH TAB PO SCH (21:36)
[2023-09-04 04:50] LABS: Basophils % (A) 0 %; Eosinophils % (A) 0 %; HCT 24.4 % (39.0-53.0); HGB 8.4 gm/dL (13.0-17.5); Lymphocytes % (A) 9 %; MCH 32.1 pg (25.0-35.0); MCHC 34.4 g/dL (31.0-37.0); MCV 93.3 fL (80.0-100.0); Mean Platelet Volume 10.6; Monocytes # (A) 0.5 k/uL (0-1.0); Monocytes % (A) 5 %; Neutrophils # (A) 9.4 k/uL (1.3-7.7); Neutrophils % (A) 86 %; RBC 2.62 m/uL (4.30-5.90); RDW 13.1 % (11.5-15.5)
[2023-09-04 04:58] LABS: Platelet Count 89 k/uL (150-450)
[2023-09-04 05:34] LABS: Ionized Calcium 4.9 mg/dL (4.5-5.3)
[2023-09-04 05:46] LABS: ALT 257 U/L (4-49); AST 210 U/L (17-59); African American GFR (CKD) >90 (>60 ml/min/1.73 sqM); Albumin 3.4 g/dL (3.5-5.0); Alkaline Phosphatase 78 U/L (38-126); Anion Gap 12 mmol/L; Blood Urea Nitrogen 20 mg/dL (9-20); Calcium 8.8 mg/dL (8.4-10.2); Carbon Dioxide 19 mmol/L (22-30); Chloride 100 mmol/L (98-107); Glucose 139 mg/dL (74-99); Non-African American GFR(CKD) >90 (>60 ml/min/1.73 sqM); Potassium 4.5 mmol/L (3.5-5.1); Sodium 131 mmol/L (137-145); Total Bilirubin 1.3 mg/dL (0.2-1.3); Total Protein 5.1 g/dL (6.3-8.2)
[2023-09-04 06:41] LABS: Glucose,Whole Blood 136 mg/dL (70-110)
[2023-09-04] MEDS: INSULIN ASPART (NovoLOG) 100 UNIT/ML VIAL SQ SCH ×4 (06:47→21:54)
[2023-09-04] MEDS: PANTOPRAZOLE 40 MG TABLET PO SCH ×2 (06:51→06:52)
[2023-09-04] MEDS: SODIUM CHLORIDE 0.9% 1,000 ML IV SCH (06:52)
[2023-09-04] MEDS: ASPIRIN 81 MG PO SCH (08:47)
[2023-09-04] MEDS: CHOLECALCIFEROL 25 MCG (1000 IU) TABLET PO SCH (08:48)
[2023-09-04] MEDS: ACETAMINOPHEN TAB 325 MG TAB PO PRN ×2 (08:48→21:53)
[2023-09-04] MEDS: ATORVASTATIN 40 MG TAB PO SCH (08:48)
[2023-09-04] MEDS: LEVOTHYROXINE 50 MCG TAB PO SCH (08:49)
[2023-09-04] MEDS: METOPROLOL TARTRATE 25 MG TAB PO SCH ×2 (08:49→21:52)
[2023-09-04] MEDS: methocarbamoL 500 MG TAB PO SCH ×4 (08:49→22:18)
[2023-09-04] MEDS: FONDAPARINUX 2.5 MG/0.5 ML SYRINGE SQ SCH (08:49)
[2023-09-04] MEDS: CLOPIDOGREL 75 MG TAB PO SCH (08:49)
[2023-09-04] MEDS: MIDODRINE 5 MG TAB PO SCH ×3 (08:50→17:16)
[2023-09-04 08:56] LABS: INR 1.1 (<1.2); Prothrombin Time 12.1 sec (10.0-12.5)
[2023-09-04] MEDS: IPRATROPIUM-ALBUTEROL 3 ML NEB INHALATION SCH ×4 (09:26→21:09)
--- NOTE | 2023-09-04 11:29 | XR ---
EXAMINATION TYPE: XR chest 1V portable DATE OF EXAM: 09/04/2023 COMPARISON: 09/03/2023 HISTORY: Chest TECHNIQUE: Single frontal view of the chest is obtained. FINDINGS: Post median sternotomy changes with atrial appendage. Left-sided chest tube with bilateral consolidation and small effusion. There is very mild atherosclerotic change aorta. IMPRESSION: Bilateral infiltrate and small pleural effusion. Findings stable.
--- NOTE | 2023-09-04 11:51 | P.PN ---
Subjective Progress Note Date: 09/04/23 Principal diagnosis: Triple-vessel coronary artery disease status post right coronary artery stenting for inferior wall myocardial infarction. Previous medical history of hyperlip idemia, bilateral internal carotid artery stenosis 50-69%, hypothyroid, previous tobacco dependence, family history of coronary artery disease POD #3 quadruple coronary artery bypass grafting using the in situ left internal mammary artery to the left entered setting artery, left radial artery from the aorta to the first obtuse marginal artery, reverse saphenous vein graft from the aorta to the second obtuse marginal artery, reverse saphenous vein graft from the aorta to the right coronary artery, exclusion of the left atrial appendage using a 35 mm AtriClip, endoscopic harvesting of the left radial artery, endoscopic harvesting of the left greater saphenous vein, intraoperative graft flow measurements using the Fronto system, intraoperative transesophageal echocardiogram and epi-aortic scanning Postoperative acute blood loss anemia and thrombocytopenia, expected given hemodilution and cardiopulmonary bypass pump Hypotension requiring low-dose vasopressor The patient was seen and examined with Dr. Tesfaye sitting up in a recliner in the intensive care unit in no acute distress. Remains in sinus rhythm, blood pressure stable. Currently on room air with oxygen saturation in the mid 90s. Does complain of post surgical pain, denies shortness of breath. Right internal jugular cordis, right radial arterial line, left pleural chest tubes all remain. Chest x-ray, labs reviewed. No other new concerns. Objective - Vital Signs Vital signs: Vital Signs Temp 97.8 F 09/04/23 08:00 Pulse 68 09/04/23 10:00 Resp 16 09/04/23 10:00 BP 140/68 09/04/23 10:00 Pulse Ox 96 09/04/23 10:00 FiO2 40 09/01/23 22:05 Intake & Output 09/03/23 09/04/23 09/04/23 18:59 06:59 18:59 Intake Total 1271.649 312 204 Output Total 1210 835 200 Balance 61.649 -523 4 Weight 79 kg Intake: IV 266 252 104 0.9 200 Sodium Chloride 0.9% 1, 180 80 000 ml @ 20 mls/hr IV . Q24H [facility] Rx#:[id number] pressure bag 66 72 24 Intake, IV Titration 146.649 60 Amount Insulin Regular 100 unit 6.649 In Sodium Chloride 0.9% 100 ml @ Per Protocol IV .Q0M [facility] Rx#:[id number] Sodium Chloride 0.9% 1, 140 60 000 ml @ 20 mls/hr IV . Q24H [facility] Rx#:[id number] Oral 480 100 Blood Product 279 Rc Pheresis As-3 Unit 279 [id number] Other 100 Rc Pheresis As-3 Unit 100 [id number] Output: Chest Tube Drainage 60 275 LP 60 275 MS 0 Urine 1150 560 200 Other: Voiding Method Indwelling Catheter Urinal Urinal # Voids 1 ABP, PAP, CO, CI - Last Documented Arterial Blood Pressure 100/50 Pulmonary Artery Pressure 29/12 Cardiac Output 4.9 Cardiac Index 2.6 - Exam CONSTITUTIONAL: Appears comfortable, cooperative, no acute distress RESPIRATORY: Lungs sounds diminished bilaterally. Respirations even, nonlabored. Currently on room air with oxygen saturation 93%. Able to achieve 1500 mL on incentive spirometry. Strong cough. CARDIOVASCULAR: S1, S2 present. Regular rate and rhythm, sinus rhythm on telemetry. Sternum stable. Palpable peripheral pulses bilaterally. No edema present. No calf pain or tenderness noted. Heart hugger in place with patient demonstrating appropriate use. Antiembolism stockings, SCDs present. GASTROINTESTINAL: Abdomen soft, nontender, nondistended. Active bowel sounds present 4 quadrants. Tolerating diet. Denies flatus, positive belching GENITOURINARY: Aleman is continued yesterday, continues to void clear, yellow urine. Output 1460 mL in the last 24 hours INTEGUMENTARY: Skin is warm and dry with evidence of good perfusion. Anterior chest incision well approximated and covered with dry intact dressing. Left radial artery harvest site as well as left lower extremity EVH site well appr oximated NEUROLOGIC: Cranial nerves II through XII intact MUSKULOSKELETAL: Able to move all extremities, strength equal bilaterally PSYCHIATRIC: Alert and oriented to person place and time, appropriate affect, intact judgment and insight INVASIVE LINES AND TUBES: Left chest tubes present and connected to wall suction, no air leaks present, 275 mL serosanguineous drainage overnight, 310 mL in the last 24 hours. A/V epicardial pacemaker wires present, connected to generator, backup rate 50 bpm. Right internal jugular cordis, right radial arterial line present - Allied health notes Allied health notes reviewed: nursing - Labs CBC & Chem 7: 09/04/23 04:15 09/04/23 04:15 Labs: Abnormal Lab Results - Last 24 Hours (Table) 09/03/23 09/03/23 09/03/23 Range/Units 08:50 12:49 16:05 WBC 11.0 H (3.8-10.6) k/uL RBC 2.44 L (4.30-5.90) m/uL Hgb 7.9 L (13.0-17.5) gm/dL Hct 22.7 L (39.0-53.0) % Plt Count 67 L (150-450) k/uL Neutrophils # (1.3-7.7) k/uL Sodium (137-145) mmol/L Carbon Dioxide (22-30) mmol/L Glucose (74-99) mg/dL POC Glucose (mg/dL) 154 H (70-110) mg/dL AST (17-59) U/L ALT (4-49) U/L Total Protein (6.3-8.2) g/dL Albumin (3.5-5.0) g/dL Crossmatch See Detail 09/03/23 09/03/23 09/04/23 Range/Units 16:18 19:59 04:15 WBC (3.8-10.6) k/uL RBC (4.30-5.90) m/uL Hgb (13.0-17.5) gm/dL Hct (39.0-53.0) % Plt Count (150-450) k/uL Neutrophils # (1.3-7.7) k/uL Sodium 131 L (137-145) mmol/L Carbon Dioxide 19 L (22-30) mmol/L Glucose 139 H (74-99) mg/dL POC Glucose (mg/dL) 129 H 146 H (70-110) mg/dL AST 210 H (17-59) U/L ALT 257 H (4-49) U/L Total Protein 5.1 L (6.3-8.2) g/dL Albumin 3.4 L (3.5-5.0) g/dL Crossmatch 09/04/23 09/04/23 Range/Units 04:15 06:39 WBC 11.0 H (3.8-10.6) k/uL RBC 2.62 L (4.30-5.90) m/uL Hgb 8.4 L (13.0-17.5) gm/dL Hct 24.4 L (39.0-53.0) % Plt Count 89 L (150-450) k/uL Neutrophils # 9.4 H (1.3-7.7) k/uL Sodium (137-145) mmol/L Carbon Dioxide (22-30) mmol/L Glucose (74-99) mg/dL POC Glucose (mg/dL) 136 H (70-110) mg/dL AST (17-59) U/L ALT (4-49) U/L Total Protein (6.3-8.2) g/dL Albumin (3.5-5.0) g/dL Crossmatch - Imaging and Cardiology Chest x-ray: report reviewed, image reviewed Assessment and Plan Assessment: Triple-vessel coronary artery disease status post right coronary artery stenting for inferior wall myocardial infarction, status post 4 vessel CABG History of hyperlipidemia Bilateral internal carotid artery stenosis 50-69% Hypothyroid Previous tobacco dependence Family history of coronary artery disease Postoperative acute blood loss anemia and thrombocytopenia, expected Hypotension requiring low-dose vasopressor, resolved Plan: Continue to maximize medical therapy with low-dose aspirin, Plavix. Will hold statin due to elevated liver enzymes. Will increase beta jerardo to 25 mg twice daily Continue midodrine Encourage incentive spirometry use 10 times every hour while awake. Bronchodilators per pulmonology Will monitor daily labs and chest x-rays. Electrolyte replacement per protocol. No Lasix today Increase activity, ambulate as tolerated. PT/OT/cardiac rehab consulted GI/DVT prophylaxis Pain control with current medication regimen. Avoid Toradol due to thro mbocytopenia, Robaxin added. Discontinue narcotics Insulin management per internal medicine, patient is not diabetic, hemoglobin A1c 6.1% Discontinue Cordis, arterial line Will discontinue epicardial pacemaker wires, patient to remain on bedrest for 1 hour post-wire removal Will discontinue left pleural chest tube Continue to monitor and record strict accurate intake and output Daily weights Will place transfer orders for 3 S. cardiac stepdown unit, may transfer when bed available More recommendations to follow as patient progresses
[2023-09-04 12:16] LABS: Glucose,Whole Blood 126 mg/dL (70-110)
[2023-09-04] MEDS: polyethylene glycoL 3350 17 GM POWD.PACK PO SCH (12:47)
--- NOTE | 2023-09-04 12:57 | P.PN ---
Subjective Progress Note Date: 09/04/23 I am seeing this patient in consultation today 09/02/2023 in the intensive care unit following a planned on pump four-vessel CABG. Patient is a 67-year-old male with past medical history significant for coronary artery disease and myocardial infarction, hyperlipidemia, hypothyroidism, and is a former tobacco smoker. As stated above, the patient had a recent ST elevation [place] on July 18, he did undergo heart catheterization and received 2 stents to the RCA. He was found to have significant disease of the left circumflex and LAD. He did undergo preoperative workup for a planned CABG. Patient has a significant smoking history, but quit over 10 years ago. Bedside spirometry during his recent admission showed FEV1 of 2.57 L or 85% predicted. Yesterday, the patient did undergo a CABG 4 with a MAHONEY graft to the LAD, left radial to the OM 1, reverse SVG to the RCA and a reverse SVG to the OM 2. There was also exclusion of left atrial appendage. No immediate perioperative complications reported. Patient had excellent weaning parameters, and ABGs on pressure support of 5 showed a pO2 of 156, pCO2 42, pH of 7.33. This was done on FiO2 of 40%. He was awake and following commands. Patient was extubated successfully to 3 L/m nasal cannula. Patient was hypotensive following the procedure and required low-dose norepinephrine which is currently infusing at 0.06 mcg/kg/m. Heart rhythm ap pears normal sinus on bedside monitor with a rate of 72 bpm. Cardiac output and index are adequate at 4.3 and 2.3 L respectively. PA pressures currently 25/12. There is acute blood loss anemia, an expected outcome of this procedure. Hemoglobin was 6.6 following the procedure, the patient received 1 unit PRBC, and is currently up to 7.2 g/dL. Patient has 2 mediastinal chest tubes Y-d together with approximately 400 ML's of serosanguineous output and a left pleural chest tube with approximately 450 ML's of serosanguineous output. No apparent air leak. Postoperative chest x-ray demonstrates, no pneumothoraces or suspicious cardiopulmonary process. There is a right IJ PA catheter in place. Most recent CBC postoperatively shows a WBC count 8.5, hemoglobin up to 7.2 g/dL, hematocrit 21.2, platelets 76,000. Coagulation profile shows INR of 1.5 and a PTT of 42. Postoperative BMP includes a sodium 141, potassium 4.5, chloride 111, serum bicarb 21, BUN 18, creatinine 0.75, glucose 96. Insulin is infusing at 1 unit per hour. Normal saline is infusing at 50 ML's per hour. Urine output has been adequate in the order of 50-100 ML's per hour. Pain is reportedly well controlled. Patient is currently sitting up in bed, on 3 L per minute nasal cannula, in no acute distress. He will be monitored in the intensive care unit. The patient is seen today 09/03/2023 in follow-up in the intensive care unit. Postoperative day #2. He is awake and alert in no acute distress. Sitting up in a chair at the bedside. He is maintaining good O2 saturations in the 90s on room air. He has normal saline at 50 MLS per hour. Mediastinal and left pleural chest tubes remain in place to wall suction. No air leaks noted. Mediastinal chest tube with 90 mL serosanguineous overnight, left pleural chest tube with 80 mL serosanguineous drainage overnight. Chest x-ray reveals stable support tubes. No pneumothorax. Trace bilateral pleural effusions. The patient continues to work well with his incentive spirometer. A/V epicardial pacer wires remain in place. Connected to the generator. Backup rate of 50 bpm. White count 10.1. Hemoglobin 6.8. Platelets 67,000. Sodium 132. Potassium 3. 8. Bicarb 21. BUN 19. Creatinine 0.81. Glucose 113. AST 119. ALT 106. He is to receive a unit of packed blood cells today. Continued on bronchodilators. Pain is currently well controlled. The patient is seen today 09/04/2023 in follow-up in the intensive care unit. He is currently sitting up in a chair. Awake and alert in no acute distress. He had some episodes of confusion last evening. Alert and oriented this morning. White count 11.0. Hemoglobin 8.4. Platelets 89,000. Sodium 131. Potassium 4.5. Bicarb 19. BUN 20. Creatinine 0.80. AST 210. ALT 257. He remains on bronchodilators. Working well with the incentive spirometer. Arixtra for anticoagulation. 6 reveals post median sternotomy changes. Left chest tube with bilateral consolidation and small effusion. No pneumothorax. Objective - Vital Signs Vital signs: Vital Signs Temp 97.9 F 09/04/23 12:00 Pulse 73 09/04/23 12:00 Resp 23 09/04/23 12:00 BP 131/77 09/04/23 12:00 Pulse Ox 96 09/04/23 12:00 FiO2 40 09/01/23 22:05 Intake & Output 09/03/23 09/04/23 09/04/23 18:59 06:59 18:59 Intake Total 1271.649 312 304 Output Total 1210 835 775 Balance 61.649 -523 -471 Weight 79 kg Intake: IV 266 252 104 0.9 200 Sodium Chloride 0.9% 1, 180 80 000 ml @ 20 mls/hr IV . Q24H [facility] Rx#:[id number] pressure bag 66 72 24 Intake, IV Titration 146.649 60 Amount Insulin Regular 100 unit 6.649 In Sodium Chloride 0.9% 100 ml @ Per Protocol IV .Q0M [facility] Rx#:[id number] Sodium Chloride 0.9% 1, 140 60 000 ml @ 20 mls/hr IV . Q24H [facility] Rx#:[id number] Oral 480 200 Blood Product 279 Rc Pheresis As-3 Unit 279 [id number] Other 100 Rc Pheresis As-3 Unit 100 [id number] Output: Chest Tube Drainage 60 275 LP 60 275 MS 0 Urine 1150 560 775 Other: Voiding Method Indwelling Catheter Urinal Urinal # Voids 1 ABP, PAP, CO, CI - Last Documented Arterial Blood Pressure 116/54 Pulmonary Artery Pressure 29/12 Cardiac Output 4.9 Cardiac Index 2.6 - Exam GENERAL EXAM: Alert, 67-year-old male patient, up in a chair, on room air, comfortable in no apparent distress. HEAD: Normocephalic. EYES: Normal reaction of pupils, equal size. NOSE: Clear with pink turbinates. THROAT: No erythema or exudates. NECK: No masses, no JVD. Right IJ cordis remains in place. CHEST: Sternal dressing dry and intact. Heart hugger in place. A/P epicardial pacer wires present. Left chest tube in place. LUNGS: Equal air entry with faint crackles in the posterior bases. CVS: S1 and S2 normal with no audible murmur, regular rhythm. ABDOMEN: No hepatosplenomegaly, normal bowel sounds, no guarding or rigidity. SPINE: No scoliosis or deformity SKIN: No rashes CENTRAL NERVOUS SYSTEM: No focal deficits, tone is normal in all 4 extremities. EXTREMITIES: Right radial arterial line in place. There is no peripheral edema. No clubbing, no cyanosis. Peripheral pulses are intact. - Labs CBC & Chem 7: 09/04/23 04:15 09/04/23 04:15 Labs: Abnormal Lab Results - Last 24 Hours (Table) 09/03/23 09/03/23 09/03/23 Range/Units 08:50 12:49 16:05 WBC 11.0 H (3.8-10.6) k/uL RBC 2.44 L (4.30-5.90) m/uL Hgb 7.9 L (13.0-17.5) gm/dL Hct 22.7 L (39.0-53.0) % Plt Count 67 L (150-450) k/uL Neutrophils # (1.3-7.7) k/uL Sodium (137-145) mmol/L Carbon Dioxide (22-30) mmol/L Glucose (74-99) mg/dL POC Glucose (mg/dL) 154 H (70-110) mg/dL AST (17-59) U/L ALT (4-49) U/L Total Protein (6.3-8.2) g/dL Albumin (3.5-5.0) g/dL Crossmatch See Detail 09/03/23 09/03/23 09/04/23 Range/Units 16:18 19:59 04:15 WBC (3.8-10.6) k/uL RBC (4.30-5.90) m/uL Hgb (13.0-17.5) gm/dL Hct (39.0-53.0) % Plt Count (150-450) k/uL Neutrophils # (1.3-7.7) k/uL Sodium 131 L (137-145) mmol/L Carbon Dioxide 19 L (22-30) mmol/L Glucose 139 H (74-99) mg/dL POC Glucose (mg/dL) 129 H 146 H (70-110) mg/dL AST 210 H (17-59) U/L ALT 257 H (4-49) U/L Total Protein 5.1 L (6.3-8.2) g/dL Albumin 3.4 L (3.5-5.0) g/dL Crossmatch 09/04/23 09/04/23 09/04/23 Range/Units 04:15 06:39 12:14 WBC 11.0 H (3.8-10.6) k/uL RBC 2.62 L (4.30-5.90) m/uL Hgb 8.4 L (13.0-17.5) gm/dL Hct 24.4 L (39.0-53.0) % Plt Count 89 L (150-450) k/uL Neutrophils # 9.4 H (1.3-7.7) k/uL Sodium (137-145) mmol/L Carbon Dioxide (22-30) mmol/L Glucose (74-99) mg/dL POC Glucose (mg/dL) 136 H 126 H (70-110) mg/dL AST (17-59) U/L ALT (4-49) U/L Total Protein (6.3-8.2) g/dL Albumin (3.5-5.0) g/dL Crossmatch Assessment and Plan Assessment: Coronary artery disease status postoperative day #3 following coronary artery bypass grafting 4 including a MAHONEY to the LAD, left radial to the OM1, reverse SVG to RCA, and reverse SVG to the OM 2. Exclusion of the left atrial appendage. Routine postoperative mechanical ventilator management, successfully extubated to 3 L/m nasal cannula improved and on room air Hypotension, requiring low-dose vasopressors, improved and weaned off Acute blood loss anemia, and expected outcome of the procedure, status post 2 units PRBC transfusion. Hemoglobin today 8.4. Thrombocytopenia, currently 89,[address] elevation myocardial infarction on 07/18/2023, status post stents to the RCA 2 Hyperlipidemia Hypothyroidism Former tobacco smoker Plan: The patient was seen and evaluated Chest x-ray, labs and medications reviewed Currently stable and on room air Sitting up in a chair at the bedside Working well with the incentive spirometer Continue bronchodilators Increase his activity as tolerated We will continue to follow I have personally seen and examined the patient, performed the documentation and the assessment and plan as written. Number of minutes spent on the visit: 10.
--- NOTE | 2023-09-04 15:08 | P.PN ---
Subjective Progress Note Date: 09/04/23 No new complaints today Vital signs reviewed General: nontoxic, no distress, appears at stated age Cardiovascular: S1S2 reg, no murmur, positive posterior tibial pulse bilateral, Lungs: CTA bilateral, no rhonchi, no rales , no accessory muscle use Neuro: CN II-XI grossly intact, no focal neuro deficits Psych: Alert, oriented, appropriate affect Hospital course: Patient is a 67-year-old male with coronary artery disease, hypertension, and hypothyroidism who presented for four-vessel bypass surgery. Patient had an ST segment elevated myocardial infarction on 07/18/[address] enting of the RCA with noted disease in the LAD. He was subsequently referred for revascularization. Assessment/Plan: 67-year-old male status post four-vessel bypass CAD Hypertension Dyslipidemia -Aspirin 325 mg daily, Plavix 75 mg oral daily, Midodrine 5 mg 3 times daily. -Lopressor 12.5 mg twice daily -Cardiology note reviewed: Continue current medical treatment -CT surgery note reviewed 09/04. Increase BB, hold statin, continue Midrin -pulmonary note reviewed 09/04: IS while awake. Prediabetes -A1c 6.1 on 08/25/23 -It has been 48 hours and insulin drip has been on and off multiple times of the day yesterday. Discontinue insulin drip. Start sliding scale insulin, NovoLog 2 units with lunch and dinner was canceled, Continue to follow blood sugars -Patient may require low-dose medications for his prediabetes on discharge depending on how his blood sugars run over the next several days. - Case discussed with Yuliet mcclain, nurse practitioner cardiothoracic with plan for blood sugar management. Acute Blood loss anemia and thrombocytopenia, anticipated outcome of surgery - 1 unit pRBC on 09/01, 1 unit of packed red blood cells on 09/03 - repeat CBC in AM -HIT antibody was 0.084, negative -Continue fondaparinux Transaminitis - suspect due tp hypoperfusion - repeat in AM Hypothyroidism -Synthroid 50 g daily Objective - Vital Signs Vital signs: Vital Signs Temp 97.9 F 09/04/23 12:00 Pulse 74 09/04/23 14:00 Resp 22 09/04/23 14:00 BP 98/58 09/04/23 14:00 Pulse Ox 97 09/04/23 14:00 FiO2 40 09/01/23 22:05 Intake & Output 09/03/23 09/04/23 09/04/23 18:59 06:59 18:59 Intake Total 1271.649 312 304 Output Total 1818 214 2987 Balance 61.649 -523 -721 Weight 79 kg Intake: IV 266 252 104 0.9 200 Sodium Chloride 0.9% 1, 180 80 000 ml @ 20 mls/hr IV . Q24H [facility] Rx#:[id number] pressure bag 66 72 24 Intake, IV Titration 146.649 60 Amount Insulin Regular 100 unit 6.649 In Sodium Chloride 0.9% 100 ml @ Per Protocol IV .Q0M [facility] Rx#:[id number] Sodium Chloride 0.9% 1, 140 60 000 ml @ 20 mls/hr IV . Q24H [facility] Rx#:[id number] Oral 480 200 Blood Product 279 Rc Pheresis As-3 Unit 279 [id number] Other 100 Rc Pheresis As-3 Unit 100 [id number] Output: Chest Tube Drainage 60 275 LP 60 275 MS 0 Urine 0350 617 6417 Other: Voiding Method Indwelling Catheter Urinal Urinal # Voids 1 ABP, PAP, CO, CI - Last Documented Arterial Blood Pressure 116/54 Pulmonary Artery Pressure 29/12 Cardiac Output 4.9 Cardiac Index 2.6 - Labs CBC & Chem 7: 09/04/23 04:15 09/04/23 04:15 Labs: Abnormal Lab Results - Last 24 Hours (Table) 09/03/23 09/03/23 09/03/23 Range/Units 16:05 16:18 19:59 WBC 11.0 H (3.8-10.6) k/uL RBC 2.44 L (4.30-5.90) m/uL Hgb 7.9 L (13.0-17.5) gm/dL Hct 22.7 L (39.0-53.0) % Plt Count 67 L (150-450) k/uL Neutrophils # (1.3-7.7) k/uL Sodium (137-145) mmol/L Carbon Dioxide (22-30) mmol/L Glucose (74-99) mg/dL POC Glucose (mg/dL) 129 H 146 H (70-110) mg/dL AST (17-59) U/L ALT (4-49) U/L Total Protein (6.3-8.2) g/dL Albumin (3.5-5.0) g/dL 09/04/23 09/04/23 09/04/23 Range/Units 04:15 04:15 06:39 WBC 11.0 H (3.8-10.6) k/uL RBC 2.62 L (4.30-5.90) m/uL Hgb 8.4 L (13.0-17.5) gm/dL Hct 24.4 L (39.0-53.0) % Plt Count 89 L (150-450) k/uL Neutrophils # 9.4 H (1.3-7.7) k/uL Sodium 131 L (137-145) mmol/L Carbon Dioxide 19 L (22-30) mmol/L Glucose 139 H (74-99) mg/dL POC Glucose (mg/dL) 136 H (70-110) mg/dL AST 210 H (17-59) U/L ALT 257 H (4-49) U/L Total Protein 5.1 L (6.3-8.2) g/dL Albumin 3.4 L (3.5-5.0) g/dL 09/04/23 Range/Units 12:14 WBC (3.8-10.6) k/uL RBC (4.30-5.90) m/uL Hgb (13.0-17.5) gm/dL Hct (39.0-53.0) % Plt Count (150-450) k/uL Neutrophils # (1.3-7.7) k/uL Sodium (137-145) mmol/L Carbon Dioxide (22-30) mmol/L Glucose (74-99) mg/dL POC Glucose (mg/dL) 126 H (70-110) mg/dL AST (17-59) U/L ALT (4-49) U/L Total Protein (6.3-8.2) g/dL Albumin (3.5-5.0) g/dL
[2023-09-04 16:13] LABS: Glucose,Whole Blood 112 mg/dL (70-110)
[2023-09-04 20:12] LABS: Glucose,Whole Blood 136 mg/dL (70-110)
[2023-09-04] MEDS: SENNOSIDES-DOCUSATE SODIUM 1 EACH TAB PO SCH (21:52)
--- NOTE | 2023-09-05 01:20 | PN ---
PROGRESS NOTE SUBJECTIVE: Mr. Pimentel underwent aortocoronary bypass surgery. He is doing very well. While his chest tubes have been taken out. he has been maintaining sinus rhythm, hemodynamically stable, doing well on incentive spirometry. OBJECTIVE: VITALS: Stable. NECK: JVD is not evident. HEART: S1, S2 heard normally. LUNGS: Revealed decent air entry ABDOMEN: Unremarkable. EXTREMITIES: Lower extremity exam unremarkable. PLAN: To continue current medications, increase activity, and move him to telemetry. MMODL / IJN: [id number] /
[2023-09-05] MEDS: ACETAMINOPHEN TAB 325 MG TAB PO PRN ×2 (04:03→08:21)
[2023-09-05 06:08] LABS: Glucose,Whole Blood 137 mg/dL (70-110)
[2023-09-05] MEDS: INSULIN ASPART (NovoLOG) 100 UNIT/ML VIAL SQ SCH ×2 (06:40→12:19)
[2023-09-05 06:44] VITALS: TEMP 97.9
[2023-09-05] MEDS: MIDODRINE 5 MG TAB PO SCH ×2 (06:56→12:23)
[2023-09-05] MEDS: LEVOTHYROXINE 50 MCG TAB PO SCH (08:18)
[2023-09-05] MEDS: polyethylene glycoL 3350 17 GM POWD.PACK PO SCH (08:18)
[2023-09-05] MEDS: ASPIRIN 81 MG PO SCH (08:18)
[2023-09-05] MEDS: CLOPIDOGREL 75 MG TAB PO SCH (08:18)
[2023-09-05] MEDS: METOPROLOL TARTRATE 25 MG TAB PO SCH (08:18)
[2023-09-05] MEDS: CHOLECALCIFEROL 25 MCG (1000 IU) TABLET PO SCH (08:18)
[2023-09-05] MEDS: methocarbamoL 500 MG TAB PO SCH ×2 (08:19→12:22)
[2023-09-05] MEDS: FONDAPARINUX 2.5 MG/0.5 ML SYRINGE SQ SCH (08:19)
--- NOTE | 2023-09-05 08:31 | XR ---
EXAMINATION TYPE: XR chest 2V DATE OF EXAM: 09/05/2023 6:25 AM CLINICAL INDICATION:Male, 67 years old with history of post cardiac surgery; COMPARISON: Chest radiograph from one day prior. TECHNIQUE: XR chest 2V Frontal and lateral views of the chest. FINDINGS: Lungs/Pleura: Again of the left costophrenic angle. There is no evidence of right pleural effusion, f ocal consolidation, or pneumothorax. Pulmonary vascularity: Unremarkable. Heart/mediastinum: Cardiomediastinal silhouette is unremarkable. Musculoskeletal: No acute osseous pathology. Midline sternotomy wires are noted. Other findings: None Lines/Tubes: Removal left thoracotomy tube without appreciable pneumothorax. IMPRESSION: 1. Stable exam with small left pleural effusion. 2. Left thoracotomy tube removed no large pneumothorax identified.
[2023-09-05 08:49] VITALS: RESP 16
[2023-09-05] MEDS: IPRATROPIUM-ALBUTEROL 3 ML NEB INHALATION SCH ×3 (09:17→15:48)
[2023-09-05 09:40] LABS: HCT 23.3 % (39.0-53.0); MCH 32.8 pg (25.0-35.0); MCHC 34.6 g/dL (31.0-37.0); MCV 94.8 fL (80.0-100.0); Mean Platelet Volume 10.7; Platelet Count 116 k/uL (150-450); RBC 2.45 m/uL (4.30-5.90); WBC 8.5 k/uL (3.8-10.6)
[2023-09-05 10:02] LABS: ALT 250 U/L (4-49); AST 132 U/L (17-59); African American GFR (CKD) >90 (>60 ml/min/1.73 sqM); Albumin 2.8 g/dL (3.5-5.0); Alkaline Phosphatase 86 U/L (38-126); Anion Gap 8 mmol/L; Blood Urea Nitrogen 18 mg/dL (9-20); Calcium 8.4 mg/dL (8.4-10.2); Carbon Dioxide 23 mmol/L (22-30); Chloride 105 mmol/L (98-107); Glucose 101 mg/dL (74-99); Non-African American GFR(CKD) >90 (>60 ml/min/1.73 sqM); Potassium 3.9 mmol/L (3.5-5.1); Sodium 136 mmol/L (137-145); Total Bilirubin 0.9 mg/dL (0.2-1.3); Total Protein 4.7 g/dL (6.3-8.2)
--- NOTE | 2023-09-05 11:04 | PN ---
PROGRESS NOTE SUBJECTIVE: Mr. Pimentel underwent aortocoronary bypass surgery successfully. He is doing well, he is ambulating without symptoms. OBJECTIVE: VITAL SIGNS: Stable. HEART: S1 and S2 heard normally. LUNGS: Clear. ABDOMEN: Unchanged. EXTREMITIES: Lower extremity unchanged. PLAN: Plan is to increase activity, discharge him today and he will see Dr. Cesar in 2 weeks for a followup postop visit. MMODL / IJN: [id number] /
[2023-09-05 11:40] LABS: Glucose,Whole Blood 127 mg/dL (70-110)
[2023-09-05 12:38] VITALS: BP 94/60
--- NOTE | 2023-09-05 13:33 | P.PN ---
Subjective Progress Note Date: 09/05/23 No new complaints today, pt is medically cleared for discharge, awaiting dispo per primary CT team Vital signs reviewed General: nontoxic, no distress, appears at stated age Cardiovascular: S1S2 reg, no murmur, positive posterior tibial pulse bilateral, Lungs: CTA bilateral, no rhonchi, no rales , no accessory muscle use Neuro: CN II-XI grossly intact, no focal neuro deficits Psych: Alert, oriented, appropriate affect Hospital course: Patient is a 67-year-old male with coronary artery disease, hypertension, and hypothyroidism who presented for four-vessel bypass surgery. Patient had an ST segment elevated myocardial infarction on 07/18/23 and underwent successful stenting of the RCA with noted disease in the LAD. He was subsequently referred for revascularization. Assessment/Plan: 67-year-old male status post four-vessel bypass CAD Hypertension Dyslipidemia -Aspirin 325 mg daily, Plavix 75 mg oral daily, Midodrine 5 mg 3 times daily. -Lopressor 12.5 mg twice daily -Cardiology note reviewed: Continue current medical treatment -CT surgery note reviewed 09/04. Increase BB, hold statin, continue Midrin -pulmonary note reviewed 09/04: IS while awake. Prediabetes -A1c 6.1 on 08/25/23 -It has been 48 hours and insulin drip has been on and off multiple times of the day yesterday. Discontinue insulin drip. Start sliding scale insulin, NovoLog 2 units with lunch and dinner was canceled, Continue to follow blood sugars -Patient may require low-dose medications for his prediabetes on discharge depending on how his blood sugars run over the next several days. - Case discussed with Yuliet mcclain, nurse practitioner cardiothoracic with plan for blood sugar management. Acute Blood loss anemia and thrombocytopenia, anticipated outcome of surgery - 1 unit pRBC on 09/01, 1 unit of packed red blood cells on 09/03 - repeat CBC in AM -HIT antibody was 0.084, negative -Continue fondaparinux Transaminitis - suspect due tp hypoperfusion - repeat in AM Hypothyroidism -Synthroid 50 g daily Objective - Vital Signs Vital signs: Vital Signs Temp 97.9 F 09/05/23 04:00 Pulse 72 09/05/23 12:00 Resp 16 09/05/23 12:00 BP 94/60 09/05/23 12:00 Pulse Ox 97 09/05/23 12:00 FiO2 40 09/01/23 22:05 Intake & Output 09/04/23 09/05/23 09/05/23 18:59 06:59 18:59 Intake Total 304 110 Output Total 1720 Balance -1416 110 Weight 76.2 kg Intake: IV 104 Sodium Chloride 0.9% 1, 80 000 ml @ 20 mls/hr IV . Q24H [facility] Rx#:[id number] pressure bag 24 Oral 200 110 Output: Urine 1720 Other: Voiding Method Urinal Urinal Urinal # Voids 2 1 # Bowel Movements 1 1 ABP, PAP, CO, CI - Last Documented Arterial Blood Pressure 116/54 Pulmonary Artery Pressure 29/12 Cardiac Output 4.9 Cardiac Index 2.6 - Labs CBC & Chem 7: 09/05/23 08:03 09/05/23 08:03 Labs: Abnormal Lab Results - Last 24 Hours (Table) 09/04/23 09/04/23 09/05/23 Range/Units 16:11 20:02 05:54 RBC (4.30-5.90) m/uL Hgb (13.0-17.5) gm/dL Hct (39.0-53.0) % Plt Count (150-450) k/uL Sodium (137-145) mmol/L Glucose (74-99) mg/dL POC Glucose (mg/dL) 112 H 136 H 137 H (70-110) mg/dL AST (17-59) U/L ALT (4-49) U/L Total Protein (6.3-8.2) g/dL Albumin (3.5-5.0) g/dL 09/05/23 09/05/23 09/05/23 Range/Units 08:03 08:03 11:35 RBC 2.45 L (4.30-5.90) m/uL Hgb 8.0 L (13.0-17.5) gm/dL Hct 23.3 L (39.0-53.0) % Plt Count 116 L (150-450) k/uL Sodium 136 L (137-145) mmol/L Glucose 101 H (74-99) mg/dL POC Glucose (mg/dL) 127 H (70-110) mg/dL AST 132 H (17-59) U/L ALT 250 H (4-49) U/L Total Protein 4.7 L (6.3-8.2) g/dL Albumin 2.8 L (3.5-5.0) g/dL
--- NOTE | 2023-09-05 15:06 | P.PN ---
Subjective Progress Note Date: 09/05/23 Principal diagnosis: CABG. I am seeing this patient in consultation today 09/02/2023 in the intensive care unit following a planned on pump four-vessel CABG. Patient is a 67-year-old male with past medical history significant for coronary artery disease and myocardial infarction, hyperlipidemia, hypothyroidism, and is a former tobacco smoker. As stated above, the patient had a recent ST elevation [place] on July 18, he did undergo heart catheterization and received 2 stents to the RCA. He was found to have significant disease of the left circumflex and LAD. He did undergo preoperative workup for a planned CABG. Patient has a significant smoking history, but quit over 10 years ago. Bedside spirometry during his recent admission showed FEV1 of 2.57 L or 85% predicted. Yesterday, the patient did undergo a CABG 4 with a MAHONEY graft to the LAD, left radial to the OM 1, reverse SVG to the RCA and a reverse SVG to the OM 2. There was also exclusion of left atrial appendage. No immediate perioperative complications reported. Patient had excellent weaning parameters, and ABGs on pressure support of 5 showed a pO2 of 156, pCO2 42, pH of 7.33. This was done on FiO2 of 40%. He was awake and following commands. Patient was extubated successfully to 3 L/m nasal cannula. Patient was hypotensive following the procedure and required low-dose norepinephrine which is currently infusing at 0.06 mcg/kg/m. Heart rhythm appears normal sinus on bedside monitor with a rate of 72 bpm. Cardiac output and index are adequate at 4.3 and 2.3 L respectively. PA pressures currently 25/12. There is acute blood loss anemia, an expected outcome of this procedure. Hemoglobin was 6.6 following the procedure, the patient received 1 unit PRBC, and is currently up to 7.2 g/dL. Patient has 2 mediastinal chest tubes Y-d together with approximately 400 ML's of serosanguineous output and a left pleural chest tube with approximately 450 ML's of serosanguineous output. No apparent air leak. Postoperative chest x-ray demonstrates, no pneumothoraces or suspicious cardiopulmonary process. There is a right IJ PA catheter in place. Most recent CBC postoperatively shows a WBC count 8.5, hemoglobin up to 7.2 g/dL, hematocrit 21.2, platelets 76,000. Coagulation profile shows INR of 1.5 and a PTT of 42. Postoperative BMP includes a sodium 141, potassium 4.5, chloride 111, serum bicarb 21, BUN 18, creatinine 0.75, glucose 96. Insulin is infusing at 1 unit per hour. Normal saline is infusing at 50 ML's per hour. Urine output has been adequate in the order of 50-100 ML's per hour. Pain is reportedly well controlled. Patient is currently sitting up in bed, on 3 L per minute nasal cannula, in no acute distress. He will be monitored in the intensive care unit. The patient is seen today 09/03/2023 in follow-up in the intensive care unit. Postoperative day #2. He is awake and alert in no acute distress. Sitting up in a chair at the bedside. He is maintaining good O2 saturations in the 90s on room air. He has normal saline at 50 MLS per hour. Mediastinal and left pleural chest tubes remain in place to wall suction. No air leaks noted. Mediastinal chest tube with 90 mL serosanguineous overnight, left pleural chest tube with 80 mL serosanguineous drainage overnight. Chest x-ray reveals stable support tubes. No pneumothorax. Trace bilateral pleural effusions. The patient continues to work well with his incentive spirometer. A/V epicardial pacer wir es remain in place. Connected to the generator. Backup rate of 50 bpm. White count 10.1. Hemoglobin 6.8. Platelets 67,000. Sodium 132. Potassium 3.8. Bicarb 21. BUN 19. Creatinine 0.81. Glucose 113. AST 119. ALT 106. He is to receive a unit of packed blood cells today. Continued on bronchodilators. Pain is currently well controlled. The patient is seen today 09/04/2023 in follow-up in the intensive care unit. He is currently sitting up in a chair. Awake and alert in no acute distress. He had some episodes of confusion last evening. Alert and oriented this morning. White count 11.0. Hemoglobin 8.4. Platelets 89,000. Sodium 131. Potassium 4.5. Bicarb 19. BUN 20. Creatinine 0.80. AST 210. ALT 257. He remains on bronchodilators. Working well with the incentive spirometer. Arixtra for anticoagulation. 6 reveals post median sternotomy changes. Left chest tube with bilateral consolidation and small effusion. No pneumothorax. Progress note dated 09/05/2023. The patient was seen today in room 382. Yesterday, she was in the intensive care unit. Clinically, the patient's doing much better. The patient's on room air. The patient is not receiving any IV fluids. He states that he feeling very well. Labs today include a white count 8.5, hemoglobin 8, hematocrit 23.3, and platelet count 116,000. Sodium 136, potassium 3.9, chlorides 105, CO2 23, BUN 18, and creatinine 0.75. AST is 132. ALT is 250. Albumin is 2.8. The chest x-ray shows no evidence of pneumothorax, and a very small left-sided lateral effusion. Objective - Vital Signs Vital signs: Vital Signs Temp 97.9 F 09/05/23 04:00 Pulse 72 09/05/23 12:00 Resp 16 09/05/23 12:00 BP 94/60 09/05/23 12:00 Pulse Ox 97 09/05/23 12:00 FiO2 40 09/01/23 22:05 Intake & Output 09/04/23 09/05/23 09/05/23 18:59 06:59 18:59 Intake Total 304 110 Output Total 1720 Balance -1416 110 Weight 76.2 kg Intake: IV 104 Sodium Chloride 0.9% 1, 80 000 ml @ 20 mls/hr IV . Q24H [facility] Rx#:[id number] pressure bag 24 Oral 200 110 Output: Urine 1720 Other: Voiding Method Urinal Urinal Urinal # Voids 2 1 # Bowel Movements 1 1 ABP, PAP, CO, CI - Last Documented Arterial Blood Pressure 116/54 Pulmonary Artery Pressure 29/12 Cardiac Output 4.9 Cardiac Index 2.6 - Exam No acute distress, oriented 3. HEENT examination is grossly unremarkable. Mucous membranes are moist. No oral lesions. Neck supple. Full range of motion. No adenopathy thyromegaly or neck vein distention. Cardiovascular examination reveals regular rhythm rate. S1-S2 normal. No S3 or S4. No discernible murmur noted. Heart rate is 72 bpm. Lungs reveal clear breath sounds. Breath sounds are equal bilaterally. No adventitious lung sounds including wheezes rhonchi or crackles. Room air saturation is 97%. Abdomen soft bowel sounds are heard. No masses or tenderness. Extremities are intact. No cyanosis clubbing or edema. Skin is without rash or lesion. Neurologic examination is brief but nonfocal. - Labs CBC & Chem 7: 09/05/23 08:03 09/05/23 08:03 Labs: Abnormal Lab Results - Last 24 Hours (Table) 09/04/23 09/04/23 09/05/23 Range/Units 16:11 20:02 05:54 RBC (4.30-5.90) m/uL Hgb (13.0-17.5) gm/dL Hct (39.0-53.0) % Plt Count (150-450) k/uL Sodium (137-145) mmol/L Glucose (74-99) mg/dL POC Glucose (mg/dL) 112 H 136 H 137 H (70-110) mg/dL AST (17-59) U/L ALT (4-49) U/L Total Protein (6.3-8.2) g/dL Albumin (3.5-5.0) g/dL 09/05/23 09/05/23 09/05/23 Range/Units 08:03 08:03 11:35 RBC 2.45 L (4.30-5.90) m/uL Hgb 8.0 L (13.0-17.5) gm/dL Hct 23.3 L (39.0-53.0) % Plt Count 116 L (150-450) k/uL Sodium 136 L (137-145) mmol/L Glucose 101 H (74-99) mg/dL POC Glucose (mg/dL) 127 H (70-110) mg/dL AST 132 H (17-59) U/L ALT 250 H (4-49) U/L Total Protein 4.7 L (6.3-8.2) g/dL Albumin 2.8 L (3.5-5.0) g/dL Assessment and Plan Assessment: Coronary artery disease status postoperative day #4, following coronary artery bypass grafting 4 including a MAHONEY to the LAD, left radial to the OM1, reverse SVG to RCA, and reverse SVG to the OM 2. Exclusion of the left atrial appendage. Routine postoperative mechanical ventilator management, successfully extubated to 3 L/m nasal cannula improved and on room air. Hypotension, requiring low-dose vasopressors, improved and weaned off. Acute blood loss anemia, and expected outcome of the procedure, status post 2 units PRBC transfusion. Thrombocytopenia. Recent history of ST elevation myocardial infarction on 07/18/2023, status post stents to the RCA 2. Hyperlipidemia. Hypothyroidism. Former tobacco smoker. Plan: Plan dated 09/05/2023. The patient is doing very well. He is currently on room air. The patient is not receiving any IV fluids. He is not sure when he will be discharged. Labs, x-rays, and medications are reviewed. I encouraged him to continue to use the incentive spirometer, every hour while awake. In addition, asked him to please take the incentive spirometer home with him, and use it when he is at home. Labs, x-rays, and medications are reviewed. Prognosis is thought to be generally good. Time with Patient: Less than 30
[2023-09-05 16:15] VITALS: PULSE 66
--- NOTE | 2023-09-05 16:34 | P.DS ---
Providers Date of admission: 09/01/23 05:35 Expected date of discharge: 09/05/23 Attending physician: Justice Pacheco Consults: 09/01/23 15:39 Consult Physician Routine Consulting Provider: Deven Sanders Consult Reason/Comments: Manager Behavioral Consult: post cardiac surgery Do you want consulting provider notified?: Yes Consult Physician Routine Consulting Provider: Cristin Hurst Consult Reason/Comments: med mgmt: [facility] patient Do you want consulting provider notified?: Yes Consult Physician Routine Consulting Provider: Vickie Nettles Consult Reason/Comments: Director Workers Compensation Consult: post cardiac surgery Do you want consulting provider notified?: Yes Primary care physician: Brijesh Wilkinson [facility] Course: FINAL DIAGNOSIS: Triple-vessel coronary artery disease status post right coronary artery stenting for inferior wall myocardial infarction, status post 4 vessel CABG History of hyperlipidemia Bilateral internal carotid artery stenosis 50-69% Hypothyroid Previous tobacco dependence, quit 12 years ago Family history of coronary artery disease Postoperative acute blood loss anemia and thrombocytopenia, expected Hypotension requiring low-dose vasopressor, currently on Midodrine PRINCIPAL PROCEDURE: 1. Quadruple coronary artery bypass grafting using the in situ left internal mammary artery to the left entered setting artery, left radial artery from the aorta to the first obtuse marginal artery, reverse saphenous vein graft from the aorta to the second obtuse marginal artery, reverse saphenous vein graft from the aorta to the right coronary artery 2. Exclusion of the left atrial appendage using a 35 mm AtriClip 3. Endoscopic harvesting of the left radial artery 4. Endoscopic harvesting of the left greater saphenous vein 5. Intraoperative graft flow measurements using the Medistim system 6. Intraoperative transesophageal echocardiogram and epi-aortic scanning HISTORY OF PRESENT ILLNESS: This is a 67-year-old gentleman who follows on an outpatient basis with Dr. Brijesh Wilkinson for his primary care and with Dr. Cesar for his cardiology care. In July 2023 the patient presented to the emergency department here at [facility] with a ST elevated myocardial infarction and subsequently underwent a heart catheterization which demonstrated multivessel coronary artery disease and underwent successful stenting of his right coronary artery by Dr. Adrian from cardiology. Due to the stenting the patient was placed on Effient and a consult was placed to Dr. Justice Pacheco from cardiothoracic surgery for further evaluation and treatment recommendations at that time in July 2023. Treatment options were discussed with the patient by Dr. Pacheco including myocardial revascularization surgery, risks and benefits of surgery were discussed including the STS risk or. Knowing and understanding the risks the patient wished to proceed with the surgical option. The patient was subsequently scheduled for elective myocardial revascularization surgery on 09/01/2023 to be performed by Dr. Justice Pacheco. HOSPITAL COURSE: The patient was brought to the hospital on 09/01/2023, and after obtaining consent he was taken to the preoperative area, prepared in the usual fashion and subsequently taken to the operating room where Dr. Justice Pacheco performed a quadruple coronary artery bypass grafting using the in situ left internal mammary artery to left anterior descending coronary artery, left radial artery from the aorta to the first obtuse marginal coronary artery, a reverse saphenous vein graft from the aorta to the second obtuse marginal coronary artery, and a reverse saphenous vein graft from the aorta to the right coronary artery. Upon completion of the surgery the patient was transferred to the cardiovascular intensive care unit where he was recovered and monitored hemodynamically. He was subsequently extubated, all lines, tubes and supportive drips were discontinued when appropriate and he was transferred to the third floor cardiac stepdown unit for further monitoring and rehabilitation. His oxygen was titrated down, he continued to work with physical and occupational therapy, he was tolerating an oral diet, his pain was well-controlled and he was ready to be discharged home with [facility] care on postoperative day #4. He has received written and verbal instructions regarding his medications, activity restrictions, signs and symptoms requiring physician notification and his follow-up appointments. Plan - Discharge Summary Discharge Rx Participant: No New Discharge Prescriptions: New metFORMIN HCL [Glucophage] 500 mg PO BID #60 tab Metoprolol Tartrate [Lopressor] 25 mg PO BID #60 tab Midodrine [ProAmatine] 5 mg PO AC-TID #90 tab Sennosides-Docusate Sodium [Senokot-S] 2 each PO HS #14 tab Clopidogrel [Plavix] 75 mg PO DAILY #30 tab Pantoprazole [Protonix] 40 mg PO AC-BRKFST #30 tab Continue Fluticasone Nasal [place] [Flonase Nasal [place]] 2 spr EA NOSTRIL DAILY PRN PRN Reason: Congestion Aspirin 81 mg PO DAILY #30 tab Acetaminophen Tab [Tylenol] 650 mg PO Q6HR PRN tab PRN Reason: Fever And/ Or Pain Levothyroxine Sodium [Synthroid] 50 mcg PO QAM Atorvastatin [Lipitor] 80 mg PO DAILY #30 tab Ibuprofen [Advil] 600 - 800 mg PO Q6H PRN PRN Reason: Pain Cholecalciferol [Vitamin D3 (25 Mcg = 1000 Iu)] 125 mcg PO DAILY Discontinued Nitroglycerin Sl Tabs [Nitrostat] 0.4 mg SUBLINGUAL Q5M PRN #15 tab PRN Reason: Chest Pain Prasugrel [Effient] 10 mg PO DAILY #30 tab Discharge Medication List Fluticasone Nasal [place] [Flonase Nasal [place]] 2 spr EA NOSTRIL DAILY PRN 07/18/23 [History] Levothyroxine Sodium [Synthroid] 50 mcg PO QAM 07/18/23 [History] Acetaminophen Tab [Tylenol] 650 mg PO Q6HR PRN tab 07/21/23 [Rx] Aspirin 81 mg PO DAILY #30 tab 07/21/23 [Rx] Atorvastatin [Lipitor] 80 mg PO DAILY #30 tab 07/21/23 [Rx] Cholecalciferol [Vitamin D3 (25 Mcg = 1000 Iu)] 125 mcg PO DAILY 08/29/23 [History] Ibuprofen [Advil] 600 - 800 mg PO Q6H PRN 08/29/23 [History] Clopidogrel [Plavix] 75 mg PO DAILY #30 tab 09/05/23 [Rx] Metoprolol Tartrate [Lopressor] 25 mg PO BID #60 tab 09/05/23 [Rx] Midodrine [ProAmatine] 5 mg PO AC-TID #90 tab 09/05/23 [Rx] Pantoprazole [Protonix] 40 mg PO AC-BRKFST #30 tab 09/05/23 [Rx] Sennosides-Docusate Sodium [Senokot-S] 2 each PO HS #14 tab 09/05/23 [Rx] metFORMIN HCL [Glucophage] 500 mg PO BID #60 tab 09/05/23 [Rx] Follow up Appointment(s)/Referral(s): Maicol Cesar MD [Medical Doctor] - 09/16/23 1:45 pm [facility]Card[facility] [NON-STAFF] - 4 Weeks (You will receive a phone call in approximately 4-6 weeks for evaluation for cardiac rehab) [facility] - 1 Week ([facility] will call you to arrange a visit) Justice Pacheco MD [STAFF PHYSICIAN] - 09/25/23 10:00 am Nael Matos NPC [Nurse Practitioner] - 09/11/23 11:00 am Deven Sanders DO [Doctor of Osteopathic Medicine] - 2 Weeks Ambulatory/Diagnostic Orders: Complete Blood Count w/diff [LAB.AMB] Time Frame: 09/09/23, Facility: [facility], Location: Laboratory [facility] Comprehensive Metabolic Panel [LAB.AMB] Time Frame: 09/09/23, Facility: [facility], Location: Laboratory [facility] Activity/Diet/Wound Care/Special Instructions: DISCHARGE INSTRUCTIONS: 1. No driving for 4 weeks, or until physician gives their ok. 2. The patient should sleep in their own bed, no medical bed needed. 3. Stairs are not an issue. If the bedroom is upstairs, it is advised that the patient go up at night and down in the morning for the first week. Go slowly, using handrail and take 1 step at a time. 4. TORRIE hose are to be worn for 30 days post surgery or until physician disconti nues. 5. Heart hugger is to be worn 100% of the time until physician discontinues.(except when showering) 6. No lifting, pushing, or pulling more than 10 pounds for 12 weeks. The physician will advise of any restriction changes. 7. The patient is expected to continue the prescribed walking program. 8. Continue pain control per as needed orders. 9. Continue with incentive spirometry and splinting/heart hugger until otherwise directed by the physician. 10. Must shower daily using liquid antibacterial soap 11. Routine sternal incision care. No powders, lotions, ointments on incisions. No dressings are necessary on incisions unless they are draining. Dermabond tape is to remain on sternal incision until surgeon follow-up. 12. Please call surgeon/TRACK LAYING MACHINE OPERATOR for temp greater than 101 F or purulent drainage from incisions. 13. You should weigh yourself daily, record and bring log with you to follow up appointments. 14. All prescriptions given by surgeon for 30 days. Refills need to be filled through mat cutter/primary care physician. 15. A Red armband has been placed on the patient. It should be worn for 30 days post discharge from surgery and will be removed by the cardiac surgeons. If an ER visit is necessary, please make sure the number on the Red armband is called before going to ER. 16. You have been referred to and are expected to begin Cardiac Rehab in a pproximately 4-6 weeks. 17. Quitting smoking is the most important step you can take to improve your health. For additional information and assistance to quit smoking, please call the [place] tobacco quit line (8-434-EOBL-NOW/ ) or online: [email or web address] 18. Please take your blood pressure 2 times per day and keep a log of your blood pressures and bring them with you to your follow-up appointments. HOME HEALTH SERVICES TO PROVIDE: RN SKILLED HOME CARE SERVICES FOR POST-OP SURGICAL PATIENTS WITH THE FOLLOWING: Coronary Artery Bypass Surgery (CABG), Mitral Valve Replacement/Repair ( MVR), Aortic Valve Replacement/Repair (AVR) RN TO CONTINUE EDUCATION FROM ``ROAD TO A HEALTH HEART PATIENT EDUCATION MANUAL (GIVEN TO PATIENT IN THE HOSPITAL) MEDICATION RECONCILIATION WITH EDUCATION NEEDED ON FIRST HOME VISIT EMPHASIZE IMPORTANCE OF WEARING BREAST SUPPORT/HEART HUGGER ENCOURAGE USE OF INCENTIVE SPIROMETER 10 X EVERY HOUR WHILE AWAKE ENCOURAGE UTILIZATION OF LOWER EXTREMITY COMPRESSION STOCKINGS/TORRIE HOSE and ELEVATE LEGS ABOVE LEVEL OF HEART WHILE AT REST. ENCOURAGE AMBULATION 3-5x/day INCREASING TOLERATES, WHILE AVOIDING EXTREMES IN TEMPERATURE FREQUENCY: RN TO OPEN THE PATIENT WITHIN 24 HOURS OF DISCHARGE FROM THE HOSPITAL WITH TELEHEALTH INSTALLED AT [facility], RN TO VISIT 2-3 X A WEEK FOR 4 WEEKS ESTABLISHED BY PATIENT NEEDS. LABORATORY: CBC, CMP TO BE DRAWN ON THE THIRD DAY HOME, (RAN STAT) FAX RESULTS TO [phone]. TELEHEALTH PARAMETERS: WEIGHT: NOTIFY MD OF WEIGHT GAIN OF 2 LBS IN 24 HOURS OR 5 LBS IN ONE WEEK HR: NOTIFY MD OF HR <55 BPM OR HR>100 BPM BP: NOTIFY MD IF BP <90/55 OR BP>140/100 O2 SAT: NOTIFY MD IF PO2<93% ON ROOM AIR SEND TELEHEALTH REPORT TO JET DYEING MACHINE OPERATOR AND CARDIOVASCULAR SURGEON THE FIRST WEEK OF CARE AND THEN BI-WEEKLY. PLEASE ADDITIONALLY COMMUNICATE ANY ABNORMALS AND NEW FINDINGS TO THE SURGEONS OFFICE. Discharge Disposition: HOME WITH HOME HEALTH SERVICES
== END 2023-09-05 16:50 | disposition home health service (06) | DRG 236 ==
LOC: 2ORMAIN 05:35 → 2SICU 11:47 → 3SCARD 09-04 17:59
PROVIDERS: ADMIT Surgery; ATTEND Surgery
PROC: 02100Z9 Bypass Coronary Artery, One Artery from Left Internal Mammary, Open Approach (ICD-10-PCS; principal; 2023-09-01 08:00)
PROC: B246ZZ4 Ultrasonography of Right and Left Heart, Transesophageal (ICD-10-PCS; principal; 2023-09-01 08:00)
PROC: 4A133J1 Monitoring of Arterial Pulse, Peripheral, Percutaneous Approach (ICD-10-PCS; principal; 2023-09-01 08:00)
PROC: 021209W Bypass Coronary Artery, Three Arteries from Aorta with Autologous Venous Tissue, Open Approach (ICD-10-PCS; principal; 2023-09-01 08:00)
PROC: 03BC4ZZ Excision of Left Radial Artery, Percutaneous Endoscopic Approach (ICD-10-PCS; principal; 2023-09-01 08:00)
PROC: 4A133B1 Monitoring of Arterial Pressure, Peripheral, Percutaneous Approach (ICD-10-PCS; principal; 2023-09-01 08:00)
PROC: 02HV33Z Insertion of Infusion Device into Superior Vena Cava, Percutaneous Approach (ICD-10-PCS; principal; 2023-09-01 08:00)
PROC: 02L70CK Occlusion of Left Atrial Appendage with Extraluminal Device, Open Approach (ICD-10-PCS; principal; 2023-09-01 08:00)
PROC: 06BQ4ZZ Excision of Left Saphenous Vein, Percutaneous Endoscopic Approach (ICD-10-PCS; principal; 2023-09-01 08:00)
PROC: 03HY32Z Insertion of Monitoring Device into Upper Artery, Percutaneous Approach (ICD-10-PCS; principal; 2023-09-01 08:00)
PROC: 5A1221Z Performance of Cardiac Output, Continuous (ICD-10-PCS; principal; 2023-09-01 08:00)
DX: I25.10 Atherosclerotic heart disease of native coronary artery without angina pectoris (principal); D62 Acute posthemorrhagic anemia; E03.9 Hypothyroidism, unspecified; Z79.890 Hormone replacement therapy; I25.2 Old myocardial infarction; Z82.49 Family history of ischemic heart disease and other diseases of the circulatory system; E78.5 Hyperlipidemia, unspecified; D69.6 Thrombocytopenia, unspecified; R73.03 Prediabetes; I10 Essential (primary) hypertension; Z87.891 Personal history of nicotine dependence; I95.89 Other hypotension; Z79.02 Long term (current) use of antithrombotics/antiplatelets; Z79.82 Long term (current) use of aspirin; I95.81 Postprocedural hypotension; I65.23 Occlusion and stenosis of bilateral carotid arteries; Z79.899 Other long term (current) drug therapy; Z87.442 Personal history of urinary calculi
CPT/HCPCS: 71045; 71046; 80053; 82330; 82805; 83036; 83735; 85025; 85027; 85610; 85730; 86022; 86850; 86891; 86900; 86901; 86920; 94002; 94640

== ENCOUNTER → 2024-02-23 | Outpatient (CLI) | payer MEDICARE, BC ==
--- NOTE | 2024-02-23 11:50 | XR ---
EXAMINATION TYPE: XR chest 2V DATE OF EXAM: 02/23/2024 COMPARISON: 09/05/2023 TECHNIQUE: PA and lateral views submitted. HISTORY: Cough postmedian sternotomy changes. Hyperexpansion suggestive of COPD. Atrial appendage cli p is noted. FINDINGS: The lungs are clear and there is no pneumothorax, pleural effusion, or focal pneumonia. Heart size normal and no overt failure. Osseous structures demonstrate hypertrophic and degenerative changes of the spine. Atherosclerosis of the aorta. IMPRESSION: 1. No acute process.
== END | disposition home or self-care (01) ==
LOC: RADXRYALE 11:24
PROVIDERS: ATTEND Family Medicine
DX: R06.02 Shortness of breath (principal); R05.1 Acute cough; R06.2 Wheezing
CPT/HCPCS: 71046